=== PATIENT | male | born 1935 | race Caucasian/White ===

== ENCOUNTER 2017-07-22 09:41 | Day surgery (SDC) | payer MEDICARE, OTHER ==
--- NOTE | 2017-07-16 20:49 | CR ---
DATE OF CONSULTATION: 07/16/2017 REFERRING PHYSICIAN: DR. Duggan. PROPOSED PROCEDURE: Cataract extractions. Dear Dr. Duggan. Thank you for asking me to see Mr. William Dupree in consultation prior to the left eye cataract extraction 07/22/2017, at [facility] ([facility]) Mr. Dupree is, as you know, a 81-year-old gentleman with past medical history of dementia, hyperlipidemia, who reports that he has been in his usual state of good health. accompanies him with history taking. His memory is poor. He no longer does activities he enjoys such as stained glass, playing musical instruments, taking photos. He now enjoys sitting in his armchair watching TV most of the time. The patient does not disagree with this. The patient does walk in the mall with his . He denies any chest pain, palpitations, syncope or pre-syncope. He goes up and down stairs and has very little arthritic symptoms. Patient has history of seasonal allergies. They have been controlled without monophasic therapy. The patient notes multiple lesions on his back which have been felt to be benign and not pursued. He denies any significant change. Patient has history of hyperlipidemia. He takes herbal regimens for this. The patient denies any significant vision decline. He has been told that he has bilateral cataracts. Review of systems otherwise negative. PAST MEDICAL HISTORY: 1. Dementia 2. Hyperlipidemia. 3. Colonic polyps. Last colonoscopy 08/31/2013. 4. Bilateral hernia repairs 5. Hydrocele 6. Varicocele. MEDICATIONS: Patient's medications are cholesterol reduction pill daily, Herbavision daily, Viactiv 500/40 daily, ginkgo biloba daily, B complex daily, supplement daily. ALLERGIES: The patient's drug allergies are to SULFA. SOCIAL HISTORY: The patient lives with his . Used to enjoy gardening, stained glass, instruments. He is a former smoker but only a half-a-pack for five years. He never used alcohol significantly. FAMILY HISTORY: Father of congestive heart failure (CHF). Mother of old age. PHYSICAL EXAMINATION He is a thin, older male. He is slow to respond to my questioning. Appears slightly stiff and uncomfortable but in no acute distress. His vital signs are weight 185, blood pressure 122/80 heart rate 64, oxygen saturation is 96%, and body mass index (BMI) is 24. HEENT exam: Head is normocephalic. Neck is supple. Pupils equal, reactive to light. Extraocular movements are intact. There is no cervical lymphadenopathy, no thyromegaly, no carotid bruits. RESPIRATORY: He has diffuse seborrheic keratosis on his back, but his lungs are clear to auscultation, resonant to percussion. CARDIOVASCULAR: Barely audible systolic murmur, but bradycardic and regular. ABDOMEN: Normoactive bowel sounds, soft, nontender. No hepatosplenomegaly. EXTREMITIES: No arthritic changes in his fingers. DERMATOLOGIC: As above, multiple seborrheic keratoses. NEUROLOGIC: He does not participate much in conversation. His answers most questions for him. LABORATORY DATA EKG 07/15/2017: Normal sinus rhythm rate of 64, axis of minus 22 degrees. First-degree AV block, normal QRS, QTC. Normal R-wave progression, nonspecific ST-T wave flattening, unchanged from previous EKG. Laboratories done 07/24/2016, showed a normal CBC, med profile, liver panel, TSH, B12, folic acid. IMPRESSION: Mr. William Dupree is a 81-year-old gentleman with cardiovascular risk factors positive only for age, who has no signs or symptoms concerning for cardiovascular ischemia and is felt to be at low risk for cardiovascular complications from the proposed surgical intervention which can be further minimized by the followin. Dementia. His has already put his gingko biloba on hold. He will not take any of his supplements on the morning of surgery. 2. Hyperlipidemia. He is successful with diet and exercise. He will hold the supplement on morning of surgery. 3. History of colonic polyps. He refuses for the eval treatment. 4. Allergic rhinitis clinically asymptomatic. Thank you very much for this consultation. Please call with questions or concerns.
[~2017-07-22] VITALS: Ht 185.4 cm; Wt 86.2 kg
[~2017-07-22 09:41] MED LIST: CHOLCAP PO; FISH120012 PO; GINK60CA3 PO; MIDAZOLAM INJ 2 MG/2 ML VIAL (J2250) As Ordered ONE; OFLOXACIN 0.3 % (OCUFLOX) OPTH SOL 5ML OS ONE; PHENYLEPHRINE 2.5% OPHTH SOL 2ML OS ONE; PROPARACAINE 0.5% OPHTH SOL 15ML OS ONE; TROPICAMIDE 1% OPHTH SOLN 2ML OS ONE; [UNRECOGNIZED DRUG - OTHER] PO; [UNRECOGNIZED DRUG - OTHER] PO; fentaNYL 100 MCG/2 ML INJECTION (J3010) As Ordered ONE
[2017-07-22] MEDS ORDERED: LR 1,000 ML IV SCH ×2 (10:00→12:00)
[2017-07-22] MEDS ORDERED: ACETYLCHOLINE OPHTH SOLN 1% 2ML (MIOCHOL-E) As Ordered ONE (11:10)
[2017-07-22] MEDS ORDERED: POVIDONE-IODINE 5% OPHTH PREP SOL 30ML As Ordered ONE (11:10)
[2017-07-22] MEDS ORDERED: BALANCED SALT IRRIGATION SOLUTION 500ML BAG (FOR OR EYE MACHINE) As Ordered ONE (11:10)
[2017-07-22] MEDS ORDERED: CEFUROXIME 1MG/0.1ML INTRACAMERAL INJ As Ordered ONE (11:11)
[2017-07-22] MEDS ORDERED: LIDOCAINE 0.75%/EPINEPHRINE 0.025% IN BSS 1ML SYR INTRACAMERAL (OR ONLY) As Ordered ONE (11:11)
[2017-07-22] MEDS ORDERED: DUOVISC (0.50ML VISCOAT/0.55ML PROVISC) OPHTH KIT As Ordered ONE (11:11)
[2017-07-22] MEDS ORDERED: TETRACAINE 0.5% OPHTH SOLN 4ML As Ordered ONE (11:13)
[2017-07-22 12:00] VITALS: BP 114/69
[2017-07-22] MEDS ORDERED: ACETAMINOPHEN TAB 650MG DOSE (2X325MG) PO PRN (12:00)
--- NOTE | 2017-07-23 15:08 | RO ---
DATE OF PROCEDURE: 07/22/2017 PREOPERATIVE DIAGNOSIS: Visually significant nuclear sclerotic cataract left eye. POSTOPERATIVE DIAGNOSIS: Visually significant nuclear sclerotic cataract left eye. PROCEDURE: Cataract extraction with use of phacoemulsification and placement of intraocular lens, AU00T0, 20.0 diopter, left eye. SURGEON: Zane Duggan DO AIRPORT OPERATIONS DUTY MANAGER: ANESTHESIA: Local with monitored anesthesia care (MAC). COMPLICATIONS: None. POSTOPERATIVE CONDITION: Stable. INDICATION FOR SURGERY: Blurred vision left eye affecting patient's activities of daily living. DESCRIPTION OF PROCEDURE: The patient was seen in the preoperative area and properly identified. The correct operative eye was identified and marked. Attention was turned to that eye. The patient received topical antibiotics in the preoperative area. The patient then received topical dilating drops consisting of tropicamide and phenylephrine. The patient was then transferred to the operating room. The correct side was re-identified. The patient received topical anesthetics and antibiotics on the surface of the eye. The eye was prepped and draped in a sterile fashion. The upper and lower eyelids were isolated with Tegaderm tape, and the lids were held open with an adjustable speculum. Using a sideport blade, a paracentesis incision was made. Intraocular preservative-free lidocaine was then injected into the anterior chamber. Viscoelastic was then injected into the anterior chamber through the paracentesis. Using a 2.4 mm sharp-tipped keratome, the anterior chamber was entered via a temporal clear corneal incision. A continuous curvilinear capsulorrhexis was created with the aid of a 26-gauge cystotome and Utrata forceps. Hydrodissection was performed with balanced salt solution (BSS) on a blunt cannula until the nucleus was freely mobile. The crystalline lens was phacoemulsified and aspirated. Additional cohesive viscoelastic was placed into the capsular bag to deepen it. An AU00T0, 20.0 diopters lens was placed into the capsular bag and confirmed by visualizing the continuous curvilinear capsulorrhexis. Additional irrigation and aspiration was used to remove cortical material and remaining viscoelastic. The clear corneal incision was hydrated with BSS on a blunt cannula. The lens was well positioned. The incisions were then tested for leaks and found to be negative. The eye was then palpated for appropriate pressure and adjusted accordingly with BSS. The eyelid speculum was carefully removed. A shield was placed. The patient tolerated the procedure well and was discharged to the recovery unit in a stable condition. MARCIA
== END 2017-07-22 12:14 | disposition home or self-care (01) ==
LOC: M SDC 09:41
PROVIDERS: ATTEND Ophthalmology
DX: H25.12 Age-related nuclear cataract, left eye (principal); E78.5 Hyperlipidemia, unspecified; Z88.2 Allergy status to sulfonamides; Z79.899 Other long term (current) drug therapy
CPT/HCPCS: 66984; J2250; J3010; V2632

== ENCOUNTER 2017-08-05 14:09 | Day surgery (SDC) | payer MEDICARE, OTHER ==
[~2017-08-05] VITALS: Ht 185.4 cm; Wt 84.8 kg
[~2017-08-05 14:09] MED LIST changes: +LR 500 ML IV ONE; -MIDAZOLAM INJ 2 MG/2 ML VIAL (J2250) As Ordered ONE; +OFLOXACIN 0.3 % (OCUFLOX) OPTH SOL 5ML OD ONE; -OFLOXACIN 0.3 % (OCUFLOX) OPTH SOL 5ML OS ONE; +PHENYLEPHRINE 2.5% OPHTH SOL 2ML OD ONE; -PHENYLEPHRINE 2.5% OPHTH SOL 2ML OS ONE; +PROPARACAINE 0.5% OPHTH SOL 15ML OD ONE; -PROPARACAINE 0.5% OPHTH SOL 15ML OS ONE; +TROPICAMIDE 1% OPHTH SOLN 2ML OD ONE; -TROPICAMIDE 1% OPHTH SOLN 2ML OS ONE; -fentaNYL 100 MCG/2 ML INJECTION (J3010) As Ordered ONE
[2017-08-05] MEDS ORDERED: POVIDONE-IODINE 5% OPHTH PREP SOL 30ML As Ordered ONE ×2 (15:41→15:54)
[2017-08-05] MEDS ORDERED: LIDOCAINE 0.75%/EPINEPHRINE 0.025% IN BSS 1ML SYR INTRACAMERAL (OR ONLY) As Ordered ONE ×2 (15:42→15:55)
[2017-08-05] MEDS ORDERED: ACETYLCHOLINE OPHTH SOLN 1% 2ML (MIOCHOL-E) As Ordered ONE (15:42)
[2017-08-05] MEDS ORDERED: BALANCED SALT IRRIGATION SOLUTION 500ML BAG (FOR OR EYE MACHINE) As Ordered ONE (15:42)
[2017-08-05] MEDS ORDERED: DUOVISC (0.50ML VISCOAT/0.55ML PROVISC) OPHTH KIT As Ordered ONE ×2 (15:42→15:55)
[2017-08-05] MEDS ORDERED: CEFUROXIME 1MG/0.1ML INTRACAMERAL INJ As Ordered ONE ×2 (15:42→15:55)
[2017-08-05] MEDS ORDERED: MIDAZOLAM INJ 2 MG/2 ML VIAL (J2250) As Ordered ONE (15:44)
[2017-08-05] MEDS ORDERED: fentaNYL 100 MCG/2 ML INJECTION (J3010) As Ordered ONE (16:08)
[2017-08-05 17:05] VITALS: BP 120/65
--- NOTE | 2017-08-12 08:05 | RO ---
DATE OF PROCEDURE: 08/05/2017 PREOPERATIVE DIAGNOSIS: Visually significant nuclear sclerotic cataract right eye. POSTOPERATIVE DIAGNOSIS: Visually significant nuclear sclerotic cataract right eye. PROCEDURE: Cataract extraction with use of phacoemulsification and placement of intraocular lens, AU00T0, 20.0, right eye. SURGEON: Zane Duggan DO BOARDMARKER: ANESTHESIA: Local with monitored anesthesia care (MAC). COMPLICATIONS: None. POSTOPERATIVE CONDITION: Stable. INDICATION FOR SURGERY: Blurred vision right eye affecting patient's activities of daily living. DESCRIPTION OF PROCEDURE: The patient was seen in the preoperative area and properly identified. The correct operative eye was identified and marked. Attention was turned to that eye. The patient received topical antibiotics in the preoperative area. The patient then received topical dilating drops consisting of tropicamide and phenylephrine. The patient was then transferred to the operating room. The correct side was re-identified. The patient received topical anesthetics and antibiotics on the surface of the eye. The eye was prepped and draped in a sterile fashion. The upper and lower eyelids were isolated with Tegaderm tape, and the lids were held open with an adjustable speculum. Using a sideport blade, a paracentesis incision was made. Intraocular preservative-free lidocaine was then injected into the anterior chamber. Viscoelastic was then injected into the anterior chamber through the paracentesis. Using a 2.4 mm sharp-tipped keratome, the anterior chamber was entered via a temporal clear corneal incision. A continuous curvilinear capsulorrhexis was created with the aid of a 26-gauge cystotome and Utrata forceps. Hydrodissection was performed with balanced salt solution (BSS) on a blunt cannula until the nucleus was freely mobile. The crystalline lens was phacoemulsified and aspirated. Additional cohesive viscoelastic was placed into the capsular bag to deepen it. A AU00T0, 20.0 D lens was placed into the capsular bag and confirmed by visualizing the continuous curvilinear capsulorrhexis. Additional irrigation and aspiration was used to remove cortical material and remaining viscoelastic. The clear corneal incision was hydrated with BSS on a blunt cannula. The lens was well positioned. The incisions were then tested for leaks and found to be negative. The eye was then palpated for appropriate pressure and adjusted accordingly with BSS. The eyelid speculum was carefully removed. A shield was placed. The patient tolerated the procedure well and was discharged to the recovery unit in a stable condition. MARCIA
--- NOTE | 2017-08-12 16:04 | RO ---
DATE OF PROCEDURE: 08/05/2017 PREOPERATIVE DIAGNOSIS: Visually significant nuclear sclerotic cataract right eye. POSTOPERATIVE DIAGNOSIS: Visually significant nuclear sclerotic cataract right eye. PROCEDURE: Cataract extraction with use of phacoemulsification and placement of intraocular lens AU00T0, 20.0, right eye. SURGEON: Zane Duggan DO CONFERENCE TRANSLATOR: ANESTHESIA: Local with monitored anesthesia care (MAC). COMPLICATIONS: None. POSTOPERATIVE CONDITION: Stable. INDICATION FOR SURGERY: Blurred vision right eye affecting patient's activities of daily living. DESCRIPTION OF PROCEDURE: The patient was seen in the preoperative area and properly identified. The correct operative eye was identified and marked. Attention was turned to that eye. The patient received topical antibiotics in the preoperative area. The patient then received topical dilating drops consisting of tropicamide and phenylephrine. The patient was then transferred to the operating room. The correct side was re-identified. The patient received topical anesthetics and antibiotics on the surface of the eye. The eye was prepped and draped in a sterile fashion. The upper and lower eyelids were isolated with Tegaderm tape, and the lids were held open with an adjustable speculum. Using a sideport blade, a paracentesis incision was made. Intraocular preservative-free lidocaine was then injected into the anterior chamber. Viscoelastic was then injected into the anterior chamber through the paracentesis. Using a 2.4 mm sharp-tipped keratome, the anterior chamber was entered via a temporal clear corneal incision. A continuous curvilinear capsulorrhexis was created with the aid of a 26-gauge cystotome and Utrata forceps. Hydrodissection was performed with balanced salt solution (BSS) on a blunt cannula until the nucleus was freely mobile. The crystalline lens was phacoemulsified and aspirated. Additional cohesive viscoelastic was placed into the capsular bag to deepen it. An AU00T0, 20.0 lens was placed into the capsular bag and confirmed by visualizing the continuous curvilinear capsulorrhexis. Additional irrigation and aspiration was used to remove cortical material and remaining viscoelastic. The clear corneal incision was hydrated with BSS on a blunt cannula. The lens was well positioned. The incisions were then tested for leaks and found to be negative. The eye was then palpated for appropriate pressure and adjusted accordingly with BSS. The eyelid speculum was carefully removed. TobraDex ointment was placed in the eye. An eye patch and shield were then secured over the eye. The patient tolerated the procedure well and was discharged to the recovery unit in a stable condition. MARCIA
== END 2017-08-05 17:14 | disposition home or self-care (01) ==
LOC: M SDC 14:09
PROVIDERS: ATTEND Ophthalmology
DX: H25.11 Age-related nuclear cataract, right eye (principal); E78.5 Hyperlipidemia, unspecified; R41.3 Other amnesia; Z88.2 Allergy status to sulfonamides
CPT/HCPCS: 66984; J2250; J3010; V2632

== ENCOUNTER 2018-08-10 11:22 | Emergency (ER) | payer MEDICARE, OTHER | END 2018-08-10 12:48 | disposition home or self-care (01) | LOC: M ED 11:22 | DX: S70.02XA Contusion of left hip, initial encounter (principal); W01.0XXA Fall on same level from slipping, tripping and stumbling without subsequent striking against object, initial encounter; Y92.009 Unspecified place in unspecified non-institutional (private) residence as the place of occurrence of the external cause; F03.90 Unspecified dementia, unspecified severity, without behavioral disturbance, psychotic disturbance, mood disturbance, and anxiety; Z88.2 Allergy status to sulfonamides | CPT/HCPCS: 73502 ==

== ENCOUNTER 2018-08-15 05:42 | Inpatient (IN) | payer MEDICARE, OTHER ==
[2018-08-15 07:15] LABS: BASO # 0.1 10^3/uL (0.0-0.2); BASO % 0.3 % (0.0-1.0); EOS # 0.1 10^3/uL (0.0-0.50); EOS % 0.6 % (0.0-3.0); HEMATOCRIT 45.6 % (42.0-52.0); HEMOGLOBIN 15.7 g/dl (13.5-17.5); IMMATURE GRANULOCYTE % 0.5 % (0-3.0); LYMPH # 2.2 10^3/uL (1.5-4.5); LYMPH % 13.5 % (24.0-44.0); MEAN CORPUSCULAR HEMOGLOBIN 31.8 pg (27.0-33.0); MEAN CORPUSCULAR HGB CONC 34.4 g/dl (32.0-36.5); MEAN CORPUSCULAR VOLUME 92.3 fl (80.0-96.0); MONO # 1.4 10^3/uL (0.0-0.8); MONO % 8.3 % (0.0-5.0); NEUTROPHILS # 12.4 10^3/uL (1.8-7.7); NEUTROPHILS % 76.8 % (36.0-66.0); PLATELET COUNT, AUTOMATED 233 10^3/uL (150-450); RED BLOOD COUNT 4.94 10^6/uL (4.30-6.10); RED CELL DISTRIBUTION WIDTH 12.1 % (11.5-14.5); WHITE BLOOD COUNT 16.2 10^3/uL (4.0-10.0)
[2018-08-15] MEDS: NS 1,000 ML IV ×3 (07:28→13:37)
[2018-08-15 07:40] LABS: ALBUMIN 3.7 GM/DL (3.2-5.2); ALBUMIN/GLOBULIN RATIO 1.06 (1.00-1.93); ALKALINE PHOSPHATASE 83 U/L (45-117); ALT/SGPT 23 U/L (12-78); ANION GAP 6 MEQ/L (8-16); AST/SGOT 29 U/L (7-37); BILIRUBIN,DIRECT 0.3 MG/DL (0.0-0.2); BILIRUBIN,TOTAL 1.6 MG/DL (0.2-1.0); BLOOD UREA NITROGEN 25 MG/DL (7-18); CALCIUM LEVEL 8.9 MG/DL (8.8-10.2); CARBON DIOXIDE LEVEL 27 MEQ/L (21-32); CHLORIDE LEVEL 106 MEQ/L (98-107); CREATININE FOR GFR 1.24 MG/DL (0.70-1.30); FREE THYROXINE INDEX 3.9 % (1.4-3.8); GLOMERULAR FILTRATION RATE 59.7 (>35); GLUCOSE, FASTING 104 MG/DL (70-100); POTASSIUM SERUM 4.3 MEQ/L (3.5-5.1); SODIUM LEVEL 139 MEQ/L (136-145); T UPTAKE 36 % (33-40); THYROXINE (T4) 10.8 UG/DL (4.5-12.0); TOTAL PROTEIN 7.2 GM/DL (6.4-8.2)
[2018-08-15 08:43] LABS: KETONE, URINE AUTO RFX NEGATIVE (NEGATIVE); LEUKOCYTE ESTERASE UR AUTO RFX NEGATIVE (NEGATIVE); MUCUS, URINE RFX SMALL (NEGATIVE); NITRITE, URINE AUTO RFX NEGATIVE (NEGATIVE); RBC, URINE AUTO RFX 30 /HPF (0-3); SPECIFIC GRAVITY UR AUTO RFX 1.027 (1.002-1.035); SQUAM EPITHELIAL CELL UR AURFX 0 /HPF (0-6); WBC, URINE AUTO RFX 0 /HPF (0-3)
[2018-08-15] MEDS: ENOXAPARIN 40 MG/0.4 ML SYRINGE (J1650) SC (09:00)
[2018-08-15] MEDS: CIPROFLOXACIN 500 MG TAB PO (09:25)
[2018-08-15] MEDS: metroNIDAZOLE (FLAGYL) 500 MG TAB PO (09:25)
[2018-08-15] MEDS: FLEET ENEMA PR (09:29)
[2018-08-15] MEDS ORDERED: ISOVUE-370 76% 100ML VIAL (Q9967) As Ordered (13:11)
[2018-08-15] MEDS ORDERED: LORazepam 2 MG/ML VIAL (J2060) As Ordered (15:22)
[2018-08-15] MEDS: LORazepam 2 MG/ML VIAL (J2060) IV (15:25)
[2018-08-16 06:36] LABS: HEMATOCRIT 41.8 % (42.0-52.0); HEMOGLOBIN 14.5 g/dl (13.5-17.5); MEAN CORPUSCULAR HEMOGLOBIN 32.3 pg (27.0-33.0); MEAN CORPUSCULAR HGB CONC 34.7 g/dl (32.0-36.5); MEAN CORPUSCULAR VOLUME 93.1 fl (80.0-96.0); PLATELET COUNT, AUTOMATED 201 10^3/uL (150-450); RED BLOOD COUNT 4.49 10^6/uL (4.30-6.10); WHITE BLOOD COUNT 17.5 10^3/uL (4.0-10.0)
[2018-08-16 06:50] LABS: ANION GAP 5 MEQ/L (8-16); BLOOD UREA NITROGEN 15 MG/DL (7-18); CALCIUM LEVEL 8.2 MG/DL (8.8-10.2); CARBON DIOXIDE LEVEL 27 MEQ/L (21-32); CHLORIDE LEVEL 106 MEQ/L (98-107); CREATININE FOR GFR 0.86 MG/DL (0.70-1.30); GLOMERULAR FILTRATION RATE > 60.0 (>35); GLUCOSE, FASTING 102 MG/DL (70-100); POTASSIUM SERUM 4.1 MEQ/L (3.5-5.1); SODIUM LEVEL 138 MEQ/L (136-145)
[2018-08-16] MEDS: SENOKOT S TAB PO ×2 (09:00→20:40)
[2018-08-16] MEDS: TAMSULOSIN 0.4 MG CAP PO (20:40)
[2018-08-16] MEDS: FINASTERIDE 5 MG TAB PO (20:40)
[2018-08-17 06:36] LABS: HEMATOCRIT 40.4 % (42.0-52.0); HEMOGLOBIN 14.1 g/dl (13.5-17.5); MEAN CORPUSCULAR HEMOGLOBIN 32.5 pg (27.0-33.0); MEAN CORPUSCULAR HGB CONC 34.9 g/dl (32.0-36.5); MEAN CORPUSCULAR VOLUME 93.1 fl (80.0-96.0); PLATELET COUNT, AUTOMATED 190 10^3/uL (150-450); RED BLOOD COUNT 4.34 10^6/uL (4.30-6.10); RED CELL DISTRIBUTION WIDTH 11.9 % (11.5-14.5); WHITE BLOOD COUNT 12.2 10^3/uL (4.0-10.0)
[2018-08-17 06:55] LABS: ANION GAP 5 MEQ/L (8-16); BLOOD UREA NITROGEN 14 MG/DL (7-18); CALCIUM LEVEL 8.7 MG/DL (8.8-10.2); CARBON DIOXIDE LEVEL 30 MEQ/L (21-32); CHLORIDE LEVEL 106 MEQ/L (98-107); CREATININE FOR GFR 0.89 MG/DL (0.70-1.30); GLOMERULAR FILTRATION RATE > 60.0 (>35); GLUCOSE, FASTING 93 MG/DL (70-100); MAGNESIUM LEVEL 2.3 MG/DL (1.8-2.4); POTASSIUM SERUM 3.9 MEQ/L (3.5-5.1); SODIUM LEVEL 141 MEQ/L (136-145)
[2018-08-17] MEDS: SENOKOT S TAB PO ×2 (09:40→20:35)
[2018-08-17] MEDS: FINASTERIDE 5 MG TAB PO (20:35)
[2018-08-17] MEDS: TAMSULOSIN 0.4 MG CAP PO (20:35)
[2018-08-18 06:31] LABS: HEMATOCRIT 38.3 % (42.0-52.0); HEMOGLOBIN 13.7 g/dl (13.5-17.5); MEAN CORPUSCULAR HEMOGLOBIN 32.2 pg (27.0-33.0); MEAN CORPUSCULAR HGB CONC 35.8 g/dl (32.0-36.5); MEAN CORPUSCULAR VOLUME 89.9 fl (80.0-96.0); PLATELET COUNT, AUTOMATED 216 10^3/uL (150-450); RED BLOOD COUNT 4.26 10^6/uL (4.30-6.10); RED CELL DISTRIBUTION WIDTH 11.9 % (11.5-14.5)
[2018-08-18 06:52] LABS: ANION GAP 6 MEQ/L (8-16); BLOOD UREA NITROGEN 12 MG/DL (7-18); CALCIUM LEVEL 8.8 MG/DL (8.8-10.2); CARBON DIOXIDE LEVEL 28 MEQ/L (21-32); CHLORIDE LEVEL 105 MEQ/L (98-107); CREATININE FOR GFR 0.99 MG/DL (0.70-1.30); GLOMERULAR FILTRATION RATE > 60.0 (>35); GLUCOSE, FASTING 100 MG/DL (70-100); MAGNESIUM LEVEL 2.2 MG/DL (1.8-2.4); SODIUM LEVEL 139 MEQ/L (136-145)
[2018-08-18] MEDS: SENOKOT S TAB PO ×2 (09:39→20:49)
[2018-08-18] MEDS: TAMSULOSIN 0.4 MG CAP PO (20:49)
[2018-08-18] MEDS: FINASTERIDE 5 MG TAB PO (20:49)
[2018-08-19 06:30] LABS: HEMATOCRIT 39.6 % (42.0-52.0); HEMOGLOBIN 13.9 g/dl (13.5-17.5); MEAN CORPUSCULAR HEMOGLOBIN 31.7 pg (27.0-33.0); MEAN CORPUSCULAR HGB CONC 35.1 g/dl (32.0-36.5); MEAN CORPUSCULAR VOLUME 90.4 fl (80.0-96.0); PLATELET COUNT, AUTOMATED 246 10^3/uL (150-450); RED BLOOD COUNT 4.38 10^6/uL (4.30-6.10); RED CELL DISTRIBUTION WIDTH 11.9 % (11.5-14.5); WHITE BLOOD COUNT 9.9 10^3/uL (4.0-10.0)
[2018-08-19 06:45] LABS: ANION GAP 4 MEQ/L (8-16); BLOOD UREA NITROGEN 9 MG/DL (7-18); CALCIUM LEVEL 8.8 MG/DL (8.8-10.2); CARBON DIOXIDE LEVEL 30 MEQ/L (21-32); CHLORIDE LEVEL 105 MEQ/L (98-107); CREATININE FOR GFR 1.02 MG/DL (0.70-1.30); GLOMERULAR FILTRATION RATE > 60.0 (>35); GLUCOSE, FASTING 99 MG/DL (70-100); MAGNESIUM LEVEL 2.2 MG/DL (1.8-2.4); POTASSIUM SERUM 4.1 MEQ/L (3.5-5.1); SODIUM LEVEL 139 MEQ/L (136-145)
[2018-08-19] MEDS: SENOKOT S TAB PO ×2 (12:34→20:08)
[2018-08-19] MEDS: FINASTERIDE 5 MG TAB PO (20:08)
[2018-08-19] MEDS: TAMSULOSIN 0.4 MG CAP PO (20:08)
[2018-08-20 06:20] LABS: HEMATOCRIT 40.2 % (42.0-52.0); HEMOGLOBIN 14.1 g/dl (13.5-17.5); MEAN CORPUSCULAR HEMOGLOBIN 31.8 pg (27.0-33.0); MEAN CORPUSCULAR HGB CONC 35.1 g/dl (32.0-36.5); MEAN CORPUSCULAR VOLUME 90.5 fl (80.0-96.0); PLATELET COUNT, AUTOMATED 253 10^3/uL (150-450); RED BLOOD COUNT 4.44 10^6/uL (4.30-6.10); RED CELL DISTRIBUTION WIDTH 11.9 % (11.5-14.5); WHITE BLOOD COUNT 9.8 10^3/uL (4.0-10.0)
[2018-08-20 06:40] LABS: ANION GAP 5 MEQ/L (8-16); BLOOD UREA NITROGEN 9 MG/DL (7-18); CALCIUM LEVEL 8.8 MG/DL (8.8-10.2); CARBON DIOXIDE LEVEL 29 MEQ/L (21-32); CHLORIDE LEVEL 105 MEQ/L (98-107); CREATININE FOR GFR 1.02 MG/DL (0.70-1.30); GLOMERULAR FILTRATION RATE > 60.0 (>35); GLUCOSE, FASTING 91 MG/DL (70-100); MAGNESIUM LEVEL 2.1 MG/DL (1.8-2.4); POTASSIUM SERUM 4.2 MEQ/L (3.5-5.1); SODIUM LEVEL 139 MEQ/L (136-145)
[2018-08-20] MEDS: SENOKOT S TAB PO ×2 (09:43→20:08)
[2018-08-20] MEDS: FINASTERIDE 5 MG TAB PO (20:08)
[2018-08-20] MEDS: TAMSULOSIN 0.4 MG CAP PO (20:08)
[2018-08-21 06:20] LABS: HEMATOCRIT 40.4 % (42.0-52.0); HEMOGLOBIN 14.4 g/dl (13.5-17.5); MEAN CORPUSCULAR HEMOGLOBIN 32.1 pg (27.0-33.0); MEAN CORPUSCULAR HGB CONC 35.6 g/dl (32.0-36.5); MEAN CORPUSCULAR VOLUME 90.2 fl (80.0-96.0); PLATELET COUNT, AUTOMATED 274 10^3/uL (150-450); RED BLOOD COUNT 4.48 10^6/uL (4.30-6.10); RED CELL DISTRIBUTION WIDTH 11.9 % (11.5-14.5)
[2018-08-21 06:44] LABS: ANION GAP 7 MEQ/L (8-16); BLOOD UREA NITROGEN 11 MG/DL (7-18); CALCIUM LEVEL 8.5 MG/DL (8.8-10.2); CARBON DIOXIDE LEVEL 27 MEQ/L (21-32); CHLORIDE LEVEL 105 MEQ/L (98-107); CREATININE FOR GFR 0.99 MG/DL (0.70-1.30); GLOMERULAR FILTRATION RATE > 60.0 (>35); GLUCOSE, FASTING 88 MG/DL (70-100); MAGNESIUM LEVEL 2.1 MG/DL (1.8-2.4); SODIUM LEVEL 139 MEQ/L (136-145)
[2018-08-21] MEDS: SENOKOT S TAB PO ×2 (09:19→20:34)
[2018-08-21] MEDS: FINASTERIDE 5 MG TAB PO (20:34)
[2018-08-21] MEDS: TAMSULOSIN 0.4 MG CAP PO (20:35)
[2018-08-22 06:47] LABS: HEMATOCRIT 43.1 % (42.0-52.0); HEMOGLOBIN 15.1 g/dl (13.5-17.5); MEAN CORPUSCULAR HEMOGLOBIN 32.3 pg (27.0-33.0); MEAN CORPUSCULAR VOLUME 92.1 fl (80.0-96.0); PLATELET COUNT, AUTOMATED 274 10^3/uL (150-450); RED BLOOD COUNT 4.68 10^6/uL (4.30-6.10); RED CELL DISTRIBUTION WIDTH 12.1 % (11.5-14.5); WHITE BLOOD COUNT 10.6 10^3/uL (4.0-10.0)
[2018-08-22 07:12] LABS: ANION GAP 6 MEQ/L (8-16); BLOOD UREA NITROGEN 11 MG/DL (7-18); CALCIUM LEVEL 8.9 MG/DL (8.8-10.2); CARBON DIOXIDE LEVEL 28 MEQ/L (21-32); CHLORIDE LEVEL 105 MEQ/L (98-107); CREATININE FOR GFR 1.05 MG/DL (0.70-1.30); GLOMERULAR FILTRATION RATE > 60.0 (>35); GLUCOSE, FASTING 91 MG/DL (70-100); MAGNESIUM LEVEL 2.2 MG/DL (1.8-2.4); POTASSIUM SERUM 4.5 MEQ/L (3.5-5.1); SODIUM LEVEL 139 MEQ/L (136-145)
[2018-08-22] MEDS: SENOKOT S TAB PO (09:04)
== END 2018-08-22 11:44 | disposition home health service (06) | DRG 948 ==
LOC: M ED 05:42 → M ED INP 13:37 → M MSPAV 16:20
DX: R53.81 Other malaise (principal); I10 Essential (primary) hypertension; K59.00 Constipation, unspecified; R33.9 Retention of urine, unspecified; E78.5 Hyperlipidemia, unspecified; F03.90 Unspecified dementia, unspecified severity, without behavioral disturbance, psychotic disturbance, mood disturbance, and anxiety; Z88.2 Allergy status to sulfonamides; Z79.899 Other long term (current) drug therapy

== ENCOUNTER → 2018-09-27 | Outpatient (REF) | payer MEDICARE, OTHER ==
[~2018-09-27] MED LIST changes: +ALFU10TA2 PO; +B COTAB3 PO; +CIPR250T3 PO; +FINA5TAB2 PO; +FLOM0.4C39 PO; -LR 500 ML IV ONE; +LUTEIN PO; +METR-201 PO; -OFLOXACIN 0.3 % (OCUFLOX) OPTH SOL 5ML OD ONE; +PEPT262S PO; -PHENYLEPHRINE 2.5% OPHTH SOL 2ML OD ONE; -PROPARACAINE 0.5% OPHTH SOL 15ML OD ONE; +SENN1TAB2 PO; +STOO100C PO; -TROPICAMIDE 1% OPHTH SOLN 2ML OD ONE; +TUMS500C PO; +TUMS750C5 PO; +[UNRECOGNIZED DRUG - OTHER] PO
== END ==
LOC: M SMT 13:07
PROVIDERS: ATTEND Nurse Practitioner Family
DX: R97.20 Elevated prostate specific antigen [PSA] (principal); Z79.899 Other long term (current) drug therapy
CPT/HCPCS: 51798; 87086; G0463

== ENCOUNTER 2019-04-14 11:50 | Emergency (ER) | payer MEDICARE, OTHER ==
[~2019-04-14 11:50] MED LIST changes: -ALFU10TA2 PO; +ALFU10TA3 PO; -METR-201 PO; +METR-265 PO; +MM S100C PO; +SENN-53 PO; -SENN1TAB2 PO; -STOO100C PO
--- NOTE | 2019-04-14 13:05 | REP ---
Clinical: Trauma. Technique: Frontal view of pelvis with neutral and frog lateral views of the left hip. Findings: Moderate arthritic degenerative changes through the pelvis and bilateral hips noted. No acute fracture or dislocation identified. Impression: Moderate arthritic degenerative changes. No acute fracture dislocation. Electronically Signed by Santos Mathis MD 04/14/2019 12:57 P
--- NOTE | 2019-04-14 13:32 | REP ---
Clinical: Trauma. Technique: Axial noncontrast images of the hip with coronal and sagittal re-formations. Findings: Moderate generalized osteoarthritic degenerative changes are appreciated. No acute fracture or dislocation. No effusion. Surrounding musculoskeletal structures are intact. Impression: Moderate arthritic changes. No acute fracture or dislocation. Electronically Signed by Santos Mathis MD 04/14/2019 01:23 P
[2019-04-14] MEDS ORDERED: ROLLMIS8 XX (13:38)
[2019-04-14 14:07] VITALS: BP 132/60
== END 2019-04-14 14:09 | disposition home or self-care (01) ==
LOC: M ED 11:50
DX: S70.02XA Contusion of left hip, initial encounter (principal); W19.XXXA Unspecified fall, initial encounter; Y92.098 Other place in other non-institutional residence as the place of occurrence of the external cause; M16.12 Unilateral primary osteoarthritis, left hip; I10 Essential (primary) hypertension; F03.90 Unspecified dementia, unspecified severity, without behavioral disturbance, psychotic disturbance, mood disturbance, and anxiety; E78.9 Disorder of lipoprotein metabolism, unspecified; Z88.2 Allergy status to sulfonamides; Z79.899 Other long term (current) drug therapy

== ENCOUNTER 2019-10-01 14:52 | Inpatient (IN) | payer MEDICARE, OTHER ==
[~2019-10-01] VITALS: Ht 182.9 cm; Wt 87.7 kg
[~2019-10-01 14:52] MED LIST changes: +ROLLMIS8 XX
[2019-10-01] MEDS ORDERED: MORPHINE 4 MG/ML 1ML VIAL/SYRINGE (J2270) IV ONE (15:15)
[2019-10-01 15:44] LABS: BASO % 0.3 % (0.0-1.0); EOS # 0.1 10^3/uL (0.0-0.5); EOS % 1.2 % (0.0-3.0); HEMATOCRIT 46.1 % (42.0-52.0); LYMPH # 3.1 10^3/uL (1.5-5.0); LYMPH % 25.8 % (24.0-44.0); MEAN CORPUSCULAR HEMOGLOBIN 32.1 pg (27.0-33.0); MEAN CORPUSCULAR HGB CONC 34.7 g/dl (32.0-36.5); MEAN CORPUSCULAR VOLUME 92.4 fl (80.0-96.0); MONO % 7.9 % (0.0-5.0); NEUTROPHILS # 7.8 10^3/uL (1.5-8.5); NEUTROPHILS % 64.5 % (36.0-66.0); PLATELET COUNT, AUTOMATED 210 10^3/uL (150-450); RED BLOOD COUNT 4.99 10^6/uL (4.30-6.10); WHITE BLOOD COUNT 12.1 10^3/uL (4.0-10.0)
[2019-10-01 16:05] LABS: BLOOD UREA NITROGEN 18 MG/DL (7-18); CALCIUM LEVEL 9.1 MG/DL (8.8-10.2); CARBON DIOXIDE LEVEL 27 MEQ/L (21-32); CHLORIDE LEVEL 108 MEQ/L (98-107); CREATININE FOR GFR 1.12 MG/DL (0.70-1.30); GLOMERULAR FILTRATION RATE > 60.0 (>35); GLUCOSE, FASTING 112 MG/DL (70-100); POTASSIUM SERUM 4.2 MEQ/L (3.5-5.1); SODIUM LEVEL 142 MEQ/L (136-145)
[2019-10-01] MEDS ORDERED: MULTCAP PO (16:50)
[2019-10-01] MEDS ORDERED: SENN-52 PO (16:50)
[2019-10-01] MEDS ORDERED: [UNRECOGNIZED DRUG - OTHER] PO (16:55)
[2019-10-01] MEDS ORDERED: SENOKOT S TAB PO PRN (17:00)
[2019-10-01] MEDS ORDERED: CALCIUM CARBONATE 500 MG CHEW U/D PO PRN (17:00)
[2019-10-01] MEDS ORDERED: MORPHINE 4 MG/ML 1ML VIAL/SYRINGE (J2270) IV PRN (17:00)
--- NOTE | 2019-10-01 17:29 | HPEPDOC ---
General Date of Admission Oct 01, 2019 at 16:55 Date of Service: Oct 01, 2019 Chief Complaint The patient is a 83-year-old male Who presented to the emergency room with left hip pain History of Present Illness Patient is an 83-year-old male with a PMHx of advanced dementia, and BPH who presented to the emergency room after he had fallen while loading groceries in his car. Patient was loading groceries in the trunk of his SUV at present, the trunk close button. Unfortunately, patient was struck by the closing trunk on his left shoulder and he subsequently fell on his left hip. Patient appears to be a poor historian, however, his is present at the bedside to provide additional details. Patient denies any head trauma or loss of consciousness. Patient immediately reported left hip pain and EMS was called and patient transported to the hospital. Currently patient denies any left hip pain after he has received morphine. . However, upon arrival, he did report pain of 8-10/10, constant aching. Patient denies any headache, nausea, vomiting, chest pain, shortness of breath, palpitations, abdominal pain, constipation, diarrhea, or urinary discomfort. Patient did not report any fevers or chills over the last few of days. Patient does not have a history of heart attacks or strokes. Patient reports that he generally ambulates. . He noted that prior to this. He is able to go up 2 flights of stairs but is limited because of leg weakness. Patient reports that his appetite is fairly normal and has not reported any significant change in his weight. Home Medications Scheduled Multivitamin (Multivitamins) 1 Each Capsule, 1 CAP PO DAILY, (Reported) [Lutein-Bliberry] 6MG-20MG CAP, 1 CAP PO DAILY, (Reported) NOON Scheduled PRN Calcium Carbonate (Tums) 500 Mg Chw, 500 MG PO for HEARTBURN/INDIGESTION, (Reported) Sennosides/Docusate Sodium (Senna Plus Tablet) 1 Each Tablet, 1 TAB PO BID PRN for CONSTIPATION, (Reported) Allergies Coded Allergies: Sulfa (Sulfonamide Antibiotics) (Verified Allergy, Mild, 04/14/19) Past Medical History Medical History Advanced dementia BPH Surgical History Abdominal hernia repair greater than 10 years ago Family History - Mother reported to have of old age at 94 - Father without any reported medical problems Social History - Denies the use of illicit drugs; patient quit smoking and drinking in his 20s - Denies recent travel or sick contacts - Lives with at [place] - 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; 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 Review of Systems Other systems 10 point review of systems complete, all negative otherwise stated in HPI Vital Signs - Vitals: BP 158/86, HR 93, RR 20, Sat 97%RA, Temp 98.3F - General: Lying in bed, No acute distress, Speaking in full sentences, Awake / Alert - HEENT: NC, AT, PERRLA, EOMI - CVS: RRR, +S1S2 - Lungs: Fair air entry bilaterally, No appreciable wheezing / rales / rhonchi - Abdomen: Soft, Non-distended, Non-tender - Extremities: No lower extremity edema, No calf tenderness, decreased ROM of left hip - Neuro: No focal motor or sensory deficit - Skin: No visible rashes Laboratory Data Labs 24H Laboratory Tests 2 10/01/19 15:14: Immature Granulocyte % (Auto) 0.3, Neutrophils (%) (Auto) 64.5, Lymphocytes (%) (Auto) 25.8, Monocytes (%) (Auto) 7.9H, Eosinophils (%) (Auto) 1.2, Basophils (%) (Auto) 0.3, Neutrophils # (Auto) 7.8, Lymphocytes # (Auto) 3.1, Monocytes # (Auto) 1.0H, Eosinophils # (Auto) 0.1, Basophils # (Auto) 0.0, Nucleated Red Bl ood Cells % (auto) 0.0, Anion Gap 7L, Glomerular Filtration Rate > 60.0, Calcium Level 9.1 CBC/BMP Laboratory Tests 10/01/19 15:14 Plan / VTE VTE Prophylaxis Ordered?: Yes Plan Plan Left hip pain - likely 2/2 - Patient had reported a mechanical fall while loading groceries earlier today - Had reported significant left hip pain - Physical with decreased range of motion secondary to pain. Left hip - XR hip/pelvis: L hip fracture - Additional imaging has been ordered by orthopedic surgery - Patient has been scheduled for OR tomorrow with Dr. Blue; will be on consultation - Will continue with pain control with morphine - Will keep nothing by mouth post-midnight and start IV fluids at that point - Patient is medically optimized for a minimally invasive surgery Leukocytosis - likely 2/2 reactive etiology - Review of systems does not indicate any signs of infection - Patient is afebrile and hemodynamically stable - Will hold off on antibiotics at this point Advanced dementia - Patient is taken care of by his BPH - Patient takes [id number] medications DVT prophylaxis - Will start TEDs/OLGA Kearney MD Oct 01, 2019 17:29
[2019-10-01 18:00] VITALS: BP 153/88
[2019-10-01 20:28] VITALS: BP 146/86
[2019-10-02] VITALS (8 sets, daily range): BP systolic 123–160; BP diastolic 74–91
[2019-10-02] MEDS: D5W/0.45% SODIUM CHLORIDE 1,000 ML IV SCH ×3 (00:33→23:49)
[2019-10-02] MEDS ORDERED: ceFAZolin SOD 2 GM in IV 1 EA IV SCH (06:15)
[2019-10-02 06:16] LABS: BASO % 0.2 % (0.0-1.0); EOS % 0.1 % (0.0-3.0); HEMATOCRIT 43.1 % (42.0-52.0); HEMOGLOBIN 14.8 g/dl (13.5-17.5); LYMPH # 2.4 10^3/uL (1.5-5.0); LYMPH % 13.5 % (24.0-44.0); MEAN CORPUSCULAR HEMOGLOBIN 32.3 pg (27.0-33.0); MEAN CORPUSCULAR HGB CONC 34.3 g/dl (32.0-36.5); MEAN CORPUSCULAR VOLUME 94.1 fl (80.0-96.0); MONO # 1.7 10^3/uL (0.0-0.8); MONO % 9.5 % (0.0-5.0); NEUTROPHILS # 13.3 10^3/uL (1.5-8.5); NEUTROPHILS % 76.2 % (36.0-66.0); PLATELET COUNT, AUTOMATED 179 10^3/uL (150-450); RED BLOOD COUNT 4.58 10^6/uL (4.30-6.10); WHITE BLOOD COUNT 17.4 10^3/uL (4.0-10.0)
[2019-10-02 06:49] LABS: BLOOD UREA NITROGEN 17 MG/DL (7-18); CALCIUM LEVEL 8.9 MG/DL (8.8-10.2); CARBON DIOXIDE LEVEL 26 MEQ/L (21-32); CHLORIDE LEVEL 105 MEQ/L (98-107); CREATININE FOR GFR 1.03 MG/DL (0.70-1.30); GLOMERULAR FILTRATION RATE > 60.0 (>35); GLUCOSE, FASTING 132 MG/DL (70-100); MAGNESIUM LEVEL 1.9 MG/DL (1.8-2.4); POTASSIUM SERUM 3.9 MEQ/L (3.5-5.1); SODIUM LEVEL 140 MEQ/L (136-145)
--- NOTE | 2019-10-02 07:55 | REP ---
Clinical: Trauma. Technique: AP and cross-table lateral views of the mid to distal femur. Findings: Visualized portions of the femur are intact without acute fracture or dislocation. Impression: No fracture identified to the visualized femur. Electronically Signed by Santos Mathis MD 10/02/2019 07:48 A
--- NOTE | 2019-10-02 08:06 | REP ---
Clinical: Femur fracture. Technique: AP and lateral views of the left knee. Findings: Generalized age-related changes are appreciated. No acute fracture or dislocation identified. Impression: No obvious acute knee fracture. Electronically Signed by Santos Mathis MD 10/02/2019 07:57 A
--- NOTE | 2019-10-02 08:31 | REP ---
REASON: Trauma. COMPARISON: 04/14/2019. Since the prior exam a comminuted proximal femoral fracture has developed. There is no hip joint dislocation or subluxation. The AP pelvis component of the exam shows no additional fractures of changes from the prior exam. IMPRESSION:Left hip fracture. Electronically Signed by Martinez Weaver DO 10/06/2019 04:30 P
--- NOTE | 2019-10-02 08:42 | REP ---
REASON: Trauma. The technique utilized in obtaining the radiograph has magnified the cardiac silhouette and accentuated the interstitial markings. FINDINGS: The superior mediastinal structures are midline. The cardiac silhouette is unremarkable in size, shape, and position. The diaphragmatic surfaces of the lungs are regular, and the costophrenic angles are clear. The pulmonary quarles are clear. The imaged osseous structures are intact. IMPRESSION: There is no acute cardiopulmonary disease. Electronically Signed by Martinez Weaver DO 10/06/2019 04:31 P
[2019-10-02] MEDS: MULTIVITAMINS/MINERALS THERAP 1 TAB PO SCH (09:00)
--- NOTE | 2019-10-02 09:00 | IPNPDOC ---
Text Note Date of Service The patient was seen on 10/02/19. NOTE Subjective: Patient is an 83-year-old male with a PMHx of advanced dementia, and BPH who presented to the emergency room after he had fallen while loading groceries in his car. Patient was loading groceries in the trunk of his SUV at present, the trunk close button. Unfortunately, patient was struck by the closing trunk on his left shoulder and he subsequently fell on his left hip. Patient appears to be a poor historian, however, his is present at the bedside to provide additional details. Patient denies any head trauma or loss of consciousness. Patient was admitted to hospitalist service for left hip fracture. Orthopedic surgery was called on consultation. Patient was seen and examined at the bedside. Patient reports that he has had an uneventful evening. Reports that his hip pain is under control. Denies nausea, vomiting, chest pain, shortness of breath, palpitations. I have advised the patient that he will be going to the operating room today for correction of his left hip. He responded that he is happy to hear that he's going to the OR [facility]'s artery scheduled for an appendectomy; which apparently is not the case. Objective: Vitals (See below) General: Lying in bed, no acute distress, comfortable, Awake / Alert HEENT: NC, AT CVS: RRR, +S1S2 Lungs: Fair air entry b/l, -w/r/r Abdomen: Soft, ND, NT Extremities: - Edema, - Calf tenderness Assessment and plan: Left hip pain - likely 2/2 mechanical fall - Patient had reported a mechanical fall while loading groceries earlier today and had severe left sided hip pain - This morning. Patient's hip pain is under control - Physical with decreased range of motion secondary to pain of the left hip - XR hip/pelvis: L comminuted proximal femoral fracture - Additional imaging has been ordered by orthopedic surgery - Patient has been scheduled for OR tomorrow with Dr. Blue; will be on consultation - Will continue with pain control with morphine - Will keep nothing by mouth post-midnight and start IV fluids at that point - Patient is medically optimized for a minimally invasive surgery Leukocytosis - likely 2/2 reactive etiology - Review of systems does not indicate any signs of infection - Patient is afebrile and hemodynamically stable - Will continue to hold off on antibiotics at this point Advanced dementia - Patient is taken care of by his BPH - Patient takes [id number]-[id number] medications DVT prophylaxis - c/w TEDs/Sequentials; anticoagulation post-op at the discretion of orthopedic surgery VS,Liangbone, I+O VS, Fishbone, I+O Laboratory Tests 10/01/19 15:14 10/02/19 05:57 Vital Signs Date Time Temp Pulse Resp B/P (MAP) Pulse Ox O2 Delivery O2 Flow Rate FiO2 10/02/19 06:27 97.7 105 18 142/91 (108) 95 Room Air I&O- Last 24 Hours up to 6 AM 10/02/19 06:00 Intake Total 270 ml Output Total 0 ml Balance 270 ml OLGA PULLIAM MD Oct 02, 2019 09:00
[2019-10-02] MEDS ORDERED: ONDANSETRON 4MG/2ML VIAL (J2405) As Ordered ONE (09:50)
[2019-10-02] MEDS ORDERED: LIDOCAINE 2% INJ 100 MG/5 ML SDV (FOR ANES.) As Ordered ONE (09:50)
[2019-10-02] MEDS ORDERED: PROPOFOL 200 MG/20 ML VIAL As Ordered ONE (09:50)
[2019-10-02] MEDS ORDERED: MIDAZOLAM INJ 2 MG/2 ML VIAL (J2250) As Ordered ONE (09:51)
[2019-10-02] MEDS ORDERED: fentaNYL 100 MCG/2 ML INJECTION (J3010) As Ordered ONE ×2 (09:51→13:32)
--- NOTE | 2019-10-02 11:12 | CR ---
DATE OF CONSULTATION: 10/01/2019 CHIEF COMPLAINT: Left foot pain. The patient presents today with a history of dementia and benign prostatic hypertrophy (BPH), who presents to the emergency room after having a fall while loading groceries in his car. He complains of 10/10 sharp pains in the left foot that is made worse with any sort of movement or weightbearing. It is improved with rest, immobilization, and pain medications. . Denies any numbness, tingling, fevers, chills, nausea, or vomiting. HOME MEDICATIONS: - just a multivitamin ALLERGIES: Are to [employer] DRUGS mild. PAST MEDICAL HISTORY: Of dementia, BPH. PAST SURGICAL HISTORY: Of abdominal repair. SOCIAL HISTORY: Denies any illicit drug use and quit smoking and drinking in his 20s. 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 Complete ten-system review is conducted. Pertinent positives and negatives in history of present illness (HPI). All other systems negative. PHYSICAL EXAMINATION: The patient is awake, alert, and oriented. Well dressed, appropriate affect. Breathing unlabored on room air. Normocephalic, atraumatic. Bilateral upper extremities: No tenderness to palpation. Full active range of motion of the shoulders, wrists, and elbows without any pain . Skin intact. Radial pulse 2+, regular rate. Sensation intact to light touch, superficial sensory branches of the radial nerve, median nerve, and ulnar nerve. Positive anterior interosseous nerve (AIN), posterior interosseous nerve (PIN), and ulnar motor nerve functions. Right lower extremity: No tenderness to palpation. Negative logroll. Positive extensor hallucis longus (EHL), flexor hallucis longus (FHL), tibialis, and gastroc motor function. Skin is intact. Posterior tibial pulses 2+, regular rate. Sensation intact to light touch, superficial, peroneal, deep peroneal, sural, saphenous, and fibular distributions. Left lower extremity: Positive logroll. No tenderness to palpation outside the groin and hip area. Positive EHL, FHL, tibialis, and gastroc motor function. Skin is intact. Posterior tibial pulses 2+, regular rate. Sensation intact to light touch, superficial, peroneal, deep peroneal, sural, saphenous, and fibular distributions. IMAGING: Reviewed. Left hip, femur, and knee reviewed demonstrating left reverse obliquity intertrochanteric hip fracture. DIAGNOSIS: Left reverse obliquity intertrochanteric hip fracture. I discussed with the patient that this is an unstable hip fracture. In order to improve his mobilization, we will need to do a left hip femur rodding. The patient expressed understanding and agreed with this plan. Consent was obtained. Will also obtain consent from the this afternoon in preoperative. In the meantime, the patient will be nothing by mouth, bedrest, and work on pain control. We appreciate medical admission and clearance. He will get 2 grams Ancef antibiotics preoperative.
[2019-10-02] MEDS ORDERED: ROCURONIUM BROMIDE 50 MG/5 ML VIAL As Ordered ONE (12:45)
[2019-10-02] MEDS ORDERED: ceFAZolin 2 GM/D5W 50 ML IV BAG (J0690 PER 500MG) As Ordered ONE (12:46)
[2019-10-02] MEDS ORDERED: dexameTHASONE 4 MG/ML 1ML VIAL (J1100) As Ordered ONE (13:07)
[2019-10-02] MEDS ORDERED: ACETAMINOPHEN 1000MG 100ML IV BTL (OFIRMEV) (J0131 PER 10MG) As Ordered ONE (13:09)
[2019-10-02] MEDS ORDERED: SUGAMMADEX SODIUM 500 MG/5 ML VIAL (BRIDION) As Ordered ONE (13:12)
[2019-10-02] MEDS ORDERED: PHENYLephrine HCL 500 MCG/5 ML (100MCG/ML) SYRINGE (J2370) As Ordered ONE (13:16)
[2019-10-02] MEDS ORDERED: ePHEDrine SULFATE 25 MG/5 ML(5MG/ML) SYRINGE As Ordered ONE (13:16)
--- NOTE | 2019-10-02 14:20 | REP ---
Clinical: Left hip fixation. Technique: Intraoperative fluoroscopic imaging. Findings: The she is status post intraoperative open reduction and fixation for up proximal left femur fracture. Satisfactory orthopedic hardware placement and alignment. Total fluoroscopic time 2 minutes 57 seconds. Impression: Status post satisfactory open reduction and fixation. Electronically Signed by Santos Mathis MD 10/02/2019 02:11 P
[2019-10-02] MEDS ORDERED: fentaNYL 100 MCG/2 ML INJECTION (J3010) IV PRN (14:30)
[2019-10-02] MEDS ORDERED: oxyCODONE 5MG TAB PO PRN (14:30)
[2019-10-02] MEDS ORDERED: LR 1,000 ML IV SCH (14:30)
[2019-10-02] MEDS ORDERED: ONDANSETRON 4MG/2ML VIAL (J2405) IV PRN (14:30)
--- NOTE | 2019-10-02 14:36 | RO ---
DATE OF PROCEDURE: 10/01/2019 PREPROCEDURE DIAGNOSIS: Left reverse obliquity intertrochanteric femur fracture. POSTPROCEDURE DIAGNOSIS: Left reverse obliquity intertrochanteric femur fracture. PROCEDURE: Left femur intramedullary rodding. SURGEON: Gómez Blue MD CRM SPECIALIST: None. ANESTHESIA: General. BLOOD LOSS: 150 mL. COMPLICATIONS: None. INDICATIONS: This is an 83-year-old male who suffers from dementia but is a community ambulator. He fell in his garage last night and suffered a left reverse obliquity intertrochanteric fracture. We discussed that in order to increase his mobilization and pain control, operative intervention, as otherwise he would be bed rest with significant pain with rolling and usage of the bathroom. The patient and expressed understanding and agree with this plan. We discussed the risks, benefits, including, but not limited to, infection, damage to surrounding structures, incomplete relief, and they wished to proceed. Preoperative antibiotics was 2 grams of Ancef. DESCRIPTION OF PROCEDURE: The patient was brought operating room and laid in the supine position and underwent general anesthesia, at which point the patient was transferred to the fracture table. Once the patient was secured on the fracture table, a time out was done confirming patient, site and side of surgery. We applied longitudinal traction, along with abduction to reduce the fracture. At this point, we were able to reduce the fracture in the lateral plane; however, in coronal the greater trochanter fracture was still in abduction, but improved with lateral pressure. Therefore, we prepped and draped the leg in the usual fashion. We then had a time out confirming site, side and surgery. Once all in agreement, I made a stab incision over the greater trochanter fragment. We used a ballpoint spike to reduce the fragment. We were happy with this. We then made a longitudinal incision proximal to the greater trochanter. Used the drill tipped guidewire to establish our starting point, confirmed in AP and lateral. We then used the entry reamer and sequentially reamed up to 12.5, measured a nail for 440 mm, at which point we inserted the nail and removed the guidewire, confirming fracture reduction throughout. We then removed the ball spike and inserted the PFN lag screw guide. We used the compression function to compress the fracture fragment of the greater trochanter to acceptable alignment, confirmed in AP and lateral. We then used a threaded guidewire to establish our Helical blade pass. We measured it to be 100 and inserted the helical blade. We locked it in place and we were quite happy with reduction at this time. We then removed traction as we had over distracted the fracture when this improved our alignment. We then used perfect [place] technique to lock the nail into static positioning in the [place] hole, along with the proximal static hole. We confirmed this in AP and lateral, along with hip fracture reduction and fixation. Once we were happy with this, we irrigated the wounds thoroughly, closed with 2-0 Vicryl and kirit, gauze and Tegaderm for dressing. The patient was awakened and taken to the postanesthesia care unit (PACU) in stable condition. POSTOPERATIVE PLAN: We will skip antibiotic prophylaxis. Weight bearing as tolerated and work on pain control. He will be out of bed with physical therapy (PT).
[2019-10-02] MEDS: ceFAZolin SOD 1 GM in D5W MINI-BAG PLUS 50 ML IV SCH (20:31)
[2019-10-02] MEDS: ACETAMINOPHEN TAB 650MG DOSE (2X325MG) PO PRN (23:42)
[2019-10-03] VITALS (8 sets, daily range): BP systolic 109–127; BP diastolic 58–76
[2019-10-03] MEDS: ceFAZolin SOD 1 GM in D5W MINI-BAG PLUS 50 ML IV SCH ×2 (05:42→12:52)
[2019-10-03] MEDS: ACETAMINOPHEN TAB 650MG DOSE (2X325MG) PO PRN (05:43)
[2019-10-03 07:01] LABS: BASO % 0.1 % (0.0-1.0); HEMATOCRIT 33.7 % (42.0-52.0); LYMPH # 2.1 10^3/uL (1.5-5.0); LYMPH % 10.4 % (24.0-44.0); MEAN CORPUSCULAR HEMOGLOBIN 32.4 pg (27.0-33.0); MEAN CORPUSCULAR HGB CONC 34.7 g/dl (32.0-36.5); MEAN CORPUSCULAR VOLUME 93.4 fl (80.0-96.0); MONO # 1.8 10^3/uL (0.0-0.8); MONO % 9.1 % (0.0-5.0); NEUTROPHILS # 16.2 10^3/uL (1.5-8.5); NEUTROPHILS % 79.8 % (36.0-66.0); PLATELET COUNT, AUTOMATED 163 10^3/uL (150-450); RED BLOOD COUNT 3.61 10^6/uL (4.30-6.10); WHITE BLOOD COUNT 20.3 10^3/uL (4.0-10.0)
[2019-10-03 07:13] LABS: BLOOD UREA NITROGEN 14 MG/DL (7-18); CALCIUM LEVEL 8.3 MG/DL (8.8-10.2); CARBON DIOXIDE LEVEL 28 MEQ/L (21-32); CHLORIDE LEVEL 107 MEQ/L (98-107); CREATININE FOR GFR 1.07 MG/DL (0.70-1.30); GLOMERULAR FILTRATION RATE > 60.0 (>35); GLUCOSE, FASTING 120 MG/DL (70-100); MAGNESIUM LEVEL 1.8 MG/DL (1.8-2.4); POTASSIUM SERUM 4.4 MEQ/L (3.5-5.1); SODIUM LEVEL 139 MEQ/L (136-145)
[2019-10-03 07:18] LABS: HEMOGLOBIN 11.7 g/dl (13.5-17.5)
[2019-10-03] MEDS: METOPROLOL TART 25 MG TABLET PO SCH ×3 (07:55→17:17)
[2019-10-03] MEDS: MULTIVITAMINS/MINERALS THERAP 1 TAB PO SCH (07:55)
--- NOTE | 2019-10-03 08:05 | ECGEPIP ---
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
--- NOTE | 2019-10-03 08:11 | REP ---
Clinical: Leukocytosis . Comparison: 10/01/2019 . Findings: The mediastinum and cardiac silhouette are stable and within normal limits for portable technique. The lung quarles are clear without acute consolidation, effusion, or pneumothorax. Very subtle linear fibroatelectatic changes in the left base are nonspecific. Skeletal structures are intact. Impression: No focal consolidation. Questionable linear plate-like atelectasis at the left base. Electronically Signed by Santos Mathis MD 10/03/2019 08:03 A
--- NOTE | 2019-10-03 08:24 | ECGEPIP ---
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
[2019-10-03] MEDS ORDERED: NS 1,000 ML IV SCH (09:00)
[2019-10-03] MEDS: MIRALAX *UNIT DOSE* 17GM PACKET PO SCH (09:40)
[2019-10-03] MEDS: PERCOCET 5MG/325MG TAB PO PRN ×3 (09:40→18:52)
--- NOTE | 2019-10-03 09:44 | IPN ---
DATE: 10/03/2019 CHIEF COMPLAINT: Postoperative day 1 left intertrochanteric hip fracture open reduction internal fixation. HISTORY OF PRESENT ILLNESS: This 83-year-old man underwent open reduction internal fixation of left hip fracture yesterday by Dr. Blue. He is doing well. He has baseline confusion. No concerns or complaints from him or the nursing staff, other than him wanting to get up to use the washroom. PHYSICAL EXAMINATION: Well-appearing 83-year-old man. He is alert to person, but not to place, however is alert relatively to time. He thinks that it is 2020. Vital signs are stable on room air. No chest pain, shortness of breath. Dressings were dry. Thigh compartment soft. He is able to wiggle his toes, dorsiflex, plantar flex feet on both sides. Normal sensation and good pedal pulses. Feet are warm and well-perfused. Laboratory examination reveals hemoglobin 11.7 down from 14.8. ASSESSMENT/PLAN This 83-year-old man is status post hip fracture, IM nailing. We will mobilize him, weightbearing as tolerated. Rivaroxaban 10 mg p.o. once daily for VTE prophylaxis. Discharge planning in conjunction with Florence olvera nurse practitioner.
--- NOTE | 2019-10-03 12:59 | IPNPDOC ---
Text Note Date of Service The patient was seen on 10/03/19. NOTE Subjective: Patient is an 83-year-old male with a PMHx of advanced dementia, and BPH who presented to the emergency room after he had fallen while loading groceries in his car. Patient was loading groceries in the trunk of his SUV at present, the trunk close button. Unfortunately, patient was struck by the closing trunk on his left shoulder and he subsequently fell on his left hip. Patient appears to be a poor historian, however, his is present at the bedside to provide additional details. Patient denies any head trauma or loss of consciousness. Patient was admitted to hospitalist service for left hip fracture. Orthopedic surgery was called on consultation. Patient was seen and examined at the bedside. Overnight, patient had periods of heart rate 160, but resorted back to normal rates of 80-90. EKG was acquired, however, did not catch periods when he was excessively tachycardic. Patient denied any chest pain, shortness of breath or palpitations and was sitting up comfortably in his bed. . He denies nausea, vomiting, abdominal pain, constipation or diarrhea. Patient has been eating his breakfast. Objective: Vitals (See below) General: Lying in bed, no acute distress, comfortable, Awake / Alert HEENT: NC, AT CVS: +S1S2, Appeared to be IrIr Lungs: Fair air entry b/l, no appreciable wheezing, rhonchi or rales Abdomen: Soft, nondistended, without tenderness Extremities: No evidence of lower extremity edema, - Calf tenderness Assessment and plan: Tachycardia - suspected to be 2/2 atrial fibrillation - Patient had episodes of heart rate reaching 160 and returning back to 80-90s in the early mornings of 10/03/19 - EKG was acquired. However, patient's heart rate had normalized at that time and revealed a normal sinus rhythm - Patient be transferred to progressive care unit for telemetry monitoring - Will check ECHO, Troponins, Lactic acid, CXR, UA, Blood cultures - Will start Metoprolol for rate control - c/w Anticoagulation with Xarelto Left hip pain - likely 2/2 mechanical fall - s/p Left femur intramedullary rodding on 10/02/19 (POD#1) - Patient had reported a mechanical fall while loading groceries on 10/01 and had severe left sided hip pain - Currently patient denies any pain - XR hip/pelvis: L comminuted proximal femoral fracture - Pain control, anticoagulation and physical therapy at the direction of orthopedic team - Dr. Blue, orthopedic surgery on consultation Leukocytosis - likely 2/2 reactive etiology - Review of systems does not indicate any signs of infection - Patient is afebrile and hemodynamically stable - UA without any signs of infection - CXR 10/03: No focal consolidation. Questionable linear plate-like atelectasis at the left base. - Will continue to hold off on antibiotics at this point Advanced dementia - Patient is taken care of by his BPH - Patient takes bzwu-kty-mhodrpg medications DVT prophylaxis - c/w TEDs/Sequentials; anticoagulation post-op at the discretion of orthopedic surgery Disposition: - Will ensure HR remains well controlled - c/w Telemetry monitoring VS,Fishbone, I+O VS, Fishbone, I+O Laboratory Tests 10/03/19 06:22 Vital Signs Date Time Temp Pulse Resp B/P (MAP) Pulse Ox O2 Delivery O2 Flow Rate FiO2 10/03/19 12:00 98.3 76 20 114/61 (78) 95 Room Air 10/02/19 14:10 8 I&O- Last 24 Hours up to 6 AM 10/03/19 06:00 Intake Total 1840 ml Output Total 600 ml Balance 1240 ml OLGA PULLIAM MD Oct 03, 2019 12:59
[2019-10-03 14:01] LABS: CK-MB VALUE MASS 5.2 NG/ML (<3.6); CPK CREATINE PHOSPHOKINASE 570 U/L (39-308); MB/CK RELATIVE INDEX 0.91 (< OR =4); TROPONIN I < 0.02 NG/ML (< 0.10)
[2019-10-03] MEDS: RIVAROXABAN 10 MG TAB (XARELTO) PO SCH (17:29)
[2019-10-03 19:58] LABS: CK-MB VALUE MASS 4.7 NG/ML (<3.6); CPK CREATINE PHOSPHOKINASE 542 U/L (39-308); MB/CK RELATIVE INDEX 0.87 (< OR =4); TROPONIN I < 0.02 NG/ML (< 0.10)
[2019-10-04] MEDS: METOPROLOL TART 25 MG TABLET PO SCH ×2 (00:06→06:00)
[2019-10-04 04:00] VITALS: BP 110/56
[2019-10-04 05:50] LABS: BASO % 0.3 % (0.0-1.0); EOS # 0.2 10^3/uL (0.0-0.5); EOS % 1.2 % (0.0-3.0); HEMATOCRIT 31.4 % (42.0-52.0); HEMOGLOBIN 10.6 g/dl (13.5-17.5); LYMPH # 2.8 10^3/uL (1.5-5.0); LYMPH % 17.5 % (24.0-44.0); MEAN CORPUSCULAR HEMOGLOBIN 32.3 pg (27.0-33.0); MEAN CORPUSCULAR HGB CONC 33.8 g/dl (32.0-36.5); MEAN CORPUSCULAR VOLUME 95.7 fl (80.0-96.0); MONO # 1.9 10^3/uL (0.0-0.8); MONO % 12.1 % (0.0-5.0); NEUTROPHILS # 10.9 10^3/uL (1.5-8.5); NEUTROPHILS % 68.5 % (36.0-66.0); PLATELET COUNT, AUTOMATED 157 10^3/uL (150-450); RED BLOOD COUNT 3.28 10^6/uL (4.30-6.10); WHITE BLOOD COUNT 15.9 10^3/uL (4.0-10.0)
[2019-10-04 06:12] LABS: BLOOD UREA NITROGEN 16 MG/DL (7-18); CALCIUM LEVEL 8.2 MG/DL (8.8-10.2); CARBON DIOXIDE LEVEL 27 MEQ/L (21-32); CHLORIDE LEVEL 107 MEQ/L (98-107); CREATININE FOR GFR 1.01 MG/DL (0.70-1.30); GLOMERULAR FILTRATION RATE > 60.0 (>35); GLUCOSE, FASTING 86 MG/DL (70-100); MAGNESIUM LEVEL 1.8 MG/DL (1.8-2.4); POTASSIUM SERUM 4.4 MEQ/L (3.5-5.1); SODIUM LEVEL 139 MEQ/L (136-145)
[2019-10-04 07:20] VITALS: BP 131/62
[2019-10-04] MEDS: PERCOCET 5MG/325MG TAB PO PRN ×2 (08:08→17:12)
--- NOTE | 2019-10-04 09:01 | IPNPDOC ---
Text Note Date of Service The patient was seen on 10/04/19. NOTE Subjective: Patient is an 83-year-old male with a PMHx of advanced dementia, and BPH who presented to the emergency room after he had fallen while loading groceries in his car. Patient was loading groceries in the trunk of his SUV at present, the trunk close button. Unfortunately, patient was struck by the closing trunk on his left shoulder and he subsequently fell on his left hip. Patient appears to be a poor historian, however, his is present at the bedside to provide additional details. Patient denies any head trauma or loss of consciousness. Patient was admitted to hospitalist service for left hip fracture. Orthopedic surgery was called on consultation. Patient was seen and examined at the bedside. Currently, patient reports that he does not express any chest pain, shortness of breath or palpitations. Overnight telemetry monitoring has not revealed any episodes of tachycardia. He denies nausea, vomiting, abdominal pain, constipation. Patient will be taken off bedrest today and will be working with physical therapy. Objective: Vitals (See below) General: Lying in bed, no acute distress, comfortable, Awake / Alert HEENT: NC, AT CVS: +S1S2 Lungs: Air entry is fair bilaterally without evidence of rhonchi, rales or wheezing Abdomen: Soft, no distention / no tenderness Extremities: LE are free of any edema, - Calf tenderness Assessment and plan: Tachycardia - etiology undetermined - Patient had episodes of heart rate reaching 160 and returning back to 80-90s in the early mornings of 10/03/19 - EKG was acquired. However, patient's heart rate had normalized at that time and revealed a normal sinus rhythm - Patient be transferred to progressive care unit for telemetry monitoring - Thyroid function pending - Troponins x 2 negative - Lactic acid - normalized, UA without any evidence of infection, Blood cultures 10/03: Negative at 24 hours - CXR 10/03: No focal consolidation. Questionable linear plate-like atelectasis at the left base. - ECHO complete; report pending - Will start Metoprolol succinate; Will DC Metoprolol for rate control - c/w Anticoagulation with Xarelto Left hip pain - likely 2/2 mechanical fall - s/p Left femur intramedullary rodding on 10/02/19 (POD#1) - Patient had reported a mechanical fall while loading groceries on 10/01 and had severe left sided hip pain - Currently patient denies any pain - XR hip/pelvis: L comminuted proximal femoral fracture - Pain control, anticoagulation and physical therapy at the direction of orthopedic team - Dr. Blue, orthopedic surgery on consultation - Will start physical therapy again today; will take off bed rest Leukocytosis - likely 2/2 reactive etiology - Review of systems does not indicate any signs of infection - Patient is afebrile and hemodynamically stable - Has been improving - UA without any signs of infection - CXR 10/03: No focal consolidation. Questionable linear plate-like atelectasis at the left base. - Will continue to hold off on antibiotics at this point Advanced dementia - Patient is taken care of by his BPH - Patient takes sftj-wbp-tqzajcv medications DVT prophylaxis - Anticoagulation at the discretion of orthopedic surgery Disposition: - Will DC telemetry monitoring - Will restart PT VS,Fishbone, I+O VS, Fishbone, I+O Laboratory Tests 10/04/19 05:03 Vital Signs Date Time Temp Pulse Resp B/P (MAP) Pulse Ox O2 Delivery O2 Flow Rate FiO2 10/04/19 08:08 99.2 73 18 131/62 93 Room Air 8.0 I&O- Last 24 Hours up to 6 AM 10/04/19 05:59 Intake Total 1620 ml Output Total 350 ml Balance 1270 ml OLGA PULLIAM MD Oct 04, 2019 09:01
[2019-10-04] MEDS: MIRALAX *UNIT DOSE* 17GM PACKET PO SCH (09:24)
[2019-10-04] MEDS: MULTIVITAMINS/MINERALS THERAP 1 TAB PO SCH (09:24)
[2019-10-04] MEDS: METOPROLOL SUCC *XL* 25MG TAB (TopROL *XL*) PO SCH ×2 (09:24→21:00)
--- NOTE | 2019-10-04 09:47 | ECHO ---
DATE OF PROCEDURE:10/03/2019 REFERRING PHYSICIAN: Huseyin Aden MD INDICATION: Abnormal ECG. HEIGHT: 182 cm WEIGHT: 87 kg DIMENSIONS: IVS: 1.0 LV: 3.9 LVPW: 1.2 LA: 2.4 Aorta: 3.3 Mitral E wave velocity: 56, A-wave: 64 E prime septal: 7.5 E prime lateral: 10.9 FINDINGS The study is of fair technical quality with difficult visualization. The patient is in sinus rhythm. Left ventricle is normal size and grossly has normal systolic function. Unfortunately based on limited nature of images I cannot rule out subtle wall motion abnormalities. Right ventricle appears grossly normal based on limited views. Left atrium is normal size. Right atrium is probably normal size as well. Aortic valve appears normal for patient's age. There are adequate separation of three aortic cusps. Mitral valve also appears normal. Tricuspid and pulmonic valve also appear without significant abnormalities. No pericardial effusion is noted. Inferior vena cava was not seen. Aortic root is normal. Aortic arch was not well seen. Doppler interrogation reveals no aortic stenosis and trace insufficiency. There is competent mitral valve and maey-pi-lndzheqh tricuspid insufficiency. Calculated pulmonary artery pressure is in 30s assuming normal CVP. Pulmonic valve is functionally competent. Mitral inflow pattern and tissue Doppler imaging of mitral annulus reveal grade 1 diastolic dysfunction. CONCLUSIONS 1. Study is of fair technical quality. 2. Normal left ventricle (LV) size with preserved LV systolic function and grade 1 diastolic dysfunction. 3. No significant aortic, mitral and pulmonic valvular disease. 4. Kaif-sz-iiaqygbf tricuspid insufficiency. 5. Unable to estimate central venous pressure but probably mild pulmonary hypertension. COMMENT Subacute bacterial endocarditis (SBE) prophylaxis is not recommended.
--- NOTE | 2019-10-04 11:21 | ECGEPIP ---
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
[2019-10-04 12:49] LABS: FREE T4 1.17 NG/DL (0.76-1.46)
[2019-10-04 14:00] VITALS: BP 108/66
[2019-10-04] MEDS: RIVAROXABAN 10 MG TAB (XARELTO) PO SCH (17:11)
[2019-10-04 21:08] VITALS: BP 107/54
[2019-10-05 05:15] LABS: BASO % 0.3 % (0.0-1.0); EOS # 0.4 10^3/uL (0.0-0.5); EOS % 2.8 % (0.0-3.0); HEMATOCRIT 31.1 % (42.0-52.0); HEMOGLOBIN 10.8 g/dl (13.5-17.5); LYMPH % 20.2 % (24.0-44.0); MEAN CORPUSCULAR HEMOGLOBIN 32.4 pg (27.0-33.0); MEAN CORPUSCULAR HGB CONC 34.7 g/dl (32.0-36.5); MEAN CORPUSCULAR VOLUME 93.4 fl (80.0-96.0); MONO # 1.5 10^3/uL (0.0-0.8); MONO % 10.4 % (0.0-5.0); NEUTROPHILS # 9.6 10^3/uL (1.5-8.5); NEUTROPHILS % 65.8 % (36.0-66.0); PLATELET COUNT, AUTOMATED 177 10^3/uL (150-450); RED BLOOD COUNT 3.33 10^6/uL (4.30-6.10); WHITE BLOOD COUNT 14.6 10^3/uL (4.0-10.0)
[2019-10-05 05:34] LABS: BLOOD UREA NITROGEN 19 MG/DL (7-18); CALCIUM LEVEL 8.1 MG/DL (8.8-10.2); CARBON DIOXIDE LEVEL 29 MEQ/L (21-32); CHLORIDE LEVEL 105 MEQ/L (98-107); CREATININE FOR GFR 1.01 MG/DL (0.70-1.30); GLOMERULAR FILTRATION RATE > 60.0 (>35); GLUCOSE, FASTING 90 MG/DL (70-100); POTASSIUM SERUM 4.1 MEQ/L (3.5-5.1); SODIUM LEVEL 138 MEQ/L (136-145)
[2019-10-05 05:37] VITALS: BP 133/77
[2019-10-05] MEDS: MIRALAX *UNIT DOSE* 17GM PACKET PO SCH (08:33)
[2019-10-05] MEDS: MULTIVITAMINS/MINERALS THERAP 1 TAB PO SCH (08:33)
[2019-10-05] MEDS: PERCOCET 5MG/325MG TAB PO PRN (08:33)
[2019-10-05 08:34] VITALS: BP 133/77
[2019-10-05] MEDS: METOPROLOL SUCC *XL* 25MG TAB (TopROL *XL*) PO SCH (08:34)
--- NOTE | 2019-10-05 10:15 | DS.PDOC ---
Discharge Summary General Date of Admission Oct 01, 2019 at 16:55 Date of Discharge 10/05/2019 Discharge Summary PROCEDURES PERFORMED DURING STAY: Left femur intramedullary rodding on 10/02/19 ADMITTING DIAGNOSES / DISCHARGE DIAGNOSES: s/p Tachycardia - etiology undetermined Left hip pain - 2/2 Left reverse obliquity intertrochanteric femur fracture - likely 2/2 mechanical fall - s/p Left femur intramedullary rodding on 10/02/19 Leukocytosis - likely 2/2 reactive etiology Advanced dementia BPH DVT prophylaxis COMPLICATIONS/CHIEF COMPLAINT: Left hip pain HISTORY OF PRESENT ILLNESS: Patient is an 83-year-old male with a PMHx of advanced dementia, and BPH who presented to the emergency room after he had fallen while loading groceries in his car. Patient was loading groceries in the trunk of his SUV at present, the trunk close button. Unfortunately, patient was struck by the clos ing trunk on his left shoulder and he subsequently fell on his left hip. Patient appears to be a poor historian, however, his is present at the bedside to provide additional details. Patient denies any head trauma or loss of consciousness. Patient was admitted to hospitalist service for left hip fracture. Orthopedic surgery was called on consultation. HOSPITAL COURSE: s/p Tachycardia - etiology undetermined - Patient had episodes of heart rate reaching 160 and returning back to 80-90s in the early mornings of 10/03/19 - EKG was acquired; however patient's heart rate had normalized at that time and revealed a normal sinus rhythm - TSH / Free T4 noted - Troponins x 2 negative - Lactic acid - normalized, UA without any evidence of infection, Blood cultures 10/03: Negative at 24 hours - CXR 10/03: No focal consolidation. Questionable linear plate-like atelectasis at the left base. - ECHO 10/04: Normal LVF / EF, G1DD, Mitral / pulmonic valvular disease, mild- moderate tricuspid insufficiency - c/w Metoprolol succinate; s/p Metoprolol tartrate - May require outpatient cardiology follow up if symptoms persist Left hip pain - 2/2 Left reverse obliquity intertrochanteric femur fracture - likely 2/2 mechanical fall - s/p Left femur intramedullary rodding on 10/02/19 - Patient had reported a mechanical fall while loading groceries on 10/01 and had severe left sided hip pain - Currently patient denies any pain - XR hip/pelvis: L comminuted proximal femoral fracture - Pain control, anticoagulation and physical therapy at the direction of orthopedic team - Dr. Blue, orthopedic surgery on consultation - c/w physical therapy - will be transitioned to ARU for continue PT / OT Leukocytosis - likely 2/2 reactive etiology - Review of systems does not indicate any signs of infection - Patient is afebrile and hemodynamically stable - Continues to improve - UA without any signs of infection - CXR 10/03: No focal consolidation. Questionable linear plate-like atelectasis at the left base. - No antibiotics indicated at this point Advanced dementia - Patient is taken care of by his BPH - Patient takes [id number] medications DVT prophylaxis - Anticoagulation at the discretion of orthopedic surgery DISCHARGE MEDICATIONS: Please see below. ALLERGIES: Please see below. PHYSICAL EXAMINATION ON DISCHARGE: Vitals (See below) General: Lying in bed, no acute distress, comfortable, Awake / Alert HEENT: NC, AT CVS: +S1S2 Lungs: Fair b/l, without rhonchi / rales / wheezing Abdomen: Soft, abdomen is without distention / tenderness Extremities: No edema at LE, - Calf tenderness LABORATORY DATA: Please see below. ACTIVITY: [As tolerated]. DISCHARGE PLAN: Follow up with Wilver Herman and Orthopedic surgery upon discharge from ARU Follow up with Dr. Sanders upon transfer to ARU Remain compliant with treatment plan and medications Return to the ER if you experience any problems DISPOSITION: ARU DISCHARGE CONDITION: [Stable]. TIME SPENT ON DISCHARGE: 35 minutes Vital Signs/I&Os Vital Signs Date Time Temp Pulse Resp B/P (MAP) Pulse Ox O2 Delivery O2 Flow Rate FiO2 10/05/19 09:03 18 Room Air 10/05/19 08:34 84 133/77 10/05/19 05:37 97.8 96 10/04/19 08:38 8.0 I&O- Last 24 Hours up to 6 AM 10/05/19 06:00 Intake Total 820 ml Output Total 0 ml Balance 820 ml Laboratory Data Labs 24H Laboratory Tests 2 10/05/19 04:41: Immature Granulocyte % (Auto) 0.5, Neutrophils (%) (Auto) 65.8, Lymphocytes (%) (Auto) 20.2L, Monocytes (%) (Auto) 10.4H, Eosinophils (%) (Auto) 2.8, Basophils (%) (Auto) 0.3, Neutrophils # (Auto) 9.6H, Lymphocytes # (Auto) 3.0, Monocytes # (Auto) 1.5H, Eosinophils # (Auto) 0.4, Basophils # (Auto) 0.0, Nucleated Red Blood Cells % (auto) 0.0, Anion Gap 4L, Glomerular Filtration Rate > 60.0, Calcium Level 8.1L, Magnesium Level 2.0 CBC/BMP Laboratory Tests 10/05/19 04:41 Microbiology Microbiology 10/03/19 Blood Culture - Preliminary, Resulted No Growth after 48 hours. All Specime... 10/03/19 Blood Culture - Preliminary, Resulted No Growth after 48 hours. All Specime... Discharge Medications Scheduled Multivitamin (Multivitamins) 1 Each Capsule, 1 CAP PO DAILY, (Reported) [Lutein-Bliberry] 6MG-20MG CAP, 1 CAP PO DAILY, (Reported) NOON Scheduled PRN Calcium Carbonate (Tums) 500 Mg Chw, 500 MG PO for HEARTBURN/INDIGESTION, (Reported) Sennosides/Docusate Sodium (Senna Plus Tablet) 1 Each Tablet, 1 TAB PO BID PRN for CONSTIPATION, (Reported) Allergies Coded Allergies: Sulfa (Sulfonamide Antibiotics) (Verified Allergy, Mild, 04/14/19) OLGA PULLIAM MD Oct 05, 2019 10:15
[2019-10-05 14:11] VITALS: BP 117/55
[2019-10-05] MEDS ORDERED: XARE10TA PO (15:15)
[2019-10-05] MEDS ORDERED: PERCOCET PO (15:15)
[2019-10-05] MEDS ORDERED: PEG1POW PO (15:15)
[2019-10-05] MEDS ORDERED: METO1TAB32 PO (15:15)
[2019-10-06 11:31] LABS: TOTAL T3 105.3 NG/DL (60.0-181.0)
--- NOTE | 2019-10-06 11:43 | CR.PDOC ---
General Date of Consultation: Oct 06, 2019 Referring Provider: RADHA RAY MD Consultation REASON FOR CONSULTATION/CHIEF COMPLAINT: Medical management. HISTORY OF PRESENT ILLNESS: This is a 83 years old white male with past medical history of advanced dementia, BPH, he presented to ED with a fall and sustaining left hip fracture. He had a surgery done with the left femur intramedullary rodding on 10/02/2019 by orthopedic surgery. Patient was treated as an inpatient and once stabilized, he was sent to acute rehabilitation unit for physical therapy. Patient offers no complaints of chest pain, shortness of breath, nausea, vomiting, abdominal pain, diarrhea, etc.. ALLERGIES: Please see below. HOME MEDICATIONS: Please see below. PAST MEDICAL HISTORY: Past medical history of dementia and BPH PAST SURGICAL HISTORY: Abdominal hernia repair and a left hip intramedullary manas placement FAMILY HISTORY: No family history is available SOCIAL HISTORY: Patient quit smoking and drinking in his 20s, lives with his in the area. 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 Denies illicit drug use REVIEW OF SYSTEMS: CONSTITUTIONAL: No fever, lack chills. HEENT: No INR ear pain. CARDIOVASCULAR: Palpitation or chest pain. RESPIRATORY: , No shortness of breath. GENITOURINARY: no dysuria, frequency. MUSCULOSKELETAL: Mild pain at the left hip. GASTROINTESTINAL: , Nausea, vomiting, diarrhea. SKIN: No rash. NEUROLOGICAL: No motor or focal deficits. PSYCHIATRIC: No anxiety or depression. ENDOCRINE: None. HEMATOLOGIC/LYMPHATIC: None. ALLERGIC/IMMUNOLOGIC: None. PHYSICAL EXAMINATION: VITAL SIGNS: Please see below. GENERAL APPEARANCE: Within normal limits. HEENT: PERRLA. Extraocular muscles intact. RESPIRATORY: Clear to A&P. CARDIOVASCULAR: [S1, S2 and S2, regular Gastrointestina: Benign EXTREMITIES: No clubbing, cyanosis, edema. NEUROLOGICAL: . No focal motor sensory deficit. PSYCHIATRIC: Normal. LABORATORY DATA: Please see below. ASSESSMENT/PLAN: Patient is an 83-year-old male with a PMHx of advanced dementia, and BPH who presented to the emergency room after he had fallen while loading groceries in his car. Patient was loading groceries in the trunk of his SUV at present, the trunk close button. Pt, sustained left hip fracture which was fixed by orthopedic by placing left femur intramedullary manas on 10/02/2019. Patient has been sent to acute rehabilitation unit for physical therapy before discharge home Continue current pain management Physical therapy as per Dr. Sanders Patient was also found to be tachycardic while in the hospital for which the extensive workup was done but etiology still unknown EKG showed normal sinus rhythm. No EKG is daily to T changes, normal thyroid functions, normal troponins, normal chest x-ray ECHO 10/04: Normal LVF / EF, G1DD, Mitral / pulmonic valvular disease, mild- moderate tricuspid insufficiency Continue Metoprolol succinate; s/p Metoprolol tartrate May require outpatient cardiology follow up if symptoms persist Closely monitor patient's heart rate while he is in ARU Patient was also found to have reactive leukocytosis without any signs of infection Patient is afebrile and hemodynamically stable he continues to improve UA without any signs of infection CXR 10/03: No focal consolidation. Questionable linear plate-like atelectasis at the left base. No antibiotics indicated at this point Advanced dementia Patient is taken care of by his BPH Patient takes [id number] medications Thank you for calling this consult, Dr. Sanders and will gladly follow patient along with you while he is in acute rehabilitation unit Vital Signs/I&O Vital Signs Date Time Temp Pulse Resp B/P (MAP) Pulse Ox O2 Delivery O2 Flow Rate FiO2 10/05/19 14:11 99.4 85 18 117/55 (75) 95 Room Air 10/04/19 08:38 8.0 I&O- Last 24 Hours up to 6 AM 10/06/19 06:00 Intake Total 720 ml Output Total 100 ml Balance 620 ml Laboratory Data Microbiology Microbiology 10/03/19 Blood Culture - Preliminary, Resulted No Growth after 72 hours. All specime... 10/03/19 Blood Culture - Preliminary, Resulted No Growth after 72 hours. All specime... Allergies Coded Allergies: Sulfa (Sulfonamide Antibiotics) (Verified Allergy, Mild, 04/14/19) Home Medications Scheduled Metoprolol Succinate (Metoprolol Succinate) 25 Mg Tab.er.24h, 25 MG PO BID for 30 Days, #60 Multivitamin (Multivitamins) 1 Each Capsule, 1 CAP PO DAILY, (Reported) Polyethylene Glycol 3350 (Polyethylene Glycol 3350) 17 Gm Powd.pack, 1 PKT PO DAILY for 10 Days, #10 Rivaroxaban (Xarelto) 10 Mg Tablet, 10 MG PO DAILY@18 for 10 Days, #10 [Lutein-Bliberry] 6MG-20MG CAP, 1 CAP PO DAILY, (Reported) NOON Scheduled PRN Calcium Carbonate (Tums) 500 Mg Chw, 500 MG PO for HEARTBURN/INDIGESTION, (Reported) Oxycodone/Acetaminophen (Oxycodone-Acetaminophen 5-325) 1 Each Tablet, 1 TAB PO Q4HP PRN for MILD/MODERATE PAIN (PS 1-7) for 10 Days, #20 Oxycodone/Acetaminophen (Oxycodone-Acetaminophen 5-325) 1 Each Tablet, 2 TAB PO Q4HP PRN for SEVERE PAIN (PS 8-10) for 10 Days, #20 Sennosides/Docusate Sodium (Senna Plus Tablet) 1 Each Tablet, 1 TAB PO BID PRN for CONSTIPATION, (Reported) ELISSA PHILLIPS MD Oct 06, 2019 11:43
== END 2019-10-05 15:45 | DRG 482 ==
LOC: EDBD 14:52 → M ED 14:52 → M ED INP 16:55 → M MS5PR 17:35 → M PCU 10-03 08:24 → M MS5PR 10-04 10:53
PROVIDERS: ADMIT Internal Medicine; ATTEND Internal Medicine
PROC: 0QS904Z Reposition Left Femoral Shaft with Internal Fixation Device, Open Approach (ICD-10-PCS; principal; 2019-10-01)
DX: S72.142A Displaced intertrochanteric fracture of left femur, initial encounter for closed fracture (principal); F03.90 Unspecified dementia, unspecified severity, without behavioral disturbance, psychotic disturbance, mood disturbance, and anxiety; N40.0 Benign prostatic hyperplasia without lower urinary tract symptoms; W18.30XA Fall on same level, unspecified, initial encounter; Y92.009 Unspecified place in unspecified non-institutional (private) residence as the place of occurrence of the external cause; Z88.2 Allergy status to sulfonamides; D72.829 Elevated white blood cell count, unspecified; Z79.899 Other long term (current) drug therapy

== ENCOUNTER 2019-10-05 11:51 | Inpatient (IN) | payer MEDICARE, OTHER ==
[~2019-10-05] VITALS: Ht 185.4 cm; Wt 79.5 kg
[~2019-10-05 11:51] MED LIST changes: +MULTCAP PO; +SENN-52 PO; +[UNRECOGNIZED DRUG - OTHER] PO
[2019-10-05] MEDS ORDERED: oxyCODONE 5MG TAB PO PRN (15:00)
[2019-10-05] MEDS ORDERED: CALCIUM CARBONATE 500 MG CHEW U/D PO PRN (15:00)
[2019-10-05] MEDS ORDERED: METO1TAB32 PO (15:15)
[2019-10-05] MEDS ORDERED: XARE10TA PO (15:15)
[2019-10-05] MEDS ORDERED: PERCOCET PO (15:15)
[2019-10-05] MEDS ORDERED: PEG1POW PO (15:15)
--- NOTE | 2019-10-05 15:31 | HPEPDOC ---
Biochemistry Teacher Note DATE OF ADMISSION: 10-05-19 DATE OF SERVICE: 10-05-19 TIME OF ADMISSION: Please refer to physician's admission order. SOURCE OF ADMISSION INFORMATION: [facility] records and patient's CHIEF COMPLAINT: hip fracture HISTORY OF PRESENT ILLNESS: 83M pmh dementia, BPH who fell while loading groceries and was brought to [facility] with difficulty walking along with his who helped detail the story. Hip Xray revealed a left sided comminuted femoral fracture. He was evaluated by orthopedics who performed a left intramedullary rodding on 10-01-19 after which he was made WBAT and started on DVT prophylaxis. He was placed on telemetry for questionable atrial fibrillation, he was started on metoprolol for rate control and ECHO was performed showing grade 1 diastolic dysfunction. He was not noted to have Afib on telemetry and was recommended to have outpatient cardiology follow-up. He also had leukocytosis with CXR showing atelectasis, but no consolidation, UA was negative, and blood cultures were negative as well. He was evaluated by therapy, found to be well below his prior level of function in mobility and ADLs and deemed medically appropriate for discharge to ARU on 10-05-19. REVIEW OF SYSTEMS: The following is a completed review of systems and has been reviewed. Review of systems otherwise unremarkable. PAIN: Patient self reports left hip pain EYES: No recent vision changes EARS, NOSE, & THROAT: No throat pain, or dysphagia, or rhinorrhea CARDIOVASCULAR: Denies chest pain or palpitations PULMONARY: Denies shortness of breath GASTROINTESTINAL: Denies constipation/diarrhea GENITOURINARY: denies dysuria MUSCULOSKELETAL: left hip fracture NEUROLOGICAL:+dementia, +RUE tremor HEMATOLOGICAL:denies easy bruising SKIN: left hip incision PSYCHIATRIC: Unremarkable All other review of systems found to be negative. PAST MEDICAL HISTORY: as per HPI PAST SURGICAL HISTORY: Abdominal hernia repair ALLERGIES: Please see below. MEDICATIONS: Please see below. 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 GENERAL: Pleasant and cooperative. No acute distress. HEENT: PERRL. Extraocular movements intact. Clear conjunctiva, +masked faces CARDIOVASCULAR: Regular rate and rhythm. No murmurs, rubs, or gallops LUNGS: Clear to auscultation bilaterally. No wheezes. No rhonchi ABDOMEN: Soft, nontender, nondistended. Positive bowel sounds. Normal active bowel sounds NEUROLOGICAL: Alert and oriented times 2. Cranial nerves II through XII grossly intact. Sensation grossly intact in all 4 extremities +RUE tremor EXTREMITIES: 5\5 strength bilateral upper extremities. 5\5 strength right lower extremity. 5/5 strength in left ankle DF/EHL/PF (limited due to surgery) SKIN: left hip incision LABORATORY DATA: Please see below. IMAGING: Imaging documentation personally reviewed by record FUNCTIONAL STATUS: Premorbid: Supervision for some activities of daily life, independent with mobility with cane/RW On Admission: Mod-Assist assistance for bathing, upper body dressing, bed chair and wheelchair transfers, toilet transfers, ambulation. GOALS: Mod-I for ambulation household distances, functional transfers, toileting, stairs, and dressing, supervision for bathing, caregiver training, assess for DMEs, medical optimization ASSESSMENT:83-year-old M with past medical history of dementia and BPH who presents status post fall with left femur fracture PLAN: 1. Rehab- advance gait, fall recovery, optimize ADLs - strengthen/stretch/maintain ROM all 4 extremities -will consider SPLITTER HEAD for over-teaching in setting of dementia 2. Neuro: dementia- patient currently not on cholinergic, will discuss with and check TFTs and B12 for more up-to-date levels -monitor for delirium -monitor for parkinson gait features, patient with masked faces and RUE tremor, per he micheal over when he walks and has a shuffled gait 3. Ortho: s/p left hip IM-nailing in setting of femur fracture, WBAT, ortho consulted 4. cardiac: recent ECHO grade 1 diastolic CHF, will fluid restrict and weight daily -recent episodes of tachycardia started on metoprolol, will need outpatient cardiac work-up -medicine consulted to assist in management 5. GI ppx: protonix 6. DVT ppx: Xarelto 10mg and TEDs 7. Pain: Tylenol 1g TID and oxycodone prn 8. : hx BPH monitor PVRs 9. Leukocytosis: work-up negative on inpatient unit, likely still due to post-op inflammation 10. Dispo: TBD POST ADMISSION PHYSICIAN EVALUATION: Medical and functional status: Description of medical status, medical assessment: As above. Rehabilitation diagnosis and current and prior cold morbid medical conditions as above. Risk of complications and plans to mitigate them as above. Description of functional status current status is as above. Prior status as above. Status compared to preadmission: There are no clinically significant differences between the patient's current status and the information described on the preadmission screening document. Treatment plan anticipated: Treatment plan is as described above. Required disciplines including physical therapy, occupational therapy, others as noted above. Intensity of services: 3 hours a day, 6 days a week. Special considerations: There are no specific special or safety considerations that would likely preclude immediate implementation of an intensive rehabilitation program or subsequently influence the plan of care. ATTESTATION: Considering all the information above, it is my best judgment that this patient requires intensive rehabilitation therapy as described above and an inpatient hospital environment due to the complexity of nursing, medical, and rehabilitation needs required by the patient. Furthermore, this patient can reasonably be expected to participate in an benefit from an inpatient rehabilitation stay with an interdisciplinary team approach to the delivery of rehabilitation care under the direction and supervision of rehabilitation physician. PROGNOSIS: Excellent. ESTIMATED LENGTH OF STAY:21-24 days. PROJECTED DISCHARGE DESTINATION: Home with family support and any durable medical equipment required to increase functional safety and mobility. TIME SPENT COUNSELING AND COORDINATING INITIAL CARE: Greater than 70 minutes. Vital Signs Vital Signs Date Time Temp Pulse Resp B/P (MAP) Pulse Ox O2 Delivery O2 Flow Rate FiO2 10/05/19 16:00 99.5 87 18 135/63 (87) 100 Room Air Home Medications Scheduled Metoprolol Succinate (Metoprolol Succinate) 25 Mg Tab.er.24h, 25 MG PO BID Multivitamin (Multivitamins) 1 Each Capsule, 1 CAP PO DAILY, (Reported) Polyethylene Glycol 3350 (Polyethylene Glycol 3350) 17 Gm Powd.pack, 1 PKT PO DAILY Rivaroxaban (Xarelto) 10 Mg Tablet, 10 MG PO DAILY@18 [Lutein-Bliberry] 6MG-20MG CAP, 1 CAP PO DAILY, (Reported) NOON Scheduled PRN Calcium Carbonate (Tums) 500 Mg Chw, 500 MG PO for HEARTBURN/INDIGESTION, (Reported) Oxycodone/Acetaminophen (Oxycodone-Acetaminophen 5-325) 1 Each Tablet, 1 TAB PO Q4HP PRN for MILD/MODERATE PAIN (PS 1-7) Oxycodone/Acetaminophen (Oxycodone-Acetaminophen 5-325) 1 Each Tablet, 2 TAB PO Q4HP PRN for SEVERE PAIN (PS 8-10) Sennosides/Docusate Sodium (Senna Plus Tablet) 1 Each Tablet, 1 TAB PO BID PRN for CONSTIPATION, (Reported) Allergies Coded Allergies: Sulfa (Sulfonamide Antibiotics) (Verified Allergy, Mild, 04/14/19) A-FIB/CHADSVASC A-FIB History Current/History of A-Fib/PAF?: No RADHA RAY MD Oct 05, 2019 15:31
[2019-10-05 16:00] VITALS: BP 135/63
[2019-10-05] MEDS: ACETAMINOPHEN 500 MG TAB PO SCH ×2 (17:28→20:18)
[2019-10-05] MEDS: RIVAROXABAN 10 MG TAB (XARELTO) PO SCH (17:28)
[2019-10-05 20:00] VITALS: BP 143/69
[2019-10-05] MEDS: SENOKOT S TAB PO SCH (20:18)
[2019-10-05] MEDS: METOPROLOL SUCC *XL* 25MG TAB (TopROL *XL*) PO SCH (20:19)
[2019-10-06 06:00] VITALS: BP 154/81
[2019-10-06 07:30] LABS: BASO % 0.2 % (0.0-1.0); EOS # 0.2 10^3/uL (0.0-0.5); EOS % 1.3 % (0.0-3.0); HEMATOCRIT 34.3 % (42.0-52.0); LYMPH # 1.6 10^3/uL (1.5-5.0); LYMPH % 9.6 % (24.0-44.0); MEAN CORPUSCULAR HEMOGLOBIN 32.5 pg (27.0-33.0); MONO # 1.2 10^3/uL (0.0-0.8); MONO % 7.1 % (0.0-5.0); NEUTROPHILS # 13.9 10^3/uL (1.5-8.5); NEUTROPHILS % 81.2 % (36.0-66.0); PLATELET COUNT, AUTOMATED 249 10^3/uL (150-450); RED BLOOD COUNT 3.69 10^6/uL (4.30-6.10); WHITE BLOOD COUNT 17.1 10^3/uL (4.0-10.0)
[2019-10-06 08:04] LABS: ALBUMIN 2.8 GM/DL (3.2-5.2); ALT/SGPT 26 U/L (12-78); BILIRUBIN,TOTAL 1.2 MG/DL (0.2-1.0); BLOOD UREA NITROGEN 21 MG/DL (7-18); CALCIUM LEVEL 8.4 MG/DL (8.8-10.2); CARBON DIOXIDE LEVEL 26 MEQ/L (21-32); CHLORIDE LEVEL 105 MEQ/L (98-107); CREATININE FOR GFR 0.92 MG/DL (0.70-1.30); FREE T4 1.04 NG/DL (0.76-1.46); GLOMERULAR FILTRATION RATE > 60.0 (>35); GLUCOSE, FASTING 114 MG/DL (70-100); POTASSIUM SERUM 4.2 MEQ/L (3.5-5.1); SODIUM LEVEL 139 MEQ/L (136-145); TOTAL PROTEIN 6.1 GM/DL (6.4-8.2)
[2019-10-06] MEDS: PANTOPRAZOLE 40MG TAB (PROTONIX) PO SCH (08:11)
[2019-10-06] MEDS: SENOKOT S TAB PO SCH ×2 (08:11→20:54)
[2019-10-06] MEDS: ACETAMINOPHEN 500 MG TAB PO SCH ×3 (08:13→20:55)
[2019-10-06] MEDS: METOPROLOL SUCC *XL* 25MG TAB (TopROL *XL*) PO SCH ×2 (08:13→20:55)
[2019-10-06] MEDS: MULTIVITAMINS/MINERALS THERAP 1 TAB PO SCH (08:13)
[2019-10-06 09:24] LABS: C REACTIVE PROTEIN QUANTITATIV 7.24 MG/DL (0.00-0.30)
[2019-10-06 09:51] LABS: VITAMIN B12 LEVEL 307 PG/ML (247-911)
--- NOTE | 2019-10-06 11:11 | IPNPDOC ---
PM&R Progress Note DATE OF SERVICE: Oct 06, 2019 [employer] Progress Note Subjective: Patient reporting he has no pain this morning and has been able to walk. REVIEW OF SYSTEMS: The following is a completed review of systems and has been reviewed. Review of systems otherwise unremarkable. PAIN: Patient self reports left hip pain EYES: No recent vision changes EARS, NOSE, & THROAT: No throat pain, or dysphagia, or rhinorrhea CARDIOVASCULAR: Denies chest pain or palpitations PULMONARY: Denies shortness of breath GASTROINTESTINAL: Denies constipation/diarrhea GENITOURINARY: denies dysuria MUSCULOSKELETAL: left hip fracture NEUROLOGICAL:+dementia, +RUE tremor HEMATOLOGICAL:denies easy bruising SKIN: left hip incision PSYCHIATRIC: Unremarkable All other review of systems found to be negative. PHYSICAL EXAMINATION: VITAL SIGNS: Please see below. GENERAL: Pleasant and cooperative. No acute distress. HEENT: PERRL. Extraocular movements intact. Clear conjunctiva, +masked faces CARDIOVASCULAR: Regular rate and rhythm. No murmurs, rubs, or gallops LUNGS: Clear to auscultation bilaterally. No wheezes. No rhonchi ABDOMEN: Soft, nontender, nondistended. Positive bowel sounds. Normal active bowel sounds NEUROLOGICAL: Alert and oriented times 2. Cranial nerves II through XII grossly intact. Sensation grossly intact in all 4 extremities +RUE tremor> LUE EXTREMITIES: 5\5 strength bilateral upper extremities. 5\5 strength right lower extremity. 5/5 strength in left ankle DF/EHL/PF (limited due to surgery) SKIN: left hip incision ASSESSMENT:83-year-old M with past medical history of dementia and BPH who presents status post fall with left femur fracture PLAN: 1. Rehab- advance gait, fall recovery, optimize ADLs - strengthen/stretch/maintain ROM all 4 extremities -will consider WHITE LEAD GRINDER for over-teaching in setting of dementia 2. Neuro: dementia- patient currently not on cholinergic, discussed with and states he tried some medications in the past that did not work -TFTs wnl -B12 pending -monitor for delirium -monitor for parkinson gait features, patient with masked faces and RUE tremor, per he micheal over when he walks and has a shuffled gait 3. Ortho: s/p left hip IM-nailing in setting of femur fracture, WBAT, ortho consulted 4. cardiac: recent ECHO grade 1 diastolic CHF, will fluid restrict and weight daily -recent episodes of tachycardia started on metoprolol, will need outpatient cardiac work-up -medicine consulted to assist in management 5. GI ppx: protonix 6. DVT ppx: Xarelto 10mg and TEDs 7. Pain: Tylenol 1g TID and oxycodone prn 8. : hx BPH monitor PVRs 9. Leukocytosis: work-up negative on inpatient unit, likely still due to post-op inflammation- afebrile, will monitor 10. Dispo: TBD Allergies Coded Allergies: Sulfa (Sulfonamide Antibiotics) (Verified Allergy, Mild, 04/14/19) Vital Signs Vital Signs Date Time Temp Pulse Resp B/P (MAP) Pulse Ox O2 Delivery O2 Flow Rate FiO2 10/06/19 08:13 80 154/81 10/06/19 06:00 98.5 18 96 Room Air Laboratory Data CBC/BMP Laboratory Tests 10/06/19 07:07 Labs 24H Laboratory Tests 2 10/06/19 07:07: Immature Granulocyte % (Auto) 0.6, Neutrophils (%) (Auto) 81.2H, Lymphocytes (%) (Auto) 9.6L, Monocytes (%) (Auto) 7.1H, Eosinophils (%) (Auto) 1.3, Basophils (%) (Auto) 0.2, Neutrophils # (Auto) 13.9H, Lymphocytes # (Auto) 1.6, Monocytes # (Auto) 1.2H, Eosinophils # (Auto) 0.2, Basophils # (Auto) 0.0, Nucleated Red Blood Cells % (auto) 0.0, Anion Gap 8, Glomerular Filtration Rate > 60.0, Calcium Level 8.4L, Total Bilirubin 1.2H, Aspartate Amino Transf (AST/SGOT) 37, Alanine Aminotransferase (ALT/SGPT) 26, Alkaline Phosphatase 65, C-Reactive Protein, Quantitative 7.24H, Total Protein 6.1L, Albumin 2.8L, Albumin/Globulin Ratio 0.85L, Vitamin B12 Level 307, Thyroid Stimulating Hormone (TSH) 2.140, Free Thyroxine 1.04 Current Medications Current Medications Current Medications Medications (Trade) Dose Ordered Sig/Giovanna Route PRN Reason Start Time Stop Time Status Last Admin Dose Admin Acetaminophen (Tylenol Tab) 1,000 mg TID PO 10/05/19 16:00 10/06/19 08:13 Calcium Carbonate (Tums) 1,000 mg Q4HP PRN PO HEARTBURN 10/05/19 15:00 Magnesium Hydroxide (Milk Of Magnesia) 30 ml DAILYPRN PRN PO CONSTIPATION 10/05/19 15:00 Metoprolol Succinate (TopROL XL) 25 mg BID PO 10/05/19 21:00 10/06/19 08:13 Multivitamins (Theragram-M) 1 tab DAILY PO 10/06/19 09:00 10/06/19 08:13 Oxycodone HCl (Roxicodone, Oxyir) 5 mg Q4HP PRN PO PAIN 10/05/19 15:00 10/06/19 01:35 Pantoprazole Sodium (Protonix) 40 mg DAILY PO 10/06/19 09:00 10/06/19 08:11 Rivaroxaban (Xarelto) 10 mg DAILY@18 PO 10/05/19 18:00 11/09/19 23:55 10/05/19 17:28 Senna/Docusate Sodium (Senokot S) 1 tab BID PO 10/05/19 21:00 10/06/19 08:11 RADHA RAY MD Oct 06, 2019 11:11
[2019-10-06 14:00] VITALS: BP 166/89
[2019-10-06] MEDS: CYANOCOBALAMIN 500 MCG TAB PO SCH (17:56)
[2019-10-06] MEDS: RIVAROXABAN 10 MG TAB (XARELTO) PO SCH (17:56)
--- NOTE | 2019-10-06 18:11 | IPNPDOC ---
Date Seen The patient was seen on 10/06/19. Progress Note Called by nursing staff for acute rash developed in the past hour. Patient is evaluated shortly after, noticed diffuse rash in throughout back with several erythematous patches over left lower back. No elevation or pruritis, no discharge, no vesicles. Appear to be atopic dermatitis. Suspect may be due to allergy to wipes/detergent that is used while in hospital. Will give a small dose of benadryl and re- evaluate. Administer larger doses or repeated doses in conjunction with steroids if needed. VS, I&O, 24H, Fishbone Vital Signs/I&O Vital Signs Date Time Temp Pulse Resp B/P (MAP) Pulse Ox O2 Delivery O2 Flow Rate FiO2 10/06/19 14:00 98.3 87 18 166/89 (114) 94 Room Air I&O- Last 24 Hours up to 6 AM 10/06/19 06:00 Intake Total 300 ml Balance 300 ml Laboratory Data 24H LABS Laboratory Tests 2 10/06/19 07:07: Immature Granulocyte % (Auto) 0.6, Neutrophils (%) (Auto) 81.2H, Lymphocytes (%) (Auto) 9.6L, Monocytes (%) (Auto) 7.1H, Eosinophils (%) (Auto) 1.3, Basophils (%) (Auto) 0.2, Neutrophils # (Auto) 13.9H, Lymphocytes # (Auto) 1.6, Monocytes # (Auto) 1.2H, Eosinophils # (Auto) 0.2, Basophils # (Auto) 0.0, Nucleated Red Blood Cells % (auto) 0.0, Anion Gap 8, Glomerular Filtration Rate > 60.0, Calcium Level 8.4L, Total Bilirubin 1.2H, Aspartate Amino Transf (AST/SGOT) 37, Alanine Aminotransferase (ALT/SGPT) 26, Alkaline Phosphatase 65, C-Reactive Protein, Quantitative 7.24H, Total Protein 6.1L, Albumin 2.8L, Albumin/Globulin Ratio 0.85L, Vitamin B12 Level 307, Thyroid Stimulating Hormone (TSH) 2.140, Free Thyroxine 1.04 CBC/BMP Laboratory Tests 10/06/19 07:07 LEATHA ISABEL MD Oct 06, 2019 18:11
[2019-10-06] MEDS ORDERED: diphenhydrAMINE 25 MG CAP PO ONE ×2 (18:15→21:00)
[2019-10-06 20:00] VITALS: BP 118/67
[2019-10-07 06:00] VITALS: BP 132/65
--- NOTE | 2019-10-07 07:09 | CR.PDOC ---
General Date of Consultation: Oct 06, 2019 Referring Provider: RADHA RAY MD Consultation REASON FOR CONSULTATION/CHIEF COMPLAINT: Medical management. HISTORY OF PRESENT ILLNESS: This is a 83 years old white male with past medical history of advanced dementia, BPH, he presented to ED with a fall and sustaining left hip fracture. He had a surgery done with the left femur intramedullary rodding on 10/02/2019 by orthopedic surgery. Patient was treated as an inpatient and once stabilized, he was sent to acute rehabilitation unit for physical thera py. Patient offers no complaints of chest pain, shortness of breath, nausea, vomiting, abdominal pain, diarrhea. Note: Patient has advanced dementia, unable to obtained good medical history history was obtained from patient's old medical records and recent inpatient medical admission ALLERGIES: Please see below. HOME MEDICATIONS: Please see below. PAST MEDICAL HISTORY: Past medical history of dementia and BPH PAST SURGICAL HISTORY: Abdominal hernia repair and a left hip intramedullary manas placement FAMILY HISTORY: No family history is available SOCIAL HISTORY: Patient quit smoking and drinking in his 20s, lives with his in the area. 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 Denies illicit drug use REVIEW OF SYSTEMS: CONSTITUTIONAL: No fever, lack chills. HEENT: No INR ear pain. CARDIOVASCULAR: Palpitation or chest pain. RESPIRATORY: , No shortness of breath. GENITOURINARY: no dysuria, frequency. MUSCULOSKELETAL: Mild pain at the left hip. GASTROINTESTINAL: , Nausea, vomiting, diarrhea. SKIN: No rash. NEUROLOGICAL: No motor or focal deficits. PSYCHIATRIC: No anxiety or depression. ENDOCRINE: None. HEMATOLOGIC/LYMPHATIC: None. ALLERGIC/IMMUNOLOGIC: None. PHYSICAL EXAMINATION: VITAL SIGNS: Please see below. GENERAL APPEARANCE: Within normal limits. HEENT: PERRLA. Extraocular muscles intact. RESPIRATORY: Clear to A&P. CARDIOVASCULAR: [S1, S2 and S2, regular Gastrointestina: Benign EXTREMITIES: No clubbing, cyanosis, edema. NEUROLOGICAL: . No focal motor sensory deficit. PSYCHIATRIC: Normal. LABORATORY DATA: Please see below. ASSESSMENT/PLAN: Patient is an 83-year-old male with a PMHx of advanced dementia, and BPH who presented to the emergency room after he had fallen while loading groceries in his car. Patient was loading groceries in the trunk of his SUV at present, the trunk close button. Pt, sustained left hip fracture which was fixed by orthopedic by placing left fe mur intramedullary manas on 10/02/2019. Patient has been sent to acute rehabilitation unit for physical therapy before discharge home Continue current pain management Physical therapy as per Dr. Sanders Patient was also found to be tachycardic while in the hospital for which the extensive workup was done but etiology still unknown EKG showed normal sinus rhythm. No EKG is daily to T changes, normal thyroid functions, normal troponins, normal chest x-ray ECHO 10/04: Normal LVF / EF, G1DD, Mitral / pulmonic valvular disease, mild- moderate tricuspid insufficiency Continue Metoprolol succinate; s/p Metoprolol tartrate May require outpatient cardiology follow up if symptoms persist Closely monitor patient's heart rate while he is in ARU Patient was also found to have reactive leukocytosis without any signs of infection Patient is afebrile and hemodynamically stable UA without any signs of infection CXR 10/03: No focal consolidation. Questionable linear plate-like atelectasis at the left base. No antibiotics indicated at this point Will repeat CBC, CMP, UA and chest x-ray again to make sure that there is no evidence of any infection Advanced dementia Patient is taken care of by his BPH Patient takes [id number] medications Thank you for calling this consult, Dr. Sanders and will gladly follow patient along with you while he is in acute rehabilitation unit Vital Signs/I&O Vital Signs Date Time Temp Pulse Resp B/P (MAP) Pulse Ox O2 Delivery O2 Flow Rate FiO2 10/06/19 20:55 60 139/70 10/06/19 20:00 99.3 18 96 Room Air I&O- Last 24 Hours up to 6 AM 10/07/19 06:00 Intake Total 180 ml Output Total 0 ml Balance 180 ml Allergies Coded Allergies: Sulfa (Sulfonamide Antibiotics) (Verified Allergy, Mild, 04/14/19) Home Medications Scheduled Metoprolol Succinate (Metoprolol Succinate) 25 Mg Tab.er.24h, 25 MG PO BID for 30 Days, #60 Multivitamin (Multivitamins) 1 Each Capsule, 1 CAP PO DAILY, (Reported) Polyethylene Glycol 3350 (Polyethylene Glycol 3350) 17 Gm Powd.pack, 1 PKT PO DAILY for 10 Days, #10 Rivaroxaban (Xarelto) 10 Mg Tablet, 10 MG PO DAILY@18 for 10 Days, #10 [Lutein-Bliberry] 6MG-20MG CAP, 1 CAP PO DAILY, (Reported) NOON Scheduled PRN Calcium Carbonate (Tums) 500 Mg Chw, 500 MG PO for HEARTBURN/INDIGESTION, (Reported) Oxycodone/Acetaminophen (Oxycodone-Acetaminophen 5-325) 1 Each Tablet, 1 TAB PO Q4HP PRN for MILD/MODERATE PAIN (PS 1-7) for 10 Days, #20 Oxycodone/Acetaminophen (Oxycodone-Acetaminophen 5-325) 1 Each Tablet, 2 TAB PO Q4HP PRN for SEVERE PAIN (PS 8-10) for 10 Days, #20 Sennosides/Docusate Sodium (Senna Plus Tablet) 1 Each Tablet, 1 TAB PO BID PRN for CONSTIPATION, (Reported) ELISSA PHILLIPS MD Oct 07, 2019 07:09
[2019-10-07 07:35] LABS: BASO % 0.1 % (0.0-1.0); EOS # 0.4 10^3/uL (0.0-0.5); EOS % 2.4 % (0.0-3.0); HEMATOCRIT 33.2 % (42.0-52.0); HEMOGLOBIN 11.5 g/dl (13.5-17.5); LYMPH # 1.9 10^3/uL (1.5-5.0); LYMPH % 10.6 % (24.0-44.0); MEAN CORPUSCULAR HEMOGLOBIN 32.2 pg (27.0-33.0); MEAN CORPUSCULAR HGB CONC 34.6 g/dl (32.0-36.5); MONO # 1.4 10^3/uL (0.0-0.8); MONO % 7.9 % (0.0-5.0); NEUTROPHILS # 13.9 10^3/uL (1.5-8.5); NEUTROPHILS % 78.5 % (36.0-66.0); PLATELET COUNT, AUTOMATED 257 10^3/uL (150-450); RED BLOOD COUNT 3.57 10^6/uL (4.30-6.10); WHITE BLOOD COUNT 17.7 10^3/uL (4.0-10.0)
[2019-10-07 07:55] LABS: BLOOD UREA NITROGEN 24 MG/DL (7-18); C REACTIVE PROTEIN QUANTITATIV 7.28 MG/DL (0.00-0.30); CALCIUM LEVEL 8.8 MG/DL (8.8-10.2); CARBON DIOXIDE LEVEL 26 MEQ/L (21-32); CHLORIDE LEVEL 107 MEQ/L (98-107); CREATININE FOR GFR 0.88 MG/DL (0.70-1.30); GLOMERULAR FILTRATION RATE > 60.0 (>35); GLUCOSE, FASTING 98 MG/DL (70-100); SODIUM LEVEL 139 MEQ/L (136-145)
--- NOTE | 2019-10-07 08:01 | REP ---
Clinical: Leukocytosis . Comparison: 10/03/2019 . Findings: The mediastinum and cardiac silhouette are stable and within normal limits for portable technique. The lung quarles are clear without acute consolidation, effusion, or pneumothorax. Skeletal structures are intact. Impression: No focal consolidation. Electronically Signed by Santos Mathis MD 10/07/2019 07:52 A
[2019-10-07] MEDS: ACETAMINOPHEN 500 MG TAB PO SCH ×3 (09:00→20:14)
--- NOTE | 2019-10-07 09:21 | IPNPDOC ---
Subjective Date Seen The patient was seen on 10/07/19. Subjective Chief Complaint/HPI Patient seen and examined this morning. Offers no new complaints. Patient has advanced dementia, unable to obtained any detailed review of system General: Denies: ROS Unobtainable, Chills, Night Sweats, Fatigue, Malaise, N ormal Appetite, Other Symptoms Constitutional: Denies: Chills, Fever, Malaise, Night Sweats, Weakness, Fatigue, Weight Loss, Lethargy, Other Skin: Reports: Other Pulmonary: Denies: Dyspnea, Cough, Pleuritic Chest Pain, Other Symptoms Cardiovascular: Denies: Chest Pain, Palpitations, Orthopnea, Paroxysmal Noc. D yspnea, Edema, Lt Headedness, Other Symptoms Gastrointestinal: Denies: Nausea, Vomiting, Abdominal Pain, Diarrhea, Constipation, Melena, Hematochezia, Other Symptoms Musculoskeletal: Denies: Neck Pain, Back Pain, Shoulder Pain, Arm Pain, Hand Pain, Leg Pain, Foot Pain, Joint Pain, Muscle Pain, Spasms, Other Symptoms Neurological: Denies: Weakness, Numbness, Incoordination, Change in speech, Confusion, Seizures, Other Symptoms Objective Physical Examination General Exam: Positive: Alert, Cooperative Eye Exam: Positive: PERRLA, Conjunctiva & lids normal Chest Exam: Positive: Clear to auscultation, Normal air movement Heart Exam: Positive: Rate Normal, Normal S1, Normal S2 Abdomen Exam: Positive: Normal bowel sounds, Soft, Tenderness Extremity Exam: Positive: Normal pulses Skin Exam: Positive: Other skin issue (. Patient examined with RN [facility] the [facility]. No evidence of rash on the back , front. And all Extremities) Neuro Exam: Positive: Strength at 5/5 X4 ext, Cranial Nerves 3-12 NL Assessment /Plan Problems (1) Rash Status: Resolved Problem Text: Patient was examined last night by Dr. Salmeron was found to have possibly atopic dermatitis Patient received Benadryl with complete resolution of rash Clinical exam is essentially within normal limits. We'll continue monitoring the pt clinically and prescribe Benadryl when necessary (2) Fracture of left hip Status: Acute Problem Text: Physical therapy in progress Further intervention as per Dr. Sanders (3) JOSE RAUL (acute kidney injury) Status: Resolved Problem Text: Patient's BUN is 24, creatinine 0.88 Acute kidney injury has resolved Continue present meds (4) Dementia Status: Chronic Problem Text: Supportive care Continue present meds (5) Leukocytosis Status: Acute Problem Text: Patient was also found to have reactive leukocytosis without any signs of infection, most likely reactive in nature Patient is afebrile and hemodynamically stable Repeat WBC count is 17.7, Repeat UA is pending and repeat chest x-ray also has been ordered to rule out infectious cause for leukocytosis Repeat labs in a.m. Plan/VTE VTE Prophylaxis Ordered?: Yes VS, I&O, 24H, Fishbone Vital Signs/I&O Vital Signs Date Time Temp Pulse Resp B/P (MAP) Pulse Ox O2 Delivery O2 Flow Rate FiO2 10/07/19 06:00 98.7 74 18 132/65 (87) 96 Room Air I&O- Last 24 Hours up to 6 AM 10/07/19 05:59 Intake Total 240 ml Output Total 0 ml Balance 240 ml Laboratory Data 24H LABS Laboratory Tests 2 10/07/19 06:54: Immature Granulocyte % (Auto) 0.5, Neutrophils (%) (Auto) 78.5H, Lymphocytes (%) (Auto) 10.6L, Monocytes (%) (Auto) 7.9H, Eosinophils (%) (Auto) 2.4, Basophils (%) (Auto) 0.1, Neutrophils # (Auto) 13.9H, Lymphocytes # (Auto) 1.9, Monocytes # (Auto) 1.4H, Eosinophils # (Auto) 0.4, Basophils # (Auto) 0.0, Nucleated Red Blood Cells % (auto) 0.0, Anion Gap 6L, Glomerular Filtration Rate > 60.0, Calcium Level 8.8, C-Reactive Protein, Quantitative 7.28H CBC/BMP Laboratory Tests 10/07/19 06:54 ELISSA PHILLIPS MD Oct 07, 2019 09:21
[2019-10-07 14:00] VITALS: BP 143/77
[2019-10-07] MEDS: PANTOPRAZOLE 40MG TAB (PROTONIX) PO SCH (14:42)
[2019-10-07] MEDS: MULTIVITAMINS/MINERALS THERAP 1 TAB PO SCH (14:42)
[2019-10-07] MEDS: SENOKOT S TAB PO SCH ×2 (14:43→20:13)
[2019-10-07] MEDS: METOPROLOL SUCC *XL* 25MG TAB (TopROL *XL*) PO SCH ×2 (14:43→20:13)
[2019-10-07] MEDS: CYANOCOBALAMIN 500 MCG TAB PO SCH (14:43)
[2019-10-07] MEDS: RIVAROXABAN 10 MG TAB (XARELTO) PO SCH (18:12)
[2019-10-07 21:00] VITALS: BP 147/57
[2019-10-08 06:00] VITALS: BP 140/84
[2019-10-08 07:00] LABS: BASO % 0.2 % (0.0-1.0); EOS # 0.2 10^3/uL (0.0-0.5); EOS % 0.9 % (0.0-3.0); HEMATOCRIT 35.3 % (42.0-52.0); LYMPH # 1.6 10^3/uL (1.5-5.0); LYMPH % 8.4 % (24.0-44.0); MEAN CORPUSCULAR HEMOGLOBIN 32.5 pg (27.0-33.0); MEAN CORPUSCULAR VOLUME 95.7 fl (80.0-96.0); MONO # 1.6 10^3/uL (0.0-0.8); MONO % 8.2 % (0.0-5.0); NEUTROPHILS # 15.9 10^3/uL (1.5-8.5); NEUTROPHILS % 81.6 % (36.0-66.0); PLATELET COUNT, AUTOMATED 301 10^3/uL (150-450); RED BLOOD COUNT 3.69 10^6/uL (4.30-6.10); WHITE BLOOD COUNT 19.4 10^3/uL (4.0-10.0)
[2019-10-08] MEDS: SENOKOT S TAB PO SCH ×2 (09:10→21:21)
[2019-10-08] MEDS: MULTIVITAMINS/MINERALS THERAP 1 TAB PO SCH (09:11)
[2019-10-08] MEDS: PANTOPRAZOLE 40MG TAB (PROTONIX) PO SCH (09:11)
[2019-10-08] MEDS: ACETAMINOPHEN 500 MG TAB PO SCH ×3 (09:11→21:21)
[2019-10-08] MEDS: CYANOCOBALAMIN 500 MCG TAB PO SCH (09:11)
[2019-10-08] MEDS: METOPROLOL SUCC *XL* 25MG TAB (TopROL *XL*) PO SCH ×2 (09:11→21:22)
[2019-10-08 14:00] VITALS: BP 154/71
[2019-10-08] MEDS: RIVAROXABAN 10 MG TAB (XARELTO) PO SCH (17:26)
[2019-10-08 20:00] VITALS: BP 118/63
[2019-10-09] MEDS ORDERED: LIDOCAINE 2% JELLY 30 ML TOP ONE (02:15)
[2019-10-09] MEDS ORDERED: LIDOCAINE 2% 5ML JELLY UROJET XX ONE (02:30)
[2019-10-09 06:00] VITALS: BP 115/55
[2019-10-09] MEDS: MULTIVITAMINS/MINERALS THERAP 1 TAB PO SCH (10:04)
[2019-10-09] MEDS: CYANOCOBALAMIN 500 MCG TAB PO SCH (10:04)
[2019-10-09] MEDS: ACETAMINOPHEN 500 MG TAB PO SCH ×3 (10:04→20:42)
[2019-10-09] MEDS: PANTOPRAZOLE 40MG TAB (PROTONIX) PO SCH (10:05)
[2019-10-09] MEDS: SENOKOT S TAB PO SCH ×2 (10:05→20:41)
[2019-10-09] MEDS: METOPROLOL SUCC *XL* 25MG TAB (TopROL *XL*) PO SCH ×2 (10:05→20:42)
[2019-10-09 14:00] VITALS: BP 111/60
[2019-10-09] MEDS: RIVAROXABAN 10 MG TAB (XARELTO) PO SCH (16:58)
[2019-10-09 20:00] VITALS: BP 109/57
[2019-10-10] MEDS: LIDOCAINE 2% JELLY 6 ML SYRINGE TOP PRN (04:18)
[2019-10-10 05:39] VITALS: BP 122/61
[2019-10-10] MEDS: SENOKOT S TAB PO SCH ×2 (08:42→20:50)
[2019-10-10] MEDS: MULTIVITAMINS/MINERALS THERAP 1 TAB PO SCH (08:42)
[2019-10-10] MEDS: PANTOPRAZOLE 40MG TAB (PROTONIX) PO SCH (08:42)
[2019-10-10] MEDS: CYANOCOBALAMIN 500 MCG TAB PO SCH (08:43)
[2019-10-10] MEDS: ACETAMINOPHEN 500 MG TAB PO SCH ×3 (08:43→20:49)
[2019-10-10] MEDS: METOPROLOL SUCC *XL* 25MG TAB (TopROL *XL*) PO SCH ×2 (08:43→20:50)
[2019-10-10 14:00] VITALS: BP 109/53
[2019-10-10] MEDS: RIVAROXABAN 10 MG TAB (XARELTO) PO SCH (16:59)
[2019-10-10 20:00] VITALS: BP 114/69
[2019-10-11] MEDS: LIDOCAINE 2% JELLY 6 ML SYRINGE TOP PRN (05:36)
[2019-10-11 06:00] VITALS: BP 110/55
[2019-10-11] MEDS: MULTIVITAMINS/MINERALS THERAP 1 TAB PO SCH (08:32)
[2019-10-11] MEDS: PANTOPRAZOLE 40MG TAB (PROTONIX) PO SCH (08:32)
[2019-10-11] MEDS: SENOKOT S TAB PO SCH ×2 (08:32→20:26)
[2019-10-11] MEDS: CYANOCOBALAMIN 500 MCG TAB PO SCH (08:32)
[2019-10-11] MEDS: ACETAMINOPHEN 500 MG TAB PO SCH ×3 (08:33→20:26)
[2019-10-11] MEDS: METOPROLOL SUCC *XL* 25MG TAB (TopROL *XL*) PO SCH ×2 (08:33→20:23)
[2019-10-11 14:00] VITALS: BP 126/61
[2019-10-11] MEDS: RIVAROXABAN 10 MG TAB (XARELTO) PO SCH (17:29)
[2019-10-11] MEDS: LIDOCAINE 2% 5ML JELLY UROJET TOP PRN (18:24)
[2019-10-11 20:00] VITALS: BP 108/60
[2019-10-12] MEDS: LIDOCAINE 2% 5ML JELLY UROJET TOP PRN (03:58)
[2019-10-12 06:00] VITALS: BP 128/58
[2019-10-12] MEDS: ACETAMINOPHEN 500 MG TAB PO SCH ×3 (08:19→21:38)
[2019-10-12] MEDS: METOPROLOL SUCC *XL* 25MG TAB (TopROL *XL*) PO SCH ×2 (08:19→21:39)
[2019-10-12] MEDS: SENOKOT S TAB PO SCH ×2 (08:19→21:38)
[2019-10-12] MEDS: CYANOCOBALAMIN 500 MCG TAB PO SCH (08:19)
[2019-10-12] MEDS: PANTOPRAZOLE 40MG TAB (PROTONIX) PO SCH (08:19)
[2019-10-12] MEDS: MULTIVITAMINS/MINERALS THERAP 1 TAB PO SCH (08:20)
[2019-10-12] MEDS: LevoFLOXacin 750 MG TABLET PO SCH (09:12)
--- NOTE | 2019-10-12 11:29 | IPNPDOC ---
PM&R Progress Note DATE OF SERVICE: Oct 07, 2019 Producer Assistant Progress Note Subjective: Patient reporting he feels well today and is enjoying therapy. REVIEW OF SYSTEMS: The following is a completed review of systems and has been reviewed. Review of systems otherwise unremarkable. PAIN: Patient self reports left hip pain EYES: No recent vision changes EARS, NOSE, & THROAT: No throat pain, or dysphagia, or rhinorrhea CARDIOVASCULAR: Denies chest pain or palpitations PULMONARY: Denies shortness of breath GASTROINTESTINAL: Denies constipation/diarrhea GENITOURINARY: denies dysuria MUSCULOSKELETAL: left hip fracture NEUROLOGICAL:+dementia, +RUE tremor HEMATOLOGICAL:denies easy bruising SKIN: left hip incision PSYCHIATRIC: Unremarkable All other review of systems found to be negative. PHYSICAL EXAMINATION: VITAL SIGNS: Please see below. GENERAL: Pleasant and cooperative. No acute distress. HEENT: PERRL. Extraocular movements intact. Clear conjunctiva, +masked faces CARDIOVASCULAR: Regular rate and rhythm. No murmurs, rubs, or gallops LUNGS: Clear to auscultation bilaterally. No wheezes. No rhonchi ABDOMEN: Soft, nontender, nondistended. Positive bowel sounds. Normal active bowel sounds NEUROLOGICAL: Alert and oriented times 2. Cranial nerves II through XII grossly intact. Sensation grossly intact in all 4 extremities +RUE tremor> LUE EXTREMITIES: 5\5 strength bilateral upper extremities. 5\5 strength right lower extremity. 5/5 strength in left ankle DF/EHL/PF (limited due to surgery) SKIN: left hip incision ASSESSMENT:83-year-old M with past medical history of dementia and BPH who presents status post fall with left femur fracture PLAN: 1. Rehab- advance gait, fall recovery, optimize ADLs - strengthen/stretch/maintain ROM all 4 extremities -will consider BUSINESS DEVELOPMENT PROFESSIONAL for over-teaching in setting of dementia 2. Neuro: dementia- patient currently not on cholinergic, discussed with and states he tried some medications in the past that did not work -TFTs wnl -B12 WNL. however on lower end, will start supplement -monitor for delirium -monitor for parkinson gait features, patient with masked faces and RUE tremor, per he micheal over when he walks and has a shuffled gait 3. Ortho: s/p left hip IM-nailing in setting of femur fracture, WBAT, ortho consulted 4. cardiac: recent ECHO grade 1 diastolic CHF, will fluid restrict and weight da ron -recent episodes of tachycardia started on metoprolol, will need outpatient cardiac work-up -medicine consulted to assist in management 5. GI ppx: protonix 6. DVT ppx: Xarelto 10mg and TEDs 7. Pain: Tylenol 1g TID and oxycodone prn 8. : hx BPH monitor PVRs 9. Leukocytosis: work-up negative on inpatient unit, likely still due to post-op inflammation- afebrile, will monitor -patient denying dysuria 10. Dispo: TBD Allergies Coded Allergies: Sulfa (Sulfonamide Antibiotics) (Verified Allergy, Mild, 04/14/19) Vital Signs Vital Signs Date Time Temp Pulse Resp B/P (MAP) Pulse Ox O2 Delivery O2 Flow Rate FiO2 10/12/19 08:19 66 128/58 10/12/19 06:00 98.7 18 98 Room Air Microbiology Microbiology 10/10/19 Urine Culture - Final, Complete Klebsiella Pneumoniae Current Medications Current Medications Current Medications Medications (Trade) Dose Ordered Sig/Giovanna Route PRN Reason Start Time Stop Time Status Last Admin Dose Admin Acetaminophen (Tylenol Tab) 1,000 mg TID PO 10/05/19 16:00 10/12/19 08:19 Calcium Carbonate (Tums) 1,000 mg Q4HP PRN PO HEARTBURN 10/05/19 15:00 Cyanocobalamin (Vitamin B12) 1,000 mcg DAILY PO 10/06/19 09:00 10/12/19 08:19 Levofloxacin (Levaquin) 750 mg DAILY PO 10/12/19 09:00 10/18/19 09:01 10/12/19 09:12 Lidocaine HCl (Glydo 2% JELLY) 1 dose Q6H PRN TOP FOR EACH CATHETERIZATION 10/10/19 04:00 10/11/19 17:59 DC 10/11/19 05:36 Lidocaine HCl (Lidocaine 2% Urojet) FOR EACH CATHETERIZATION Q6H PRN TOP FOR EACH CATHETERIZATION 10/11/19 18:00 10/12/19 03:58 Magnesium Hydroxide (Milk Of Magnesia) 30 ml DAILYPRN PRN PO CONSTIPATION 10/05/19 15:00 Metoprolol Succinate (TopROL XL) 25 mg BID PO 10/05/19 21:00 1/2/20 08:19 Multivitamins (Theragram-M) 1 tab DAILY PO 10/06/19 09:00 10/12/19 08:20 Oxycodone HCl (Roxicodone, Oxyir) 5 mg Q4HP PRN PO PAIN 10/05/19 15:00 10/06/19 01:35 Pantoprazole Sodium (Protonix) 40 mg DAILY PO 10/06/19 09:00 10/12/19 08:19 Rivaroxaban (Xarelto) 10 mg DAILY@18 PO 10/05/19 18:00 11/09/19 23:55 10/11/19 17:29 Senna/Docusate Sodium (Senokot S) 1 tab BID PO 10/05/19 21:00 10/12/19 08:19 RADHA RAY MD Oct 12, 2019 11:29
--- NOTE | 2019-10-12 11:31 | IPNPDOC ---
PM&R Progress Note DATE OF SERVICE: Oct 12, 2019 Cinder Pit Crane Operator Progress Note Subjective: Patient seen in therapy working on transfers, still denies dysuria, but understands he has been started on antibiotics. REVIEW OF SYSTEMS: The following is a completed review of systems and has been reviewed. Review of systems otherwise unremarkable. PAIN: Patient self reports left hip pain EYES: No recent vision changes EARS, NOSE, & THROAT: No throat pain, or dysphagia, or rhinorrhea CARDIOVASCULAR: Denies chest pain or palpitations PULMONARY: Denies shortness of breath GASTROINTESTINAL: Denies constipation/diarrhea GENITOURINARY: denies dysuria MUSCULOSKELETAL: left hip fracture NEUROLOGICAL:+dementia, +RUE tremor HEMATOLOGICAL:denies easy bruising SKIN: left hip incision PSYCHIATRIC: Unremarkable All other review of systems found to be negative. PHYSICAL EXAMINATION: VITAL SIGNS: Please see below. GENERAL: Pleasant and cooperative. No acute distress. HEENT: PERRL. Extraocular movements intact. Clear conjunctiva, +masked faces CARDIOVASCULAR: Regular rate and rhythm. No murmurs, rubs, or gallops LUNGS: Clear to auscultation bilaterally. No wheezes. No rhonchi ABDOMEN: Soft, nontender, nondistended. Positive bowel sounds. Normal active bowel sounds NEUROLOGICAL: Alert and oriented times 2. Cranial nerves II through XII grossly intact. Sensation grossly intact in all 4 extremities +RUE tremor> LUE EXTREMITIES: 5\5 strength bilateral upper extremities. 5\5 strength right lower extremity. 5/5 strength in left ankle DF/EHL/PF (limited due to surgery) SKIN: left hip incision ASSESSMENT:83-year-old M with past medical history of dementia and BPH who presents status post fall with left femur fracture PLAN: 1. Rehab- advance gait, fall recovery, optimize ADLs- ambulating with RW - strengthen/stretch/maintain ROM all 4 extremities -will consider MONEY LAUNDERING INVESTIGATOR for over-teaching in setting of dementia 2. Neuro: dementia- patient currently not on cholinergic, discussed with and states he tried some medications in the past that did not work -TFTs wnl -B12 WNL however on lower end, will start supplement -monitor for delirium -monitor for parkinson gait features, patient with masked faces and RUE tremor, per he micheal over when he walks and has a shuffled gait 3. Ortho: s/p left hip IM-nailing in setting of femur fracture, WBAT, ortho consulted 4. cardiac: recent ECHO grade 1 diastolic CHF, will fluid restrict and weight daily -recent episodes of tachycardia started on metoprolol, will need outpatient cardiac work-up -medicine consulted to assist in management 5. GI ppx: protonix 6. DVT ppx: Xarelto 10mg and TEDs 7. Pain: Tylenol 1g TID and oxycodone prn 8. : hx BPH monitor PVRs 9. Leukocytosis: work-up negative on inpatient unit, likely still due to post-op inflammation- afebrile, will monitor -patient denying dysuria, however started on Levaquin for +Klebsiella Ucx 10. Dispo: 10-24-18 to home, progressing towards goals Allergies Coded Allergies: Sulfa (Sulfonamide Antibiotics) (Verified Allergy, Mild, 04/14/19) Vital Signs Vital Signs Date Time Temp Pulse Resp B/P (MAP) Pulse Ox O2 Delivery O2 Flow Rate FiO2 10/12/19 08:19 66 128/58 10/12/19 06:00 98.7 18 98 Room Air Microbiology Microbiology 10/10/19 Urine Culture - Final, Complete Klebsiella Pneumoniae Current Medications Current Medications Current Medications Medications (Trade) Dose Ordered Sig/Giovanna Route PRN Reason Start Time Stop Time Status Last Admin Dose Admin Acetaminophen (Tylenol Tab) 1,000 mg TID PO 10/05/19 16:00 10/12/19 08:19 Calcium Carbonate (Tums) 1,000 mg Q4HP PRN PO HEARTBURN 10/05/19 15:00 Cyanocobalamin (Vitamin B12) 1,000 mcg DAILY PO 10/06/19 09:00 10/12/19 08:19 Levofloxacin (Levaquin) 750 mg DAILY PO 10/12/19 09:00 10/18/19 09:01 10/12/19 09:12 Lidocaine HCl (Glydo 2% JELLY) 1 dose Q6H PRN TOP FOR EACH CATHETERIZATION 10/10/19 04:00 10/11/19 17:59 DC 10/11/19 05:36 Lidocaine HCl (Lidocaine 2% Urojet) FOR EACH CATHETERIZATION Q6H PRN TOP FOR EACH CATHETERIZATION 10/11/19 18:00 10/12/19 03:58 Magnesium Hydroxide (Milk Of Magnesia) 30 ml DAILYPRN PRN PO CONSTIPATION 10/05/19 15:00 Metoprolol Succinate (TopROL XL) 25 mg BID PO 10/05/19 21:00 10/12/19 08:19 Multivitamins (Theragram-M) 1 tab DAILY PO 10/06/19 09:00 10/12/19 08:20 Oxycodone HCl (Roxicodone, Oxyir) 5 mg Q4HP PRN PO PAIN 10/05/19 15:00 10/06/19 01:35 Pantoprazole Sodium (Protonix) 40 mg DAILY PO 10/06/19 09:00 10/12/19 08:19 Rivaroxaban (Xarelto) 10 mg DAILY@18 PO 10/05/19 18:00 11/09/19 23:55 10/11/19 17:29 Senna/Docusate Sodium (Senokot S) 1 tab BID PO 10/05/19 21:00 10/12/19 08:19 RADHA RAY MD Oct 12, 2019 11:30
[2019-10-12] MEDS: LACTOBACILLUS ACIDOPHILUS CAP (BACID) PO SCH ×3 (12:16→21:38)
[2019-10-12 14:00] VITALS: BP 120/62
[2019-10-12] MEDS: RIVAROXABAN 10 MG TAB (XARELTO) PO SCH (16:55)
--- NOTE | 2019-10-12 19:12 | IPNPDOC ---
Date Seen The patient was seen on 10/12/19. Progress Note SUBJECTIVE: 83 y.o male w/ PMH of Dementia & BPH is admitted to ARU after sustaining a hip fracture s/p surgery. He has been doing well with rehab, trevore romuloly resting comfortable in chair, without any complaints. Patient has had progressively rising WBC, UA with significant Pyuria and urine cultures grew >100,000 CFU of Klebsiella. Patient denies any urinary symptoms but reliability is questionable given dementia. He denies any SOB, CP, N/V/D or abdominal pain at this time. 10 point review of system is negative except for above. OBJECTIVE PHYSICAL EXAMINATION: VITAL SIGNS: Please see below. GENERAL: No distress HEENT: Moist mucous membranes CARDIOVASCULAR: S1, S2 RESPIRATORY: clear to auscultation ABDOMINAL: soft, non-tender, non-distended EXTREMITIES: ROM intact NEUROLOGICAL: No focal deficits PSYCHOLOGICAL: calm & cooperative LABORATORY DATA, IMAGING STUDIES, MICROBIOLOGY: Please see below. ASSESSMENT AND PLAN: 83 y.o male w/ PMH of Dementia & BPH admitted to ARU s/p surgical repair of recent hip fracture. PROBLEMS: 1. Possible UTI - Rising WBC count, UA w/ significant pyuria & urine cultures growing >100,000 CFU of Klebsiella, patient asymptomatic though reliability is an issue. Will treat as UTI w/ Levaquin 750 mg x7 days. 2. Physical deconditioning - 2/2 L hip fracture & surgical repair, PT as per primary team DVT Prophylaxis: Xarelto GI Prophylaxis: PPI VS, I&O, 24H, Fishbone Vital Signs/I&O Vital Signs Date Time Temp Pulse Resp B/P (MAP) Pulse Ox O2 Delivery O2 Flow Rate FiO2 10/12/19 14:00 97.4 59 17 120/62 (81) 91 Room Air I&O- Last 24 Hours up to 6 AM 10/12/19 06:00 Intake Total 420 ml Output Total 1400 ml Balance -980 ml Laboratory Data Microbiology Microbiology 10/10/19 Urine Culture - Final, Complete Klebsiella Pneumoniae TAVIA GURROLA MD Oct 12, 2019 19:12
[2019-10-12 20:00] VITALS: BP 134/76
[2019-10-13] MEDS: LIDOCAINE 2% 5ML JELLY UROJET TOP PRN ×2 (01:34→15:17)
[2019-10-13 06:00] VITALS: BP 138/68
[2019-10-13] MEDS: ACETAMINOPHEN 500 MG TAB PO SCH ×3 (10:39→20:40)
[2019-10-13] MEDS: CYANOCOBALAMIN 500 MCG TAB PO SCH (10:40)
[2019-10-13] MEDS: LevoFLOXacin 750 MG TABLET PO SCH (10:40)
[2019-10-13] MEDS: PANTOPRAZOLE 40MG TAB (PROTONIX) PO SCH (10:40)
[2019-10-13] MEDS: LACTOBACILLUS ACIDOPHILUS CAP (BACID) PO SCH ×3 (10:40→20:40)
[2019-10-13] MEDS: MULTIVITAMINS/MINERALS THERAP 1 TAB PO SCH (10:40)
[2019-10-13] MEDS: SENOKOT S TAB PO SCH ×2 (10:40→20:40)
[2019-10-13] MEDS: METOPROLOL SUCC *XL* 25MG TAB (TopROL *XL*) PO SCH ×2 (10:40→20:41)
[2019-10-13 14:00] VITALS: BP 110/53
--- NOTE | 2019-10-13 15:25 | IPNPDOC ---
PM&R Progress Note DATE OF SERVICE: Oct 13, 2019 Senior Qa Automation Engineer Progress Note Subjective: Patient seen in his room with his wondering if he can be started on a prostate medication as he ahs been having trouble voiding since his admission. REVIEW OF SYSTEMS: The following is a completed review of systems and has been reviewed. Review of systems otherwise unremarkable. PAIN: Patient self reports left hip pain EYES: No recent vision changes EARS, NOSE, & THROAT: No throat pain, or dysphagia, or rhinorrhea CARDIOVASCULAR: Denies chest pain or palpitations PULMONARY: Denies shortness of breath GASTROINTESTINAL: Denies constipation/diarrhea GENITOURINARY: denies dysuria MUSCULOSKELETAL: left hip fracture NEUROLOGICAL:+dementia, +RUE tremor HEMATOLOGICAL:denies easy bruising SKIN: left hip incision PSYCHIATRIC: Unremarkable All other review of systems found to be negative. PHYSICAL EXAMINATION: VITAL SIGNS: Please see below. GENERAL: Pleasant and cooperative. No acute distress. HEENT: PERRL. Extraocular movements intact. Clear conjunctiva, +masked faces CARDIOVASCULAR: Regular rate and rhythm. No murmurs, rubs, or gallops LUNGS: Clear to auscultation bilaterally. No wheezes. No rhonchi ABDOMEN: Soft, nontender, nondistended. Positive bowel sounds. Normal active bowel sounds NEUROLOGICAL: Alert and oriented times 2. Cranial nerves II through XII grossly intact. Sensation grossly intact in all 4 extremities +RUE tremor> LUE EXTREMITIES: 5\5 strength bilateral upper extremities. 5\5 strength right lower extremity. 5/5 strength in left ankle DF/EHL/PF (limited due to surgery) SKIN: left hip incision ASSESSMENT:83-year-old M with past medical history of dementia and BPH who presents status post fall with left femur fracture PLAN: 1. 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 Neuro: dementia- patient currently not on cholinergic, discussed with and states he tried some medications in the past that did not work -TFTs wnl -B12 WNL however on lower end, will start supplement -monitor for delirium -monitor for parkinson gait features, patient with masked faces and RUE tremor, per he micheal over when he walks and has a shuffled gait, will wait to consider dopaminergic once UTI treatment has been completed 3. Ortho: s/p left hip IM-nailing in setting of femur fracture, WBAT, ortho consulted 4. cardiac: recent ECHO grade 1 diastolic CHF, c/u fluid restrict and weight daily -recent episodes of tachycardia started on metoprolol, will need outpatient cardiac work-up -medicine consulted to assist in management 5. GI ppx: protonix 6. DVT ppx: Xarelto 10mg and TEDs 7. Pain: Tylenol 1g TID and oxycodone prn 8. : hx BPH with retention, c/u Levaquin for +Klebsiella Ucx, will start Flomax and insert Mccullough today, will resume TOV next week -will need urology f/u 10. Dispo: 10-24-18 to home, progressing slowly towards goals Allergies Coded Allergies: Sulfa (Sulfonamide Antibiotics) (Verified Allergy, Mild, 04/14/19) Vital Signs Vital Signs Date Time Temp Pulse Resp B/P (MAP) Pulse Ox O2 Delivery O2 Flow Rate FiO2 10/13/19 10:40 68 138/68 10/13/19 06:00 98.0 18 93 Room Air Microbiology Microbiology 10/10/19 Urine Culture - Final, Complete Klebsiella Pneumoniae Current Medications Current Medications Current Medications Medications (Trade) Dose Ordered Sig/Giovanna Route PRN Reason Start Time Stop Time Status Last Admin Dose Admin Acetaminophen (Tylenol Tab) 1,000 mg TID PO 10/05/19 16:00 10/13/19 10:39 Calcium Carbonate (Tums) 1,000 mg Q4HP PRN PO HEARTBURN 10/05/19 15:00 Cyanocobalamin (Vitamin B12) 1,000 mcg DAILY PO 10/06/19 09:00 10/13/19 10:40 Lactobacillus Acidophilus (Bacid) 1 ea TID PO 10/12/19 09:00 10/13/19 10:40 Levofloxacin (Levaquin) 750 mg DAILY PO 10/12/19 09:00 10/18/19 09:01 10/13/19 10:40 Lidocaine HCl (Glydo 2% JELLY) 1 dose Q6H PRN TOP FOR EACH CATHETERIZATION 10/10/19 04:00 10/11/19 17:59 DC 10/11/19 05:36 Lidocaine HCl (Lidocaine 2% Urojet) FOR EACH CATHETERIZATION Q6H PRN TOP FOR EACH CATHETERIZATION 10/11/19 18:00 10/13/19 15:17 Magnesium Hydroxide (Milk Of Magnesia) 30 ml DAILYPRN PRN PO CONSTIPATION 10/05/19 15:00 Metoprolol Succinate (TopROL XL) 25 mg BID PO 10/05/19 21:00 10/13/19 10:40 Multivitamins (Theragram-M) 1 tab DAILY PO 10/06/19 09:00 10/13/19 10:40 Oxycodone HCl (Roxicodone, Oxyir) 5 mg Q4HP PRN PO PAIN 10/05/19 15:00 10/06/19 01:35 Pantoprazole Sodium (Protonix) 40 mg DAILY PO 10/06/19 09:00 10/13/19 10:40 Rivaroxaban (Xarelto) 10 mg DAILY@18 PO 10/05/19 18:00 11/09/19 23:55 10/12/19 16:55 Senna/Docusate Sodium (Senokot S) 1 tab BID PO 10/05/19 21:00 10/13/19 10:40 Tamsulosin HCl (Flomax) 0.4 mg QHS PO 10/13/19 21:00 RADHA RAY MD Oct 13, 2019 15:25
[2019-10-13] MEDS: RIVAROXABAN 10 MG TAB (XARELTO) PO SCH (16:32)
[2019-10-13 20:00] VITALS: BP 110/58
[2019-10-13] MEDS: TAMSULOSIN 0.4 MG CAP PO SCH (20:40)
[2019-10-14 06:00] VITALS: BP 123/66
[2019-10-14 06:41] LABS: HEMOGLOBIN 10.9 g/dl (13.5-17.5); MEAN CORPUSCULAR HEMOGLOBIN 32.5 pg (27.0-33.0); MEAN CORPUSCULAR HGB CONC 34.1 g/dl (32.0-36.5); MEAN CORPUSCULAR VOLUME 95.5 fl (80.0-96.0); PLATELET COUNT, AUTOMATED 324 10^3/uL (150-450); RED BLOOD COUNT 3.35 10^6/uL (4.30-6.10); WHITE BLOOD COUNT 10.8 10^3/uL (4.0-10.0)
[2019-10-14 07:06] LABS: BLOOD UREA NITROGEN 18 MG/DL (7-18); CALCIUM LEVEL 8.6 MG/DL (8.8-10.2); CARBON DIOXIDE LEVEL 25 MEQ/L (21-32); CHLORIDE LEVEL 111 MEQ/L (98-107); GLOMERULAR FILTRATION RATE > 60.0 (>35); GLUCOSE, FASTING 94 MG/DL (70-100); MAGNESIUM LEVEL 1.8 MG/DL (1.8-2.4); PHOSPHORUS LEVEL 2.6 MG/DL (2.5-4.9); POTASSIUM SERUM 3.6 MEQ/L (3.5-5.1); SODIUM LEVEL 143 MEQ/L (136-145)
[2019-10-14] MEDS: PANTOPRAZOLE 40MG TAB (PROTONIX) PO SCH (09:11)
[2019-10-14] MEDS: LevoFLOXacin 750 MG TABLET PO SCH (09:11)
[2019-10-14] MEDS: CYANOCOBALAMIN 500 MCG TAB PO SCH (09:11)
[2019-10-14] MEDS: MULTIVITAMINS/MINERALS THERAP 1 TAB PO SCH (09:11)
[2019-10-14] MEDS: ACETAMINOPHEN 500 MG TAB PO SCH ×3 (09:11→20:31)
[2019-10-14] MEDS: LACTOBACILLUS ACIDOPHILUS CAP (BACID) PO SCH ×3 (09:11→20:31)
[2019-10-14] MEDS: SENOKOT S TAB PO SCH ×2 (09:12→20:32)
[2019-10-14] MEDS: METOPROLOL SUCC *XL* 25MG TAB (TopROL *XL*) PO SCH ×2 (09:12→20:32)
[2019-10-14 14:00] VITALS: BP 92/52
[2019-10-14] MEDS: RIVAROXABAN 10 MG TAB (XARELTO) PO SCH (17:33)
[2019-10-14 20:15] VITALS: BP 122/74
[2019-10-14] MEDS: TAMSULOSIN 0.4 MG CAP PO SCH (20:31)
[2019-10-15 06:22] VITALS: BP 107/57
[2019-10-15] MEDS ORDERED: POTASSIUM CHLORIDE 10 MEQ SR TABLET PO ONE (07:00)
[2019-10-15] MEDS: SENOKOT S TAB PO SCH ×2 (08:40→20:58)
[2019-10-15] MEDS: LACTOBACILLUS ACIDOPHILUS CAP (BACID) PO SCH ×3 (08:40→20:58)
[2019-10-15] MEDS: PANTOPRAZOLE 40MG TAB (PROTONIX) PO SCH (08:40)
[2019-10-15] MEDS: ACETAMINOPHEN 500 MG TAB PO SCH ×3 (08:41→20:58)
[2019-10-15] MEDS: CYANOCOBALAMIN 500 MCG TAB PO SCH (08:41)
[2019-10-15] MEDS: LevoFLOXacin 750 MG TABLET PO SCH (08:41)
[2019-10-15] MEDS: MULTIVITAMINS/MINERALS THERAP 1 TAB PO SCH (08:41)
[2019-10-15] MEDS: METOPROLOL SUCC *XL* 25MG TAB (TopROL *XL*) PO SCH ×2 (08:42→20:57)
[2019-10-15 14:00] VITALS: BP 110/62
[2019-10-15] MEDS: RIVAROXABAN 10 MG TAB (XARELTO) PO SCH (17:37)
[2019-10-15 20:00] VITALS: BP 111/58
[2019-10-15] MEDS: TAMSULOSIN 0.4 MG CAP PO SCH (20:57)
[2019-10-16 06:00] VITALS: BP 124/59
[2019-10-16] MEDS: PANTOPRAZOLE 40MG TAB (PROTONIX) PO SCH (08:41)
[2019-10-16] MEDS: SENOKOT S TAB PO SCH ×2 (08:41→22:20)
[2019-10-16] MEDS: CYANOCOBALAMIN 500 MCG TAB PO SCH (08:41)
[2019-10-16] MEDS: LevoFLOXacin 750 MG TABLET PO SCH (08:41)
[2019-10-16] MEDS: MULTIVITAMINS/MINERALS THERAP 1 TAB PO SCH (08:41)
[2019-10-16] MEDS: LACTOBACILLUS ACIDOPHILUS CAP (BACID) PO SCH ×3 (08:42→22:19)
[2019-10-16] MEDS: METOPROLOL SUCC *XL* 25MG TAB (TopROL *XL*) PO SCH ×2 (08:42→22:22)
[2019-10-16] MEDS: ACETAMINOPHEN 500 MG TAB PO SCH ×3 (08:42→22:20)
[2019-10-16 14:00] VITALS: BP 101/55
--- NOTE | 2019-10-16 15:57 | IPNPDOC ---
PM&R Progress Note DATE OF SERVICE: Oct 16, 2019 Feeder Catcher Tobacco Progress Note Subjective: Patient seen in his room with his who had many questions about setting a ramp set up and what renovations to make in the bathroom. He reports he feels well. REVIEW OF SYSTEMS: The following is a completed review of systems and has been reviewed. Review of systems otherwise unremarkable. PAIN: Patient self reports left hip pain EYES: No recent vision changes EARS, NOSE, & THROAT: No throat pain, or dysphagia, or rhinorrhea CARDIOVASCULAR: Denies chest pain or palpitations PULMONARY: Denies shortness of breath GASTROINTESTINAL: Denies constipation/diarrhea GENITOURINARY: denies dysuria MUSCULOSKELETAL: left hip fracture NEUROLOGICAL:+dementia, +RUE tremor HEMATOLOGICAL:denies easy bruising SKIN: left hip incision PSYCHIATRIC: Unremarkable All other review of systems found to be negative. PHYSICAL EXAMINATION: VITAL SIGNS: Please see below. GENERAL: Pleasant and cooperative. No acute distress. HEENT: PERRL. Extraocular movements intact. Clear conjunctiva, +masked faces CARDIOVASCULAR: Regular rate and rhythm. No murmurs, rubs, or gallops LUNGS: Clear to auscultation bilaterally. No wheezes. No rhonchi ABDOMEN: Soft, nontender, nondistended. Positive bowel sounds. Normal active bowel sounds NEUROLOGICAL: Alert and oriented times 2. Cranial nerves II through XII grossly intact. Sensation grossly intact in all 4 extremities +RUE tremor> LUE EXTREMITIES: 5\5 strength bilateral upper extremities. 5\5 strength right lower extremity. 5/5 strength in left ankle DF/EHL/PF (limited due to surgery) SKIN: left hip incision ASSESSMENT:83-year-old M with past medical history of dementia and BPH who presents status post fall with left femur fracture PLAN: 1. Rehab- advance gait, fall recovery, optimize ADLs- ambulating with RW - strengthen/stretch/maintain ROM all 4 extremities 2. Neuro: dementia- patient currently not on cholinergic, discussed with and states he tried some medications in the past that did not work -TFTs wnl -B12 WNL however on lower end, c/u supplement -monitor for delirium -monitor for parkinson gait features, patient with masked faces and RUE tremor, per he micheal over when he walks and has a shuffled gait, gait overall improving in therapy, however having difficulty with transfers 3. Ortho: s/p left hip IM-nailing in setting of femur fracture, WBAT, ortho consulted 4. cardiac: recent ECHO grade 1 diastolic CHF, c/u fluid restrict and weight mayur ly -recent episodes of tachycardia started on metoprolol, will need outpatient cardiac [id number] -medicine consulted to assist in management 5. GI ppx: protonix 6. DVT ppx: Xarelto 10mg and TEDs 7. Pain: Tylenol 1g TID and oxycodone prn 8. : hx BPH with retention, s/p Levaquin for +Klebsiella Ucx, c/u Flomax and, +edwards will TOWednesday -will need urology f/u 10. Dispo: 10-24-18 to home, progressing slowly towards goals Allergies Coded Allergies: Sulfa (Sulfonamide Antibiotics) (Verified Allergy, Mild, 04/14/19) Vital Signs Vital Signs Date Time Temp Pulse Resp B/P (MAP) Pulse Ox O2 Delivery O2 Flow Rate FiO2 10/16/19 14:00 97.2 74 18 101/55 (70) 97 Room Air Microbiology Microbiology 10/10/19 Urine Culture - Final, Complete Klebsiella Pneumoniae Current Medications Current Medications Current Medications Medications (Trade) Dose Ordered Sig/Giovanna Route PRN Reason Start Time Stop Time Status Last Admin Dose Admin Acetaminophen (Tylenol Tab) 1,000 mg TID PO 10/05/19 16:00 10/16/19 08:42 Calcium Carbonate (Tums) 1,000 mg Q4HP PRN PO HEARTBURN 10/05/19 15:00 Cyanocobalamin (Vitamin B12) 1,000 mcg DAILY PO 10/06/19 09:00 10/16/19 08:41 Lactobacillus Acidophilus (Bacid) 1 ea TID PO 10/12/19 09:00 10/16/19 08:42 Levofloxacin (Levaquin) 750 mg DAILY PO 10/12/19 09:00 10/18/19 09:01 10/16/19 08:41 Lidocaine HCl (Glydo 2% JELLY) 1 dose Q6H PRN TOP FOR EACH CATHETERIZATION 10/10/19 04:00 10/11/19 17:59 DC 10/11/19 05:36 Lidocaine HCl (Lidocaine 2% Urojet) FOR EACH CATHETERIZATION Q6H PRN TOP FOR EACH CATHETERIZATION 10/11/19 18:00 10/13/19 15:17 Magnesium Hydroxide (Milk Of Magnesia) 30 ml DAILYPRN PRN PO CONSTIPATION 10/05/19 15:00 Metoprolol Succinate (TopROL XL) 25 mg BID PO 10/05/19 21:00 10/16/19 08:42 Multivitamins (Theragram-M) 1 tab DAILY PO 10/06/19 09:00 10/16/19 08:41 Oxycodone HCl (Roxicodone, Oxyir) 5 mg Q4HP PRN PO PAIN 10/05/19 15:00 10/06/19 01:35 Pantoprazole Sodium (Protonix) 40 mg DAILY PO 10/06/19 09:00 10/16/19 08:41 Rivaroxaban (Xarelto) 10 mg DAILY@18 PO 10/05/19 18:00 11/09/19 23:55 10/15/19 17:37 Senna/Docusate Sodium (Senokot S) 1 tab BID PO 10/05/19 21:00 10/16/19 08:41 Tamsulosin HCl (Flomax) 0.4 mg QHS PO 10/13/19 21:00 10/15/19 20:57 RADHA RAY MD Oct 16, 2019 15:57
[2019-10-16] MEDS: RIVAROXABAN 10 MG TAB (XARELTO) PO SCH (17:19)
[2019-10-16 20:00] VITALS: BP 117/59
[2019-10-16] MEDS: TAMSULOSIN 0.4 MG CAP PO SCH (22:20)
[2019-10-17 06:43] LABS: BASO % 0.2 % (0.0-1.0); EOS # 0.2 10^3/uL (0.0-0.5); EOS % 2.2 % (0.0-3.0); HEMATOCRIT 33.4 % (42.0-52.0); HEMOGLOBIN 11.4 g/dl (13.5-17.5); LYMPH # 2.1 10^3/uL (1.5-5.0); LYMPH % 21.2 % (24.0-44.0); MEAN CORPUSCULAR HEMOGLOBIN 32.8 pg (27.0-33.0); MEAN CORPUSCULAR HGB CONC 34.1 g/dl (32.0-36.5); MONO # 0.8 10^3/uL (0.0-0.8); MONO % 7.6 % (0.0-5.0); NEUTROPHILS # 6.7 10^3/uL (1.5-8.5); PLATELET COUNT, AUTOMATED 345 10^3/uL (150-450); RED BLOOD COUNT 3.48 10^6/uL (4.30-6.10); WHITE BLOOD COUNT 9.9 10^3/uL (4.0-10.0)
[2019-10-17 07:12] LABS: BLOOD UREA NITROGEN 14 MG/DL (7-18); CALCIUM LEVEL 9.1 MG/DL (8.8-10.2); CARBON DIOXIDE LEVEL 26 MEQ/L (21-32); CHLORIDE LEVEL 107 MEQ/L (98-107); CREATININE FOR GFR 1.02 MG/DL (0.70-1.30); GLOMERULAR FILTRATION RATE > 60.0 (>35); GLUCOSE, FASTING 96 MG/DL (70-100); SODIUM LEVEL 141 MEQ/L (136-145)
[2019-10-17] MEDS: METOPROLOL SUCC *XL* 25MG TAB (TopROL *XL*) PO SCH ×2 (09:00→21:22)
[2019-10-17] MEDS: LACTOBACILLUS ACIDOPHILUS CAP (BACID) PO SCH ×3 (09:02→21:22)
[2019-10-17] MEDS: LevoFLOXacin 750 MG TABLET PO SCH (09:02)
[2019-10-17] MEDS: PANTOPRAZOLE 40MG TAB (PROTONIX) PO SCH (09:02)
[2019-10-17] MEDS: CYANOCOBALAMIN 500 MCG TAB PO SCH (09:02)
[2019-10-17] MEDS: SENOKOT S TAB PO SCH ×2 (09:02→21:22)
[2019-10-17] MEDS: MULTIVITAMINS/MINERALS THERAP 1 TAB PO SCH (09:02)
--- NOTE | 2019-10-17 09:13 | IPNPDOC ---
PM&R Progress Note DATE OF SERVICE: Oct 17, 2019 Stem Roller Progress Note Subjective: Patient appears well without complaints of pain. bedside agrees to trial of Sinemet stating he has been shuffling for years and has had a right arm tremor as well for years. REVIEW OF SYSTEMS: The following is a completed review of systems and has been reviewed. Review of systems otherwise unremarkable. PAIN: Patient self reports left hip pain EYES: No recent vision changes EARS, NOSE, & THROAT: No throat pain, or dysphagia, or rhinorrhea CARDIOVASCULAR: Denies chest pain or palpitations PULMONARY: Denies shortness of breath GASTROINTESTINAL: Denies constipation/diarrhea GENITOURINARY: denies dysuria MUSCULOSKELETAL: left hip fracture NEUROLOGICAL:+dementia, +RUE tremor HEMATOLOGICAL:denies easy bruising SKIN: left hip incision PSYCHIATRIC: Unremarkable All other review of systems found to be negative. PHYSICAL EXAMINATION: VITAL SIGNS: Please see below. GENERAL: Pleasant and cooperative. No acute distress. HEENT: PERRL. Extraocular movements intact. Clear conjunctiva, +masked faces CARDIOVASCULAR: Regular rate and rhythm. No murmurs, rubs, or gallops LUNGS: Clear to auscultation bilaterally. No wheezes. No rhonchi ABDOMEN: Soft, nontender, nondistended. Positive bowel sounds. Normal active bowel sounds NEUROLOGICAL: Alert and oriented times 2. Cranial nerves II through XII grossly intact. Sensation grossly intact in all 4 extremities +RUE tremor> LUE EXTREMITIES: 5\5 strength bilateral upper extremities. 5\5 strength right lower extremity. 5/5 strength in left ankle DF/EHL/PF (limited due to surgery) SKIN: left hip incision ASSESSMENT:83-year-old M with past medical history of dementia and BPH who presents status post fall with left femur fracture PLAN: 1. Rehab- advance gait, fall recovery, optimize ADLs- ambulating with RW - strengthen/stretch/maintain ROM all 4 extremities 2. Neuro: dementia- patient currently not on cholinergic, discussed with and states he tried some medications in the past that did not work -TFTs wnl -B12 WNL however on lower end, c/u supplement -monitor for delirium -patient with clinical suspicion for parkinsons-masked faces and RUE tremor, shuffling gait- patient's agreeable to trial of Sinemet 3. Ortho: s/p left hip IM-nailing in setting of femur fracture, WBAT, ortho consulted 4. cardiac: recent ECHO grade 1 diastolic CHF, c/u fluid restrict and weight daily -recent episodes of tachycardia started on metoprolol, will need outpatient cardiac [id number] -medicine consulted to assist in management 5. GI ppx: protonix 6. DVT ppx: Xarelto 10mg and TEDs 7. Pain: Tylenol 1g TID and oxycodone prn 8. : hx BPH with retention, s/p Levaquin for +Klebsiella Ucx, c/u Flomax and, +edwards will TOWednesday -will need urology f/u 10. Dispo: 10-24-18 to home, progressing slowly towards goals Allergies Coded Allergies: Sulfa (Sulfonamide Antibiotics) (Verified Allergy, Mild, 04/14/19) Vital Signs Vital Signs Date Time Temp Pulse Resp B/P (MAP) Pulse Ox O2 Delivery O2 Flow Rate FiO2 10/17/19 09:00 71 108/60 10/16/19 20:00 98.2 18 100 Room Air Laboratory Data CBC/BMP Laboratory Tests 10/17/19 06:26 Labs 24H Laboratory Tests 2 10/17/19 06:26: Immature Granulocyte % (Auto) 0.8, Neutrophils (%) (Auto) 68.0H, Lymphocytes (%) (Auto) 21.2L, Monocytes (%) (Auto) 7.6H, Eosinophils (%) (Auto) 2.2, Basophils (%) (Auto) 0.2, Neutrophils # (Auto) 6.7, Lymphocytes # (Auto) 2.1, Monocytes # (Auto) 0.8, Eosinophils # (Auto) 0.2, Basophils # (Auto) 0.0, Nucleated Red Blood Cells % (auto) 0.0, Anion Gap 8, Glomerular Filtration Rate > 60.0, Calcium Level 9.1 Microbiology Microbiology 10/10/19 Urine Culture - Final, Complete Klebsiella Pneumoniae Current Medications Current Medications Current Medications Medications (Trade) Dose Ordered Sig/Giovanna Route PRN Reason Start Time Stop Time Status Last Admin Dose Admin Acetaminophen (Tylenol Tab) 1,000 mg TID PO 10/05/19 16:00 10/16/19 22:20 Calcium Carbonate (Tums) 1,000 mg Q4HP PRN PO HEARTBURN 10/05/19 15:00 Cyanocobalamin (Vitamin B12) 1,000 mcg DAILY PO 10/06/19 09:00 10/17/19 09:02 Lactobacillus Acidophilus (Bacid) 1 ea TID PO 10/12/19 09:00 10/17/19 09:02 Levofloxacin (Levaquin) 750 mg DAILY PO 10/12/19 09:00 10/18/19 09:01 10/17/19 09:02 Lidocaine HCl (Glydo 2% JELLY) 1 dose Q6H PRN TOP FOR EACH CATHETERIZATION 10/10/19 04:00 10/11/19 17:59 DC 10/11/19 05:36 Lidocaine HCl (Lidocaine 2% Urojet) FOR EACH CATHETERIZATION Q6H PRN TOP FOR EACH CATHETERIZATION 10/11/19 18:00 10/13/19 15:17 Magnesium Hydroxide (Milk Of Magnesia) 30 ml DAILYPRN PRN PO CONSTIPATION 10/05/19 15:00 Metoprolol Succinate (TopROL XL) 25 mg BID PO 10/05/19 21:00 10/16/19 08:42 Multivitamins (Theragram-M) 1 tab DAILY PO 10/06/19 09:00 10/17/19 09:02 Oxycodone HCl (Roxicodone, Oxyir) 5 mg Q4HP PRN PO PAIN 10/05/19 15:00 10/17/19 08:10 DC 10/06/19 01:35 Pantoprazole Sodium (Protonix) 40 mg DAILY PO 10/06/19 09:00 10/17/19 09:02 Rivaroxaban (Xarelto) 10 mg DAILY@18 PO 10/05/19 18:00 11/09/19 23:55 10/16/19 17:19 Senna/Docusate Sodium (Senokot S) 1 tab BID PO 10/05/19 21:00 10/17/19 09:02 Tamsulosin HCl (Flomax) 0.4 mg QHS PO 10/13/19 21:00 10/16/19 22:20 RADHA RAY MD Oct 17, 2019 09:13
[2019-10-17] MEDS ORDERED: PILL CUTTER 1 EACH XX PRN (10:15)
[2019-10-17] MEDS: ACETAMINOPHEN 500 MG TAB PO SCH ×3 (10:55→21:22)
[2019-10-17] MEDS ORDERED: SINEMET 25-100 MG TAB PO SCH (12:00)
[2019-10-17] MEDS: SINEMET 25-100 MG TAB PO SCH ×2 (12:00→16:22)
[2019-10-17 14:00] VITALS: BP 106/53
[2019-10-17] MEDS: RIVAROXABAN 10 MG TAB (XARELTO) PO SCH (16:22)
[2019-10-17 20:00] VITALS: BP 108/56
[2019-10-17] MEDS: TAMSULOSIN 0.4 MG CAP PO SCH (21:23)
[2019-10-18 06:00] VITALS: BP 111/65
[2019-10-18] MEDS: PANTOPRAZOLE 40MG TAB (PROTONIX) PO SCH (08:25)
[2019-10-18] MEDS: MOM 30ML SUSPENSION UDC PO PRN (08:25)
[2019-10-18] MEDS: SINEMET 25-100 MG TAB PO SCH ×3 (08:25→17:33)
[2019-10-18] MEDS: SENOKOT S TAB PO SCH ×2 (08:25→20:44)
[2019-10-18] MEDS: LACTOBACILLUS ACIDOPHILUS CAP (BACID) PO SCH ×3 (08:25→20:44)
[2019-10-18] MEDS: LevoFLOXacin 750 MG TABLET PO SCH (08:25)
[2019-10-18] MEDS: MULTIVITAMINS/MINERALS THERAP 1 TAB PO SCH (08:25)
[2019-10-18] MEDS: ACETAMINOPHEN 500 MG TAB PO SCH ×3 (08:26→20:44)
[2019-10-18] MEDS: CYANOCOBALAMIN 500 MCG TAB PO SCH (08:26)
[2019-10-18] MEDS: METOPROLOL SUCC *XL* 25MG TAB (TopROL *XL*) PO SCH ×2 (08:28→20:44)
--- NOTE | 2019-10-18 12:20 | IPNPDOC ---
PM&R Progress Note DATE OF SERVICE: Oct 18, 2019 Button Grader Progress Note Subjective: Patient seen in therapy working on stairs, he has no complaints today. REVIEW OF SYSTEMS: The following is a completed review of systems and has been reviewed. Review of systems otherwise unremarkable. PAIN: Patient self reports left hip pain EYES: No recent vision changes EARS, NOSE, & THROAT: No throat pain, or dysphagia, or rhinorrhea CARDIOVASCULAR: Denies chest pain or palpitations PULMONARY: Denies shortness of breath GASTROINTESTINAL: Denies constipation/diarrhea GENITOURINARY: denies dysuria MUSCULOSKELETAL: left hip fracture NEUROLOGICAL:+dementia, +RUE tremor HEMATOLOGICAL:denies easy bruising SKIN: left hip incision PSYCHIATRIC: Unremarkable All other review of systems found to be negative. PHYSICAL EXAMINATION: VITAL SIGNS: Please see below. GENERAL: Pleasant and cooperative. No acute distress. HEENT: PERRL. Extraocular movements intact. Clear conjunctiva, +masked faces CARDIOVASCULAR: Regular rate and rhythm. No murmurs, rubs, or gallops LUNGS: Clear to auscultation bilaterally. No wheezes. No rhonchi ABDOMEN: Soft, nontender, nondistended. Positive bowel sounds. Normal active bowel sounds NEUROLOGICAL: Alert and oriented times 2. Cranial nerves II through XII grossly intact. Sensation grossly intact in all 4 extremities +RUE tremor> LUE EXTREMITIES: 5\5 strength bilateral upper extremities. 5\5 strength right lower extremity. 5/5 strength in left ankle DF/EHL/PF (limited due to surgery) SKIN: left hip incision ASSESSMENT:83-year-old M with past medical history of dementia and BPH who presents status post fall with left femur fracture PLAN: 1. Rehab- advance gait, fall recovery, optimize ADLs- ambulating with RW - strengthen/stretch/maintain ROM all 4 extremities 2. Neuro: dementia- patient currently not on cholinergic, discussed with and states he tried some medications in the past that did not work -TFTs wnl -B12 WNL however on lower end, c/u supplement -monitor for delirium -patient with clinical suspicion for parkinsons-masked faces and RUE tremor, shuffling gait- patient's agreeable to trial of Sinemet 3. Ortho: s/p left hip IM-nailing in setting of femur fracture, WBAT, ortho consulted 4. cardiac: recent ECHO grade 1 diastolic CHF, c/u fluid restrict and weight daily -recent episodes of tachycardia started on metoprolol, will need outpatient cardiac [id number] -medicine consulted to assist in management 5. GI ppx: protonix 6. DVT ppx: Xarelto 10mg and TEDs 7. Pain: Tylenol 1g TID and oxycodone prn 8. : hx BPH with retention, s/p Levaquin for +Klebsiella Ucx, c/u Flomax and, d/c edwards today and bladder scan -will need urology f/u 10. Dispo: 10-24-18 to home, progressing slowly towards goals Allergies Coded Allergies: Sulfa (Sulfonamide Antibiotics) (Verified Allergy, Mild, 04/14/19) Vital Signs Vital Signs Date Time Temp Pulse Resp B/P (MAP) Pulse Ox O2 Delivery O2 Flow Rate FiO2 10/18/19 08:28 67 97/53 10/18/19 06:00 97.6 18 95 Room Air Microbiology Microbiology 10/10/19 Urine Culture - Final, Complete Klebsiella Pneumoniae Current Medications Current Medications Current Medications Medications (Trade) Dose Ordered Sig/Giovanna Route PRN Reason Start Time Stop Time Status Last Admin Dose Admin Acetaminophen (Tylenol Tab) 1,000 mg TID PO 10/05/19 16:00 10/18/19 08:26 Calcium Carbonate (Tums) 1,000 mg Q4HP PRN PO HEARTBURN 10/05/19 15:00 Carbidopa/Levodopa (Sinemet 25/100) 0.5 tab TID@0800,1200,1400 PO 10/17/19 12:00 10/17/19 10:03 DC Carbidopa/Levodopa (Sinemet 25/100) 0.5 tab TID@0800,1200,1600 PO 10/17/19 12:00 10/18/19 08:25 Cyanocobalamin (Vitamin B12) 1,000 mcg DAILY PO 10/06/19 09:00 10/18/19 08:26 Lactobacillus Acidophilus (Bacid) 1 ea TID PO 10/12/19 09:00 10/18/19 08:25 Levofloxacin (Levaquin) 750 mg DAILY PO 10/12/19 09:00 10/18/19 10:32 DC 10/18/19 08:25 Lidocaine HCl (Glydo 2% JELLY) 1 dose Q6H PRN TOP FOR EACH CATHETERIZATION 10/10/19 04:00 10/11/19 17:59 DC 10/11/19 05:36 Lidocaine HCl (Lidocaine 2% Urojet) FOR EACH CATHETERIZATION Q6H PRN TOP FOR EACH CATHETERIZATION 10/11/19 18:00 10/13/19 15:17 Magnesium Hydroxide (Milk Of Magnesia) 30 ml DAILYPRN PRN PO CONSTIPATION 10/05/19 15:00 10/18/19 08:25 Metoprolol Succinate (TopROL XL) 25 mg BID PO 10/05/19 21:00 10/17/19 21:22 Miscellaneous (Unresolved Clarification Entry) SEE LABEL COMMENTS DAILY XX 10/18/19 09:00 10/18/19 11:06 DC Multivitamins (Theragram-M) 1 tab DAILY PO 10/06/19 09:00 10/18/19 08:25 Oxycodone HCl (Roxicodone, Oxyir) 5 mg Q4HP PRN PO PAIN 10/05/19 15:00 10/17/19 08:10 DC 10/06/19 01:35 Pantoprazole Sodium (Protonix) 40 mg DAILY PO 10/06/19 09:00 10/18/19 08:25 Rivaroxaban (Xarelto) 10 mg DAILY@18 PO 10/05/19 18:00 11/09/19 23:55 10/17/19 16:22 Senna/Docusate Sodium (Senokot S) 1 tab BID PO 10/05/19 21:00 10/18/19 08:25 Tamsulosin HCl (Flomax) 0.4 mg QHS PO 10/13/19 21:00 10/17/19 21:23 RADHA RAY MD Oct 18, 2019 12:20
[2019-10-18 14:00] VITALS: BP 104/56
[2019-10-18] MEDS: RIVAROXABAN 10 MG TAB (XARELTO) PO SCH (17:33)
[2019-10-18 19:49] VITALS: BP 102/58
[2019-10-18] MEDS: TAMSULOSIN 0.4 MG CAP PO SCH (20:43)
[2019-10-18] MEDS: LIDOCAINE 2% 5ML JELLY UROJET TOP PRN (22:18)
[2019-10-19] MEDS ORDERED: XARE10TA PO (06:21)
[2019-10-19 06:48] VITALS: BP 115/60
[2019-10-19 07:07] LABS: BASO % 0.4 % (0.0-1.0); EOS # 0.2 10^3/uL (0.0-0.5); EOS % 1.7 % (0.0-3.0); HEMATOCRIT 34.2 % (42.0-52.0); HEMOGLOBIN 11.5 g/dl (13.5-17.5); LYMPH # 2.3 10^3/uL (1.5-5.0); LYMPH % 20.7 % (24.0-44.0); MEAN CORPUSCULAR HEMOGLOBIN 32.7 pg (27.0-33.0); MEAN CORPUSCULAR HGB CONC 33.6 g/dl (32.0-36.5); MEAN CORPUSCULAR VOLUME 97.2 fl (80.0-96.0); MONO # 0.8 10^3/uL (0.0-0.8); MONO % 7.6 % (0.0-5.0); NEUTROPHILS # 7.6 10^3/uL (1.5-8.5); NEUTROPHILS % 69.1 % (36.0-66.0); PLATELET COUNT, AUTOMATED 315 10^3/uL (150-450); RED BLOOD COUNT 3.52 10^6/uL (4.30-6.10)
[2019-10-19 07:23] LABS: BLOOD UREA NITROGEN 15 MG/DL (7-18); CARBON DIOXIDE LEVEL 27 MEQ/L (21-32); CHLORIDE LEVEL 108 MEQ/L (98-107); CREATININE FOR GFR 1.08 MG/DL (0.70-1.30); GLOMERULAR FILTRATION RATE > 60.0 (>35); GLUCOSE, FASTING 89 MG/DL (70-100); POTASSIUM SERUM 4.2 MEQ/L (3.5-5.1); SODIUM LEVEL 141 MEQ/L (136-145)
[2019-10-19] MEDS: MULTIVITAMINS/MINERALS THERAP 1 TAB PO SCH (08:18)
[2019-10-19] MEDS: PANTOPRAZOLE 40MG TAB (PROTONIX) PO SCH (08:18)
[2019-10-19] MEDS: ACETAMINOPHEN 500 MG TAB PO SCH ×3 (08:18→20:06)
[2019-10-19] MEDS: SINEMET 25-100 MG TAB PO SCH ×3 (08:19→17:43)
[2019-10-19] MEDS: LACTOBACILLUS ACIDOPHILUS CAP (BACID) PO SCH ×3 (08:19→20:05)
[2019-10-19] MEDS: METOPROLOL SUCC *XL* 25MG TAB (TopROL *XL*) PO SCH ×2 (08:19→20:06)
[2019-10-19] MEDS: SENOKOT S TAB PO SCH ×2 (08:19→20:07)
[2019-10-19] MEDS: CYANOCOBALAMIN 500 MCG TAB PO SCH (08:19)
--- NOTE | 2019-10-19 10:41 | IPNPDOC ---
PM&R Progress Note DATE OF SERVICE: Oct 19, 2019 Reconciliation Clerk Progress Note Subjective: Patient seen in therapy stating he is feeling well. He is noted to have improvements in his mobility. REVIEW OF SYSTEMS: The following is a completed review of systems and has been reviewed. Review of systems otherwise unremarkable. PAIN: Patient self reports left hip pain EYES: No recent vision changes EARS, NOSE, & THROAT: No throat pain, or dysphagia, or rhinorrhea CARDIOVASCULAR: Denies chest pain or palpitations PULMONARY: Denies shortness of breath GASTROINTESTINAL: Denies constipation/diarrhea GENITOURINARY: denies dysuria MUSCULOSKELETAL: left hip fracture NEUROLOGICAL:+dementia, +RUE tremor HEMATOLOGICAL:denies easy bruising SKIN: left hip incision PSYCHIATRIC: Unremarkable All other review of systems found to be negative. PHYSICAL EXAMINATION: VITAL SIGNS: Please see below. GENERAL: Pleasant and cooperative. No acute distress. HEENT: PERRL. Extraocular movements intact. Clear conjunctiva, +masked faces CARDIOVASCULAR: Regular rate and rhythm. No murmurs, rubs, or gallops LUNGS: Clear to auscultation bilaterally. No wheezes. No rhonchi ABDOMEN: Soft, nontender, nondistended. Positive bowel sounds. Normal active bowel sounds NEUROLOGICAL: Alert and oriented times 2. Cranial nerves II through XII grossly intact. Sensation grossly intact in all 4 extremities +RUE tremor> LUE EXTREMITIES: 5\5 strength bilateral upper extremities. 5\5 strength right lower extremity. 5/5 strength in left ankle DF/EHL/PF (limited due to surgery) SKIN: left hip incision ASSESSMENT:83-year-old M with past medical history of dementia and BPH who presents status post fall with left femur fracture PLAN: 1. Rehab- advance gait, fall recovery, optimize ADLs- ambulating with RW - strengthen/stretch/maintain ROM all 4 extremities 2. Neuro: dementia- patient currently not on cholinergic, discussed with and states he tried some medications in the past that did not work -TFTs wnl -B12 WNL however on lower end, c/u supplement -monitor for delirium -patient with clinical suspicion for parkinsons-masked faces and RUE tremor, shuffling gait- trial of Sinemet translating into improved transfers and gait pattern, will increase to 1 tab 25-100 TID and refer to neurology as outpatient 3. Ortho: s/p left hip IM-nailing in setting of femur fracture, WBAT, ortho consulted 4. cardiac: recent ECHO grade 1 diastolic CHF, c/u fluid restrict and weight daily -recent episodes of tachycardia started on metoprolol, will need outpatient cardiac [id number] -medicine consulted to assist in management 5. GI ppx: protonix 6. DVT ppx: Xarelto 10mg and TEDs 7. Pain: Tylenol 1g TID and oxycodone prn 8. : hx BPH with retention, s/p Levaquin for +Klebsiella Ucx, c/u Flomax and, s/p edwards removed 10-18-19, monitor PVRs -will need urology f/u 10. Dispo: 10-24-18 to home, progressing slowly towards goals, will likely need another week of rehab Allergies Coded Allergies: Sulfa (Sulfonamide Antibiotics) (Verified Allergy, Mild, 04/14/19) Vital Signs Vital Signs Date Time Temp Pulse Resp B/P (MAP) Pulse Ox O2 Delivery O2 Flow Rate FiO2 10/19/19 08:19 80 123/76 10/19/19 06:48 98.1 16 96 Room Air Laboratory Data CBC/BMP Laboratory Tests 10/19/19 06:40 Labs 24H Laboratory Tests 2 10/19/19 06:40: Immature Granulocyte % (Auto) 0.5, Neutrophils (%) (Auto) 69.1H, Lymphocytes (%) (Auto) 20.7L, Monocytes (%) (Auto) 7.6H, Eosinophils (%) (Auto) 1.7, Basophils (%) (Auto) 0.4, Neutrophils # (Auto) 7.6, Lymphocytes # (Auto) 2.3, Monocytes # (Auto) 0.8, Eosinophils # (Auto) 0.2, Basophils # (Auto) 0.0, Nucleated Red Blood Cells % (auto) 0.0, Anion Gap 6L, Glomerular Filtration Rate > 60.0, C alcium Level 9.0 Microbiology Microbiology 10/10/19 Urine Culture - Final, Complete Klebsiella Pneumoniae Current Medications Current Medications Current Medications Medications (Trade) Dose Ordered Sig/Giovanna Route PRN Reason Start Time Stop Time Status Last Admin Dose Admin Acetaminophen (Tylenol Tab) 1,000 mg TID PO 10/05/19 16:00 10/19/19 08:18 Calcium Carbonate (Tums) 1,000 mg Q4HP PRN PO HEARTBURN 12/26/19 15:00 Carbidopa/Levodopa (Sinemet 25/100) 0.5 tab BID@1200,1600 PO 10/18/19 12:00 10/19/19 10:28 DC 10/18/19 17:33 Carbidopa/Levodopa (Sinemet 25/100) 0.5 tab TID@0800,1200,1400 PO 10/17/19 12:00 10/17/19 10:03 DC Carbidopa/Levodopa (Sinemet 25/100) 0.5 tab TID@0800,1200,1600 PO 10/17/19 12:00 10/18/19 12:17 DC 10/18/19 08:25 Carbidopa/Levodopa (Sinemet 25/100) 1 tab BID@1200,1600 PO 10/19/19 12:00 Carbidopa/Levodopa (Sinemet 25/100) 1 tab DAILY@0800 PO 10/19/19 08:00 10/19/19 08:19 Cyanocobalamin (Vitamin B12) 1,000 mcg DAILY PO 10/06/19 09:00 10/19/19 08:19 Lactobacillus Acidophilus (Bacid) 1 ea TID PO 10/12/19 09:00 10/19/19 08:19 Levofloxacin (Levaquin) 750 mg DAILY PO 10/12/19 09:00 10/18/19 10:32 DC 10/18/19 08:25 Lidocaine HCl (Glydo 2% JELLY) 1 dose Q6H PRN TOP FOR EACH CATHETERIZATION 10/10/19 04:00 10/11/19 17:59 DC 10/11/19 05:36 Lidocaine HCl (Lidocaine 2% Urojet) FOR EACH CATHETERIZATION Q6H PRN TOP FOR EACH CATHETERIZATION 10/11/19 18:00 10/18/19 22:18 Magnesium Hydroxide (Milk Of Magnesia) 30 ml DAILYPRN PRN PO CONSTIPATION 10/05/19 15:00 10/18/19 08:25 Metoprolol Succinate (TopROL XL) 25 mg BID PO 10/05/19 21:00 10/19/19 08:19 Miscellaneous (Unresolved Clarification Entry) SEE LABEL COMMENTS DAILY XX 10/18/19 09:00 10/18/19 11:06 DC Multivitamins (Theragram-M) 1 tab DAILY PO 10/06/19 09:00 10/19/19 08:18 Oxycodone HCl (Roxicodone, Oxyir) 5 mg Q4HP PRN PO PAIN 10/05/19 15:00 10/17/19 08:10 DC 10/06/19 01:35 Pantoprazole Sodium (Protonix) 40 mg DAILY PO 10/06/19 09:00 10/19/19 08:18 Rivaroxaban (Xarelto) 10 mg DAILY@18 PO 10/05/19 18:00 11/09/19 23:55 10/18/19 17:33 Senna/Docusate Sodium (Senokot S) 1 tab BID PO 10/05/19 21:00 10/18/19 20:44 Tamsulosin HCl (Flomax) 0.4 mg QHS PO 10/13/19 21:00 10/18/19 20:43 RADHA RAY MD Oct 19, 2019 10:41
[2019-10-19 14:00] VITALS: BP 107/52
[2019-10-19] MEDS: LIDOCAINE 2% 5ML JELLY UROJET TOP PRN (14:15)
[2019-10-19 16:50] LABS: C REACTIVE PROTEIN QUANTITATIV 0.71 MG/DL (0.00-0.30)
[2019-10-19] MEDS: RIVAROXABAN 10 MG TAB (XARELTO) PO SCH (17:43)
[2019-10-19 20:00] VITALS: BP 118/63
[2019-10-19] MEDS: TAMSULOSIN 0.4 MG CAP PO SCH (20:06)
[2019-10-20 06:00] VITALS: BP 116/56
[2019-10-20 06:46] LABS: BASO % 0.3 % (0.0-1.0); EOS # 0.2 10^3/uL (0.0-0.5); EOS % 1.5 % (0.0-3.0); HEMATOCRIT 34.2 % (42.0-52.0); HEMOGLOBIN 11.2 g/dl (13.5-17.5); LYMPH # 2.2 10^3/uL (1.5-5.0); LYMPH % 19.8 % (24.0-44.0); MEAN CORPUSCULAR HEMOGLOBIN 32.3 pg (27.0-33.0); MEAN CORPUSCULAR HGB CONC 32.7 g/dl (32.0-36.5); MEAN CORPUSCULAR VOLUME 98.6 fl (80.0-96.0); MONO # 0.8 10^3/uL (0.0-0.8); MONO % 7.5 % (0.0-5.0); NEUTROPHILS # 7.6 10^3/uL (1.5-8.5); NEUTROPHILS % 70.2 % (36.0-66.0); PLATELET COUNT, AUTOMATED 286 10^3/uL (150-450); RED BLOOD COUNT 3.47 10^6/uL (4.30-6.10); WHITE BLOOD COUNT 10.9 10^3/uL (4.0-10.0)
[2019-10-20 07:16] LABS: BLOOD UREA NITROGEN 16 MG/DL (7-18); CALCIUM LEVEL 8.8 MG/DL (8.8-10.2); CARBON DIOXIDE LEVEL 28 MEQ/L (21-32); CHLORIDE LEVEL 109 MEQ/L (98-107); CREATININE FOR GFR 1.05 MG/DL (0.70-1.30); GLOMERULAR FILTRATION RATE > 60.0 (>35); GLUCOSE, FASTING 92 MG/DL (70-100); POTASSIUM SERUM 4.2 MEQ/L (3.5-5.1); SODIUM LEVEL 142 MEQ/L (136-145)
[2019-10-20] MEDS: METOPROLOL SUCC *XL* 25MG TAB (TopROL *XL*) PO SCH ×2 (08:08→21:00)
[2019-10-20] MEDS: ACETAMINOPHEN 500 MG TAB PO SCH ×3 (08:09→21:48)
[2019-10-20] MEDS: SENOKOT S TAB PO SCH ×2 (08:09→21:47)
[2019-10-20] MEDS: PANTOPRAZOLE 40MG TAB (PROTONIX) PO SCH (08:09)
[2019-10-20] MEDS: SINEMET 25-100 MG TAB PO SCH ×3 (08:09→16:12)
[2019-10-20] MEDS: CYANOCOBALAMIN 500 MCG TAB PO SCH (08:09)
[2019-10-20] MEDS: LACTOBACILLUS ACIDOPHILUS CAP (BACID) PO SCH ×3 (08:09→21:48)
[2019-10-20] MEDS: MULTIVITAMINS/MINERALS THERAP 1 TAB PO SCH (08:10)
[2019-10-20] MEDS ORDERED: FINASTERIDE 5 MG TAB PO SCH (09:00)
--- NOTE | 2019-10-20 10:22 | IPNPDOC ---
Subjective Date Seen The patient was seen on 10/20/19. Subjective Chief Complaint/HPI Patient is comfortable in no distress. Offers no new complaints General: Denies: ROS Unobtainable, Chills, Night Sweats, Fatigue, Malaise, Normal Appetite, Other Symptoms Constitutional: Denies: Chills, Fever, Malaise, Night Sweats, Weakness, Fatigue, Weight Loss, Lethargy, Other Pulmonary: Denies: Dyspnea, Cough, Pleuritic Chest Pain, Other Symptoms Cardiovascular: Denies: Chest Pain, Palpitations, Orthopnea, Paroxysmal Noc. Dyspnea, Edema, Lt Headedness, Other Symptoms Gastrointestinal: Denies: Nausea, Vomiting, Abdominal Pain, Diarrhea, Constipation, Melena, Hematochezia, Other Symptoms Musculoskeletal: Denies: Neck Pain, Back Pain, Shoulder Pain, Arm Pain, Hand Pain, Leg Pain, Foot Pain, Joint Pain, Muscle Pain, Spasms, Other Symptoms Neurological: Denies: Weakness, Numbness, Incoordination, Change in speech, Confusion, Seizures, Other Symptoms Objective Physical Examination Eye Exam: Positive: PERRLA, Conjunctiva & lids normal Chest Exam: Positive: Clear to auscultation, Normal air movement Heart Exam: Positive: Rate Normal, Normal S1, Normal S2 Abdomen Exam: Positive: Normal bowel sounds, Soft, Tenderness Extremity Exam: Positive: Normal pulses Skin Exam: Positive: Other skin issue (. Patient examined with RN at the bedside. No evidence of rash on the back , front. And all Extremities) Neuro Exam: Positive: Strength at 5/5 X4 ext, Cranial Nerves 3-12 NL Assessment /Plan Problems (1) Fracture of left hip Status: Acute Problem Text: Physical therapy in progress Further intervention as per Dr. Sanders Patient stable. Offers no complaints at the present time (2) JOSE RAUL (acute kidney injury) Status: Resolved Problem Text: Patient's BUN is 24, creatinine 0.88 Acute kidney injury has resolved Continue present meds (3) Dementia Status: Chronic Problem Text: Supportive care Continue present meds (4) Leukocytosis Status: Resolved Problem Text: Most likely secondary to UTI which was treated with 7 days of antibiotics. Urine culture that showed positive Klebsiella Patient. WBC count is 10.9 and lites are within normal range Plan/VTE VTE Prophylaxis Ordered?: Yes VS, I&O, 24H, Fishbone Vital Signs/I&O Vital Signs Date Time Temp Pulse Resp B/P (MAP) Pulse Ox O2 Delivery O2 Flow Rate FiO2 10/20/19 08:08 72 95/65 10/20/19 06:00 97.8 18 94 Room Air I&O- Last 24 Hours up to 6 AM 10/20/19 06:00 Intake Total 580 ml Output Total 1400 ml Balance -820 ml Laboratory Data 24H LABS Laboratory Tests 2 10/20/19 06:24: Immature Granulocyte % (Auto) 0.7, Neutrophils (%) (Auto) 70.2H, Lymphocytes (%) (Auto) 19.8L, Monocytes (%) (Auto) 7.5H, Eosinophils (%) (Auto) 1.5, Basophils (%) (Auto) 0.3, Neutrophils # (Auto) 7.6, Lymphocytes # (Auto) 2.2, Monocytes # (Auto) 0.8, Eosinophils # (Auto) 0.2, Basophils # (Auto) 0.0, Nucleated Red Blood Cells % (auto) 0.0, Anion Gap 5L, Glomerular Filtration Rate > 60.0, Calcium Level 8.8 CBC/BMP Laboratory Tests 10/20/19 06:24 Microbiology Microbiology 10/10/19 Urine Culture - Final, Complete Klebsiella Pneumoniae ELISSA PHILLIPS MD Oct 20, 2019 10:22
[2019-10-20 14:00] VITALS: BP 98/54
--- NOTE | 2019-10-20 16:08 | IPNPDOC ---
PM&R Progress Note DATE OF SERVICE: Oct 20, 2019 Field Tax Auditor Progress Note Subjective: Patient still with urinary retention, reporting he cannot go at all. REVIEW OF SYSTEMS: The following is a completed review of systems and has been reviewed. Review of systems otherwise unremarkable. PAIN: Patient self reports left hip pain EYES: No recent vision changes EARS, NOSE, & THROAT: No throat pain, or dysphagia, or rhinorrhea CARDIOVASCULAR: Denies chest pain or palpitations PULMONARY: Denies shortness of breath GASTROINTESTINAL: Denies constipation/diarrhea GENITOURINARY: denies dysuria, +retention MUSCULOSKELETAL: left hip fracture NEUROLOGICAL:+dementia, +RUE tremor HEMATOLOGICAL:denies easy bruising SKIN: left hip incision PSYCHIATRIC: Unremarkable All other review of systems found to be negative. PHYSICAL EXAMINATION: VITAL SIGNS: Please see below. GENERAL: Pleasant and cooperative. No acute distress. HEENT: PERRL. Extraocular movements intact. Clear conjunctiva, +masked faces CARDIOVASCULAR: Regular rate and rhythm. No murmurs, rubs, or gallops LUNGS: Clear to auscultation bilaterally. No wheezes. No rhonchi ABDOMEN: Soft, nontender, nondistended. Positive bowel sounds. Normal active bowel sounds NEUROLOGICAL: Alert and oriented times 2. Cranial nerves II through XII grossly intact. Sensation grossly intact in all 4 extremities +RUE tremor> LUE EXTREMITIES: 5\5 strength bilateral upper extremities. 5\5 strength right lower extremity. 5/5 strength in left ankle DF/EHL/PF (limited due to surgery) SKIN: left hip incision ASSESSMENT:83-year-old M with past medical history of dementia and BPH who presents status post fall with left femur fracture PLAN: 1. Rehab- advance gait, fall recovery, optimize ADLs- ambulating better with RW - strengthen/stretch/maintain ROM all 4 extremities 2. Neuro: dementia- patient currently not on cholinergic, discussed with and states he tried some medications in the past that did not work -TFTs wnl -B12 WNL however on lower end, c/u supplement -monitor for delirium -patient with clinical suspicion for parkinsons-masked faces and RUE tremor, shuffling gait- trial of Sinemet translating into improved transfers and gait pattern, c/u 1tab 25-100 TID and refer to neurology as outpatient 3. Ortho: s/p left hip IM-nailing in setting of femur fracture, WBAT, ortho c onsulted 4. cardiac: recent ECHO grade 1 diastolic CHF, c/u fluid restrict and weight daily -recent episodes of tachycardia started on metoprolol, will need outpatient cardiac [id number] -medicine consulted to assist in management 5. GI ppx: protonix 6. DVT ppx: Xarelto 10mg and TEDs 7. Pain: Tylenol 1g TID and oxycodone prn 8. : hx BPH with retention, s/p Levaquin for +Klebsiella Ucx, c/u Flomax increased to 0.8mg qHS, s/p edwards removed 10-18-19, patient still not voiding -repeat UA looks WNL -will need urology f/u 10. Dispo: TBD Allergies Coded Allergies: Sulfa (Sulfonamide Antibiotics) (Verified Allergy, Mild, 04/14/19) Vital Signs Vital Signs Date Time Temp Pulse Resp B/P (MAP) Pulse Ox O2 Delivery O2 Flow Rate FiO2 10/20/19 14:00 97.6 66 20 98/54 (69) 96 Room Air Laboratory Data CBC/BMP Laboratory Tests 10/20/19 06:24 Labs 24H Laboratory Tests 2 10/20/19 06:24: Immature Granulocyte % (Auto) 0.7, Neutrophils (%) (Auto) 70.2H, Lymphocytes (%) (Auto) 19.8L, Monocytes (%) (Auto) 7.5H, Eosinophils (%) (Auto) 1.5, Basophils (%) (Auto) 0.3, Neutrophils # (Auto) 7.6, Lymphocytes # (Auto) 2.2, Monocytes # (Auto) 0.8, Eosinophils # (Auto) 0.2, Basophils # (Auto) 0.0, Nucleated Red Blood Cells % (auto) 0.0, Anion Gap 5L, Glomerular Filtration Rate > 60.0, Calcium Level 8.8 10/20/19 14:55: Urine Color YELLOW, Urine Appearance HAZY, Urine pH 6.0, Urine Specific [place] 1.020, Urine Protein NEGATIVE, Urine Glucose (UA) NEGATIVE, Urine Ketones NEGATIVE, Urine Blood 2+H, Urine Nitrite NEGATIVE, Urine Bilirubin NEGATIVE, Urine Urobilinogen 0.2, Urine Leukocyte Esterase NEGATIVE, Urine WBC (Auto) 2, Urine RBC (Auto) 4H, Urine Hyaline Casts (Auto) 1, Urine Bacteria (Auto) NEGATIVE, Urine Squamous Epithelial Cells 0, Urine Amorphous Sediment SMALLH, Urine Mucus (Auto) SMALL, Urine Sperm (Auto) Microbiology Microbiology 10/10/19 Urine Culture - Final, Complete Klebsiella Pneumoniae Current Medications Current Medications Current Medications Medications (Trade) Dose Ordered Sig/Giovanna Route PRN Reason Start Time Stop Time Status Last Admin Dose Admin Acetaminophen (Tylenol Tab) 1,000 mg TID PO 10/05/19 16:00 10/20/19 08:09 Calcium Carbonate (Tums) 1,000 mg Q4HP PRN PO HEARTBURN 10/05/19 15:00 Carbidopa/Levodopa (Sinemet 25/100) 0.5 tab BID@1200,1600 PO 10/18/19 12:00 10/19/19 10:28 DC 10/18/19 17:33 Carbidopa/Levodopa (Sinemet 25/100) 0.5 tab TID@0800,1200,1400 PO 10/17/19 12:00 10/17/19 10:03 DC Carbidopa/Levodopa (Sinemet 25/100) 0.5 tab TID@0800,1200,1600 PO 10/17/19 12:00 10/18/19 12:17 DC 10/18/19 08:25 Carbidopa/Levodopa (Sinemet 25/100) 1 tab BID@1200,1600 PO 10/19/19 12:00 10/20/19 12:29 Carbidopa/Levodopa (Sinemet 25/100) 1 tab DAILY@0800 PO 10/19/19 08:00 10/20/19 08:09 Cyanocobalamin (Vitamin B12) 1,000 mcg DAILY PO 10/06/19 09:00 10/20/19 08:09 Finasteride (Proscar) 5 mg DAILY PO 10/20/19 09:00 10/19/19 16:26 DC Lactobacillus Acidophilus (Bacid) 1 ea TID PO 10/12/19 09:00 10/20/19 08:09 Levofloxacin (Levaquin) 750 mg DAILY PO 10/12/19 09:00 10/18/19 10:32 DC 10/18/19 08:25 Lidocaine HCl (Glydo 2% JELLY) 1 dose Q6H PRN TOP FOR EACH CATHETERIZATION 10/10/19 04:00 10/11/19 17:59 DC 10/11/19 05:36 Lidocaine HCl (Lidocaine 2% Urojet) FOR EACH CATHETERIZATION Q6H PRN TOP FOR EACH CATHETERIZATION 10/11/19 18:00 10/19/19 14:15 Magnesium Hydroxide (Milk Of Magnesia) 30 ml DAILYPRN PRN PO CONSTIPATION 10/05/19 15:00 10/18/19 08:25 Metoprolol Succinate (TopROL XL) 25 mg BID PO 10/05/19 21:00 10/19/19 20:06 Miscellaneous (Unresolved Clarification Entry) SEE LABEL COMMENTS DAILY XX 10/18/19 09:00 10/18/19 11:06 DC Multivitamins (Theragram-M) 1 tab DAILY PO 10/06/19 09:00 10/20/19 08:10 Oxycodone HCl (Roxicodone, Oxyir) 5 mg Q4HP PRN PO PAIN 10/05/19 15:00 10/17/19 08:10 DC 10/06/19 01:35 Pantoprazole Sodium (Protonix) 40 mg DAILY PO 10/06/19 09:00 10/20/19 08:09 Rivaroxaban (Xarelto) 10 mg DAILY@18 PO 10/05/19 18:00 11/09/19 23:55 10/19/19 17:43 Senna/Docusate Sodium (Senokot S) 1 tab BID PO 10/05/19 21:00 10/20/19 08:09 Tamsulosin HCl (Flomax) 0.4 mg QHS PO 10/13/19 21:00 10/19/19 16:24 DC 10/18/19 20:43 Tamsulosin HCl (Flomax) 0.8 mg QHS PO 10/19/19 21:00 10/19/19 20:06 RADHA RAY MD Oct 20, 2019 16:08
[2019-10-20] MEDS: RIVAROXABAN 10 MG TAB (XARELTO) PO SCH (17:26)
[2019-10-20 20:00] VITALS: BP 105/58
[2019-10-20] MEDS: TAMSULOSIN 0.4 MG CAP PO SCH (21:48)
[2019-10-21] MEDS: LIDOCAINE 2% 5ML JELLY UROJET TOP PRN (05:33)
[2019-10-21 06:00] VITALS: BP 96/50
[2019-10-21 06:42] LABS: BASO % 0.4 % (0.0-1.0); EOS # 0.2 10^3/uL (0.0-0.5); EOS % 1.9 % (0.0-3.0); HEMATOCRIT 34.1 % (42.0-52.0); LYMPH # 1.9 10^3/uL (1.5-5.0); LYMPH % 19.7 % (24.0-44.0); MEAN CORPUSCULAR HEMOGLOBIN 31.9 pg (27.0-33.0); MEAN CORPUSCULAR HGB CONC 32.3 g/dl (32.0-36.5); MEAN CORPUSCULAR VOLUME 98.8 fl (80.0-96.0); MONO # 0.8 10^3/uL (0.0-0.8); MONO % 8.1 % (0.0-5.0); NEUTROPHILS # 6.6 10^3/uL (1.5-8.5); NEUTROPHILS % 69.4 % (36.0-66.0); PLATELET COUNT, AUTOMATED 270 10^3/uL (150-450); RED BLOOD COUNT 3.45 10^6/uL (4.30-6.10); WHITE BLOOD COUNT 9.5 10^3/uL (4.0-10.0)
[2019-10-21 07:09] LABS: BLOOD UREA NITROGEN 14 MG/DL (7-18); CALCIUM LEVEL 8.7 MG/DL (8.8-10.2); CARBON DIOXIDE LEVEL 26 MEQ/L (21-32); CHLORIDE LEVEL 107 MEQ/L (98-107); CREATININE FOR GFR 1.05 MG/DL (0.70-1.30); GLOMERULAR FILTRATION RATE > 60.0 (>35); GLUCOSE, FASTING 91 MG/DL (70-100); POTASSIUM SERUM 3.8 MEQ/L (3.5-5.1); SODIUM LEVEL 139 MEQ/L (136-145)
[2019-10-21] MEDS: SENOKOT S TAB PO SCH ×2 (09:03→20:32)
[2019-10-21] MEDS: MULTIVITAMINS/MINERALS THERAP 1 TAB PO SCH (09:03)
[2019-10-21] MEDS: ACETAMINOPHEN 500 MG TAB PO SCH ×3 (09:03→20:33)
[2019-10-21] MEDS: LACTOBACILLUS ACIDOPHILUS CAP (BACID) PO SCH ×3 (09:03→20:32)
[2019-10-21] MEDS: PANTOPRAZOLE 40MG TAB (PROTONIX) PO SCH (09:04)
[2019-10-21] MEDS: CYANOCOBALAMIN 500 MCG TAB PO SCH (09:04)
[2019-10-21] MEDS: METOPROLOL SUCC *XL* 25MG TAB (TopROL *XL*) PO SCH ×2 (09:04→20:32)
[2019-10-21] MEDS: SINEMET 25-100 MG TAB PO SCH ×3 (09:04→16:54)
[2019-10-21 14:00] VITALS: BP 114/59
[2019-10-21] MEDS: RIVAROXABAN 10 MG TAB (XARELTO) PO SCH (16:54)
[2019-10-21 20:00] VITALS: BP 113/63
[2019-10-21] MEDS: TAMSULOSIN 0.4 MG CAP PO SCH (20:31)
[2019-10-22 05:50] VITALS: BP 139/69
[2019-10-22] MEDS: MOM 30ML SUSPENSION UDC PO PRN (08:15)
[2019-10-22] MEDS: SENOKOT S TAB PO SCH ×2 (08:16→20:51)
[2019-10-22] MEDS: METOPROLOL SUCC *XL* 25MG TAB (TopROL *XL*) PO SCH ×2 (08:16→20:41)
[2019-10-22] MEDS: LACTOBACILLUS ACIDOPHILUS CAP (BACID) PO SCH ×3 (08:16→20:51)
[2019-10-22] MEDS: PANTOPRAZOLE 40MG TAB (PROTONIX) PO SCH (08:16)
[2019-10-22] MEDS: CYANOCOBALAMIN 500 MCG TAB PO SCH (08:16)
[2019-10-22] MEDS: SINEMET 25-100 MG TAB PO SCH ×3 (08:16→16:51)
[2019-10-22] MEDS: MULTIVITAMINS/MINERALS THERAP 1 TAB PO SCH (08:16)
[2019-10-22] MEDS: ACETAMINOPHEN 500 MG TAB PO SCH ×4 (08:16→20:51)
[2019-10-22 14:00] VITALS: BP 114/59
[2019-10-22] MEDS: RIVAROXABAN 10 MG TAB (XARELTO) PO SCH (16:51)
[2019-10-22 20:00] VITALS: BP 105/59
[2019-10-22] MEDS: TAMSULOSIN 0.4 MG CAP PO SCH (20:51)
[2019-10-23 05:20] VITALS: BP 111/58
[2019-10-23] MEDS: PANTOPRAZOLE 40MG TAB (PROTONIX) PO SCH (08:26)
[2019-10-23] MEDS: ACETAMINOPHEN 500 MG TAB PO SCH ×3 (08:26→21:34)
[2019-10-23] MEDS: MULTIVITAMINS/MINERALS THERAP 1 TAB PO SCH (08:26)
[2019-10-23] MEDS: SENOKOT S TAB PO SCH ×2 (08:26→21:34)
[2019-10-23] MEDS: CYANOCOBALAMIN 500 MCG TAB PO SCH (08:26)
[2019-10-23] MEDS: LACTOBACILLUS ACIDOPHILUS CAP (BACID) PO SCH ×3 (08:26→21:34)
[2019-10-23] MEDS: SINEMET 25-100 MG TAB PO SCH ×3 (08:27→16:29)
[2019-10-23] MEDS: METOPROLOL SUCC *XL* 25MG TAB (TopROL *XL*) PO SCH ×2 (08:28→21:34)
--- NOTE | 2019-10-23 11:18 | IPNPDOC ---
PM&R Progress Note DATE OF SERVICE: Oct 23, 2019 Thermite Welder Progress Note Subjective: Patient's today states he had been on Flomax in the past which caused urinary retention and that saw palmhannaho in the past worked well. REVIEW OF SYSTEMS: The following is a completed review of systems and has been reviewed. Review of systems otherwise unremarkable. PAIN: Patient self reports left hip pain EYES: No recent vision changes EARS, NOSE, & THROAT: No throat pain, or dysphagia, or rhinorrhea CARDIOVASCULAR: Denies chest pain or palpitations PULMONARY: Denies shortness of breath GASTROINTESTINAL: Denies constipation/diarrhea GENITOURINARY: denies dysuria, +retention MUSCULOSKELETAL: left hip fracture NEUROLOGICAL:+dementia, +RUE tremor HEMATOLOGICAL:denies easy bruising SKIN: left hip incision PSYCHIATRIC: Unremarkable All other review of systems found to be negative. PHYSICAL EXAMINATION: VITAL SIGNS: Please see below. GENERAL: Pleasant and cooperative. No acute distress. HEENT: PERRL. Extraocular movements intact. Clear conjunctiva, +masked faces CARDIOVASCULAR: Regular rate and rhythm. No murmurs, rubs, or gallops LUNGS: Clear to auscultation bilaterally. No wheezes. No rhonchi ABDOMEN: Soft, nontender, nondistended. Positive bowel sounds. Normal active bowel sounds NEUROLOGICAL: Alert and oriented times 2. Cranial nerves II through XII grossly intact. Sensation grossly intact in all 4 extremities +RUE tremor> LUE EXTREMITIES: 5\5 strength bilateral upper extremities. 5\5 strength right lower extremity. 5/5 strength in left ankle DF/EHL/PF (limited due to surgery) SKIN: left hip incision ASSESSMENT:83-year-old M with past medical history of dementia and BPH who presents status post fall with left femur fracture PLAN: 1. Rehab- advance gait, fall recovery, optimize ADLs- ambulating better with RW - strengthen/stretch/maintain ROM all 4 extremities 2. Neuro: dementia- patient currently not on cholinergic, discussed with and states he tried some medications in the past that did not work -TFTs wnl -B12 WNL however on lower end, c/u supplement -monitor for delirium -patient with clinical suspicion for parkinsons-masked faces and RUE tremor, shuffling gait- trial of Sinemet translating into improved transfers and gait pattern, c/u 1 tab 25-100 TID and refer to neurology as outpatient 3. Ortho: s/p left hip IM-nailing in setting of femur fracture, WBAT, ortho consulted 4. cardiac: recent ECHO grade 1 diastolic CHF, c/u fluid restrict and weight daily -recent episodes of tachycardia started on metoprolol, will need outpatient cardiac [id number] -medicine consulted to assist in management 5. GI ppx: protonix 6. DVT ppx: Xarelto 10mg and TEDs 7. Pain: Tylenol 1g TID and oxycodone prn 8. : hx BPH with retention, s/p Levaquin for +Klebsiella Ucx, c/u Flomax increased to 0.8mg qHS, s/p edwards removed 10-18-19 and replaced 10-21-19 after no voiding, repeat UA WNL -discussed case with Dr. An today who recommends outpatient follow-up and that the source of retention may be due to anesthesia and overfilling of the bladder during hip surgery in the setting of some degree of outlet obstruction- he plans to do cystoscopy outpatient -per 's request will start saw palmetto and hold FLomax given her reported hx of retention in the past while on it 10. Dispo: TBD Allergies Coded Allergies: Sulfa (Sulfonamide Antibiotics) (Verified Allergy, Mild, 04/14/19) Vital Signs Vital Signs Date Time Temp Pulse Resp B/P (MAP) Pulse Ox O2 Delivery O2 Flow Rate FiO2 10/23/19 08:28 75 100/52 10/23/19 05:20 98.7 18 93 Room Air Current Medications Current Medications Current Medications Medications (Trade) Dose Ordered Sig/Giovanna Route PRN Reason Start Time Stop Time Status Last Admin Dose Admin Acetaminophen (Tylenol Tab) 1,000 mg TID PO 10/05/19 16:00 10/23/19 08:26 Calcium Carbonate (Tums) 1,000 mg Q4HP PRN PO HEARTBURN 10/05/19 15:00 Carbidopa/Levodopa (Sinemet 25/100) 0.5 tab BID@1200,1600 PO 10/18/19 12:00 10/19/19 10:28 DC 10/18/19 17:33 Carbidopa/Levodopa (Sinemet 25/100) 0.5 tab TID@0800,1200,1400 PO 10/17/19 12:00 10/17/19 10:03 DC Carbidopa/Levodopa (Sinemet 25/100) 0.5 tab TID@0800,1200,1600 PO 10/17/19 12:00 10/18/19 12:17 DC 10/18/19 08:25 Carbidopa/Levodopa (Sinemet 25/100) 1 tab BID@1200,1600 PO 10/19/19 12:00 10/22/19 16:51 Carbidopa/Levodopa (Sinemet 25/100) 1 tab DAILY@0800 PO 10/19/19 08:00 10/23/19 08:27 Cyanocobalamin (Vitamin B12) 1,000 mcg DAILY PO 10/06/19 09:00 10/23/19 08:26 Finasteride (Proscar) 5 mg DAILY PO 10/20/19 09:00 10/19/19 16:26 DC Lactobacillus Acidophilus (Bacid) 1 ea TID PO 10/12/19 09:00 10/23/19 08:26 Levofloxacin (Levaquin) 750 mg DAILY PO 10/12/19 09:00 10/18/19 10:32 DC 10/18/19 08:25 Lidocaine HCl (Glydo 2% JELLY) 1 dose Q6H PRN TOP FOR EACH CATHETERIZATION 10/10/19 04:00 10/11/19 17:59 DC 10/11/19 05:36 Lidocaine HCl (Lidocaine 2% Urojet) FOR EACH CATHETERIZATION Q6H PRN TOP FOR EACH CATHETERIZATION 10/11/19 18:00 10/21/19 05:33 Magnesium Hydroxide (Milk Of Magnesia) 30 ml DAILYPRN PRN PO CONSTIPATION 10/05/19 15:00 10/22/19 08:15 Metoprolol Succinate (TopROL XL) 25 mg BID PO 10/05/19 21:00 10/21/19 20:32 Miscellaneous (Unresolved Clarification Entry) SEE LABEL COMMENTS DAILY XX 10/23/19 09:00 Miscellaneous (Unresolved Clarification Entry) SEE LABEL COMMENTS DAILY XX 10/18/19 09:00 10/18/19 11:06 DC Multivitamins (Theragram-M) 1 tab DAILY PO 10/06/19 09:00 10/23/19 08:26 Oxycodone HCl (Roxicodone, Oxyir) 5 mg Q4HP PRN PO PAIN 10/05/19 15:00 1/7/20 08:10 DC 10/06/19 01:35 Pantoprazole Sodium (Protonix) 40 mg DAILY PO 10/06/19 09:00 10/23/19 08:26 Rivaroxaban (Xarelto) 10 mg DAILY@18 PO 10/05/19 18:00 11/09/19 23:55 10/22/19 16:51 Senna/Docusate Sodium (Senokot S) 1 tab BID PO 10/05/19 21:00 10/23/19 08:26 Tamsulosin HCl (Flomax) 0.4 mg QHS PO 10/13/19 21:00 10/19/19 16:24 DC 10/18/19 20:43 Tamsulosin HCl (Flomax) 0.8 mg QHS PO 10/19/19 21:00 10/22/19 20:51 RADHA RAY MD Oct 23, 2019 11:18
[2019-10-23] MEDS: SAW PALMETTO 160 MG PO SCH (16:29)
[2019-10-23] MEDS: RIVAROXABAN 10 MG TAB (XARELTO) PO SCH (18:04)
[2019-10-23 20:00] VITALS: BP 129/66
[2019-10-24 06:00] VITALS: BP 118/59
[2019-10-24] MEDS: CYANOCOBALAMIN 500 MCG TAB PO SCH (08:10)
[2019-10-24] MEDS: LACTOBACILLUS ACIDOPHILUS CAP (BACID) PO SCH ×3 (08:10→20:54)
[2019-10-24] MEDS: PANTOPRAZOLE 40MG TAB (PROTONIX) PO SCH (08:10)
[2019-10-24] MEDS: SAW PALMETTO 160 MG PO SCH (08:10)
[2019-10-24] MEDS: ACETAMINOPHEN 500 MG TAB PO SCH ×3 (08:10→20:54)
[2019-10-24] MEDS: SINEMET 25-100 MG TAB PO SCH ×3 (08:10→17:28)
[2019-10-24] MEDS: SENOKOT S TAB PO SCH ×2 (08:10→20:54)
[2019-10-24] MEDS: MULTIVITAMINS/MINERALS THERAP 1 TAB PO SCH (08:10)
[2019-10-24] MEDS: METOPROLOL SUCC *XL* 25MG TAB (TopROL *XL*) PO SCH ×2 (08:11→20:56)
[2019-10-24 14:00] VITALS: BP 98/54
--- NOTE | 2019-10-24 14:47 | IPNPDOC ---
PM&R Progress Note DATE OF SERVICE: Oct 24, 2019 Tele[employer] Analyst Progress Note Subjective: Patient reports he feels ok and that the home eval went pretty well. REVIEW OF SYSTEMS: The following is a completed review of systems and has been reviewed. Review of systems otherwise unremarkable. PAIN: Patient self reports left hip pain EYES: No recent vision changes EARS, NOSE, & THROAT: No throat pain, or dysphagia, or rhinorrhea CARDIOVASCULAR: Denies chest pain or palpitations PULMONARY: Denies shortness of breath GASTROINTESTINAL: Denies constipation/diarrhea GENITOURINARY: denies dysuria, +retention MUSCULOSKELETAL: left hip fracture NEUROLOGICAL:+dementia, +RUE tremor HEMATOLOGICAL:denies easy bruising SKIN: left hip incision PSYCHIATRIC: Unremarkable All other review of systems found to be negative. PHYSICAL EXAMINATION: VITAL SIGNS: Please see below. GENERAL: Pleasant and cooperative. No acute distress. HEENT: PERRL. Extraocular movements intact. Clear conjunctiva, +masked faces CARDIOVASCULAR: Regular rate and rhythm. No murmurs, rubs, or gallops LUNGS: Clear to auscultation bilaterally. No wheezes. No rhonchi ABDOMEN: Soft, nontender, nondistended. Positive bowel sounds. Normal active bowel sounds NEUROLOGICAL: Alert and oriented times 2. Cranial nerves II through XII grossly intact. Sensation grossly intact in all 4 extremities +RUE tremor> LUE EXTREMITIES: 5\5 strength bilateral upper extremities. 5\5 strength right lower extremity. 5/5 strength in left ankle DF/EHL/PF (limited due to surgery) SKIN: left hip incision ASSESSMENT:83-year-old M with past medical history of dementia and BPH who presents status post fall with left femur fracture PLAN: 1. Rehab- advance gait, fall recovery, optimize ADLs- ambulating better with RW - strengthen/stretch/maintain ROM all 4 extremities 2. Neuro: dementia- patient currently not on cholinergic, discussed with and states he tried some medications in the past that did not work -TFTs wnl -B12 WNL however on lower end, c/u supplement -monitor for delirium -patient with clinical suspicion for parkinsons-masked faces and RUE tremor, shuffling gait- trial of Sinemet translating into improved transfers and gait pattern, c/u 1 tab 25-100 TID and refer to neurology as outpatient 3. Ortho: s/p left hip IM-nailing in setting of femur fracture, WBAT, ortho consulted 4. cardiac: recent ECHO grade 1 diastolic CHF, c/u fluid restrict and weight daily -recent episodes of tachycardia started on metoprolol, will need outpatient cardiac [id number] -medicine consulted to assist in management 5. GI ppx: protonix 6. DVT ppx: Xarelto 10mg and TEDs 7. Pain: Tylenol 1g TID and oxycodone prn 8. : hx BPH with retention, s/p Levaquin for +Klebsiella Ucx, s/p edwards removed 10-18-19 and replaced 10-21-19 after no voiding, repeat UA WNL -discussed case with Dr. An today who recommends outpatient follow-up and that the source of retention may be due to anesthesia and overfilling of the bladder during hip surgery in the setting of some degree of outlet obstruction- he plans to do cystoscopy outpatient -per 's request started saw palmetto and holding FLomax given her reported hx of retention in the past while on it 10. Dispo: TBD Allergies Coded Allergies: Sulfa (Sulfonamide Antibiotics) (Verified Allergy, Mild, 04/14/19) Vital Signs Vital Signs Date Time Temp Pulse Resp B/P (MAP) Pulse Ox O2 Delivery O2 Flow Rate FiO2 10/24/19 08:11 62 118/59 10/24/19 06:00 97.3 19 98 Room Air Current Medications Current Medications Current Medications Medications (Trade) Dose Ordered Sig/Giovanna Route PRN Reason Start Time Stop Time Status Last Admin Dose Admin Acetaminophen (Tylenol Tab) 1,000 mg TID PO 10/05/19 16:00 10/24/19 08:10 Calcium Carbonate (Tums) 1,000 mg Q4HP PRN PO HEARTBURN 10/05/19 15:00 Carbidopa/Levodopa (Sinemet 25/100) 0.5 tab BID@1200,1600 PO 10/18/19 12:00 10/19/19 10:28 DC 10/18/19 17:33 Carbidopa/Levodopa (Sinemet 25/100) 0.5 tab TID@0800,1200,1400 PO 10/17/19 12:00 10/17/19 10:03 DC Carbidopa/Levodopa (Sinemet 25/100) 0.5 tab TID@0800,1200,1600 PO 10/17/19 12:00 10/18/19 12:17 DC 10/18/19 08:25 Carbidopa/Levodopa (Sinemet 25/100) 1 tab BID@1200,1600 PO 10/19/19 12:00 10/24/19 12:11 Carbidopa/Levodopa (Sinemet 25/100) 1 tab DAILY@0800 PO 10/19/19 08:00 10/24/19 08:10 Cyanocobalamin (Vitamin B12) 1,000 mcg DAILY PO 10/06/19 09:00 10/24/19 08:10 Finasteride (Proscar) 5 mg DAILY PO 10/20/19 09:00 10/19/19 16:26 DC Lactobacillus Acidophilus (Bacid) 1 ea TID PO 10/12/19 09:00 10/24/19 08:10 Levofloxacin (Levaquin) 750 mg DAILY PO 10/12/19 09:00 10/18/19 10:32 DC 10/18/19 08:25 Lidocaine HCl (Glydo 2% JELLY) 1 dose Q6H PRN TOP FOR EACH CATHETERIZATION 10/10/19 04:00 10/11/19 17:59 DC 10/11/19 05:36 Lidocaine HCl (Lidocaine 2% Urojet) FOR EACH CATHETERIZATION Q6H PRN TOP FOR EACH CATHETERIZATION 10/11/19 18:00 10/21/19 05:33 Magnesium Hydroxide (Milk Of Magnesia) 30 ml DAILYPRN PRN PO CONSTIPATION 10/05/19 15:00 10/22/19 08:15 Metoprolol Succinate (TopROL XL) 25 mg BID PO 10/05/19 21:00 10/24/19 08:11 Miscellaneous (Unresolved Clarification Entry) SEE LABEL COMMENTS DAILY XX 10/23/19 09:00 10/23/19 11:32 DC Miscellaneous (Unresolved Clarification Entry) SEE LABEL COMMENTS DAILY XX 10/18/19 09:00 10/18/19 11:06 DC Miscellaneous (Unresolved Patient Own Med Order) SEE LABEL COMMENTS DAILY XX 10/23/19 09:00 10/23/19 12:52 DC Multivitamins (Theragram-M) 1 tab DAILY PO 10/06/19 09:00 10/24/19 08:10 Oxycodone HCl (Roxicodone, Oxyir) 5 mg Q4HP PRN PO PAIN 10/05/19 15:00 10/17/19 08:10 DC 10/06/19 01:35 Pantoprazole Sodium (Protonix) 40 mg DAILY PO 10/06/19 09:00 10/24/19 08:10 Patient Own Medication (Patient'S Own Med) 2 CAPS = 320MG DAILY PO 10/23/19 09:00 10/24/19 08:10 Rivaroxaban (Xarelto) 10 mg DAILY@18 PO 10/05/19 18:00 11/09/19 23:55 10/23/19 18:04 Senna/Docusate Sodium (Senokot S) 1 tab BID PO 10/05/19 21:00 10/24/19 08:10 Tamsulosin HCl (Flomax) 0.4 mg QHS PO 10/13/19 21:00 10/19/19 16:24 DC 10/18/19 20:43 Tamsulosin HCl (Flomax) 0.8 mg QHS PO 10/19/19 21:00 10/23/19 11:06 DC 10/22/19 20:51 RADHA RAY MD Oct 24, 2019 14:47
[2019-10-24] MEDS: RIVAROXABAN 10 MG TAB (XARELTO) PO SCH (17:28)
[2019-10-24 20:00] VITALS: BP 108/63
[2019-10-25 06:00] VITALS: BP 110/64
[2019-10-25 07:30] LABS: BASO % 0.2 % (0.0-1.0); EOS # 0.3 10^3/uL (0.0-0.5); EOS % 3.5 % (0.0-3.0); HEMATOCRIT 35.5 % (42.0-52.0); HEMOGLOBIN 11.4 g/dl (13.5-17.5); LYMPH # 1.8 10^3/uL (1.5-5.0); LYMPH % 21.8 % (24.0-44.0); MEAN CORPUSCULAR HEMOGLOBIN 31.6 pg (27.0-33.0); MEAN CORPUSCULAR HGB CONC 32.1 g/dl (32.0-36.5); MEAN CORPUSCULAR VOLUME 98.3 fl (80.0-96.0); MONO # 0.7 10^3/uL (0.0-0.8); MONO % 8.9 % (0.0-5.0); NEUTROPHILS # 5.5 10^3/uL (1.5-8.5); NEUTROPHILS % 65.4 % (36.0-66.0); PLATELET COUNT, AUTOMATED 222 10^3/uL (150-450); RED BLOOD COUNT 3.61 10^6/uL (4.30-6.10); WHITE BLOOD COUNT 8.4 10^3/uL (4.0-10.0)
[2019-10-25 07:50] LABS: BLOOD UREA NITROGEN 14 MG/DL (7-18); CALCIUM LEVEL 8.8 MG/DL (8.8-10.2); CARBON DIOXIDE LEVEL 26 MEQ/L (21-32); CHLORIDE LEVEL 107 MEQ/L (98-107); GLOMERULAR FILTRATION RATE > 60.0 (>35); GLUCOSE, FASTING 86 MG/DL (70-100); SODIUM LEVEL 139 MEQ/L (136-145)
[2019-10-25] MEDS: PANTOPRAZOLE 40MG TAB (PROTONIX) PO SCH (09:51)
[2019-10-25] MEDS: LACTOBACILLUS ACIDOPHILUS CAP (BACID) PO SCH (09:51)
[2019-10-25] MEDS: SENOKOT S TAB PO SCH (09:51)
[2019-10-25] MEDS: SINEMET 25-100 MG TAB PO SCH ×2 (09:51→12:00)
[2019-10-25] MEDS: ACETAMINOPHEN 500 MG TAB PO SCH (09:52)
[2019-10-25] MEDS: CYANOCOBALAMIN 500 MCG TAB PO SCH (09:52)
[2019-10-25 09:57] VITALS: BP 100/62
[2019-10-25] MEDS: MULTIVITAMINS/MINERALS THERAP 1 TAB PO SCH (09:57)
[2019-10-25] MEDS: METOPROLOL SUCC *XL* 25MG TAB (TopROL *XL*) PO SCH (09:57)
[2019-10-25] MEDS: SAW PALMETTO 160 MG PO SCH (09:58)
[2019-10-25] MEDS ORDERED: ACET-683 PO (11:27)
[2019-10-25] MEDS ORDERED: CALC200T15 PO (11:27)
[2019-10-25] MEDS ORDERED: VITMTA PO (11:27)
[2019-10-25] MEDS ORDERED: RISATAB3 PO (11:27)
[2019-10-25] MEDS ORDERED: PANT40TA3 PO (11:27)
[2019-10-25] MEDS ORDERED: Patient Own Medication PO (11:27)
[2019-10-25] MEDS ORDERED: METO1TAB32 PO (11:27)
[2019-10-25] MEDS ORDERED: SENN-52 PO (11:27)
[2019-10-25] MEDS ORDERED: CARB25TA9 PO ×2 (11:27)
--- NOTE | 2019-10-25 18:24 | PMRDS ---
DATE OF ADMISSION: 10/05/2019 DATE OF DISCHARGE: 10/25/2019 CHIEF COMPLAINT/DISCHARGE DIAGNOSIS: Hip fracture with newly diagnosed Parkinson's. HISTORY OF PRESENT ILLNESS: This is an 83-year male with a past medical history of dementia, benign prostatic hypertrophy (BPH) who fell while loading groceries and was brought to [facility] ([facility]) with difficulty walking along with his who helped detail the story. Hip x-ray revealed a left-sided comminuted femoral fracture. He has evaluated by orthopedics who performed a left intramedullary rodding on 10/01/2019. After which, he was made weightbearing as tolerated and started on deep vein thrombosis (DVT) prophylaxis. He was placed on telemetry for questionable atrial fibrillation and was started on metoprolol for rate control. An echocardiogram was performed showing grade 1 diastolic dysfunction. He was not noted to have atrial fibrillation on telemetry and was recommended to have outpatient cardiology followup. He also leukocytosis with chest x-ray showing atelectasis but no consolidation. Urinalysis (UA) was negative and blood cultures were negative as well. He was evaluated by therapy, found to be well below his prior level of function, mobility and activities of daily living (ADLs), and deemed medically appropriate for discharge to acute rehabilitation unit (ARU) on 10/05/2019. PAST MEDICAL HISTORY: As per history of present illness (HPI). HOSPITAL COURSE: The patient was admitted and enrolled in a comprehensive physical therapy (PT), occupational therapy (OT), speech and language pathology program. He received 24-hour nursing supervision and weekly team meetings were held to discuss his progress. The patient presented with urinary retention and was treated with Levaquin for a positive Klebsiella urine culture, failed two trial of voids, and despite starting Flomax and eventually Mccullough was replaced on 10/21/2019. Discussed the case with urology who recommended continue Mccullough and followup outpatient. Per 's request, the patient was started on saw palmetto and Flomax discontinued, as she reported in the past he had urinary retention with Flomax. The patient's pain was well-controlled. The patient presented with parkinsonian features, masked facies, right upper extremity tremor, shuffled gait. Per , he had had these symptoms for many many years. He was started on a low-dose of Sinemet with marked improvement in the fluidity of his movement. The patient and were instructed to followup with neurology for further management. The patient was deemed medically and functionally stable to be transferred to subacute rehabilitation for further therapy. DISCHARGE MEDICATIONS: As per instructions. FUNCTIONAL HISTORY: Upon discharge, the patient was standby assist for functional transfers and contact guard for ambulation, able to ambulate 25 feet and negotiate 24 stairs at a minimum assist/moderate assist level times two. Thank you for this referral.
== END 2019-10-25 12:00 | DRG 560 ==
LOC: M PM&R 15:57
PROVIDERS: ADMIT Physical Medicine & Rehabilitation; ATTEND Physical Medicine & Rehabilitation
DX: S72.142D Displaced intertrochanteric fracture of left femur, subsequent encounter for closed fracture with routine healing (principal); I50.32 Chronic diastolic (congestive) heart failure; N39.0 Urinary tract infection, site not specified; F03.90 Unspecified dementia, unspecified severity, without behavioral disturbance, psychotic disturbance, mood disturbance, and anxiety; N40.1 Benign prostatic hyperplasia with lower urinary tract symptoms; R00.0 Tachycardia, unspecified; R26.89 Other abnormalities of gait and mobility; Z88.2 Allergy status to sulfonamides; Z79.01 Long term (current) use of anticoagulants; Z79.899 Other long term (current) drug therapy; W19.XXXD Unspecified fall, subsequent encounter; Y92.009 Unspecified place in unspecified non-institutional (private) residence as the place of occurrence of the external cause; R25.1 Tremor, unspecified; L23.89 Allergic contact dermatitis due to other agents; I36.1 Nonrheumatic tricuspid (valve) insufficiency; B96.1 Klebsiella pneumoniae [K. pneumoniae] as the cause of diseases classified elsewhere; R33.9 Retention of urine, unspecified

== ENCOUNTER → 2019-10-31 | Outpatient (REF) ==
[~2019-10-31] MED LIST changes: +ACET-683 PO; +CALC200T15 PO; +CARB25TA9 PO; +METO1TAB32 PO; +PANT40TA3 PO; +PEG1POW PO; +PERCOCET PO; +Patient Own Medication PO; +RISATAB3 PO; +VITMTA PO; +XARE10TA PO
--- NOTE | 2019-10-31 14:21 | REP ---
Left rib series: Six views including PA chest. History: Left-sided rib pain lower ribs. History of a fall. Comparison chest x-ray is from 10/07/2019. Findings: PA chest radiograph shows no evidence of pneumothorax or hydrothorax. Mediastinum is not widened. The aorta is somewhat tortuous as before. Multiple views of the left rib cage show a nondisplaced fracture of the left anterior 6th rib visible on only one view. This should be correlated with the area of patient's pain and tenderness. It may be old. No other evidence of rib fracture or bony destructive lesion is seen. Impression: Subtle cortical irregularity of the anterior 6th rib on the left. Possible nondisplaced fracture. Otherwise negative left rib radiographs. Electronically Signed by Roger Garces MD 10/31/2019 02:40 P
== END ==
PROVIDERS: ATTEND Internal Medicine
DX: R07.81 Pleurodynia (principal)

== ENCOUNTER 2019-11-11 11:58 | Inpatient (IN) | payer MEDICARE, OTHER ==
[~2019-11-11] VITALS: Ht 193 cm; Wt 86.7 kg
[2019-11-11 12:29] LABS: BASO % 0.1 % (0.0-1.0); HEMATOCRIT 43.9 % (42.0-52.0); HEMOGLOBIN 14.3 g/dl (13.5-17.5); LYMPH # 0.9 10^3/uL (1.5-5.0); LYMPH % 4.2 % (24.0-44.0); MEAN CORPUSCULAR HEMOGLOBIN 31.8 pg (27.0-33.0); MEAN CORPUSCULAR HGB CONC 32.6 g/dl (32.0-36.5); MEAN CORPUSCULAR VOLUME 97.6 fl (80.0-96.0); MONO # 0.9 10^3/uL (0.0-0.8); MONO % 4.4 % (0.0-5.0); NEUTROPHILS # 19.2 10^3/uL (1.5-8.5); NEUTROPHILS % 90.6 % (36.0-66.0); PLATELET COUNT, AUTOMATED 215 10^3/uL (150-450); WHITE BLOOD COUNT 21.2 10^3/uL (4.0-10.0)
[2019-11-11] MEDS ORDERED: ACETAMINOPHEN 500 MG TAB PO ONE (12:30)
[2019-11-11] MEDS ORDERED: cefTRIAXone SOD 2 GM in D5W MINI-BAG PLUS 50 ML IV ONE (12:45)
[2019-11-11 13:02] LABS: ALBUMIN 3.5 GM/DL (3.2-5.2); ALT/SGPT 15 U/L (12-78); BILIRUBIN,TOTAL 0.9 MG/DL (0.2-1.0); BLOOD UREA NITROGEN 14 MG/DL (7-18); CALCIUM LEVEL 8.9 MG/DL (8.8-10.2); CARBON DIOXIDE LEVEL 27 MEQ/L (21-32); CHLORIDE LEVEL 106 MEQ/L (98-107); CREATININE FOR GFR 1.03 MG/DL (0.70-1.30); GLOMERULAR FILTRATION RATE > 60.0 (>35); GLUCOSE, FASTING 131 MG/DL (70-100); POTASSIUM SERUM 4.3 MEQ/L (3.5-5.1); SODIUM LEVEL 140 MEQ/L (136-145); TOTAL PROTEIN 6.9 GM/DL (6.4-8.2)
[2019-11-11] MEDS ORDERED: CEFD300CAP PO (14:02)
[2019-11-11] MEDS ORDERED: NS 500 ML IV ONE (15:30)
[2019-11-11] MEDS ORDERED: NS 2,430 ML in IV 1 EA IV ONE (16:15)
[2019-11-11] MEDS ORDERED: CARB25TA9 PO (17:06)
[2019-11-11] MEDS ORDERED: FINA5TAB2 PO (17:06)
[2019-11-11] MEDS ORDERED: MULTCAP PO (17:06)
[2019-11-11] MEDS ORDERED: ASPE4PAD TOP (17:06)
[2019-11-11] MEDS ORDERED: RISATAB3 PO (17:06)
[2019-11-11] MEDS ORDERED: TUMS500C PO (17:06)
[2019-11-11] MEDS ORDERED: DULC10SU2 PR (17:06)
[2019-11-11] MEDS ORDERED: ENSU1LIQ36 PO (17:06)
[2019-11-11] MEDS ORDERED: PANT40TA3 PO (17:06)
[2019-11-11] MEDS ORDERED: ACET-683 PO (17:06)
[2019-11-11] MEDS ORDERED: MOM30SS2 PO (17:06)
[2019-11-11] MEDS ORDERED: METO1TAB32 PO (17:06)
--- NOTE | 2019-11-11 17:23 | HPEPDOC ---
General Date of Admission 11/11/2019 Date of Service: Nov 11, 2019 Chief Complaint The patient is a 83-year-old male admitted with a reason for visit of temp. Source: Patient, Family Exam Limitations: No limitations Timing/Duration: Day(s), Week(s) Severity: Moderate Associated Symptoms: Hypotension History of Present Illness Patient is 83 years old male with past medical history of advanced dementia, BPH, diastolic CHF presented to hospital with urinary obstruction. His stated that patient developed urinary difficulties for past few days. Also he had a fever and chills. In emergency room patient was found to have urinary obstruction secondary to BPH, Mccullough catheter was placed. Also patient was found to have leukocytosis of 21, lactic acidosis of 2.4, urinalysis shows pyuria. Patient developed hypotension with systolic blood pressure of 90. Home Medications Scheduled Carbidopa/Levodopa (Carbidopa-Levodopa 25-100 Tab) 1 Each Tablet, 1 TAB PO TID, (Reported) 0800, 1200, 1600 Finasteride (Finasteride) 5 Mg Tablet, 5 MG PO QPM, (Reported) 1900 L.acidoph/L.bulg/B.bif/S.therm (Aggie-Bid Caplet) 1 Each Tablet, 1 TAB PO TID, (Reported) 0800, 1300, 1900 Lactose-Reduced Food (Ensure Enlive) 237 Ml Liquid, 237 ML PO TID, (Reported) 0930, 1330, 1730 Lidocaine (Aspercreme) 4% Adh..patch, 1 PATCH TOP DAILY, (Reported) APPLY TO LEFT SIDE RIBS Metoprolol Succinate (Metoprolol Succinate) 25 Mg Tab.er.24h, 25 MG PO DAILY, (Reported) Multivitamin (Multivitamins) 1 Each Capsule, 1 CAP PO DAILY, (Reported) Multivitamin (Multivitamins) 1 Each Capsule, 1 CAP PO DAILY, (Reported) Pantoprazole Sodium (Pantoprazole Sodium) 40 Mg Tablet.dr, 40 MG PO DAILY, (Reported) Scheduled PRN Acetaminophen (Acetaminophen) 500 Mg Tablet, 1,000 MG PO TID PRN for PAIN, (Reported) Bisacodyl (Dulcolax) 10 Mg Supp.rect, 10 MG TN DAILY PRN for CONSTIPATION, (Reported) Calcium Carbonate (Tums) 200 Mg Tab.chew, 1,000 MG PO Q4H PRN for HEARTBURN, (Reported) Magnesium Hydroxide (Milk of Magnesia) 400 Mg/5 Ml Oral.susp, 30 ML PO DAILY PRN for CONSTIPATION, (Reported) Sennosides/Docusate Sodium (Senna Plus Tablet) 1 Each Tablet, 1 TAB PO BID PRN for CONSTIPATION, (Reported) Allergies Coded Allergies: Sulfa (Sulfonamide Antibiotics) (Verified Allergy, Mild, 04/14/19) Past Medical History Medical History BPH, and hence dementia, diastolic CHF Surgical History Left hip surgery Family History I personally reviewed family history and found not pertinent Social History * Smoker: Denies Alcohol: Denies Drugs: denies A-FIB/CHADSVASC A-FIB History Current/History of A-Fib/PAF?: No Current PO Anticoag Therapy: No Review of Systems Constitutional: Reports: Chills, Fever Eyes: Denies: Pain, Vision change ENT: Denies: Head Aches Skin: Denies: Rash, Lesions Pulmonary: Denies: Dyspnea, Cough Cardiovascular: Denies: Chest Pain Gastrointestinal: Denies: Nausea, Vomiting Genitourinary: Reports: Dysuria, Frequency, Retention Hematologic: Denies: Bruising, Bleeding Excessively Endocrine: Denies: Polydipsia, Polyphagia Musculoskeletal: Denies: Neck Pain, Back Pain Neurological: Denies: Weakness Psych: Reports: Mood Normal, Memory Issues Physical Examination General Exam: Positive: Alert, Cooperative Eye Exam: Positive: PERRLA, Conjunctiva & lids normal ENT Exam: Positive: Atraumatic Neck Exam: Positive: Supple; Negative: JVD Chest Exam: Positive: Clear to auscultation Heart Exam: Positive: Rate Normal, Normal S1, Normal S2 Telemetry: Positive: No significant arrhythmia Abdomen Exam: Positive: Normal bowel sounds Extremity Exam: Negative: Clubbing, Cyanosis Skin Exam: Positive: Nl turgor and temperature Neuro Exam: Positive: Strength at 5/5 X4 ext, Cranial Nerves 3-12 NL Psych Exam: Positive: Mental status NL Vital Signs Vital Signs Date Time Temp Pulse Resp B/P (MAP) Pulse Ox O2 Delivery O2 Flow Rate FiO2 11/11/19 16:00 72 91/53 (66) 93 11/11/19 15:33 98.4 11/11/19 15:30 20 Room Air Laboratory Data Labs 24H Laboratory Tests 2 11/11/19 12:17: Immature Granulocyte % (Auto) 0.7, Neutrophils (%) (Auto) 90.6H, Lymphocytes (%) (Auto) 4.2L, Monocytes (%) (Auto) 4.4, Eosinophils (%) (Auto) 0.0, Basophils (%) (Auto) 0.1, Neutrophils # (Auto) 19.2H, Lymphocytes # (Auto) 0.9L, Monocytes # (Auto) 0.9H, Eosinophils # (Auto) 0.0, Basophils # (Auto) 0.0, Nucleated Red Blood Cells % (auto) 0.0, Urine Color YELLOW, Urine Appearance TURBIDH, Urine pH 8.0, Urine Specific [place] 1.015, Urine Protein 3+H, Urine Glucose (UA) NEG ATIVE, Urine Ketones NEGATIVE, Urine Blood 2+H, Urine Nitrite NEGATIVE, Urine Bilirubin NEGATIVE, Urine Urobilinogen 0.2, Urine Leukocyte Esterase 2+H, Urine WBC (Auto) TNTCH, Urine RBC (Auto) 20H, Urine Hyaline Casts (Auto) 0, Urine Bacteria (Auto) 3+H, Urine Squamous Epithelial Cells 0, Urine Mucus (Auto) LARGE, Urine Sperm (Auto) , Anion Gap 7L, Glomerular Filtration Rate > 60.0, Lactic Acid Level 2.4*H, Calcium Level 8.9, Total Bilirubin 0.9, Aspartate Amino Transf (AST/SGOT) 14, Alanine Aminotransferase (ALT/SGPT) 15, Alkaline Phosphatase 134H, Total Protein 6.9, Albumin 3.5, Albumin/Globulin Ratio 1.03 11/11/19 16:39: CBC/BMP Laboratory Tests 11/11/19 12:17 Microbiology Microbiology 11/11/19 Blood Culture, Received Pending 11/11/19 Urine Culture, Received Pending 11/11/19 Blood Culture, Received Pending Assessment/Plan Patient is 83 years old male with past medical history of advanced dementia, BPH, diastolic CHF presented to hospital with urinary obstruction. His stated that patient developed urinary difficulties for past few days. Also he had a fever and chills. In emergency room patient was found to have urinary obstruction secondary to BPH, Mccullough catheter was placed. Patient was diagnosed with sepsis secondary to urinary tract infection Problems (1) Sepsis Status: Acute Problem Text: Secondary to UTI Patient has leukocytosis, lactic acidosis, hypotension Patient developed urinary retention, Mccullough catheter was placed Ceftriaxone IV IV fluid, gentle patient has a history of diastolic CHF UA positive for pyuria Blood culture (2) UTI (urinary tract infection) Status: Chronic Problem Text: See above Plan / VTE VTE Prophylaxis Ordered?: Yes VASYL BARNEY DO Nov 11, 2019 17:23
[2019-11-11] MEDS ORDERED: CALCIUM CARBONATE 500 MG CHEW U/D PO PRN (17:45)
[2019-11-11] MEDS ORDERED: BISACODYL 10 MG SUPP PR PRN (17:45)
[2019-11-11] MEDS ORDERED: ACETAMINOPHEN 500 MG TAB PO PRN (17:45)
[2019-11-11] MEDS ORDERED: MOM 30ML SUSPENSION UDC PO PRN (17:45)
[2019-11-11] MEDS ORDERED: SENOKOT S TAB PO PRN (17:45)
[2019-11-11 18:00] VITALS: BP 99/58
[2019-11-11 18:40] VITALS: BP 96/53
[2019-11-11] MEDS: NS 1,000 ML IV SCH (19:23)
[2019-11-11] MEDS: FINASTERIDE 5 MG TAB PO SCH (19:25)
[2019-11-11] MEDS: LACTOBACILLUS ACIDOPHILUS CAP (BACID) PO SCH (19:25)
[2019-11-11] MEDS: SINEMET 25-100 MG TAB PO SCH (19:26)
[2019-11-11 20:00] VITALS: BP 99/58
[2019-11-11] MEDS: HEPARIN SOD (PORCINE) 5000 UNITS/ML VIAL (J1644 PER 1000UNITS) SC SCH (20:21)
[2019-11-12] VITALS: BP 114/51
[2019-11-12 04:00] VITALS: BP 118/58
[2019-11-12] MEDS: NS 1,000 ML IV SCH ×3 (04:28→19:45)
[2019-11-12 05:38] LABS: HEMATOCRIT 34.8 % (42.0-52.0); MEAN CORPUSCULAR HGB CONC 32.5 g/dl (32.0-36.5); MEAN CORPUSCULAR VOLUME 98.6 fl (80.0-96.0); PLATELET COUNT, AUTOMATED 154 10^3/uL (150-450); RED BLOOD COUNT 3.53 10^6/uL (4.30-6.10); WHITE BLOOD COUNT 17.2 10^3/uL (4.0-10.0)
[2019-11-12 05:39] LABS: HEMOGLOBIN 11.3 g/dl (13.5-17.5)
[2019-11-12 05:52] LABS: BLOOD UREA NITROGEN 11 MG/DL (7-18); CALCIUM LEVEL 7.9 MG/DL (8.8-10.2); CARBON DIOXIDE LEVEL 25 MEQ/L (21-32); CHLORIDE LEVEL 111 MEQ/L (98-107); CREATININE FOR GFR 0.78 MG/DL (0.70-1.30); GLOMERULAR FILTRATION RATE > 60.0 (>35); GLUCOSE, FASTING 94 MG/DL (70-100); MAGNESIUM LEVEL 1.8 MG/DL (1.8-2.4); SODIUM LEVEL 140 MEQ/L (136-145)
[2019-11-12 08:00] VITALS: BP 106/53
[2019-11-12] MEDS: LACTOBACILLUS ACIDOPHILUS CAP (BACID) PO SCH ×3 (08:24→19:45)
[2019-11-12] MEDS: TAMSULOSIN 0.4 MG CAP PO SCH (08:24)
[2019-11-12] MEDS: SINEMET 25-100 MG TAB PO SCH ×3 (08:24→16:44)
[2019-11-12] MEDS: PANTOPRAZOLE 40MG TAB (PROTONIX) PO SCH (08:24)
[2019-11-12] MEDS: HEPARIN SOD (PORCINE) 5000 UNITS/ML VIAL (J1644 PER 1000UNITS) SC SCH ×2 (08:25→19:58)
[2019-11-12 12:00] VITALS: BP 93/55
[2019-11-12] MEDS: cefTRIAXone SOD 2 GM in D5W MINI-BAG PLUS 50 ML IV SCH (12:37)
--- NOTE | 2019-11-12 13:11 | IPNPDOC ---
Text Note Date of Service The patient was seen on 11/12/19. NOTE Subjective: No any acute events overnight. His states that patient doing much better today. Patient denies any pain, fever, chills, chest pain, palpitations Objective: General: NAD HEENT: PERRLA, EOMI Lungs: CTA CV: S1-S2, RRR Abdomen: Nontender, nondistended Extremities: No clubbing, no cyanosis Neuro: Nonfocal Assessment/Plan Patient is 83 years old male with past medical history of advanced dementia, BPH, diastolic CHF presented to hospital with urinary obstruction. His stated that patient developed urinary difficulties for past few days. Also he had a fever and chills. In emergency room patient was found to have urinary obstruction secondary to BPH, Mccullough catheter was placed. Patient was diagnosed with sepsis secondary to urinary tract infection. Patient received treatment with ceftriaxone IV and fluid IV. DC on Wednesday Problems (1) Sepsis Resolved Secondary to UTI Patient had leukocytosis, lactic acidosis, hypotension on admission Patient developed urinary retention, Mccullough catheter was placed Continue with Ceftriaxone IV IV fluid, gentle, patient has a history of diastolic CHF UA positive for pyuria Blood culture negative Follow-up with urologist in the outpatient settings (2) UTI (urinary tract infection) See above VS,Fishbone, I+O VS, Fishbone, I+O Laboratory Tests 11/12/19 05:13 Vital Signs Date Time Temp Pulse Resp B/P (MAP) Pulse Ox O2 Delivery O2 Flow Rate FiO2 11/12/19 12:00 97.8 68 18 93/55 (68) 94 Room Air I&O- Last 24 Hours up to 6 AM 11/12/19 06:00 Intake Total 4590 ml Output Total 901 ml Balance 3689 ml VASYL BARNEY DO Nov 12, 2019 13:11
[2019-11-12 16:00] VITALS: BP 112/56
[2019-11-12] MEDS: MIDODRINE 2.5 MG TAB PO SCH (16:44)
[2019-11-12] MEDS: FINASTERIDE 5 MG TAB PO SCH (19:45)
[2019-11-12 20:00] VITALS: BP 122/57
[2019-11-13] VITALS: BP 118/59
[2019-11-13 04:00] VITALS: BP 113/69
[2019-11-13] MEDS: NS 1,000 ML IV SCH (04:17)
[2019-11-13 08:00] VITALS: BP 129/59
[2019-11-13] MEDS: TAMSULOSIN 0.4 MG CAP PO SCH (08:27)
[2019-11-13] MEDS: HEPARIN SOD (PORCINE) 5000 UNITS/ML VIAL (J1644 PER 1000UNITS) SC SCH ×2 (08:27→20:10)
[2019-11-13] MEDS: SINEMET 25-100 MG TAB PO SCH ×3 (08:27→15:35)
[2019-11-13] MEDS: MIDODRINE 2.5 MG TAB PO SCH ×2 (08:27→15:36)
[2019-11-13] MEDS: PANTOPRAZOLE 40MG TAB (PROTONIX) PO SCH (08:27)
[2019-11-13] MEDS: LACTOBACILLUS ACIDOPHILUS CAP (BACID) PO SCH ×3 (08:27→18:06)
[2019-11-13 09:18] LABS: BASO % 0.2 % (0.0-1.0); EOS # 0.1 10^3/uL (0.0-0.5); EOS % 0.6 % (0.0-3.0); HEMATOCRIT 38.5 % (42.0-52.0); HEMOGLOBIN 12.5 g/dl (13.5-17.5); LYMPH # 1.6 10^3/uL (1.5-5.0); LYMPH % 15.9 % (24.0-44.0); MEAN CORPUSCULAR HEMOGLOBIN 31.7 pg (27.0-33.0); MEAN CORPUSCULAR HGB CONC 32.5 g/dl (32.0-36.5); MEAN CORPUSCULAR VOLUME 97.7 fl (80.0-96.0); MONO # 0.7 10^3/uL (0.0-0.8); MONO % 6.9 % (0.0-5.0); NEUTROPHILS # 7.6 10^3/uL (1.5-8.5); NEUTROPHILS % 75.8 % (36.0-66.0); PLATELET COUNT, AUTOMATED 174 10^3/uL (150-450); RED BLOOD COUNT 3.94 10^6/uL (4.30-6.10)
[2019-11-13 09:50] LABS: BLOOD UREA NITROGEN 10 MG/DL (7-18); CALCIUM LEVEL 8.2 MG/DL (8.8-10.2); CARBON DIOXIDE LEVEL 23 MEQ/L (21-32); CHLORIDE LEVEL 110 MEQ/L (98-107); CREATININE FOR GFR 0.83 MG/DL (0.70-1.30); GLOMERULAR FILTRATION RATE > 60.0 (>35); GLUCOSE, FASTING 114 MG/DL (70-100); POTASSIUM SERUM 3.8 MEQ/L (3.5-5.1); SODIUM LEVEL 142 MEQ/L (136-145)
[2019-11-13 12:00] VITALS: BP 118/57
[2019-11-13] MEDS: cefTRIAXone SOD 2 GM in D5W MINI-BAG PLUS 50 ML IV SCH (12:00)
--- NOTE | 2019-11-13 12:13 | IPN ---
DATE: 11/13/2019 The patient is examined at bedside. He denies any fever, nausea, vomiting, abdominal pain. He has a Mccullough catheter in place due to urine retention. The patient has been eating and drinking well, status post 5 bags of normal saline. Denies any paroxysmal nocturnal dyspnea or orthopnea. Ambulating well. He says that he walks unassisted at home. No confusion. VITAL SIGNS: Temperature 98, pulse 78, respiratory rate 16, blood pressure 113/69, 97% on room air. GENERAL: Awake, alert and oriented times three. No jugular venous distention (JVD). No thyromegaly. Moist mucous membranes. LUNGS: Diminished, fine bibasilar crackles. HEART: S1, S2. Sinus rhythm. ABDOMEN: Soft, nontender, nondistended. GENITOURINARY: Mccullough catheter in place. EXTREMITIES: No cyanosis or clubbing. LABORATORY DATA: 11/13/2019 CBC and metabolic panel are still pending. Microbiology: Escherichia (E) coli sensitive to Levaquin, ceftriaxone. ASSESSMENT AND PLAN: This is an 83-year-old male with a history of dementia, benign prostatic hypertrophy (BPH), diastolic heart failure, who presented with hypotension and found to have urinary tract infection. The patient has leukocytosis, 21,000. IMPRESSION: 1. Sepsis secondary to urinary tract infection. The patient is currently on intravenous ceftriaxone. Urine culture grew out Escherichia (E) coli . Continue with intravenous ceftriaxone until the patient's white count is back to normal and then transition to Levaquin to complete a 7 day course. 2. Urine retention. The patient's creatinine is normal. The patient's Mccullough catheter can be discontinued and a trial of voiding. Currently on Flomax and finasteride. 3. Hypotension. IV fluids given. Currently on midodrine. 4. Dementia. On Sinemet. DISPOSITION: Await physical therapy (PT) clearance. Check acute rehabilitation unit screen. MTDD
[2019-11-13 16:00] VITALS: BP 119/59
[2019-11-13] MEDS ORDERED: SLF 3 ML SYR IV PRN (16:00)
[2019-11-13] MEDS: FINASTERIDE 5 MG TAB PO SCH (18:06)
[2019-11-13 20:00] VITALS: BP 134/84
[2019-11-13] MEDS: SLF 3 ML SYR IV SCH (20:11)
[2019-11-14 04:00] VITALS: BP 137/71
[2019-11-14] MEDS: SLF 3 ML SYR IV SCH (05:04)
[2019-11-14] MEDS ORDERED: LevoFLOXacin 250 MG TABLET PO SCH (06:00)
[2019-11-14 06:15] LABS: HEMATOCRIT 35.2 % (42.0-52.0); HEMOGLOBIN 11.8 g/dl (13.5-17.5); MEAN CORPUSCULAR HEMOGLOBIN 31.7 pg (27.0-33.0); MEAN CORPUSCULAR HGB CONC 33.5 g/dl (32.0-36.5); MEAN CORPUSCULAR VOLUME 94.6 fl (80.0-96.0); PLATELET COUNT, AUTOMATED 182 10^3/uL (150-450); RED BLOOD COUNT 3.72 10^6/uL (4.30-6.10); WHITE BLOOD COUNT 9.2 10^3/uL (4.0-10.0)
[2019-11-14 06:37] LABS: BLOOD UREA NITROGEN 7 MG/DL (7-18); CALCIUM LEVEL 8.2 MG/DL (8.8-10.2); CARBON DIOXIDE LEVEL 26 MEQ/L (21-32); CHLORIDE LEVEL 109 MEQ/L (98-107); CREATININE FOR GFR 0.75 MG/DL (0.70-1.30); GLOMERULAR FILTRATION RATE > 60.0 (>35); GLUCOSE, FASTING 93 MG/DL (70-100); POTASSIUM SERUM 3.8 MEQ/L (3.5-5.1); SODIUM LEVEL 142 MEQ/L (136-145)
[2019-11-14] MEDS ORDERED: LEVA1TAB2 PO (07:02)
[2019-11-14] MEDS: HEPARIN SOD (PORCINE) 5000 UNITS/ML VIAL (J1644 PER 1000UNITS) SC SCH (07:25)
[2019-11-14] MEDS: SINEMET 25-100 MG TAB PO SCH ×2 (07:25→11:19)
[2019-11-14] MEDS: PANTOPRAZOLE 40MG TAB (PROTONIX) PO SCH (07:25)
[2019-11-14] MEDS: MIDODRINE 2.5 MG TAB PO SCH (07:25)
[2019-11-14] MEDS: LACTOBACILLUS ACIDOPHILUS CAP (BACID) PO SCH (07:25)
[2019-11-14] MEDS: TAMSULOSIN 0.4 MG CAP PO SCH (07:25)
[2019-11-14] MEDS ORDERED: LACTOBACILLUS ACIDOPHILUS CAP (BACID) PO SCH (08:00)
--- NOTE | 2019-11-14 08:03 | IPN ---
DATE: 11/14/2019 Patient is sitting up 90 degrees eating his breakfast this morning. He says that he feels fine. He has chronic Mccullough catheter, which he arrived from home with. Per the patient's , patient has been having urine retention and required a Mccullough catheter at home. He as remained afebrile. White count is normal at 9.2. He has been on ceftriaxone fur urinary tract infection. Not safe to be discharged home yet. Acute rehabilitation unit screen is still pending. Vitals: Temperature 99, pulse 79, respiratory rate 18, blood pressure 137/71, 93% on room air. Generally, patient is awake, alert, oriented to himself only. Disoriented to place and date, answering questions appropriately, however, no use of respiratory muscles. He is able to complete sentences. No jugular venous distention (JVD). No cervical lymphadenopathy. No thyromegaly. Moist mucous membranes. Lungs: Air entry is equal bilaterally. Clear to auscultation. No wheezing rales or rhonchi. Heart: S1, S2, sinus rhythm. No murmurs, rubs or gallops. Abdomen: Soft and nontender. Nondistended. Positive Mccullough catheter noted with clear yellow urine. Extremities: No cyanosis or clubbing. No pitting edema. LABORATORY DATA: White count 9.3, hemoglobin 11.8, hematocrit 35, platelet 182. Sodium 142, potassium 3.8, chloride 109, bicarbonate 26, BUN 7, creatinine 0.75, glucose 93. Microbiology: E. coli urine culture, two sets of blood cultures negative after 48 hours. ASSESSMENT/PLAN: This is an 83-year-old male with history of chronic urinary retention, benign prostatic hypertrophy (BPH) with chronic indwelling Mccullough catheter from home, diastolic heart failure presented with hypotension, abnormal urinalysis. Was found to have a sepsis with leukocytosis 21,000. IMPRESSION: Sepsis secondary to urinary tract infection present on admission due to chronic indwelling Mccullough catheter which he had from home prior to admission to the hospital urine culture grew out E. Coli which was staphylococcus sensitive. IV ceftriaxone had been given from 11/11/2019 to 11/14/2019. Will transition to renally dosed Levaquin. urinary tract infection present on admission due to chronic indwelling Mccullough catheter which he had from home prior to admission to the hospital urine culture grew out E. Coli which was staphylococcus sensitive. IV ceftriaxone had been given from 11/11/2019 to 11/14/2019. Will transition to renally dosed Levaquin. Chronic urine retention with Mccullough catheter from home on Flomax and finasteride. Outpatient followup with his urologist 1 week after hospital discharge. Hypertension on midodrine status post IV fluids. Appears to be stable most likely secondary to sepsis. Dementia on Sinemet: DISPOSITION: Awaiting acute rehabilitation unit (ARU) to accept versus physical therapy (PT) recommendations for discharge home when strength is improved. MTDD
[2019-11-14 09:00] VITALS: BP 133/68
--- NOTE | 2019-11-14 16:39 | DSES ---
DATE OF ADMISSION: 11/11/2019 DATE OF DISCHARGE: 11/14/2019 PRIMARY DISCHARGE DIAGNOSES: 1. Urinary tract infection secondary to chronic indwelling Mccullough catheter. 2. Benign prostatic hypertrophy with chronic urine retention with a chronic indwelling catheter. 3. Sepsis secondary to urinary tract infection (UTI). 4. Hypertension, on chronic midodrine. 5. Chronic dementia. DISCHARGE MEDICATIONS: - Levaquin 250 mg daily - acetaminophen 1 gram three times a day as needed - Dulcolax 10 mg per rectum daily as needed - Tums 1 gram by mouth every 4 hours as needed - carbidopa-levadopa 25-100 one tablet by mouth three times a day - finasteride 5 mg every evening - Bacid one tablet three times a day - Ensure Enlive 237 mL by mouth three times a day - lidocaine patch topically daily - Milk of Magnesia 30 mL by mouth daily as needed - metoprolol 25 mg daily - multivitamin one capsule daily - Protonix 40 mg daily - Senokot one tablet by mouth twice a day as needed for constipation DISCHARGE INSTRUCTIONS: The patient is to followup with primary care physician within one week of the hospital discharge. If fever, recurrent symptoms occur, patient is to call his urologist and his primary care physician. HOSPITAL COURSE: 83-year-old male with a history of chronic indwelling catheter due to BPH and chronic urine retention, diastolic heart failure, presented with hypotension, was found to have a urinary tract infection and sepsis with white count of 21,000 and tachypneic with respiratory rate of 24, admitted for urinary tract infection secondary to chronic indwelling catheter. The patient was given intravenous ceftriaxone and continued on all his home medications with holding parameters for his metoprolol for systolic pressure less than 100. Patient improved over the next three days with white count improving to 9.2. He remained afebrile. The patient has a urine culture showing Escherichia (E) coli, which was pansensitive. The patient's chronic indwelling catheter was kept since this was placed by urology with outpatient followup with a urologist. PHYSICAL EXAM ON DISCHARGE: Temperature 98.8, pulse 80, respiratory rate 18, blood pressure 133/68, 94% on room air. Generally, patient is awake, alert, oriented to himself only. Patient is pleasant but demented and disoriented to time, place. He does answer questions appropriately, however. No jugular venous distention (JVD). No thyromegaly. Dry mucous membranes. Lungs are clear to auscultation. No wheezing or rales. Heart: S1, S2, sinus rhythm. No costovertebral angle tenderness. The patient does have a chronic indwelling Mccullough catheter with clear yellow urine. Extremities have no pitting edema. LABORATORY DATA: On discharge, white count 9.2, hemoglobin 11, hematocrit 35, platelet count 182. Sodium is 142, potassium 3.8, chloride 109, bicarbonate 26, BUN 7, creatinine 0.75, glucose of 93. Urine culture: Escherichia coli, which is pansensitive. Blood cultures negative. IMAGING STUDIES: None. TIME SPENT ON DISCHARGE: 30 minutes. [facility]
== END 2019-11-14 12:30 | DRG 698 ==
LOC: M ED 11:58 → EDSEX 11:58 → EDBD 11:58 → M ED INP 16:51 → ENRESERV 17:03 → M PCU 17:48
PROVIDERS: ADMIT Internal Medicine; ATTEND Internal Medicine
DX: T83.518A Infection and inflammatory reaction due to other urinary catheter, initial encounter (principal); A41.9 Sepsis, unspecified organism; N39.0 Urinary tract infection, site not specified; I50.32 Chronic diastolic (congestive) heart failure; E87.2 Acidosis; F03.90 Unspecified dementia, unspecified severity, without behavioral disturbance, psychotic disturbance, mood disturbance, and anxiety; N40.1 Benign prostatic hyperplasia with lower urinary tract symptoms; D72.829 Elevated white blood cell count, unspecified; I95.9 Hypotension, unspecified; Z79.899 Other long term (current) drug therapy; Z88.2 Allergy status to sulfonamides; R33.9 Retention of urine, unspecified; B96.20 Unspecified Escherichia coli [E. coli] as the cause of diseases classified elsewhere; Z96.0 Presence of urogenital implants

== ENCOUNTER → 2019-11-21 | Outpatient (REF) | payer MEDICARE, OTHER ==
[~2019-11-21] MED LIST changes: +ASPE4PAD TOP; +CEFD300CAP PO; +DULC10SU2 PR; +ENSU1LIQ36 PO; +LEVA1TAB2 PO; +MOM30SS2 PO
[2019-11-21 12:01] LABS: HEMATOCRIT 44.1 % (42.0-52.0); HEMOGLOBIN 14.6 g/dl (13.5-17.5); MEAN CORPUSCULAR HEMOGLOBIN 31.9 pg (27.0-33.0); MEAN CORPUSCULAR HGB CONC 33.1 g/dl (32.0-36.5); MEAN CORPUSCULAR VOLUME 96.5 fl (80.0-96.0); PLATELET COUNT, AUTOMATED 292 10^3/uL (150-450); RED BLOOD COUNT 4.57 10^6/uL (4.30-6.10); WHITE BLOOD COUNT 10.6 10^3/uL (4.0-10.0)
[2019-11-21 12:16] LABS: BLOOD UREA NITROGEN 13 MG/DL (7-18); CALCIUM LEVEL 9.7 MG/DL (8.8-10.2); CARBON DIOXIDE LEVEL 27 MEQ/L (21-32); CHLORIDE LEVEL 105 MEQ/L (98-107); CREATININE FOR GFR 0.82 MG/DL (0.70-1.30); GLOMERULAR FILTRATION RATE > 60.0 (>35); GLUCOSE, FASTING 108 MG/DL (70-100); POTASSIUM SERUM 4.5 MEQ/L (3.5-5.1); SODIUM LEVEL 139 MEQ/L (136-145)
== END ==
PROVIDERS: ATTEND Internal Medicine
DX: I10 Essential (primary) hypertension (principal)

== ENCOUNTER → 2019-11-28 | Outpatient (REF) ==
[2019-11-28 12:32] LABS: HEMATOCRIT 48.4 % (42.0-52.0); HEMOGLOBIN 15.8 g/dl (13.5-17.5); MEAN CORPUSCULAR HEMOGLOBIN 32.1 pg (27.0-33.0); MEAN CORPUSCULAR HGB CONC 32.6 g/dl (32.0-36.5); MEAN CORPUSCULAR VOLUME 98.4 fl (80.0-96.0); PLATELET COUNT, AUTOMATED 267 10^3/uL (150-450); RED BLOOD COUNT 4.92 10^6/uL (4.30-6.10); WHITE BLOOD COUNT 9.6 10^3/uL (4.0-10.0)
[2019-11-28 13:06] LABS: BLOOD UREA NITROGEN 18 MG/DL (7-18); CALCIUM LEVEL 9.6 MG/DL (8.8-10.2); CARBON DIOXIDE LEVEL 30 MEQ/L (21-32); CHLORIDE LEVEL 104 MEQ/L (98-107); CREATININE FOR GFR 0.93 MG/DL (0.70-1.30); GLOMERULAR FILTRATION RATE > 60.0 (>35); GLUCOSE, FASTING 97 MG/DL (70-100); POTASSIUM SERUM 4.5 MEQ/L (3.5-5.1); SODIUM LEVEL 140 MEQ/L (136-145)
== END ==
PROVIDERS: ATTEND Internal Medicine
DX: I10 Essential (primary) hypertension (principal)

== ENCOUNTER → 2019-12-01 | Outpatient (REF) ==
[~2019-12-01] MED LIST changes: +ANEC4CRE3 TOP; +ENEMENE22 PR
[2019-12-01 15:12] LABS: HEMATOCRIT 46.2 % (42.0-52.0); HEMOGLOBIN 15.4 g/dl (13.5-17.5); MEAN CORPUSCULAR HGB CONC 33.3 g/dl (32.0-36.5); MEAN CORPUSCULAR VOLUME 95.9 fl (80.0-96.0); PLATELET COUNT, AUTOMATED 249 10^3/uL (150-450); RED BLOOD COUNT 4.82 10^6/uL (4.30-6.10)
[2019-12-01 15:32] LABS: INFLUENZA A AMPLIFICATION NEGATIVE (NEGATIVE); INFLUENZA B AMPLIFICATION NEGATIVE (NEGATIVE)
[2019-12-01 15:37] LABS: BLOOD UREA NITROGEN 23 MG/DL (7-18); CALCIUM LEVEL 9.8 MG/DL (8.8-10.2); CARBON DIOXIDE LEVEL 28 MEQ/L (21-32); CHLORIDE LEVEL 105 MEQ/L (98-107); CREATININE FOR GFR 1.08 MG/DL (0.70-1.30); GLOMERULAR FILTRATION RATE > 60.0 (>35); GLUCOSE, FASTING 115 MG/DL (70-100); POTASSIUM SERUM 4.4 MEQ/L (3.5-5.1); SODIUM LEVEL 139 MEQ/L (136-145)
--- NOTE | 2019-12-01 15:37 | REPPI ---
Clinical: Fever . Comparison: 10/07/2019 Findings: The mediastinum and cardiac silhouette are stable and within normal limits for portable technique. The lung quarles are clear without acute consolidation, effusion, or pneumothorax. Skeletal structures are intact. Impression: No acute cardiopulmonary process appreciated. Electronically Signed by Santos Mathis MD 12/01/2019 03:27 P
[2019-12-01 17:04] LABS: AMORPHOUS SEDIMENT SMALL (NEGATIVE); APPEARANCE, URINE HAZY (CLEAR); BACTERIA, URINE AUTO NEGATIVE (NEGATIVE); BILIRUBIN, URINE AUTO NEGATIVE (NEGATIVE); BLOOD, URINE BLOOD 1+ (NEGATIVE); COLOR, URINE YELLOW (YELLOW); GLUCOSE, URINE (UA) AUTO NEGATIVE (NEGATIVE); KETONE, URINE AUTO TRACE mg/dL (NEGATIVE); LEUKOCYTE ESTERASE, URINE AUTO 2+ (NEGATIVE); MUCUS, URINE SMALL (NEGATIVE); NITRITE, URINE AUTO NEGATIVE (NEGATIVE); PROTEIN, URINE AUTO 1+ mg/dL (NEGATIVE); RBC, URINE AUTO 41 /HPF (0-3); SPECIFIC GRAVITY URINE AUTO 1.028 (1.002-1.035); SQUAMOUS EPITHELIAL CELL UR AU 0 /HPF (0-6); UROBILINOGEN, URINE AUTO 0.2 mg/dL (0.0-2.0); WBC, URINE AUTO 70 /HPF (0-3)
== END ==
PROVIDERS: ATTEND Internal Medicine
DX: R41.82 Altered mental status, unspecified (principal)

== ENCOUNTER → 2019-12-02 | Outpatient (REF) ==
[~2019-12-02] MED LIST changes: -ANEC4CRE3 TOP; -ENEMENE22 PR
[2019-12-02 13:04] LABS: BLOOD UREA NITROGEN 15 MG/DL (7-18); CALCIUM LEVEL 7.9 MG/DL (8.8-10.2); CARBON DIOXIDE LEVEL 28 MEQ/L (21-32); CHLORIDE LEVEL 111 MEQ/L (98-107); GLOMERULAR FILTRATION RATE > 60.0 (>35); GLUCOSE, FASTING 70 MG/DL (70-100); POTASSIUM SERUM 3.6 MEQ/L (3.5-5.1); SODIUM LEVEL 143 MEQ/L (136-145)
== END ==
PROVIDERS: ATTEND Internal Medicine
DX: E86.0 Dehydration (principal)

== ENCOUNTER 2019-12-06 17:53 | Inpatient (IN) | payer MEDICARE, OTHER ==
[~2019-12-06] VITALS: Ht 185.4 cm; Wt 80.5 kg
[~2019-12-06 17:53] MED LIST changes: -ANEC4CRE3 TOP; -ENEMENE22 PR
[2019-12-06] MEDS ORDERED: NS 1,000 ML IV SCH (18:15)
[2019-12-06] MEDS ORDERED: ENEMENE22 PR (18:16)
[2019-12-06] MEDS ORDERED: ANEC4CRE3 TOP (18:16)
[2019-12-06 18:46] LABS: BASO % 0.3 % (0.0-1.0); EOS # 0.1 10^3/uL (0.0-0.5); EOS % 0.7 % (0.0-3.0); HEMATOCRIT 43.7 % (42.0-52.0); HEMOGLOBIN 14.7 g/dl (13.5-17.5); LYMPH # 1.7 10^3/uL (1.5-5.0); LYMPH % 10.8 % (24.0-44.0); MEAN CORPUSCULAR HEMOGLOBIN 31.7 pg (27.0-33.0); MEAN CORPUSCULAR HGB CONC 33.6 g/dl (32.0-36.5); MEAN CORPUSCULAR VOLUME 94.2 fl (80.0-96.0); MONO # 1.4 10^3/uL (0.0-0.8); MONO % 9.3 % (0.0-5.0); NEUTROPHILS # 12.1 10^3/uL (1.5-8.5); NEUTROPHILS % 78.5 % (36.0-66.0); PLATELET COUNT, AUTOMATED 220 10^3/uL (150-450); RED BLOOD COUNT 4.64 10^6/uL (4.30-6.10); WHITE BLOOD COUNT 15.4 10^3/uL (4.0-10.0)
[2019-12-06 18:57] LABS: INR 1.06; PROTHROMBIN TIME 13.5 SECONDS (11.8-14.0)
[2019-12-06 19:11] LABS: BLOOD UREA NITROGEN 17 MG/DL (7-18); CALCIUM LEVEL 9.3 MG/DL (8.8-10.2); CARBON DIOXIDE LEVEL 29 MEQ/L (21-32); CHLORIDE LEVEL 103 MEQ/L (98-107); CK-MB VALUE MASS < 1.0 NG/ML (<3.6); CPK CREATINE PHOSPHOKINASE 64 U/L (39-308); CREATININE FOR GFR 0.88 MG/DL (0.70-1.30); GLOMERULAR FILTRATION RATE > 60.0 (>35); GLUCOSE, FASTING 113 MG/DL (70-100); MB/CK RELATIVE INDEX 1.56 (< OR =4); POTASSIUM SERUM 4.5 MEQ/L (3.5-5.1); SODIUM LEVEL 137 MEQ/L (136-145); TROPONIN I < 0.02 NG/ML (< 0.10)
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
[2019-12-06] MEDS ORDERED: MORPHINE 2 MG/ML 1ML VIAL (J2270) IV PRN (20:00)
[2019-12-06 22:05] LABS: NT-PRO BNP 284 PG/ML (<450)
[2019-12-06 23:12] VITALS: BP 145/85
[2019-12-06] MEDS: NS 1,000 ML IV SCH (23:18)
[2019-12-06] MEDS: SENOKOT S TAB PO SCH (23:45)
[2019-12-06] MEDS ORDERED: BISACODYL 10 MG SUPP PR PRN (23:45)
[2019-12-06] MEDS ORDERED: CALCIUM CARBONATE 500 MG CHEW U/D PO PRN (23:45)
[2019-12-06] MEDS ORDERED: FLEET ENEMA PR PRN (23:45)
[2019-12-06] MEDS ORDERED: MOM 30ML SUSPENSION UDC PO PRN (23:45)
[2019-12-07] MEDS: SINEMET 25-100 MG TAB PO SCH ×4 (00:38→20:24)
[2019-12-07] MEDS: FINASTERIDE 5 MG TAB PO SCH ×2 (00:39→17:30)
[2019-12-07] MEDS ORDERED: LIDOCAINE 2% 5ML JELLY UROJET TOP ONE (01:30)
[2019-12-07 06:00] VITALS: BP 133/81
[2019-12-07] MEDS ORDERED: ceFAZolin SOD 2 GM in IV 1 EA IV SCH (06:00)
[2019-12-07 06:09] LABS: HEMATOCRIT 42.2 % (42.0-52.0); MEAN CORPUSCULAR HEMOGLOBIN 31.4 pg (27.0-33.0); MEAN CORPUSCULAR HGB CONC 33.2 g/dl (32.0-36.5); MEAN CORPUSCULAR VOLUME 94.6 fl (80.0-96.0); PLATELET COUNT, AUTOMATED 214 10^3/uL (150-450); RED BLOOD COUNT 4.46 10^6/uL (4.30-6.10); WHITE BLOOD COUNT 12.2 10^3/uL (4.0-10.0)
[2019-12-07 06:25] LABS: BLOOD UREA NITROGEN 13 MG/DL (7-18); CALCIUM LEVEL 8.7 MG/DL (8.8-10.2); CARBON DIOXIDE LEVEL 29 MEQ/L (21-32); CHLORIDE LEVEL 106 MEQ/L (98-107); CREATININE FOR GFR 0.85 MG/DL (0.70-1.30); GLOMERULAR FILTRATION RATE > 60.0 (>35); GLUCOSE, FASTING 95 MG/DL (70-100); POTASSIUM SERUM 4.2 MEQ/L (3.5-5.1); SODIUM LEVEL 139 MEQ/L (136-145)
--- NOTE | 2019-12-07 07:44 | REP ---
Portable chest, 07:51 p.m., single AP view with the patient supine: Comparison is 12/01/2019. The lung quarles are clear. The cardiac size is normal. The tyrone, mediastinum, and skeletal structures are unremarkable. Impression: Negative portable chest. There is no interval change. Electronically Signed by Ajith Monroy MD 12/07/2019 07:35 A
--- NOTE | 2019-12-07 07:48 | REP ---
AP pelvis: There is gamma nail fixation of a left hip subtrochanteric fracture. There is a right femoral neck fracture. No other pelvic fractures are identified. There are abdominal wall mesh retainer [place] inferiorly in the pelvis. Only a stasis clips inferiorly in the pelvis. There is a focal nonspecific density in the pelvis on the right, possibly bowel artifact. Electronically Signed by Ajith Monroy MD 12/07/2019 07:40 A
--- NOTE | 2019-12-07 07:49 | REP ---
Right femur five views: There is an impacted right femoral neck fracture. There is no dislocation. No other right femur fracture is identified. There are no calcifications or foreign bodies. Joint spaces are unremarkable. Impression: Impacted right femoral neck fracture Electronically Signed by Ajith Monroy MD 12/07/2019 07:41 A
[2019-12-07] MEDS: PANTOPRAZOLE 40MG TAB (PROTONIX) PO SCH (08:34)
[2019-12-07] MEDS: SENOKOT S TAB PO SCH ×3 (08:35→20:24)
[2019-12-07] MEDS: METOPROLOL SUCC *XL* 25MG TAB (TopROL *XL*) PO SCH (08:36)
--- NOTE | 2019-12-07 10:04 | IPNPDOC ---
Text Note Date of Service The patient was seen on 12/07/19. NOTE Patient is medically optimized for the proposed procedure. VS,Liangbone, I+O VS, Liangbone, I+O Laboratory Tests 12/06/19 18:35 12/07/19 05:46 Vital Signs Date Time Temp Pulse Resp B/P (MAP) Pulse Ox O2 Delivery O2 Flow Rate FiO2 12/07/19 08:36 70 132/79 12/07/19 06:00 99.3 18 92 Room Air I&O- Last 24 Hours up to 6 AM 12/07/19 05:59 Intake Total 510 ml Output Total 900 ml Balance -390 ml REBECA RAE MD Dec 07, 2019 10:04
[2019-12-07] MEDS: NS 1,000 ML IV SCH (12:40)
[2019-12-07 14:30] VITALS: BP 128/75
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
[2019-12-07 20:28] VITALS: BP 114/77
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
[2019-12-08] MEDS: NS 1,000 ML IV SCH (00:29)
[2019-12-08 05:32] VITALS: BP 118/76
[2019-12-08] MEDS ORDERED: ceFAZolin SOD 2 GM in IV 1 EA IV ONE (06:00)
[2019-12-08] MEDS: SENOKOT S TAB PO SCH ×2 (09:00→20:56)
[2019-12-08] MEDS: METOPROLOL SUCC *XL* 25MG TAB (TopROL *XL*) PO SCH (09:00)
[2019-12-08] MEDS: SINEMET 25-100 MG TAB PO SCH ×3 (09:00→20:56)
[2019-12-08] MEDS: PANTOPRAZOLE 40MG TAB (PROTONIX) PO SCH (09:00)
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
[2019-12-08] MEDS ORDERED: BUPIVACAINE/EPIN 0.25% 30 ML VIAL As Ordered ONE (12:29)
[2019-12-08] MEDS ORDERED: ceFAZolin 1GM INJ (J0690 PER 500MG) As Ordered ONE (12:29)
[2019-12-08] MEDS ORDERED: LIDOCAINE 2% INJ 100 MG/5 ML SDV (FOR ANES.) As Ordered ONE (13:04)
[2019-12-08] MEDS ORDERED: fentaNYL 100 MCG/2 ML INJECTION (J3010) As Ordered ONE (13:05)
[2019-12-08] MEDS ORDERED: MIDAZOLAM INJ 2 MG/2 ML VIAL (J2250) As Ordered ONE (13:05)
[2019-12-08] MEDS ORDERED: propofoL 200 MG/20 ML VIAL As Ordered ONE ×2 (13:05→14:54)
[2019-12-08] MEDS ORDERED: KETAMINE HCL 200 MG/20 ML VIAL As Ordered ONE (14:01)
[2019-12-08] MEDS ORDERED: ceFAZolin 2 GM/D5W 50 ML IV BAG (J0690 PER 500MG) As Ordered ONE (14:18)
[2019-12-08] MEDS ORDERED: ePHEDrine SULFATE 25 MG/5 ML(5MG/ML) SYRINGE As Ordered ONE (15:10)
--- NOTE | 2019-12-08 15:56 | REP ---
C-ARM VIEWS RIGHT HIP: Three C-Arm views of the right hip are performed. There are three metallic screws in the proximal femur transfixing a right femoral neck fracture. Osseous structures are well aligned. 95 seconds fluoroscopy time utilized. Electronically Signed by Ajith Smith MD 12/08/2019 04:32 P
[2019-12-08] MEDS ORDERED: NALBUPHINE HCL 10 MG/ML AMP (J2300) IV PRN (16:00)
[2019-12-08] MEDS ORDERED: fentaNYL 100 MCG/2 ML INJECTION (J3010) IV PRN (16:00)
[2019-12-08] MEDS ORDERED: LR 1,000 ML IV SCH (16:00)
[2019-12-08] MEDS ORDERED: ONDANSETRON 4MG/2ML VIAL (J2405) IV PRN ×2 (16:00→17:15)
[2019-12-08] MEDS ORDERED: MORPHINE 2 MG/ML 1ML VIAL (J2270) IV PRN ×2 (16:00→17:15)
[2019-12-08 16:45] VITALS: BP 174/94
[2019-12-08 17:15] VITALS: BP 170/95
[2019-12-08] MEDS ORDERED: PERCOCET 5MG/325MG TAB PO PRN (17:15)
[2019-12-08] MEDS: D5W/LR 1,000 ML IV SCH (17:23)
[2019-12-08] MEDS: FINASTERIDE 5 MG TAB PO SCH (17:24)
[2019-12-08 18:15] VITALS: BP 165/90
[2019-12-08 19:02] VITALS: BP 135/80
[2019-12-08] MEDS ORDERED: ceFAZolin SOD 1 GM in D5W MINI-BAG PLUS 50 ML IV ONE (20:00)
[2019-12-08 21:27] VITALS: BP 130/81
[2019-12-09 01:20] VITALS: BP 128/72
[2019-12-09] MEDS: D5W/LR 1,000 ML IV SCH ×2 (03:15→13:15)
[2019-12-09 06:11] VITALS: BP 134/83
[2019-12-09 06:58] LABS: BASO % 0.2 % (0.0-1.0); EOS # 0.2 10^3/uL (0.0-0.5); EOS % 1.9 % (0.0-3.0); HEMOGLOBIN 14.5 g/dl (13.5-17.5); LYMPH % 18.2 % (24.0-44.0); MEAN CORPUSCULAR HEMOGLOBIN 31.3 pg (27.0-33.0); MEAN CORPUSCULAR HGB CONC 33.7 g/dl (32.0-36.5); MEAN CORPUSCULAR VOLUME 92.9 fl (80.0-96.0); MONO % 9.2 % (0.0-5.0); NEUTROPHILS # 7.8 10^3/uL (1.5-8.5); NEUTROPHILS % 70.1 % (36.0-66.0); PLATELET COUNT, AUTOMATED 229 10^3/uL (150-450); RED BLOOD COUNT 4.63 10^6/uL (4.30-6.10); WHITE BLOOD COUNT 11.1 10^3/uL (4.0-10.0)
[2019-12-09 07:13] LABS: BLOOD UREA NITROGEN 11 MG/DL (7-18); CALCIUM LEVEL 8.6 MG/DL (8.8-10.2); CARBON DIOXIDE LEVEL 30 MEQ/L (21-32); CHLORIDE LEVEL 106 MEQ/L (98-107); CREATININE FOR GFR 0.84 MG/DL (0.70-1.30); GLOMERULAR FILTRATION RATE > 60.0 (>35); GLUCOSE, FASTING 96 MG/DL (70-100); SODIUM LEVEL 139 MEQ/L (136-145)
[2019-12-09] MEDS: MOM 30ML SUSPENSION UDC PO SCH (08:44)
[2019-12-09] MEDS: METOPROLOL SUCC *XL* 25MG TAB (TopROL *XL*) PO SCH (08:45)
[2019-12-09] MEDS: PANTOPRAZOLE 40MG TAB (PROTONIX) PO SCH (08:45)
[2019-12-09] MEDS: SINEMET 25-100 MG TAB PO SCH ×3 (08:45→21:06)
[2019-12-09] MEDS: SENOKOT S TAB PO SCH ×2 (08:45→21:07)
--- NOTE | 2019-12-09 09:20 | IPNPDOC ---
Text Note Date of Service The patient was seen on 12/09/19. NOTE Subjective: Seen at bedside, laying comfortably denies any pain. Does not rem ember that he broke his hip and he had surgery yesterday. No fever or chills, No abdominal pain, no cough or chest pain. Physical Examination Vitals: As below. General Exam: Positive: Alert, No Acute Distress Eye Exam: Positive: Conjunctiva & lids normal; Negative: Sclera icteric ENT Exam: Positive: Atraumatic, Mucous membr. moist/pink, Pharynx Normal Neck Exam: Positive: Supple; Negative: thyromegaly Chest Exam: Positive: Clear to auscultation, Normal air movement Heart Exam: Positive: Rate Normal, Regular Rhythm, Normal S1, Normal S2, Murmurs (2/6 SM ); Negative: Gallops, Rubs Telemetry: Positive: No significant arrhythmia Abdomen Exam: Positive: Normal bowel sounds, Soft; Negative: Tenderness Extremity Exam: Positive: Normal pulses; Negative: Clubbing, Cyanosis, Edema Skin Exam: Positive: Nl turgor and temperature Neuro Exam: Positive: Normal Speech, Other (No TTP over the right hip ) Psych Exam: Positive: Mood NL; Negative: Oriented x 3 Labs and radiology; reviewed. Assessment /Plan: Mr. Dupree is an 84 year old male who was brought to the ED by his and son as he fell last and since then has refused to work with physical therapy. The pt continues to deny any pain or discomfort. Pt has a PMHx which includes: Dementia, possibly due to Parkinson's disease and Grade 1 Diastolic CHF. Femur RIGHT Impression: Impacted right femoral neck fracture Mechanical fall and Right femoral neck fracture on 12/07/19 s/p ORIF on 12/08/[address] Patel. The pt also fell and fractured his left hip in September; a strong case for advanced osteoporosis that should be worked up outpatient Following his procedure/recovery then he will need to be assessed for ARU. PT/OT Leukocytosis probably reactive UA - pending Mccullough has been changed Dementia, with Parkinson's Disease Continue with current medications Diastolic CHF Continue with current medications BPH finasteride DVT Prophylaxis in place. VS,Fishbone, I+O VS, Fishbone, I+O Laboratory Tests 12/09/19 06:37 Vital Signs Date Time Temp Pulse Resp B/P (MAP) Pulse Ox O2 Delivery O2 Flow Rate FiO2 12/09/19 08:45 72 136/78 12/09/19 06:11 97.2 20 95 Room Air 12/08/19 15:31 3 I&O- Last 24 Hours up to 6 AM 12/09/19 05:59 Intake Total 2340 ml Output Total 635 ml Balance 1705 ml REBECA RAE MD Dec 09, 2019 09:20
[2019-12-09 10:00] VITALS: BP 127/72
[2019-12-09 14:00] VITALS: BP 138/85
--- NOTE | 2019-12-09 14:35 | RO ---
DATE OF PROCEDURE: 12/06/2019 PREOPERATIVE DIAGNOSIS: Right hip valgus impacted femoral neck fracture. POSTOPERATIVE DIAGNOSIS: Right hip valgus impacted femoral neck fracture. PROCEDURE PERFORMED: Closed reduction, percutaneous pinning of right hip fracture. SURGEON: Terrence Patel MD RESEARCH ENVIRONMENTAL SCIENTIST: CELIA Everett ANESTHESIA: Spinal and local. ESTIMATED BLOOD LOSS: Less than 20 mL, replaced with crystalloid. COMPLICATIONS: No complications. INDICATIONS: The patient fell several days ago, suffered an impacted hip fracture and now presents for operative fixation. Consent was reviewed in detail with the patient's spouse as the patient suffers from presumably Parkinson's dementia. We discussed the procedure proposed, indications for procedure, alternatives like doing nothing and risks including, but not limited to, pain, failure, need to convert to a hemiarthroplasty or some other intervention, risk of infection or blood clots or other issues. The patient's agrees to proceed with the surgery for her spouse. Witnessed by nursing. COMPONENTS USED: Include 7.3 cannulated screws times three. OPERATIVE COURSE: Identified in the holding area, site and side verified, brought to the operating room. Once anesthesia was administered he was positioned on the Ronnie table in the leg scissor position. Once I and the open hearth stockyard supervisor were comfortable with the patient's positioning, preliminary alignment of the extremity was obtained. Fluoroscopy reflected the impacted fracture in unchanged position. Next, he was prepped and draped in the usual fashion. Next, fluoroscopy was utilized. Next, the incision was infiltrated with 0.25% Marcaine with epinephrine based on fluoroscopy. Incision was made with a 10 blade, developed down through skin and subcuticular tissues to the lateral fascia. The lateral fascia was divided. The vastus lateralis fascia was encountered and also divided. The lateral femur was identified. The wire guide was placed on the lateral femur. Fluoroscopy was utilized to target the wire. The wire was advanced across the fracture into the femoral head. Placement of the wire was verified in AP and lateral fluoroscopy. An additional two wires were placed, superior and posterior to that wire. Those were verified to be in appropriate location. The cannulated drill was then utilized to open the lateral femoral cortex over the wires. We had measured for a 100, 105 and 110 mm 7.3 screws. These screws were placed. The inferior most screw was slightly short and we exchanged for a 115 mm 7.3 cannulated screw and advanced that screw into the femoral head. Position of all three screws were verified in AP and lateral fluoroscopy and found be adequate. We utilized the 16 mm thread length. Next, once this was accomplished, the wound was irrigated. The fascial tissues were closed with interrupted stitch, deep dermis with interrupted stitch of #2-0 Vicryl. Prineo dressing was utilized on skin. Next, the patient was moved to the hospital bed and moved to the recovery room in good condition. For further details, please refer to medical record.
[2019-12-09] MEDS: FINASTERIDE 5 MG TAB PO SCH (17:41)
[2019-12-09 20:00] VITALS: BP 134/82
[2019-12-10 06:14] VITALS: BP 134/79
[2019-12-10] MEDS: MOM 30ML SUSPENSION UDC PO SCH (08:17)
[2019-12-10] MEDS: SENOKOT S TAB PO SCH ×2 (08:17→22:14)
[2019-12-10] MEDS: PANTOPRAZOLE 40MG TAB (PROTONIX) PO SCH (08:17)
[2019-12-10] MEDS: SINEMET 25-100 MG TAB PO SCH ×3 (08:17→22:14)
[2019-12-10] MEDS: METOPROLOL SUCC *XL* 25MG TAB (TopROL *XL*) PO SCH (08:18)
--- NOTE | 2019-12-10 11:03 | IPNPDOC ---
Text Note Date of Service The patient was seen on 12/10/19. NOTE Subjective: Seen at bedside, laying comfortably denies any pain. Does not remember that he broke his hip and he had surgery yesterday. No fever or chills, No abdominal pain, no cough or chest pain. Physical Examination Vitals: As below. General Exam: Positive: Alert, No Acute Distress Eye Exam: Positive: Conjunctiva & lids normal; Negative: Sclera icteric ENT Exam: Positive: Atraumatic, Mucous membr. moist/pink, Pharynx Normal Neck Exam: Positive: Supple; Negative: thyromegaly Chest Exam: Positive: Clear to auscultation, Normal air movement Heart Exam: Positive: Rate Normal, Regular Rhythm, Normal S1, Normal S2, Murmurs (2/6 SM ); Negative: Gallops, Rubs Telemetry: Positive: No significant arrhythmia Abdomen Exam: Positive: Normal bowel sounds, Soft; Negative: Tenderness Extremity Exam: Positive: Normal pulses; Negative: Clubbing, Cyanosis, Edema Skin Exam: Positive: Nl turgor and temperature Neuro Exam: Positive: Normal Speech, Other (No TTP over the right hip ) Psych Exam: Positive: Mood NL; Negative: Oriented x 3 Labs and radiology; reviewed. Assessment /Plan: Mr. Dupree is an 84 year old male who was brought to the ED by his and son as he fell last and since then has refused to work with physical therapy. The pt continues to deny any pain or discomfort. Pt has a PMHx which includes: Dementia, possibly due to Parkinson's disease and Grade 1 Diastolic CHF. Femur RIGHT Impression: Impacted right femoral neck fracture Mechanical fall and Right femoral neck fracture on 12/07/19 s/p ORIF on 12/08/[address] Patel. The pt also fell and fractured his left hip in September; a strong case for advanced osteoporosis that should be worked up outpatient Following his procedure/recovery then he will need to be assessed for ARU. PT/OT Leukocytosis probably reactive UA - pending Mccullough has been changed Dementia, with Parkinson's Disease Continue with current medications Diastolic CHF Continue with current medications BPH finasteride DVT Prophylaxis in place. VS,Fishbone, I+O VS, Fishbone, I+O Vital Signs Date Time Temp Pulse Resp B/P (MAP) Pulse Ox O2 Delivery O2 Flow Rate FiO2 3/1/20 08:18 80 130/76 12/10/19 06:14 97.6 18 97 Room Air 12/08/19 15:31 3 I&O- Last 24 Hours up to 6 AM 12/10/19 06:00 Intake Total 1810 ml Output Total 1150 ml Balance 660 ml REBECA RAE MD Dec 10, 2019 11:03
[2019-12-10 14:00] VITALS: BP 126/73
[2019-12-10] MEDS: FINASTERIDE 5 MG TAB PO SCH (17:12)
[2019-12-10 20:00] VITALS: BP 129/74
[2019-12-11 06:12] VITALS: BP 124/70
[2019-12-11] MEDS ORDERED: PERC5TAB12 PO (06:54)
[2019-12-11] MEDS ORDERED: XARE10TA PO (06:54)
[2019-12-11] MEDS ORDERED: MAGNESIUM CITRATE 300 ML BTL PO SCH (07:00)
[2019-12-11] MEDS: MOM 30ML SUSPENSION UDC PO SCH (09:13)
[2019-12-11] MEDS: SENOKOT S TAB PO SCH (09:14)
[2019-12-11] MEDS: PANTOPRAZOLE 40MG TAB (PROTONIX) PO SCH (09:14)
[2019-12-11] MEDS: SINEMET 25-100 MG TAB PO SCH (09:14)
[2019-12-11 09:15] VITALS: BP 124/70
[2019-12-11] MEDS: METOPROLOL SUCC *XL* 25MG TAB (TopROL *XL*) PO SCH (09:15)
[2019-12-11] MEDS ORDERED: RIVAROXABAN 10 MG TAB (XARELTO) PO SCH (18:00)
== END 2019-12-11 13:20 | DRG 481 ==
LOC: M ED 17:53 → EDBD 17:53 → M ED INP 19:54 → ENRESERV 22:08 → M MSPAV 23:13 → M MS5PR 12-07 16:50
PROVIDERS: ADMIT Internal Medicine; ATTEND Internal Medicine Nephrology
PROC: 0QS634Z Reposition Right Upper Femur with Internal Fixation Device, Percutaneous Approach (ICD-10-PCS; principal; 2019-12-06)
DX: S72.001A Fracture of unspecified part of neck of right femur, initial encounter for closed fracture (principal); I50.32 Chronic diastolic (congestive) heart failure; Z87.442 Personal history of urinary calculi; G31.83 Neurocognitive disorder with Lewy bodies; F02.80 Dementia in other diseases classified elsewhere, unspecified severity, without behavioral disturbance, psychotic disturbance, mood disturbance, and anxiety; M81.0 Age-related osteoporosis without current pathological fracture; D72.829 Elevated white blood cell count, unspecified; N40.0 Benign prostatic hyperplasia without lower urinary tract symptoms; Z79.899 Other long term (current) drug therapy; Z88.2 Allergy status to sulfonamides; W19.XXXA Unspecified fall, initial encounter; Y92.9 Unspecified place or not applicable

== ENCOUNTER → 2019-12-06 | Outpatient (REF) ==
[~2019-12-06] MED LIST changes: +ANEC4CRE3 TOP; +ENEMENE22 PR
--- NOTE | 2019-12-06 17:11 | REP ---
RIGHT HIP, TWO VIEWS: Two views of the right hip are performed. There is a fracture of the right femoral neck which is not significantly displaced. It appears somewhat impacted. There is no dislocation. There are mild degenerative changes at the hip joint itself. IMPRESSION: Nondisplaced right femoral neck fracture. Electronically Signed by Ajith Smith MD 12/07/2019 10:25 A
== END ==
LOC: M RAD 13:55
PROVIDERS: ATTEND Internal Medicine
DX: M25.551 Pain in right hip (principal)

== ENCOUNTER → 2019-12-18 | Outpatient (REF) ==
[~2019-12-18] MED LIST changes: +ANEC4CRE3 TOP; +ENEMENE22 PR; +PERC5TAB12 PO
[2019-12-18 08:04] LABS: HEMATOCRIT 42.2 % (42.0-52.0); HEMOGLOBIN 14.4 g/dl (13.5-17.5); MEAN CORPUSCULAR HEMOGLOBIN 31.1 pg (27.0-33.0); MEAN CORPUSCULAR HGB CONC 34.1 g/dl (32.0-36.5); MEAN CORPUSCULAR VOLUME 91.1 fl (80.0-96.0); PLATELET COUNT, AUTOMATED 303 10^3/uL (150-450); RED BLOOD COUNT 4.63 10^6/uL (4.30-6.10); WHITE BLOOD COUNT 10.3 10^3/uL (4.0-10.0)
[2019-12-18 08:22] LABS: ALBUMIN 3.4 GM/DL (3.2-5.2); ALT/SGPT 32 U/L (12-78); BILIRUBIN,TOTAL 0.6 MG/DL (0.2-1.0); BLOOD UREA NITROGEN 19 MG/DL (7-18); CALCIUM LEVEL 9.5 MG/DL (8.8-10.2); CARBON DIOXIDE LEVEL 26 MEQ/L (21-32); CHLORIDE LEVEL 105 MEQ/L (98-107); CREATININE FOR GFR 0.81 MG/DL (0.70-1.30); GLOMERULAR FILTRATION RATE > 60.0 (>35); GLUCOSE, FASTING 90 MG/DL (70-100); POTASSIUM SERUM 4.5 MEQ/L (3.5-5.1); SODIUM LEVEL 139 MEQ/L (136-145); TOTAL PROTEIN 7.1 GM/DL (6.4-8.2)
[2019-12-18 09:33] LABS: TOTAL 25(OH) VITAMIN D 24.4 NG/ML (30.0-100.0)
== END ==
LOC: SKLAB2 07:00
PROVIDERS: ATTEND Internal Medicine
DX: M81.0 Age-related osteoporosis without current pathological fracture (principal); I10 Essential (primary) hypertension; Z79.01 Long term (current) use of anticoagulants

== ENCOUNTER → 2019-12-25 | Outpatient (REF) ==
[2019-12-25 09:03] LABS: HEMATOCRIT 44.2 % (42.0-52.0); HEMOGLOBIN 14.4 g/dl (13.5-17.5); MEAN CORPUSCULAR HEMOGLOBIN 30.6 pg (27.0-33.0); MEAN CORPUSCULAR HGB CONC 32.6 g/dl (32.0-36.5); PLATELET COUNT, AUTOMATED 293 10^3/uL (150-450); WHITE BLOOD COUNT 9.9 10^3/uL (4.0-10.0)
== END ==
LOC: SKLAB2 07:30
PROVIDERS: ATTEND Internal Medicine
DX: Z79.01 Long term (current) use of anticoagulants (principal)

== ENCOUNTER → 2020-01-02 | Outpatient (REF) ==
[2020-01-02 07:10] LABS: HEMATOCRIT 46.8 % (42.0-52.0); HEMOGLOBIN 15.5 g/dl (13.5-17.5); MEAN CORPUSCULAR HEMOGLOBIN 31.4 pg (27.0-33.0); MEAN CORPUSCULAR HGB CONC 33.1 g/dl (32.0-36.5); MEAN CORPUSCULAR VOLUME 94.7 fl (80.0-96.0); PLATELET COUNT, AUTOMATED 237 10^3/uL (150-450); RED BLOOD COUNT 4.94 10^6/uL (4.30-6.10); WHITE BLOOD COUNT 10.7 10^3/uL (4.0-10.0)
== END ==
LOC: SKLAB2 07:00
PROVIDERS: ATTEND Internal Medicine
DX: D64.9 Anemia, unspecified (principal)

== ENCOUNTER → 2020-01-09 | Outpatient (REF) ==
[2020-01-09 07:51] LABS: HEMATOCRIT 44.8 % (42.0-52.0); HEMOGLOBIN 15.1 g/dl (13.5-17.5); MEAN CORPUSCULAR HEMOGLOBIN 30.9 pg (27.0-33.0); MEAN CORPUSCULAR HGB CONC 33.7 g/dl (32.0-36.5); MEAN CORPUSCULAR VOLUME 91.6 fl (80.0-96.0); PLATELET COUNT, AUTOMATED 217 10^3/uL (150-450); RED BLOOD COUNT 4.89 10^6/uL (4.30-6.10); WHITE BLOOD COUNT 9.8 10^3/uL (4.0-10.0)
== END ==
LOC: SKLAB2 07:00
PROVIDERS: ATTEND Internal Medicine
DX: D64.9 Anemia, unspecified (principal)

== ENCOUNTER → 2020-01-11 | Outpatient (REF) ==
--- NOTE | 2020-01-11 11:40 | REP ---
REASON FOR EXAM: Followup. The latest prior for comparison is right femur preoperative exam. Three lag screws are seen affixing the previously described femoral neck fracture. The alignment is near anatomical. The left hip has been compared to the previous AP pelvis of 12/06/2019 and the intramedullary labs are unchanged. The previously described healing proximal femoral fracture is unchanged. Once again, there is a vague radiodensity in the central and right hemipelvis, which is of uncertain etiology. This vague radiodensity measures approximately 5.7 x 1.1 cm. It was also seen on the prior exam. It was not present on an AP pelvis exam of 11/01/2018,a preoperative exam. IMPRESSION: 1. ORIF left side with right-sided lag screw placement as described above. 2. Vague radiodensity in the pelvis as described above. I urge clinical correlation. Electronically Signed by Martinez Weaver DO 01/11/2020 12:37 P
== END ==
LOC: SKLAB2 10:08
PROVIDERS: ATTEND Internal Medicine
DX: Z48.89 Encounter for other specified surgical aftercare (principal)

== ENCOUNTER 2020-02-19 09:58 | Emergency (ER) | payer MEDICARE, OTHER ==
[~2020-02-19] VITALS: Ht 185.4 cm; Wt 76.8 kg
[2020-02-19 10:47] LABS: BASO % 0.2 % (0.0-1.0); EOS # 0.1 10^3/uL (0.0-0.5); EOS % 0.3 % (0.0-3.0); HEMATOCRIT 40.8 % (42.0-52.0); HEMOGLOBIN 13.7 g/dl (13.5-17.5); LYMPH # 1.7 10^3/uL (1.5-5.0); LYMPH % 9.9 % (24.0-44.0); MEAN CORPUSCULAR HEMOGLOBIN 30.8 pg (27.0-33.0); MEAN CORPUSCULAR HGB CONC 33.6 g/dl (32.0-36.5); MEAN CORPUSCULAR VOLUME 91.7 fl (80.0-96.0); MONO # 1.1 10^3/uL (0.0-0.8); MONO % 6.4 % (0.0-5.0); NEUTROPHILS # 13.8 10^3/uL (1.5-8.5); NEUTROPHILS % 82.5 % (36.0-66.0); PLATELET COUNT, AUTOMATED 407 10^3/uL (150-450); RED BLOOD COUNT 4.45 10^6/uL (4.30-6.10); WHITE BLOOD COUNT 16.8 10^3/uL (4.0-10.0)
[2020-02-19 10:57] LABS: INR 1.02; PROTHROMBIN TIME 13.1 SECONDS (11.8-14.0)
[2020-02-19 10:58] LABS: PARTIAL THROMBOPLASTIN TIME 30.6 SECONDS (25.0-38.4)
[2020-02-19 11:18] LABS: BLOOD UREA NITROGEN 16 MG/DL (7-18); CALCIUM LEVEL 8.9 MG/DL (8.8-10.2); CARBON DIOXIDE LEVEL 27 MEQ/L (21-32); CHLORIDE LEVEL 106 MEQ/L (98-107); GLOMERULAR FILTRATION RATE > 60.0 (>35); GLUCOSE, FASTING 95 MG/DL (70-100); POTASSIUM SERUM 4.4 MEQ/L (3.5-5.1); SODIUM LEVEL 139 MEQ/L (136-145)
[2020-02-19] MEDS ORDERED: cefTRIAXone SOD 1 GM in D5W MINI-BAG PLUS 50 ML IV ONE (13:15)
[2020-02-19] MEDS ORDERED: LIDOCAINE 2% 5ML JELLY UROJET TOP ONE (13:15)
[2020-02-19] MEDS ORDERED: KEFL500C17 PO (13:49)
[2020-02-19 14:15] VITALS: BP 130/74
== END 2020-02-19 14:58 | disposition home or self-care (01) ==
LOC: M ED 09:58 → EDBD 09:58 → M ED 14:58
CPT/HCPCS: 36415; 51702; 80048; 81001; 85025; 85610; 85730; 87088; 87186; 96365; 96366; 99285; J0696

== ENCOUNTER 2020-03-05 12:17 | Emergency (ER) | payer MEDICARE, OTHER ==
[~2020-03-05 12:17] MED LIST changes: +KEFL500C17 PO
[2020-03-05 13:44] LABS: BASO % 0.1 % (0.0-1.0); EOS % 0.3 % (0.0-3.0); HEMATOCRIT 41.6 % (42.0-52.0); HEMOGLOBIN 13.4 g/dl (13.5-17.5); LYMPH # 1.9 10^3/uL (1.5-5.0); LYMPH % 13.8 % (24.0-44.0); MEAN CORPUSCULAR HEMOGLOBIN 29.1 pg (27.0-33.0); MEAN CORPUSCULAR HGB CONC 32.2 g/dl (32.0-36.5); MEAN CORPUSCULAR VOLUME 90.4 fl (80.0-96.0); MONO % 7.7 % (0.0-5.0); NEUTROPHILS # 10.5 10^3/uL (1.5-8.5); NEUTROPHILS % 77.7 % (36.0-66.0); PLATELET COUNT, AUTOMATED 237 10^3/uL (150-450); WHITE BLOOD COUNT 13.5 10^3/uL (4.0-10.0)
[2020-03-05 14:04] LABS: BLOOD UREA NITROGEN 17 MG/DL (7-18); CALCIUM LEVEL 9.1 MG/DL (8.8-10.2); CARBON DIOXIDE LEVEL 26 MEQ/L (21-32); CHLORIDE LEVEL 108 MEQ/L (98-107); CREATININE FOR GFR 0.89 MG/DL (0.70-1.30); GLOMERULAR FILTRATION RATE > 60.0 (>35); GLUCOSE, FASTING 103 MG/DL (70-100); POTASSIUM SERUM 4.2 MEQ/L (3.5-5.1); SODIUM LEVEL 141 MEQ/L (136-145)
[2020-03-05] MEDS ORDERED: MACR100C43 PO (15:51)
[2020-03-05 16:24] VITALS: BP 115/62
== END 2020-03-05 16:38 | disposition home or self-care (01) ==
LOC: M ED 12:17 → EDBD 12:17 → EEVIPCON 12:17 → M ED 16:38
DX: N39.0 Urinary tract infection, site not specified (principal); I10 Essential (primary) hypertension; F03.90 Unspecified dementia, unspecified severity, without behavioral disturbance, psychotic disturbance, mood disturbance, and anxiety; G20 Parkinson's disease; K21.9 Gastro-esophageal reflux disease without esophagitis; Z96.0 Presence of urogenital implants; Z88.2 Allergy status to sulfonamides; Z79.899 Other long term (current) drug therapy; Z79.2 Long term (current) use of antibiotics

== ENCOUNTER 2020-03-09 13:17 | Emergency (ER) | payer MEDICARE, OTHER ==
[~2020-03-09 13:17] MED LIST changes: +MACR100C43 PO; +PANT40TA29 PO; -PANT40TA3 PO
[2020-03-09 14:07] LABS: BASO % 0.2 % (0.0-1.0); EOS # 0.2 10^3/uL (0.0-0.5); EOS % 1.2 % (0.0-3.0); HEMATOCRIT 40.6 % (42.0-52.0); HEMOGLOBIN 13.5 g/dl (13.5-17.5); LYMPH # 2.2 10^3/uL (1.5-5.0); LYMPH % 17.5 % (24.0-44.0); MEAN CORPUSCULAR HGB CONC 33.3 g/dl (32.0-36.5); MEAN CORPUSCULAR VOLUME 90.2 fl (80.0-96.0); MONO # 0.9 10^3/uL (0.0-0.8); MONO % 7.2 % (0.0-5.0); NEUTROPHILS % 73.4 % (36.0-66.0); PLATELET COUNT, AUTOMATED 234 10^3/uL (150-450); WHITE BLOOD COUNT 12.3 10^3/uL (4.0-10.0)
[2020-03-09 14:21] LABS: INR 1.02; PROTHROMBIN TIME 13.1 SECONDS (11.8-14.0)
[2020-03-09 14:22] LABS: PARTIAL THROMBOPLASTIN TIME 28.6 SECONDS (25.0-38.4)
[2020-03-09 14:35] LABS: BLOOD UREA NITROGEN 14 MG/DL (7-18); CALCIUM LEVEL 8.7 MG/DL (8.8-10.2); CARBON DIOXIDE LEVEL 26 MEQ/L (21-32); CHLORIDE LEVEL 106 MEQ/L (98-107); CREATININE FOR GFR 0.77 MG/DL (0.70-1.30); GLOMERULAR FILTRATION RATE > 60.0 (>35); GLUCOSE, FASTING 120 MG/DL (70-100); POTASSIUM SERUM 3.9 MEQ/L (3.5-5.1); SODIUM LEVEL 138 MEQ/L (136-145)
[2020-03-09] MEDS ORDERED: LIDOCAINE 2% 5ML JELLY UROJET TOP ONE (14:45)
[2020-03-09 16:00] VITALS: BP 123/79
== END 2020-03-09 17:56 | disposition home or self-care (01) ==
LOC: EDBD 13:17 → M ED 13:17
DX: R31.9 Hematuria, unspecified (principal); T83.098A Other mechanical complication of other urinary catheter, initial encounter; X58.XXXA Exposure to other specified factors, initial encounter; Y92.89 Other specified places as the place of occurrence of the external cause; I10 Essential (primary) hypertension; G20 Parkinson's disease; N40.0 Benign prostatic hyperplasia without lower urinary tract symptoms; Z79.899 Other long term (current) drug therapy; Z79.01 Long term (current) use of anticoagulants; Z88.1 Allergy status to other antibiotic agents; Z88.2 Allergy status to sulfonamides

== ENCOUNTER 2020-03-17 16:38 | Inpatient (IN) | payer MEDICARE, OTHER ==
[~2020-03-17] VITALS: Ht 185.4 cm; Wt 71.2 kg
[~2020-03-17 16:38] MED LIST changes: -PANT40TA29 PO; +PANT40TA3 PO
[2020-03-17 17:12] LABS: BASO % 0.3 % (0.0-1.0); EOS # 0.2 10^3/uL (0.0-0.5); EOS % 1.5 % (0.0-3.0); LYMPH # 2.9 10^3/uL (1.5-5.0); MEAN CORPUSCULAR HEMOGLOBIN 29.5 pg (27.0-33.0); MEAN CORPUSCULAR HGB CONC 32.6 g/dl (32.0-36.5); MEAN CORPUSCULAR VOLUME 90.5 fl (80.0-96.0); MONO # 1.1 10^3/uL (0.0-0.8); MONO % 7.9 % (0.0-5.0); NEUTROPHILS # 9.4 10^3/uL (1.5-8.5); NEUTROPHILS % 68.9 % (36.0-66.0); PLATELET COUNT, AUTOMATED 271 10^3/uL (150-450); RED BLOOD COUNT 4.75 10^6/uL (4.30-6.10); WHITE BLOOD COUNT 13.6 10^3/uL (4.0-10.0)
[2020-03-17] MEDS ORDERED: LIDOCAINE 2% 5ML JELLY UROJET TOP ONE (17:15)
[2020-03-17 17:25] LABS: INR 1.09; PROTHROMBIN TIME 13.8 SECONDS (11.8-14.0)
[2020-03-17 17:26] LABS: PARTIAL THROMBOPLASTIN TIME 29.3 SECONDS (25.0-38.4)
[2020-03-17] MEDS ORDERED: DIGOXIN INJ 0.5 MG/2 ML AMP (J1160) IV STA (17:27)
[2020-03-17] MEDS ORDERED: METO1TAB32 PO (17:51)
[2020-03-17] MEDS ORDERED: FINA5TAB2 PO (17:51)
[2020-03-17 17:55] LABS: ALBUMIN 3.1 GM/DL (3.2-5.2); ALT/SGPT 8 U/L (12-78); BILIRUBIN,DIRECT 0.1 MG/DL (0.0-0.2); BILIRUBIN,TOTAL 0.4 MG/DL (0.2-1.0); CK-MB VALUE MASS < 1.0 NG/ML (<3.6); CPK CREATINE PHOSPHOKINASE 35 U/L (39-308); FREE T4 1.14 NG/DL (0.76-1.46); LIPASE 140 U/L (73-393); MB/CK RELATIVE INDEX 2.86 (< OR =4); TOTAL PROTEIN 7.3 GM/DL (6.4-8.2); TROPONIN I < 0.02 NG/ML (< 0.10)
--- NOTE | 2020-03-17 18:32 | HPEPDOC ---
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 Patient lives at home with his with several caretakers. This morning patient was found to have debris within the Edwards catheter bag and decreased urine output. She was subsequently taken to the emergency room for further evaluation where he had the Edwards catheter, subsequently removed and replaced by ER provider. Patient was then incidentally found to have a heart rate of 150 and was in atrial flutter. Patient does not have a prior history of abnormal heart rate. Currently, he denies any chest pain, shortness of breath, palpitations, nausea, vomiting, abdominal pain, constipation, diarrhea or recent fever/chills. Patient has reported that in the past he was on metoprolol succinate 12.5, however, was taken off this medication because of hypotension. Case was discussed with ER provider and on-call borough coordinator, Dr. Hope. Recommended starting digoxin. Home Medications Scheduled Carbidopa/Levodopa (Carbidopa-Levodopa 25-100 Tab) 1 Each Tablet, 1 TAB PO TID, (Reported) 0800, 1200, 1600 Finasteride (Finasteride) 5 Mg Tablet, 5 MG PO QHS, (Reported) Metoprolol Succinate (Metoprolol Succinate) 25 Mg Tab.er.24h, 12.5 MG PO DAILY, (Reported) Allergies Coded Allergies: Sulfa (Sulfonamide Antibiotics) (Verified Allergy, Mild, 04/14/19) Past Medical History Medical History BPH with Chronic edwards catheter, Dementia 2/2 Parkinsons, Chronic Diastolic CHF (Grade 1), Surgical History Left hip fracture Right hip fracture status post repair November 2019 Abdominal hernia repair Family History - Family history was reviewed and is currently not pertinent to this hospitalization Social History - Denies the use of illicit drugs; patient has a remote history of alcohol and smoking - Denies recent travel or sick contacts - Lives with and caretakers - 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; 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 Review of Systems Other systems 10 point review systems is negative otherwise stated in HPI Vital Signs - Vitals: BP 112/71, HR 155, RR 18, Sat 97%RA, Temp 96.6F - General: Lying in bed, No acute distress, Speaking in full sentences, Awake / Alert - HEENT: NC, AT, PERRLA, EOMI - CVS: Tachycardic, +S1S2 - Lungs: Fair air entry bilaterally, No appreciable wheezing / rales / rhonchi - Abdomen: Soft, Non-distended, Non-tender - Extremities: No lower extremity edema, No calf tenderness - Neuro: No focal motor or sensory deficit - Skin: No visible rashes Laboratory Data Labs 24H Laboratory Tests 2 03/17/20 16:47: Immature Granulocyte % (Auto) 0.4, Neutrophils (%) (Auto) 68.9H, Lymphocytes (%) (Auto) 21.0L, Monocytes (%) (Auto) 7.9H, Eosinophils (%) (Auto) 1.5, Basophils (%) (Auto) 0.3, Neutrophils # (Auto) 9.4H, Lymphocytes # (Auto) 2.9, Monocytes # (Auto) 1.1H, Eosinophils # (Auto) 0.2, Basophils # (Auto) 0.0, Nucleated Red Blood Cells % (auto) 0.0, Prothrombin Time 13.8, Prothromb Time International Ratio 1.09, Activated Partial Thromboplast Time 29.3, Total Bilirubin 0.4, Direct Bilirubin 0.1, Aspartate Amino Transf (AST/SGOT) 22, Alanine Aminotransferase (ALT/SGPT) 8L, Alkaline Phosphatase 116, Total Creatine Kinase 35L, Creatine Kinase MB < 1.0, Creatine Kinase MB Relative Index 2.86, Troponin I < 0.02, Total Protein 7.3, Albumin 3.1L, Albumin/Globulin Ratio 0.7, Lipase 140, Thyroid Stimulating Hormone (TSH) 1.580, Free Thyroxine 1.14 03/17/20 17:04: POC Glucose (Misc Panel) 104, POC Sodium (Misc Panel) 139, POC Potassium (Misc Panel) 4.1, POC Chloride (Misc Panel) 102, POC Total CO2 (Misc Panel) 24.0, POC Blood Urea Nitrogen (Misc Panel 14, POC Ionized Calcium (Misc Panel) 4.8, POC Creatinine (Misc Panel) 0.9, POC Hematocrit (Misc Panel) 42.0 03/17/20 17:06: POC Troponin I (Misc) 0.00 CBC/BMP Laboratory Tests 03/17/20 16:47 Plan / VTE VTE Prophylaxis Ordered?: Yes Plan Plan Atrial flutter - Patient presented to the emergency room after experiencing difficulty with his Edwards catheter while the home - Patient is currently asymptomatic and denies any short of breath, chest pain or palpitations - Patient is hemodynamically stable - Troponin 1 set is negative; will continue to trend - Thyroid function within normal limits - Infectious workup (See below) - EKG reveals atrial flutter - CXR 03/17: No acute disease - Case was discussed by ER provider and cardiology; recommendations for Digoxin, hypotension with metoprolol - Will check echocardiogram and continue with telemetry monitoring - Will c/w Digoxin loading; will check digoxin level in AM - Will start full anticoagulation with Eliquis Difficulty with Edwards catheter - Patients family had reported degree and occlusion of Edwards catheter, requiring placement - Edwards catheter was placed in the ER, 03/17 by ER provider - Patient is afebrile - There is mild leukocytosis at 13.6 with neutrophil predominance - Will send urine for analysis and urine culture - Will check blood cultures / Lactic acid - Will hold off on antibiotics at this time BPH with Chronic Edwards catheter - Replaced on 03/17/20 - Will have outpatient follow-up with urology Dementia 2/2 Parkinsons - Will continue with carbidopa levodopa Chronic Diastolic CHF (Grade 1) - No evidence of exacerbation - Patient does not take diuretics as an outpatient DVT prophylaxis - Will full anticoagulation with Eliquis Code status: - DNR / DNI OLGA PULLIAM MD Mar 17, 2020 18:31
[2020-03-17] MEDS ORDERED: SENN-80 PO (18:46)
[2020-03-17] MEDS ORDERED: VITATAB73 PO (18:46)
[2020-03-17] MEDS ORDERED: RA F PO (18:46)
[2020-03-17] MEDS: D5W/0.45% SODIUM CHLORIDE 1,000 ML IV SCH (18:47)
[2020-03-17] MEDS ORDERED: VANCOMYCIN HCL 750 MG, VIAL MATE ADAPTER 1 EACH in D5W 250 ML IV SCH (19:15)
--- NOTE | 2020-03-17 19:22 | ECGEPIP ---
[facility] - ED Test Date: 2020-03-17 Pat Name: LAURENCE KAPLAN Department: Room: - Gender: Male Test Manager: bobby : [id number] Requested By: Rita Morley Order Number: [id number] Reading MD: Rita Morley Measurements Intervals [place] Rate: 153 P: MO: 0 QRS: -33 QRSD: 82 T: -58 QT: 271 QTc: 433 Interpretive Statements ATRIAL FLUTTER/TACHYCARDIA WITH RAPID VENTRICULAR RESPONSE MARKED LEFT AXIS DEVIATION ST DEVIATION AND MODERATE T-WAVE ABNORMALITY, CONSIDER INFERIOR ISCHEMIA CW 12/06/19 RATE INCREASED RHYTHM CHANGE Electronically Signed on 03-17-2020 19:22:11 EDT by Rita Morley
--- NOTE | 2020-03-17 20:02 | PHACANCOPD ---
PHARMACY VANCOMYCIN DOSING Pt Demographics Demographics Patient Age:84 , Weight:73.400 , Gender: male Adjusted Body Weight Date: 03/17/20, Adjusted Body Weight: Kg Events Past 24 Hours Events Past 24 Hours: NO: Dialysis, Diuretic Therapy, Change in CrCl, Fever, Elevation in WBC, Pending Diagnostics, Pending Procedures, Other Vancomycin Vancomycin indication: MRSA UTI Vancomycin Target Ranges: 15-20 mcg/ml Vancomycin Load Y/N: Yes Load Dose Date Time Vancomycin Load Dose: 1.5G Date: 03/17/20 Time: 21:00 Vancomycin Dose Date: 03/17/20. Current Vancomycin Dose: [1G IV Q12H] Intermittent Dosing?: No Labs Labs Item Value Date Time White Blood Count 13.6 10^3/uL H 03/17/20 1647 POC Creatinine (Misc Panel) 0.9 MG/DL 03/17/20 1704 Micro Microbiology 03/17/20 Blood Culture, Received Pending 03/17/20 Urine Culture, Received Pending 03/17/20 Blood Culture, Received Pending Creatinine Clearance Date:03/17/20. Creatinine Clearance: [71.5 ML/MIN]. Assessment and Plan Maintaining Current Dose?: Yes Reason for dose change: No Dose Change Pharmacist Note Pharmacist Note Date: 03/17/20. Pharmacist note:PT is an 84 year old male being treated for MRSA UTI goal trough 15-20mcg/ml. The patient has not received Vancomycin here at [facility] in the past. To achieve goal a 1.5g IV vancomycin dose will start 03/17/20 @21:00. Maintenance therapy will consist of 1g vancomycin IV every 12 hours. We will continue to monitor and adjust the dose as needed. ANGELITA LUGO [facility]ARM[facility] Mar 17, 2020 20:02
[2020-03-17 20:30] VITALS: BP 125/70
[2020-03-17] MEDS: APIXABAN 5 MG TAB (ELIQUIS) PO SCH (21:11)
[2020-03-17] MEDS: cefTRIAXone SOD 2 GM in D5W MINI-BAG PLUS 50 ML IV SCH (21:12)
[2020-03-17] MEDS ORDERED: VANCOMYCIN HCL 500 MG in D5W MINI-BAG PLUS 100 ML IV ONE (22:00)
[2020-03-17] MEDS: VANCOMYCIN HCL 1,000 MG, VIAL MATE ADAPTER 1 EACH in D5W 250 ML IV SCH (22:20)
[2020-03-18] VITALS (10 sets, daily range): BP systolic 110–145; BP diastolic 58–84
[2020-03-18 00:04] LABS: CPK CREATINE PHOSPHOKINASE 33 U/L (39-308); MB/CK RELATIVE INDEX 3.03 (< OR =4); TROPONIN I < 0.02 NG/ML (< 0.10)
[2020-03-18] MEDS: DIGOXIN INJ 0.5 MG/2 ML AMP (J1160) IV SCH ×2 (00:48→06:43)
[2020-03-18 05:59] LABS: BASO % 0.3 % (0.0-1.0); EOS # 0.3 10^3/uL (0.0-0.5); EOS % 3.6 % (0.0-3.0); HEMATOCRIT 38.5 % (42.0-52.0); HEMOGLOBIN 12.8 g/dl (13.5-17.5); LYMPH % 31.8 % (24.0-44.0); MEAN CORPUSCULAR HEMOGLOBIN 30.2 pg (27.0-33.0); MEAN CORPUSCULAR HGB CONC 33.2 g/dl (32.0-36.5); MEAN CORPUSCULAR VOLUME 90.8 fl (80.0-96.0); MONO # 0.8 10^3/uL (0.0-0.8); MONO % 8.6 % (0.0-5.0); NEUTROPHILS # 5.1 10^3/uL (1.5-8.5); NEUTROPHILS % 55.4 % (36.0-66.0); PLATELET COUNT, AUTOMATED 232 10^3/uL (150-450); RED BLOOD COUNT 4.24 10^6/uL (4.30-6.10); WHITE BLOOD COUNT 9.3 10^3/uL (4.0-10.0)
[2020-03-18 06:24] LABS: BLOOD UREA NITROGEN 10 MG/DL (7-18); CALCIUM LEVEL 8.6 MG/DL (8.8-10.2); CARBON DIOXIDE LEVEL 30 MEQ/L (21-32); CHLORIDE LEVEL 106 MEQ/L (98-107); CK-MB VALUE MASS 1.3 NG/ML (<3.6); CPK CREATINE PHOSPHOKINASE 31 U/L (39-308); CREATININE FOR GFR 0.85 MG/DL (0.70-1.30); GLOMERULAR FILTRATION RATE > 60.0 (>35); GLUCOSE, FASTING 94 MG/DL (70-100); MB/CK RELATIVE INDEX 4.19 (< OR =4); POTASSIUM SERUM 3.8 MEQ/L (3.5-5.1); SODIUM LEVEL 140 MEQ/L (136-145); TROPONIN I < 0.02 NG/ML (< 0.10)
[2020-03-18] MEDS: SENNA 8.6 MG TAB (SENOKOT) PO SCH (08:14)
[2020-03-18] MEDS: VANCOMYCIN HCL 1,000 MG, VIAL MATE ADAPTER 1 EACH in D5W 250 ML IV SCH ×2 (08:15→20:31)
[2020-03-18] MEDS: APIXABAN 5 MG TAB (ELIQUIS) PO SCH ×2 (08:15→20:31)
[2020-03-18] MEDS: SINEMET 25-100 MG TAB PO SCH ×3 (08:15→15:19)
--- NOTE | 2020-03-18 13:09 | REP ---
CHEST: REASON FOR EXAM: Chest pain. Latest prior for comparison: 12/06/2019 The technique utilized in obtaining the radiograph has magnified the cardiac silhouette and accentuated the interstitial markings. Preliminary report given by Dr. Mathis. FINDINGS: The superior mediastinal structures are midline. The cardiac silhouette is unremarkable in size, shape, and position. The diaphragmatic surfaces of the lungs are regular, and the costophrenic angles are clear. The pulmonary quarles are clear. The imaged osseous structures are intact. IMPRESSION: There is no acute cardiopulmonary disease. No significant change. Electronically Signed by Martinez Weaver DO 03/18/2020 03:18 P
--- NOTE | 2020-03-18 13:59 | IPNPDOC ---
Date Seen The patient was seen on 03/18/20. Progress Note SUBJECTIVE: Currently NSR. Patient is a slightly confused, pleasant and cooperative. UCx pending. Digoxin level high, so stopped digoxin and will f/u repeat level in AM to see if we can continue. Denies chest pain, n/v/d, shortness of breath, palpitations. OBJECTIVE: VITAL SIGNS: Please see below PHYSICAL EXAMINATION: General: Lying in bed, No acute distress, Awake, alert but confused as to what day, time and why he is here. HEENT: NC/AT, PERRLA, EOMI CVS: rate and rhythm are regular, +S1S2, No M/R/G Lungs: Fair air entry bilaterally, No appreciable wheezing / rales / rhonchi Abdomen: Soft, Non-distended, Non-tender Extremities: No lower extremity edema, No calf tenderness Neuro: CN 2-12 intact, resting tremor in bilateral upper ext, No focal motor or sensory deficit Skin: No visible rashes, good skin turgor CURRENT MEDICATIONS: Please see below LABORATORY DATA: Please see below IMAGING: CXR: There is no acute cardiopulmonary disease. No significant change. ASSESSMENT: 84 y/o M admitted for management/treatment of new-onset atrial fibrillation with RVR, UTI. PLAN: 1. Atrial flutter with RVR- resolved. Could have been transient in setting of UTI ; however, date it started is unknown. Currently NSR with HR in 70's. S/p 0.25 mg IV x 2 of digoxin, digoxin level this AM high at 2.4. Stopping digoxin for now, if level within normal in AM, then can discuss if/when to restart. Telemetry. F/u echocardiogram. Started on eliquis. 2. UTI. Chronic indwelling catheter with hx of recurrent UTI (Klebsiella, MRSA and E. coli). Edwards changed 03/17/20. UA +, WBC wnl this AM. On vancomycin, ceftriaxone but can deescalate when UCx returns. BCx pending. 3. BPH with chronic indwelling edwards catheter. On no home medications. Patient to f/u with urology as o/p. 4. 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 Stable at believed to be at baseline. C/w carbidopa levodopa 5. Chronic Diastolic CHF (Grade 1). No evidence of exacerbation. Patient does not take diuretics as an outpatient. 6. DVT prophylaxis. Eliquis. DISPOSITION: Patient is currently inpatient status. Plan is discharge home when medically improved. Code status: - DNR / DNI VS, I&O, 24H, [facility] Vital Signs/I&O Vital Signs Date Time Temp Pulse Resp B/P (MAP) Pulse Ox O2 Delivery O2 Flow Rate FiO2 03/18/20 12:00 96.7 75 18 145/76 (99) 99 Room Air 03/18/20 08:00 2.0 I&O- Last 24 Hours up to 6 AM 03/18/20 05:59 Intake Total 1100 ml Output Total 725 ml Balance 375 ml Laboratory Data 24H LABS Laboratory Tests 2 03/17/20 16:47: Immature Granulocyte % (Auto) 0.4, Neutrophils (%) (Auto) 68.9H, Lymphocytes (%) (Auto) 21.0L, Monocytes (%) (Auto) 7.9H, Eosinophils (%) (Auto) 1.5, Basophils (%) (Auto) 0.3, Neutrophils # (Auto) 9.4H, Lymphocytes # (Auto) 2.9, Monocytes # (Auto) 1.1H, Eosinophils # (Auto) 0.2, Basophils # (Auto) 0.0, Nucleated Red Blood Cells % (auto) 0.0, Prothrombin Time 13.8, Prothromb Time International Ratio 1.09, Activated Partial Thromboplast Time 29.3, Total Bilirubin 0.4, Direct Bilirubin 0.1, Aspartate Amino Transf (AST/SGOT) 22, Alanine Am inotransferase (ALT/SGPT) 8L, Alkaline Phosphatase 116, Total Creatine Kinase 35L, Creatine Kinase MB < 1.0, Creatine Kinase MB Relative Index 2.86, Troponin I < 0.02, Total Protein 7.3, Albumin 3.1L, Albumin/Globulin Ratio 0.7, Lipase 140, Thyroid Stimulating Hormone (TSH) 1.580, Free Thyroxine 1.14 03/17/20 16:56: Urine Color YELLOW, Urine Appearance TURBIDH, Urine pH 5.0, Urine Specific [place] 1.026, Urine Protein 2+H, Urine Glucose (UA) NEGATIVE, Urine Ketones TRACEH, Urine Blood 3+H, Urine Nitrite NEGATIVE, Urine Bilirubin NEGATIVE, Urine Urobilinogen 0.2, Urine Leukocyte Esterase 3+H, Urine WBC (Auto) TNTCH, Urine RBC (Auto) TNTCH, Urine Hyaline Casts (Auto) 0, Urine Bacteria (Auto) 2+H, Urine Squamous Epithelial Cells 0, Urine Amorphous Sediment SMALLH, Urine Mucus (Auto) LARGE, Urine Sperm (Auto) 03/17/20 17:04: POC Glucose (Misc Panel) 104, POC Sodium (Misc Panel) 139, POC Potassium (Misc Panel) 4.1, POC Chloride (Misc Panel) 102, POC Total CO2 (Misc Panel) 24.0, POC Blood Urea Nitrogen (Misc Panel 14, POC Ionized Calcium (Misc Panel) 4.8, POC Creatinine (Misc Panel) 0.9, POC Hematocrit (Misc Panel) 42.0 03/17/20 17:06: POC Troponin I (Misc) 0.00 03/17/20 19:30: Lactic Acid Level 1.1 03/17/20 22:56: Total Creatine Kinase 33L, Creatine Kinase MB 1.0, Creatine Kinase MB Relative Index 3.03, Troponin I < 0.02 03/18/20 05:24: Total Creatine Kinase 31L, Creatine Kinase MB 1.3, Creatine Kinase MB Relative Index 4.19H, Troponin I < 0.02, Immature Granulocyte % (Auto) 0.3, Neutrophils (%) (Auto) 55.4, Lymphocytes (%) (Auto) 31.8, Monocytes (%) (Auto) 8.6H, Eosinophils (%) (Auto) 3.6H, Basophils (%) (Auto) 0.3, Neutrophils # (Auto) 5.1, Lymphocytes # (Auto) 3.0, Monocytes # (Auto) 0.8, Eosinophils # (Auto) 0.3, Basophils # (Auto) 0.0, Nucleated Red Blood Cells % (auto) 0.0, Anion Gap 4L, Glomerular Filtration Rate > 60.0, Calcium Level 8.6L, Magnesium Level 2.0 03/18/20 08:54: Digoxin Level 2.4H CBC/BMP Laboratory Tests 03/17/20 16:47 03/18/20 05:24 Microbiology Microbiology 03/17/20 Blood Culture, Received Pending 03/17/20 Urine Culture, Received Pending 03/17/20 Blood Culture, Received Pending Current Medications Current Medications Medications (Trade) Dose Ordered Sig/Giovanna Route PRN Reason Start Time Stop Time Status Last Admin Dose Admin Apixaban (Eliquis) 5 mg BID PO 03/17/20 21:00 03/18/20 08:15 Carbidopa/Levodopa (Sinemet 25/100) 1 tab TID@0800,1200,1600 PO 03/18/20 08:00 03/18/20 11:32 Ceftriaxone Sodium 2 gm/ Dextrose 50 ml @ 100 mls/hr Q24H IV 03/17/20 20:00 03/17/20 21:12 Dextrose/Sodium Chloride 1,000 ml @ 60 mls/hr [id number] IV 03/17/20 18:30 03/17/20 18:47 Digoxin (Lanoxin) 0.125 mg DAILY PO 03/19/20 09:00 03/18/20 11:32 DC Digoxin (Lanoxin) 0.25 mg Q6H IV 03/18/20 00:00 03/18/20 06:01 DC 03/18/20 06:43 Digoxin (Lanoxin) 0.5 mg STAT STAT IV 03/17/20 17:27 03/17/20 17:28 DC 03/17/20 17:37 Home Med (Med Rec Complete!) ASDIRECTED XX 03/17/20 19:00 03/17/20 18:53 DC Senna (Senokot) 1 tab DAILY PO 03/18/20 09:00 03/18/20 08:14 Vancomycin HCl 750 mg/IV Miscellaneous Supplies 1 each/ Dextrose 275 ml @ 275 mls/hr Q24H IV 03/17/20 19:15 03/17/20 19:55 DC Vancomycin HCl 1000 mg/IV Miscellaneous Supplies 1 each/ Dextrose 270 ml @ 270 mls/hr Q12H IV 03/17/20 21:00 03/18/20 08:15 Allergies Coded Allergies: Sulfa (Sulfonamide Antibiotics) (Verified Allergy, Mild, 04/14/19) Tiffany Delgado MD Mar 18, 2020 13:59
[2020-03-18] MEDS: D5W/0.45% SODIUM CHLORIDE 1,000 ML IV SCH (15:19)
[2020-03-18] MEDS: cefTRIAXone SOD 2 GM in D5W MINI-BAG PLUS 50 ML IV SCH (19:53)
--- NOTE | 2020-03-18 21:37 | ECHO ---
DATE OF PROCEDURE: 03/18/2020 REFERRING PHYSICIAN: Dr. Huseyin Aden INDICATION: Abnormal EKG. Height 185 cm, weight 73 kg. DIMENSIONS: IVS: 0.9 LV: 3.8 LVPW: 1.0 LA: 3.1 Aorta: 3.4 RV: 3.2 Mitral E wave velocity: 49 A wave: 73 E prime septal: 5.0 E prime lateral: 6.4 FINDINGS: The study is of rather limited technical quality. The patient is in sinus rhythm. Left ventricle is normal size and normal systolic function, I certainly cannot rule out subtle wall motion abnormalities based on very limited nature of the patient's images, but overall ejection fraction (EF) is probably preserved. Right ventricle was poorly seen. Atria appear grossly normal. Aortic valve is mildly sclerotic. I cannot comment much on its structure. Mitral and tricuspid valves appear normal. Pulmonic valve was not well seen. No pericardial effusion is noted. Inferior vena cava was not visualized. Aortic root and aortic arch were not well seen. Doppler interrogation reveals no aortic stenosis and trace aortic insufficiency. There is competent mitral valve. Trace tricuspid insufficiency seen. Calculated pulmonary artery pressure is probably in 30s assuming normal central venous pressure, which would correspond to borderline pulmonary hypertension. Mitral inflow pattern and tissue Doppler imaging of mitral annulus revealed grade 1 diastolic dysfunction. CONCLUSIONS: 1. Study is of markedly limited technical quality, the patient is in sinus rhythm. 2. Normal LV size with likely normal LV systolic function and grade 1 diastolic dysfunction. 3. Poorly visualized right ventricle. 4. Trace aortic insufficiency. 5. Competent mitral valve. 6. Trace tricuspid insufficiency. 7. Unable to estimate central venous pressure and at least borderline pulmonary hypertension. COMMENT: Subacute bacterial endocarditis (SBE) prophylaxis is not recommended.
[2020-03-19] VITALS: BP 133/81
[2020-03-19 04:00] VITALS: BP 132/70
[2020-03-19] MEDS: D5W/0.45% SODIUM CHLORIDE 1,000 ML IV SCH (05:24)
[2020-03-19 05:40] LABS: BASO % 0.4 % (0.0-1.0); EOS # 0.3 10^3/uL (0.0-0.5); EOS % 2.7 % (0.0-3.0); HEMATOCRIT 37.7 % (42.0-52.0); HEMOGLOBIN 12.5 g/dl (13.5-17.5); LYMPH # 2.5 10^3/uL (1.5-5.0); LYMPH % 23.2 % (24.0-44.0); MEAN CORPUSCULAR HEMOGLOBIN 29.6 pg (27.0-33.0); MEAN CORPUSCULAR HGB CONC 33.2 g/dl (32.0-36.5); MEAN CORPUSCULAR VOLUME 89.3 fl (80.0-96.0); MONO # 0.8 10^3/uL (0.0-0.8); MONO % 7.5 % (0.0-5.0); NEUTROPHILS # 7.1 10^3/uL (1.5-8.5); PLATELET COUNT, AUTOMATED 247 10^3/uL (150-450); RED BLOOD COUNT 4.22 10^6/uL (4.30-6.10); WHITE BLOOD COUNT 10.7 10^3/uL (4.0-10.0)
[2020-03-19 06:14] LABS: BLOOD UREA NITROGEN 9 MG/DL (7-18); CALCIUM LEVEL 8.4 MG/DL (8.8-10.2); CARBON DIOXIDE LEVEL 28 MEQ/L (21-32); CHLORIDE LEVEL 108 MEQ/L (98-107); CREATININE FOR GFR 0.78 MG/DL (0.70-1.30); DIGOXIN LEVEL 1.1 NG/ML (0.5-2.0); GLOMERULAR FILTRATION RATE > 60.0 (>35); GLUCOSE, FASTING 95 MG/DL (70-100); MAGNESIUM LEVEL 1.9 MG/DL (1.8-2.4); SODIUM LEVEL 142 MEQ/L (136-145)
[2020-03-19 08:00] VITALS: BP 140/78
[2020-03-19] MEDS: APIXABAN 5 MG TAB (ELIQUIS) PO SCH ×2 (08:05→20:24)
[2020-03-19] MEDS: SENNA 8.6 MG TAB (SENOKOT) PO SCH (08:05)
[2020-03-19] MEDS: DIGOXIN 0.125 MG TAB PO SCH (08:05)
[2020-03-19] MEDS: SINEMET 25-100 MG TAB PO SCH ×3 (08:05→15:37)
[2020-03-19] MEDS ORDERED: DIGOXIN 0.125 MG TAB PO SCH (09:00)
[2020-03-19] MEDS: VANCOMYCIN HCL 1,000 MG, VIAL MATE ADAPTER 1 EACH in D5W 250 ML IV SCH ×2 (09:08→20:25)
[2020-03-19] MEDS ORDERED: SLF 3 ML SYR IV PRN (11:15)
[2020-03-19 12:00] VITALS: BP 119/75
[2020-03-19] MEDS: SLF 3 ML SYR IV SCH ×2 (13:04→20:28)
[2020-03-19 16:00] VITALS: BP 145/79
--- NOTE | 2020-03-19 16:14 | IPNPDOC ---
Text Note Date of Service The patient was seen on 03/19/20. NOTE SUBJECTIVE: -No acute issues over the last 24h -No chest pain, n/v/d, shortness of breath or palpitations. -This afternoon having some runs of ectopy with SVTs OBJECTIVE: VITALS: HDS, afebrile General: No acute distress, confused AOx1 as previously noted, otherwise pleasant. HEENT: NCAT, PERRLA, EOMI, MMM CARDIAC: RRR, +S1S2, No M/R/G Lungs: CTAB, breathing comfortably on room air, no crackles, rhonchi or wheezing Abdomen: Normoactive bowel sounds, soft, NTND Extremities: No lower extremity edema, WWP Neuro: CN 2-12 intact, previously noted resting tremor in bilateral upper ext is present, with otherwise no noted focal deficits Skin: No visible rashes, good skin turgor CURRENT MEDICATIONS: Please see below LABORATORY DATA: Reviewed WBC 10.7 hgb 12.5 Platelets 247 na 142 K 4 Cr 0.78 Dig level 1.1 Micro: UCx grew MRSA and E.fecalis IMAGING: No new imaging. Reviewed prior. ASSESSMENT: 84 y/o M admitted for management of new-onset atrial fibrillation with RVR in the setting of a UTI, in the setting of a chronic indwelling edwards catheter. PLAN: 1. Atrial flutter with RVR: resolved. -Could have been transient in setting of UTI -Currently NSR but in and out of Afib and SVTs, asymptomatic -S/p 0.25 mg IV x 2 of digoxin and digoxin level was high, so it was held yesterday. Therapeutic this AM. Will restart 0.125 BID. However given significant ectopy with pAFib will give 0.25mg dig x 1 now. -Telemetry, NSR. -TTE this admission showed normal EF with grade 1 diastolic dysfunction -Continue eliquis that was started this admission 2. UTI in the setting of Chronic indwelling catheter with hx of recurrent UTIs (Klebsiella, MRSA and E. coli). -Edwards changed 03/17/20. -UA +, was initially placed on vancomycin, ceftriaxone but can deescalate now to just vanc since UCx grew MRSA and E.fecalis. Day #3 of vanc -BCx NGTD 3. BPH with chronic indwelling edwards catheter. -On no home medications. -Patient to f/u with urology as o/p. 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 Stable at believed to be at baseline. - C/w carbidopa levodopa 5. Chronic Diastolic CHF (Grade 1). No evidence of exacerbation. Patient does not take diuretics as an outpatient. 6. DVT prophylaxis. Eliquis. DISPOSITION: Patient is currently inpatient status. Plan is discharge home when medically improved. PT/OT VS,Fishbone, I+O VS, Fishbone, I+O Laboratory Tests 03/19/20 05:24 Vital Signs Date Time Temp Pulse Resp B/P (MAP) Pulse Ox O2 Delivery O2 Flow Rate FiO2 03/19/20 04:00 97.4 71 16 132/70 (90) 98 Room Air 03/18/20 08:00 2.0 I&O- Last 24 Hours up to 6 AM0 03/19/20 05:59 Intake Total 2450 ml Output Total 1675 ml Balance 775 ml RONAL GONZALEZ MD Mar 19, 2020 08:00
[2020-03-19] MEDS ORDERED: DIGOXIN INJ 0.5 MG/2 ML AMP (J1160) IV ONE (16:15)
[2020-03-19 22:00] VITALS: BP 144/74
[2020-03-20] VITALS: BP 155/80
[2020-03-20 04:00] VITALS: BP 133/76
[2020-03-20] MEDS: SLF 3 ML SYR IV SCH ×3 (06:01→20:33)
[2020-03-20 07:58] VITALS: BP 143/79
[2020-03-20] MEDS: SENNA 8.6 MG TAB (SENOKOT) PO SCH (08:14)
[2020-03-20] MEDS: APIXABAN 5 MG TAB (ELIQUIS) PO SCH ×2 (08:14→20:32)
[2020-03-20] MEDS: SINEMET 25-100 MG TAB PO SCH ×3 (08:17→16:13)
[2020-03-20] MEDS: VANCOMYCIN HCL 1,000 MG, VIAL MATE ADAPTER 1 EACH in D5W 250 ML IV SCH (08:17)
[2020-03-20] MEDS: DIGOXIN 0.125 MG TAB PO SCH (08:17)
[2020-03-20 08:21] LABS: BASO % 0.4 % (0.0-1.0); EOS # 0.1 10^3/uL (0.0-0.5); EOS % 1.4 % (0.0-3.0); HEMATOCRIT 41.6 % (42.0-52.0); HEMOGLOBIN 13.9 g/dl (13.5-17.5); LYMPH # 2.1 10^3/uL (1.5-5.0); LYMPH % 21.2 % (24.0-44.0); MEAN CORPUSCULAR HEMOGLOBIN 29.1 pg (27.0-33.0); MEAN CORPUSCULAR HGB CONC 33.4 g/dl (32.0-36.5); MEAN CORPUSCULAR VOLUME 87.2 fl (80.0-96.0); MONO # 0.7 10^3/uL (0.0-0.8); MONO % 6.6 % (0.0-5.0); NEUTROPHILS # 6.8 10^3/uL (1.5-8.5); NEUTROPHILS % 69.9 % (36.0-66.0); PLATELET COUNT, AUTOMATED 272 10^3/uL (150-450); RED BLOOD COUNT 4.77 10^6/uL (4.30-6.10); WHITE BLOOD COUNT 9.8 10^3/uL (4.0-10.0)
[2020-03-20 09:03] LABS: BLOOD UREA NITROGEN 7 MG/DL (7-18); CALCIUM LEVEL 9.1 MG/DL (8.8-10.2); CARBON DIOXIDE LEVEL 29 MEQ/L (21-32); CHLORIDE LEVEL 106 MEQ/L (98-107); CREATININE FOR GFR 0.78 MG/DL (0.70-1.30); DIGOXIN LEVEL 1.3 NG/ML (0.5-2.0); GLOMERULAR FILTRATION RATE > 60.0 (>35); GLUCOSE, FASTING 93 MG/DL (70-100); POTASSIUM SERUM 3.9 MEQ/L (3.5-5.1); SODIUM LEVEL 141 MEQ/L (136-145)
[2020-03-20] MEDS: LINEZOLID 600MG TABLET (ZYVOX) PO SCH ×2 (10:09→20:33)
[2020-03-20 11:54] VITALS: BP 115/77
--- NOTE | 2020-03-20 13:18 | IPNPDOC ---
Text Note Date of Service The patient was seen on 03/20/20. NOTE SUBJECTIVE: -No acute issues -No chest pain, n/v/d, shortness of breath or palpitations. -Stable tele overnight, sinus OBJECTIVE: VITALS: HDS, afebrile General: No acute distress, AOx1 as previously noted, otherwise pleasant. HEENT: NCAT, PERRLA, EOMI, MMM CARDIAC: RRR, +S1S2, No M/R/G Lungs: CTAB, breathing comfortably on room air, no crackles, rhonchi or wheezing Abdomen: Normoactive bowel sounds, soft, NTND Extremities: No lower extremity edema, WWP Neuro: CN 2-12 intact, previously noted resting tremor in bilateral upper ext is present, with otherwise no noted focal deficits Skin: No visible rashes, good skin turgor CURRENT MEDICATIONS: Please see below LABORATORY DATA: Reviewed. AM labs pending Micro: UCx grew MRSA and E.fecalis IMAGING: No new imaging. Reviewed prior. ASSESSMENT: 84 y/o M admitted for management of new-onset atrial fibrillation with RVR in the setting of a mixed MDR UTI (MRSA and E.fecalis) , in the setting of a chronic indwelling edwards catheter. PLAN: 1. Atrial flutter with RVR: resolved. -Currently NSR -continue 0.125 BID. -Telemetry, NSR. -TTE this admission showed normal EF with grade 1 diastolic dysfunction -Continue eliquis that was started this admission 2. UTI in the setting of Chronic indwelling catheter with hx of recurrent UTIs (Klebsiella, MRSA and E. coli). -Edwards changed 03/17/20. -UA +, was initially placed on vancomycin, ceftriaxone, then deescalated to just vanc since UCx grew MRSA and E.fecalis. Now switching to linezolid. Day #4 of antibiotic therapy -BCx NGTD 3. BPH with chronic indwelling edwards catheter. -On no home medications. -Patient to f/u with urology as o/p. 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 Stable at believed to be at baseline. - C/w carbidopa levodopa 5. Chronic Diastolic CHF (Grade 1). No evidence of exacerbation. Patient does not take diuretics as an outpatient. 6. DVT prophylaxis. Eliquis. 7. Physical Deconditioning 2/2 acute illness -Family would like have him go home and are against the idea of STR. Was agreeable to having him be screened for ARU. DISPOSITION: Patient is currently inpatient status. Ongoing PT/OT and pending ARU screening VS,Fishbone, I+O VS, Fishbone, I+O Vital Signs Date Time Temp Pulse Resp B/P (MAP) Pulse Ox O2 Delivery O2 Flow Rate FiO2 03/20/20 07:58 97.0 75 18 143/79 (100) 98 Room Air 03/18/20 08:00 2.0 I&O- Last 24 Hours up to 6 AM 03/20/20 06:00 Intake Total 1020 ml Output Total 1450 ml Balance -430 ml RONAL GONZALEZ MD Mar 20, 2020 08:22
[2020-03-20 15:51] VITALS: BP 159/97
[2020-03-20 20:00] VITALS: BP 138/73
[2020-03-21] VITALS: BP 143/81
[2020-03-21 04:00] VITALS: BP 113/69
[2020-03-21 05:14] LABS: BASO % 0.3 % (0.0-1.0); EOS # 0.2 10^3/uL (0.0-0.5); EOS % 2.2 % (0.0-3.0); HEMATOCRIT 41.3 % (42.0-52.0); LYMPH # 2.4 10^3/uL (1.5-5.0); LYMPH % 23.3 % (24.0-44.0); MEAN CORPUSCULAR HEMOGLOBIN 29.9 pg (27.0-33.0); MEAN CORPUSCULAR HGB CONC 33.9 g/dl (32.0-36.5); MEAN CORPUSCULAR VOLUME 88.1 fl (80.0-96.0); MONO # 0.7 10^3/uL (0.0-0.8); MONO % 7.2 % (0.0-5.0); NEUTROPHILS # 6.9 10^3/uL (1.5-8.5); NEUTROPHILS % 66.6 % (36.0-66.0); PLATELET COUNT, AUTOMATED 297 10^3/uL (150-450); RED BLOOD COUNT 4.69 10^6/uL (4.30-6.10); WHITE BLOOD COUNT 10.3 10^3/uL (4.0-10.0)
[2020-03-21] MEDS: SLF 3 ML SYR IV SCH ×3 (05:23→20:10)
[2020-03-21 05:34] LABS: BLOOD UREA NITROGEN 9 MG/DL (7-18); CARBON DIOXIDE LEVEL 28 MEQ/L (21-32); CHLORIDE LEVEL 104 MEQ/L (98-107); CREATININE FOR GFR 0.75 MG/DL (0.70-1.30); GLOMERULAR FILTRATION RATE > 60.0 (>35); GLUCOSE, FASTING 85 MG/DL (70-100); MAGNESIUM LEVEL 1.9 MG/DL (1.8-2.4); POTASSIUM SERUM 3.9 MEQ/L (3.5-5.1); SODIUM LEVEL 137 MEQ/L (136-145)
[2020-03-21 08:00] VITALS: BP 127/81
[2020-03-21] MEDS ORDERED: ELIQ5TAB PO (08:02)
[2020-03-21] MEDS ORDERED: DIGO0.123 PO (08:02)
[2020-03-21] MEDS ORDERED: LINE1TAB6 PO (08:02)
--- NOTE | 2020-03-21 08:15 | DS.PDOC ---
Discharge Summary General Date of Admission Mar 17, 2020 at 18:12 Date of Discharge 03/21/2020 Attending Physician: RONAL GONZALEZ MD Discharge Summary PROCEDURES PERFORMED DURING STAY: None ADMITTING DIAGNOSES: 1. Atrial fibrillation with RVR DISCHARGE DIAGNOSES: 1. New onset Atrial fibrillation with RVR 2. MRSA and E.fecalis UTI in the setting of a chronic edwards catheter 3. 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 Chronic Diastolic CHF (Grade 1) COMPLICATIONS/CHIEF COMPLAINT: Atrial Flutter With Rapid Ventricular Response. 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 He lives at home with his and has several caretakers. On the morning of presentation, the patient was found to have debris within the Edwards catheter bag and decreased urine output. He was subsequently taken to the emergency room for further evaluation where he had the Edwards catheter, subsequently removed and replaced by ER provider. HOSPITAL COURSE: In addition to edwards removal and exchange, while in the ED, he was incidentally found to have a heart rate of 150 and was in atrial flutter. Patient does not have a prior history of abnormal heart rate. he denied chest pain, shortness of breath, palpitations, nausea, vomiting, abdominal pain, constipation, diarrhea or recent fever/chills. His dysrhythmia was discussed with Dr. Hope while he was in the ED and he recommended treatment with digoxin and thought it likely 2/2 an ongoing UTI as his UA was frankly positive. He converted back to sinus and later noted to have paroxysms of atrial fibrillation and continued on digoxin. He was also started on eliquis given the persistent paroxysms. His urin e culture ultimately grew MRSA and E.fecalis and was transitioned to linezolid to complete a 10d course after having started on vanc/ceftriaxone and later just vancomycin. Mr. Dupree worked with PT/OT and was deemed appropriate for STR and later ARU after his family declined STR but due to no availability in the ARU until 6d later, they ultimately made the decision to take him home with sufficient home health help and home PT as well. DISCHARGE MEDICATIONS: Please see below. ALLERGIES: Please see below. PHYSICAL EXAMINATION ON DISCHARGE: VITAL SIGNS: Please see below. General: No acute distress, AOx1 as previously noted, otherwise pleasant. HEENT: NCAT, PERRLA, EOMI, MMM CARDIAC: RRR, +S1S2, No M/R/G Lungs: CTAB, breathing comfortably on room air, no crackles, rhonchi or wheezing Abdomen: Normoactive bowel sounds, soft, NTND Extremities: No lower extremity edema, WWP Neuro: CN 2-12 intact, previously noted resting tremor in bilateral upper ext is present, with otherwise no noted focal deficits Skin: No visible rashes, good skin turgor LABORATORY DATA: Please see below. IMAGING: CXR: There is no acute cardiopulmonary disease. No significant change. PROGNOSIS: Good ACTIVITY: As tolerated DIET: regular DISCHARGE PLAN: Home with 6d of linezolid DISPOSITION: home with home PT and services DISCHARGE INSTRUCTIONS: 1. Home with 6d of linezolid ITEMS TO FOLLOWUP ON ON OUTPATIENT: 1. UTI 2. Physical deconditioning 3. Cardiology referral to Dr. Hope DISCHARGE CONDITION: Stable TIME SPENT ON DISCHARGE: 43 minutes. Vital Signs/I&Os Vital Signs Date Time Temp Pulse Resp B/P (MAP) Pulse Ox O2 Delivery O2 Flow Rate FiO2 03/21/20 08:00 97.7 85 18 127/81 (96) 95 Room Air 03/18/20 08:00 2.0 I&O- Last 24 Hours up to 6 AM 03/21/20 06:00 Intake Total 120 ml Output Total 650 ml Balance -530 ml Laboratory Data Labs 24H Laboratory Tests 2 03/21/20 04:54: Immature Granulocyte % (Auto) 0.4, Neutrophils (%) (Auto) 66.6H, Lymphocytes (%) (Auto) 23.3L, Monocytes (%) (Auto) 7.2H, Eosinophils (%) (Auto) 2.2, Basophils (%) (Auto) 0.3, Neutrophils # (Auto) 6.9, Lymphocytes # (Auto) 2.4, Monocytes # (Auto) 0.7, Eosinophils # (Auto) 0.2, Basophils # (Auto) 0.0, Nucleated Red Blood Cells % (auto) 0.0, Anion Gap 5L, Glomerular Filtration Rate > 60.0, Calcium Level 9.0, Magnesium Level 1.9 CBC/BMP Laboratory Tests 03/21/20 04:54 Microbiology Microbiology 03/21/20 Respiratory Virus Panel (PCR) ([facility]IRA) - Final, Complete 03/17/20 Blood Culture - Preliminary, Resulted No Growth after 72 hours. All specime... 03/17/20 Urine Culture - Final, Complete Enterococcus Faecalis Staph.aureus Methicillin Resis 03/17/20 Blood Culture - Preliminary, Resulted No Growth after 72 hours. All specime... Discharge Medications Scheduled Apixaban (Eliquis) 5 Mg Tablet, 5 MG PO BID Carbidopa/Levodopa (Carbidopa-Levodopa 25-100 Tab) 1 Each Tablet, 1 TAB PO TID, (Reported) 0800, 1200, 1600 Digoxin (Digoxin) 125 Mcg Tablet, 0.125 MG PO DAILY Linezolid (Linezolid) 600 Mg Tablet, 600 MG PO BID Psyllium Husk (Fiber) 0.52 Gm Capsule, 0.52 GM PO DAILY, (Reported) Sennosides (Senna) 8.6 Mg Tablet, 8.6 MG PO DAILY, (Reported) Vitamin B Complex (Vitamin B Complex) 1 Each Tablet, 1 TAB PO DAILY, (Reported) Allergies Coded Allergies: Sulfa (Sulfonamide Antibiotics) (Verified Allergy, Mild, 04/14/19) RONAL GONZALEZ MD Mar 21, 2020 08:15
[2020-03-21] MEDS: SENNA 8.6 MG TAB (SENOKOT) PO SCH (09:04)
[2020-03-21] MEDS: APIXABAN 5 MG TAB (ELIQUIS) PO SCH ×2 (09:05→20:13)
[2020-03-21] MEDS: SINEMET 25-100 MG TAB PO SCH ×3 (09:05→16:49)
[2020-03-21] MEDS: DIGOXIN 0.125 MG TAB PO SCH (09:05)
[2020-03-21] MEDS: LINEZOLID 600MG TABLET (ZYVOX) PO SCH ×2 (09:05→20:14)
--- NOTE | 2020-03-21 15:30 | IPNPDOC ---
Text Note Date of Service The patient was seen on 03/21/20. NOTE SUBJECTIVE: -No acute issues -No chest pain, n/v/d, shortness of breath or palpitations. -Was going to be discharged home today but planning took a while and could not secure a ride late in the day OBJECTIVE: VITALS: HDS, afebrile General: No acute distress, AOx1 as previously noted, otherwise pleasant. HEENT: NCAT, PERRLA, EOMI, MMM CARDIAC: RRR, +S1S2, No M/R/G Lungs: CTAB, breathing comfortably on room air, no crackles, rhonchi or wheezing Abdomen: Normoactive bowel sounds, soft, NTND Extremities: No lower extremity edema, WWP Neuro: CN 2-12 intact, previously noted resting tremor in bilateral upper ext is present, with otherwise no noted focal deficits Skin: No visible rashes, good skin turgor LABORATORY DATA: Reviewed. Micro: UCx grew MRSA and E.fecalis IMAGING: No new imaging. Reviewed prior. ASSESSMENT: 84 y/o M admitted for management of new-onset atrial fibrillation with RVR in the setting of a mixed MDR UTI (MRSA and E.fecalis) , in the setting of a chronic indwelling edwards catheter. PLAN: 1. Atrial flutter with RVR: resolved. -Currently NSR -continue 0.125 BID. -Telemetry, NSR. -TTE this admission showed normal EF with grade 1 diastolic dysfunction -Continue eliquis that was started this admission 2. UTI in the setting of Chronic indwelling catheter with hx of recurrent UTIs (Klebsiella, MRSA and E. coli). -Edwards changed 03/17/20. -UA +, was initially placed on vancomycin, ceftriaxone, then deescalated to just vanc since UCx grew MRSA and E.fecalis. Now on PO linezolid. Day #5 of antibiotic therapy -BCx NGTD 3. BPH with chronic indwelling edwards catheter. -On no home medications. -Patient to f/u with urology as o/p. 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 Stable at believed to be at baseline. - C/w carbidopa levodopa 5. Chronic Diastolic CHF (Grade 1). No evidence of exacerbation. Patient does not take diuretics as an outpatient. 6. DVT prophylaxis. Eliquis. 7. Physical Deconditioning 2/2 acute illness -Family would like have him go home and are against the idea of STR. DISPOSITION: Was going to be discharged home today but planning took a while and could not secure a ride late in the day. Will be picked up tomorrow at 11AM. VS,Fishbone, I+O VS, Fishbone, I+O Laboratory Tests 03/21/20 04:54 Vital Signs Date Time Temp Pulse Resp B/P (MAP) Pulse Ox O2 Delivery O2 Flow Rate FiO2 03/21/20 09:05 82 03/21/20 08:00 97.7 18 127/81 (96) 95 Room Air 03/18/20 08:00 2.0 I&O- Last 24 Hours up to 6 AM 03/21/20 05:59 Intake Total 120 ml Output Total 800 ml Balance -680 ml RONAL GONZALEZ MD Mar 21, 2020 15:30
[2020-03-21 16:00] VITALS: BP 134/74
[2020-03-21 22:00] VITALS: BP 126/71
[2020-03-22 02:08] VITALS: BP 127/73
[2020-03-22 06:00] VITALS: BP 136/75
[2020-03-22 06:15] LABS: BASO % 0.3 % (0.0-1.0); EOS # 0.2 10^3/uL (0.0-0.5); EOS % 2.1 % (0.0-3.0); HEMATOCRIT 41.4 % (42.0-52.0); HEMOGLOBIN 14.3 g/dl (13.5-17.5); LYMPH # 2.4 10^3/uL (1.5-5.0); LYMPH % 22.2 % (24.0-44.0); MEAN CORPUSCULAR HEMOGLOBIN 30.2 pg (27.0-33.0); MEAN CORPUSCULAR HGB CONC 34.5 g/dl (32.0-36.5); MEAN CORPUSCULAR VOLUME 87.3 fl (80.0-96.0); MONO # 0.8 10^3/uL (0.0-0.8); MONO % 7.5 % (0.0-5.0); NEUTROPHILS # 7.2 10^3/uL (1.5-8.5); NEUTROPHILS % 67.5 % (36.0-66.0); PLATELET COUNT, AUTOMATED 309 10^3/uL (150-450); RED BLOOD COUNT 4.74 10^6/uL (4.30-6.10); WHITE BLOOD COUNT 10.7 10^3/uL (4.0-10.0)
[2020-03-22 06:30] LABS: BLOOD UREA NITROGEN 10 MG/DL (7-18); CALCIUM LEVEL 8.9 MG/DL (8.8-10.2); CARBON DIOXIDE LEVEL 28 MEQ/L (21-32); CHLORIDE LEVEL 105 MEQ/L (98-107); CREATININE FOR GFR 0.93 MG/DL (0.70-1.30); GLOMERULAR FILTRATION RATE > 60.0 (>35); GLUCOSE, FASTING 103 MG/DL (70-100); MAGNESIUM LEVEL 1.9 MG/DL (1.8-2.4); POTASSIUM SERUM 4.1 MEQ/L (3.5-5.1); SODIUM LEVEL 140 MEQ/L (136-145)
--- NOTE | 2020-03-22 07:51 | IPNPDOC ---
Text Note Date of Service The patient was seen on 03/22/20. NOTE SUBJECTIVE: -No acute issues -No chest pain, n/v/d, shortness of breath or palpitations. OBJECTIVE: VITALS: HDS, afebrile General: No acute distress, AOx1 as previously noted, otherwise pleasant. HEENT: NCAT, PERRLA, EOMI, MMM CARDIAC: RRR, +S1S2, No M/R/G Lungs: CTAB, breathing comfortably on room air, no crackles, rhonchi or wheezing Abdomen: Normoactive bowel sounds, soft, NTND Extremities: No lower extremity edema, WWP Neuro: CN 2-12 intact, previously noted resting tremor in bilateral upper ext is present and stable, with otherwise no noted focal deficits Skin: No visible rashes, good skin turgor LABORATORY DATA: Reviewed. stable Micro: UCx grew MRSA and E.fecalis IMAGING: No new imaging. Reviewed prior. ASSESSMENT: 84 y/o M admitted for management of new-onset atrial fibrillation with RVR in the setting of a mixed MDR UTI (MRSA and E.fecalis) , in the setting of a chronic indwelling edwards catheter. PLAN: 1. Atrial flutter with RVR: resolved. -Currently NSR -continue 0.125 BID. -Telemetry, NSR. -TTE this admission showed normal EF with grade 1 diastolic dysfunction -Continue eliquis that was started this admission 2. UTI in the setting of Chronic indwelling catheter with hx of recurrent UTIs (Klebsiella, MRSA and E. coli). -Edwards changed 03/17/20. -UA +, was initially placed on vancomycin, ceftriaxone, then deescalated to just vanc since UCx grew MRSA and E.fecalis. Now on PO linezolid. Day #6 of 7. -BCx NGTD 3. BPH with chronic indwelling edwards catheter. -On no home medications. -Patient to f/u with urology as o/p. 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 Stable at believed to be at baseline. - C/w carbidopa levodopa 5. Chronic Diastolic CHF (Grade 1). No evidence of exacerbation. Patient does not take diuretics as an outpatient. 6. DVT prophylaxis. Eliquis. 7. Physical Deconditioning 2/2 acute illness -Family would like have him go home and are against the idea of STR. DISPOSITION: Was going to be discharged home yesterday but delayed due to transportation issues, will be picked up at 11AM today. VS,Caesar, I+O VS, Caesar, I+O Laboratory Tests 03/22/20 05:56 Vital Signs Date Time Temp Pulse Resp B/P (MAP) Pulse Ox O2 Delivery O2 Flow Rate FiO2 03/22/20 06:00 98.0 85 18 136/75 (95) 96 Room Air 03/18/20 08:00 2.0 I&O- Last 24 Hours up to 6 AM 03/22/20 06:00 Intake Total 180 ml Output Total 630 ml Balance -450 ml RONAL GONZALEZ MD Mar 22, 2020 07:51
[2020-03-22] MEDS: APIXABAN 5 MG TAB (ELIQUIS) PO SCH (08:05)
[2020-03-22] MEDS: SENNA 8.6 MG TAB (SENOKOT) PO SCH (08:05)
[2020-03-22] MEDS: SINEMET 25-100 MG TAB PO SCH (08:06)
[2020-03-22] MEDS: LINEZOLID 600MG TABLET (ZYVOX) PO SCH (08:06)
[2020-03-22] MEDS: DIGOXIN 0.125 MG TAB PO SCH (08:07)
== END 2020-03-22 11:11 | disposition home or self-care (01) | DRG 699 ==
LOC: M ED 16:38 → M ED INP 18:12 → ENRESERV 18:52 → M PCU 20:20 → M MSPAV 03-21 16:58
PROVIDERS: ADMIT Internal Medicine; ATTEND Internal Medicine
DX: T83.511A Infection and inflammatory reaction due to indwelling urethral catheter, initial encounter (principal); I50.32 Chronic diastolic (congestive) heart failure; I48.92 Unspecified atrial flutter; N40.0 Benign prostatic hyperplasia without lower urinary tract symptoms; G31.83 Neurocognitive disorder with Lewy bodies; F02.80 Dementia in other diseases classified elsewhere, unspecified severity, without behavioral disturbance, psychotic disturbance, mood disturbance, and anxiety; Y84.6 Urinary catheterization as the cause of abnormal reaction of the patient, or of later complication, without mention of misadventure at the time of the procedure; B95.62 Methicillin resistant Staphylococcus aureus infection as the cause of diseases classified elsewhere; Z66 Do not resuscitate; B95.2 Enterococcus as the cause of diseases classified elsewhere; Z79.899 Other long term (current) drug therapy; Z88.2 Allergy status to sulfonamides; Z11.59 Encounter for screening for other viral diseases; Z87.81 Personal history of (healed) traumatic fracture

== ENCOUNTER → 2020-04-02 | Outpatient (REF) | payer MEDICARE, OTHER ==
[~2020-04-02] MED LIST changes: +AMOX500C PO; +BACI1CAP PO; +CARB25TA18 PO; +CIPR500T3 PO; +DIGO0.123 PO; +ELIQ5TAB PO; +FIBE625T PO; +FIRV50SO PO; +LEVA750T7 PO; +LINE1TAB6 PO; +METR-135 PO; +NITR100C2 PO; +PANT40TA29 PO; -PANT40TA3 PO; +RA F PO; +RA S8.6T3 PO; +SENN-80 PO; +VANC1CAP6 PO; +VIAC1CHW PO; +VITATAB73 PO
== END ==
LOC: M SMT 16:53
PROVIDERS: ATTEND Urology
DX: R31.0 Gross hematuria (principal)

== ENCOUNTER 2020-04-16 10:56 | Emergency (ER) | payer MEDICARE, OTHER ==
[~2020-04-16] VITALS: Ht 185.4 cm; Wt 71.2 kg
[~2020-04-16 10:56] MED LIST changes: -AMOX500C PO; -BACI1CAP PO; -CARB25TA18 PO; -CIPR500T3 PO; -FIBE625T PO; -FIRV50SO PO; -LEVA750T7 PO; -METR-135 PO; -NITR100C2 PO; -RA S8.6T3 PO; -VANC1CAP6 PO; -VIAC1CHW PO
[2020-04-16 13:03] LABS: BASO % 0.3 % (0.0-1.0); EOS # 0.3 10^3/uL (0.0-0.5); EOS % 2.1 % (0.0-3.0); HEMATOCRIT 42.4 % (42.0-52.0); HEMOGLOBIN 13.9 g/dl (13.5-17.5); LYMPH # 2.5 10^3/uL (1.5-5.0); LYMPH % 20.6 % (24.0-44.0); MEAN CORPUSCULAR HGB CONC 32.8 g/dl (32.0-36.5); MEAN CORPUSCULAR VOLUME 91.4 fl (80.0-96.0); MONO # 0.9 10^3/uL (0.0-0.8); MONO % 7.3 % (0.0-5.0); NEUTROPHILS # 8.4 10^3/uL (1.5-8.5); NEUTROPHILS % 69.2 % (36.0-66.0); PLATELET COUNT, AUTOMATED 251 10^3/uL (150-450); RED BLOOD COUNT 4.64 10^6/uL (4.30-6.10); WHITE BLOOD COUNT 12.1 10^3/uL (4.0-10.0)
[2020-04-16 13:14] LABS: INR 1.2; PARTIAL THROMBOPLASTIN TIME 35.2 SECONDS (25.0-38.4); PROTHROMBIN TIME 14.9 SECONDS (11.8-14.0)
[2020-04-16 13:21] LABS: BLOOD UREA NITROGEN 11 MG/DL (7-18); CALCIUM LEVEL 9.1 MG/DL (8.8-10.2); CARBON DIOXIDE LEVEL 30 MEQ/L (21-32); CHLORIDE LEVEL 107 MEQ/L (98-107); CREATININE FOR GFR 0.86 MG/DL (0.70-1.30); GLOMERULAR FILTRATION RATE > 60.0 (>35); GLUCOSE, FASTING 103 MG/DL (70-100); SODIUM LEVEL 140 MEQ/L (136-145)
[2020-04-16 16:45] VITALS: BP 126/71
--- NOTE | 2020-04-16 21:25 | ECGEPIP ---
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
== END 2020-04-16 18:14 | disposition home or self-care (01) ==
LOC: M ED 10:56 → EDBD 10:56 → M ED 18:14
DX: R31.0 Gross hematuria (principal); I50.9 Heart failure, unspecified; I48.91 Unspecified atrial fibrillation; F03.90 Unspecified dementia, unspecified severity, without behavioral disturbance, psychotic disturbance, mood disturbance, and anxiety; N40.0 Benign prostatic hyperplasia without lower urinary tract symptoms; Z79.899 Other long term (current) drug therapy; Z88.1 Allergy status to other antibiotic agents; Z88.2 Allergy status to sulfonamides

== ENCOUNTER 2020-04-21 10:33 | Emergency (ER) | payer MEDICARE, OTHER ==
[~2020-04-21] VITALS: Ht 182.9 cm; Wt 77.0 kg
[~2020-04-21 10:33] MED LIST changes: -PANT40TA29 PO; +PANT40TA3 PO
[2020-04-21] MEDS ORDERED: NS 500 ML IV ONE (12:30)
[2020-04-21 13:11] LABS: BASO # 0.1 10^3/uL (0.0-0.2); BASO % 0.3 % (0.0-1.0); EOS # 0.2 10^3/uL (0.0-0.5); EOS % 1.6 % (0.0-3.0); HEMATOCRIT 45.2 % (42.0-52.0); HEMOGLOBIN 14.9 g/dl (13.5-17.5); LYMPH # 2.7 10^3/uL (1.5-5.0); LYMPH % 18.4 % (24.0-44.0); MEAN CORPUSCULAR HEMOGLOBIN 29.9 pg (27.0-33.0); MEAN CORPUSCULAR VOLUME 90.6 fl (80.0-96.0); MONO % 7.2 % (0.0-5.0); NEUTROPHILS # 10.4 10^3/uL (1.5-8.5); NEUTROPHILS % 72.2 % (36.0-66.0); PLATELET COUNT, AUTOMATED 259 10^3/uL (150-450); RED BLOOD COUNT 4.99 10^6/uL (4.30-6.10); WHITE BLOOD COUNT 14.5 10^3/uL (4.0-10.0)
[2020-04-21] MEDS ORDERED: ISOVUE-370 76% 100ML VIAL As Ordered ONE (13:24)
[2020-04-21] MEDS ORDERED: cefTRIAXone SOD 1 GM in D5W MINI-BAG PLUS 50 ML IV ONE (14:00)
[2020-04-21] MEDS ORDERED: LEVA750T7 PO (14:59)
[2020-04-21 15:27] VITALS: BP 136/65
--- NOTE | 2020-04-22 01:00 | REP ---
CT ABDOMEN AND PELVIS WITH IV CONTRAST ONLY, 04/21/2020. COMPARISON: 08/15/2018 CLINICAL HISTORY: Flank pain. Pyelonephritis suspected. TECHNIQUE: Axial images with 100 mL Isovue-370 scanning through the abdomen and pelvis and both coronal and sagittal reconstructions were provided. FINDINGS: CT abdomen: Lung bases show minor fibroatelectatic change in the lower lung zones. In the deep sulci without effusion or infiltrate. Heart not enlarged. No pericardial thickening or effusion. Liver shows some small cysts in the left hepatic lobe. There is no solid hepatic mass or biliary dilatation. No hepatomegaly, splenomegaly, or ascites in the upper abdomen. Some mild colonic interposition between the anterior abdominal wall, diaphragm, and the right lobe of the liver. Gallbladder shows no calcified stone or mass. Pancreas without acute finding. 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 It measures 14.1 x 12.5 x 10.4 cm. It is grossly unchanged. The adrenal glands were normal. Peripherally in the interpolar region of the left kidney is a 16 mm simple cyst. There are other subcentimeter cysts in the kidneys. No solid mass, hydronephrosis, stone, or hydroureter suggested. Symmetric enhancement without a pattern to suggest pyelonephritis. The aort has atherosclerotic calcifications but no aneurysm or dissection. No adrenal lesion seen. Stool and gas scattered in the colon without signs of colitis or diverticulitis in the abdomen proper. Small bowel loops unremarkable. Some degenerative changes in the spine with some grade 1 endplate depression at L2, slightly increased since 2018, but no acute compression deformity or malalignment. Posterior elements with some degenerative facet changes. Visualized ribs were intact. CT pelvis: The bony sacrum is without a focal lesion. There is partial fusion of the SI joints bilaterally. The pelvis, acetabula, and ischia were intact. There are osteophytes over the acetabular roof and margins bilaterally. Patient has undergone ORIF of both hips with an intramedullary manas and blade paddle device on the left and three threaded screws from the intertrochanteric region into the right femoral head. The small bowel loops grossly unremarkable. The distal left colon, sigmoid, and rectum are collapsed with slight thickened webber. Could not exclude some very mild colitis. There are inflammatory changes in the perirectal fat, which are mild. No perforation, abscess, or free air noted. No ascites. Prostate is enlarged. A Mccullough catheter into the bladder, which is empty. Thickened webber are noted. Calcifications noted in the dependent bladder. These are new from the previous study. No ventral or inguinal hernia. IMPRESSION: 1. Multiple small bladder stones in the dependent bladder, which is empty because Mccullough catheter is inserted, and the prostate is enlarged. 2. There is no hydronephrosis, hydroureter, renal or ureteral stone, or solid renal mass. A few cysts are seen. No pattern of enhancement to suggest pyelonephritis. 3. 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 4. Collapse of the sigmoid, distal left colon, and rectum with possible mild colitis. There are some inflammatory changes in the perirectal fat. Multiple simple cysts in the liver without significant or acute liver, spleen, gallbladder, pancreas, or stomach findings. The adrenal glands show mild thickening of their limbs, suggesting some degree of hyperplasia. Electronically Signed by Leon Luna MD 04/22/2020 08:39 A
== END 2020-04-21 16:37 | disposition home or self-care (01) ==
LOC: M ED 10:33 → EDBD 10:33 → EDSEX 10:33 → M ED 16:37
DX: N30.90 Cystitis, unspecified without hematuria (principal); G20 Parkinson's disease; N40.0 Benign prostatic hyperplasia without lower urinary tract symptoms; Z79.899 Other long term (current) drug therapy; Z88.1 Allergy status to other antibiotic agents; Z88.2 Allergy status to sulfonamides
CPT/HCPCS: 74177; 80047; 81001; 83605; 85025; 87040; 87088; 87186; 96365; 99284; J0696; Q9967

== ENCOUNTER 2020-05-05 22:33 | Inpatient (IN) | payer MEDICARE, OTHER ==
[~2020-05-05 22:33] MED LIST changes: +LEVA750T7 PO; +PANT40TA29 PO; -PANT40TA3 PO
[2020-05-06] MEDS ORDERED: CIPROFLOXACIN/D5W 400 MG/200 ML BAG (J0744) ONE ×2 (03:18→03:23)
[2020-05-06] MEDS ORDERED: CIPROFLOXACIN/D5W 400 MG/200 ML BAG (J0744) As Ordered ONE ×2 (03:18→15:23)
[2020-05-06] MEDS ORDERED: DIGOXIN 0.125 MG TAB ONE (03:23)
[2020-05-06] MEDS ORDERED: SINEMET 25-100 MG TAB ONE (03:23)
[2020-05-06] MEDS ORDERED: HEPARIN SOD (PORCINE) 5000UNITS/ML 1ML VIAL/SYRINGE ONE (03:23)
[2020-05-06] MEDS ORDERED: SINEMET 25-100 MG TAB As Ordered ONE (18:01)
[2020-05-06] MEDS ORDERED: HEPARIN SOD (PORCINE) 5000UNITS/ML 1ML VIAL/SYRINGE As Ordered ONE (18:55)
[2020-05-06] MEDS ORDERED: DIGOXIN 0.125 MG TAB As Ordered ONE (20:32)
[2020-05-07] MEDS ORDERED: CIPROFLOXACIN/D5W 400 MG/200 ML BAG (J0744) ONE ×2 (03:38→14:27)
[2020-05-07] MEDS ORDERED: CIPROFLOXACIN/D5W 400 MG/200 ML BAG (J0744) As Ordered ONE ×2 (03:38→14:27)
[2020-05-07] MEDS ORDERED: HEPARIN SOD (PORCINE) 5000UNITS/ML 1ML VIAL/SYRINGE As Ordered ONE ×2 (06:30→18:00)
[2020-05-07] MEDS ORDERED: HEPARIN SOD (PORCINE) 5000UNITS/ML 1ML VIAL/SYRINGE ONE ×2 (06:30→18:00)
[2020-05-07] MEDS ORDERED: DIGOXIN 0.125 MG TAB As Ordered ONE (08:08)
[2020-05-07] MEDS ORDERED: DIGOXIN 0.125 MG TAB ONE (08:08)
[2020-05-07] MEDS ORDERED: SINEMET 25-100 MG TAB ONE ×3 (08:08→18:00)
[2020-05-07] MEDS ORDERED: SINEMET 25-100 MG TAB As Ordered ONE ×3 (08:09→18:00)
[2020-05-08] MEDS ORDERED: HEPARIN SOD (PORCINE) 5000UNITS/ML 1ML VIAL/SYRINGE As Ordered ONE ×2 (06:53→17:52)
[2020-05-08] MEDS ORDERED: HEPARIN SOD (PORCINE) 5000UNITS/ML 1ML VIAL/SYRINGE ONE ×2 (06:53→17:52)
[2020-05-08] MEDS ORDERED: SINEMET 25-100 MG TAB ONE ×3 (07:49→17:52)
[2020-05-08] MEDS ORDERED: DIGOXIN 0.125 MG TAB As Ordered ONE (07:49)
[2020-05-08] MEDS ORDERED: SINEMET 25-100 MG TAB As Ordered ONE ×3 (07:49→17:53)
[2020-05-08] MEDS ORDERED: DIGOXIN 0.125 MG TAB ONE (07:49)
[2020-05-08] MEDS ORDERED: CIPROFLOXACIN/D5W 400 MG/200 ML BAG (J0744) ONE (14:19)
[2020-05-08] MEDS ORDERED: CIPROFLOXACIN/D5W 400 MG/200 ML BAG (J0744) As Ordered ONE (14:19)
[2020-05-09] MEDS ORDERED: CIPROFLOXACIN/D5W 400 MG/200 ML BAG (J0744) As Ordered ONE (02:39)
[2020-05-09] MEDS ORDERED: HEPARIN SOD (PORCINE) 5000UNITS/ML 1ML VIAL/SYRINGE As Ordered ONE ×2 (05:28→17:10)
[2020-05-09] MEDS ORDERED: DIGOXIN 0.125 MG TAB As Ordered ONE (08:52)
[2020-05-09] MEDS ORDERED: SINEMET 25-100 MG TAB As Ordered ONE ×3 (08:53→17:11)
[2020-05-09] MEDS ORDERED: VANCOMYCIN 1000MG/20ML VIAL As Ordered ONE (13:50)
[2020-05-10] MEDS ORDERED: VANCOMYCIN 500MG/10ML VIAL As Ordered ONE (01:47)
[2020-05-10] MEDS ORDERED: HEPARIN SOD (PORCINE) 5000UNITS/ML 1ML VIAL/SYRINGE As Ordered ONE ×2 (05:28→18:00)
[2020-05-10] MEDS ORDERED: SINEMET 25-100 MG TAB As Ordered ONE ×2 (09:42→18:00)
[2020-05-10] MEDS ORDERED: DIGOXIN 0.125 MG TAB As Ordered ONE (09:42)
[2020-05-10] MEDS ORDERED: VANCOMYCIN 1000MG/20ML VIAL As Ordered ONE (15:15)
[2020-05-11] MEDS ORDERED: HEPARIN SOD (PORCINE) 5000UNITS/ML 1ML VIAL/SYRINGE As Ordered ONE ×3 (06:32→17:01)
[2020-05-11] MEDS ORDERED: HEPARIN SOD (PORCINE) 5000UNITS/ML 1ML VIAL/SYRINGE ONE ×2 (06:32→08:47)
[2020-05-11] MEDS ORDERED: DIGOXIN 0.125 MG TAB As Ordered ONE (08:47)
[2020-05-11] MEDS ORDERED: SINEMET 25-100 MG TAB As Ordered ONE ×2 (08:47→12:45)
[2020-05-11] MEDS ORDERED: VANCOMYCIN 1000MG/20ML VIAL As Ordered ONE (13:22)
[2020-05-11] MEDS ORDERED: VANCOMYCIN 500MG/10ML VIAL As Ordered ONE (17:01)
[2020-05-12] MEDS ORDERED: VANCOMYCIN 1000MG/20ML VIAL As Ordered ONE ×2 (02:24→15:13)
[2020-05-12] MEDS ORDERED: HEPARIN SOD (PORCINE) 5000UNITS/ML 1ML VIAL/SYRINGE As Ordered ONE (05:58)
[2020-05-12] MEDS ORDERED: HEPARIN SOD (PORCINE) 5000UNITS/ML 1ML VIAL/SYRINGE ONE (05:58)
[2020-05-12] MEDS ORDERED: DIGOXIN 0.125 MG TAB As Ordered ONE (09:29)
[2020-05-12] MEDS ORDERED: SINEMET 25-100 MG TAB As Ordered ONE ×3 (09:29→18:03)
[2020-05-12] MEDS ORDERED: VANCOMYCIN 500MG/10ML VIAL As Ordered ONE (18:03)
[2020-05-13] MEDS ORDERED: VANCOMYCIN 750MG/25ML VIAL As Ordered ONE ×2 (00:31→13:06)
[2020-05-13] MEDS ORDERED: VANCOMYCIN 500MG/10ML VIAL As Ordered ONE ×2 (02:05→14:49)
[2020-05-13] MEDS ORDERED: VANCOMYCIN 500MG/10ML VIAL ONE (02:05)
[2020-05-13] MEDS ORDERED: HEPARIN SOD (PORCINE) 5000UNITS/ML 1ML VIAL/SYRINGE As Ordered ONE ×2 (06:18→17:36)
[2020-05-13] MEDS ORDERED: HEPARIN SOD (PORCINE) 5000UNITS/ML 1ML VIAL/SYRINGE ONE ×2 (06:18→17:36)
[2020-05-13] MEDS ORDERED: SINEMET 25-100 MG TAB As Ordered ONE ×3 (08:27→17:36)
[2020-05-13] MEDS ORDERED: DIGOXIN 0.125 MG TAB As Ordered ONE (08:27)
[2020-05-13] MEDS ORDERED: VANCOMYCIN 750MG/25ML VIAL ONE (12:31)
[2020-05-13] MEDS ORDERED: SINEMET 25-100 MG TAB ONE (17:36)
[2020-05-14] MEDS ORDERED: VANCOMYCIN 750MG/25ML VIAL ONE (00:04)
[2020-05-14] MEDS ORDERED: VANCOMYCIN 750MG/25ML VIAL As Ordered ONE ×2 (00:04→12:39)
[2020-05-14] MEDS ORDERED: VANCOMYCIN 500MG/10ML VIAL As Ordered ONE ×2 (01:11→15:07)
[2020-05-14] MEDS ORDERED: VANCOMYCIN 500MG/10ML VIAL ONE (01:11)
[2020-05-14] MEDS ORDERED: DIGOXIN 0.125 MG TAB As Ordered ONE (08:32)
[2020-05-14] MEDS ORDERED: SINEMET 25-100 MG TAB As Ordered ONE ×3 (08:32→17:31)
[2020-05-15] MEDS ORDERED: VANCOMYCIN 750MG/25ML VIAL ONE (00:10)
[2020-05-15] MEDS ORDERED: VANCOMYCIN 750MG/25ML VIAL As Ordered ONE (00:10)
[2020-05-15] MEDS ORDERED: VANCOMYCIN 500MG/10ML VIAL ONE (02:21)
[2020-05-15] MEDS ORDERED: VANCOMYCIN 500MG/10ML VIAL As Ordered ONE (02:21)
[2020-05-15] MEDS ORDERED: HEPARIN SOD (PORCINE) 5000UNITS/ML 1ML VIAL/SYRINGE As Ordered ONE (07:01)
[2020-05-15] MEDS ORDERED: HEPARIN SOD (PORCINE) 5000UNITS/ML 1ML VIAL/SYRINGE ONE (07:01)
[2020-05-15] MEDS ORDERED: DIGOXIN 0.125 MG TAB ONE (09:17)
[2020-05-15] MEDS ORDERED: DIGOXIN 0.125 MG TAB As Ordered ONE (09:17)
[2020-05-15] MEDS ORDERED: SINEMET 25-100 MG TAB ONE ×2 (09:17→12:04)
[2020-05-15] MEDS ORDERED: SINEMET 25-100 MG TAB As Ordered ONE ×2 (09:17→12:04)
[2020-05-31 12:00] LABS: INR 1.05; PARTIAL THROMBOPLASTIN TIME 32.8 SECONDS (25.0-38.4); PROTHROMBIN TIME 13.9 SECONDS (11.8-14.0)
[2020-05-31 15:39] LABS: BASO % 0.2 % (0.0-1.0); EOS # 0.2 10^3/uL (0.0-0.5); EOS % 1.4 % (0.0-3.0); HEMATOCRIT 44.3 % (42.0-52.0); HEMOGLOBIN 14.8 g/dl (13.5-17.5); LYMPH # 1.7 10^3/uL (1.5-5.0); LYMPH % 9.9 % (24.0-44.0); MEAN CORPUSCULAR HGB CONC 33.4 g/dl (32.0-36.5); MEAN CORPUSCULAR VOLUME 89.7 fl (80.0-96.0); MONO # 1.5 10^3/uL (0.0-0.8); MONO % 8.6 % (0.0-5.0); NEUTROPHILS # 13.5 10^3/uL (1.5-8.5); NEUTROPHILS % 79.4 % (36.0-66.0); PLATELET COUNT, AUTOMATED 220 10^3/uL (150-450); RED BLOOD COUNT 4.94 10^6/uL (4.30-6.10); WHITE BLOOD COUNT 17.1 10^3/uL (4.0-10.0)
[2020-06-02 17:14] LABS: BLOOD UREA NITROGEN 13 MG/DL (7-18); CALCIUM LEVEL 8.8 MG/DL (8.8-10.2); CARBON DIOXIDE LEVEL 28 MEQ/L (21-32); CHLORIDE LEVEL 105 MEQ/L (98-107); CREATININE FOR GFR 0.84 MG/DL (0.70-1.30); GLOMERULAR FILTRATION RATE > 60.0 (>35); GLUCOSE, FASTING 95 MG/DL (70-100); POTASSIUM SERUM 4.1 MEQ/L (3.5-5.1); SODIUM LEVEL 141 MEQ/L (136-145)
[2020-06-09 11:26] LABS: APPEARANCE, URINE TURBID (CLEAR); BACTERIA, URINE AUTO 1+ (NEGATIVE); BILIRUBIN, URINE AUTO NEGATIVE (NEGATIVE); BLOOD, URINE BLOOD 2+ (NEGATIVE); COLOR, URINE YELLOW (YELLOW); GLUCOSE, URINE (UA) AUTO NEGATIVE (NEGATIVE); KETONE, URINE AUTO NEGATIVE (NEGATIVE); LEUKOCYTE ESTERASE, URINE AUTO 3+ (NEGATIVE); MUCUS, URINE SMALL (NEGATIVE); NITRITE, URINE AUTO NEGATIVE (NEGATIVE); PROTEIN, URINE AUTO 1+ mg/dL (NEGATIVE); RBC, URINE AUTO 96 /HPF (0-3); SPECIFIC GRAVITY URINE AUTO 1.005 (1.002-1.035); SQUAMOUS EPITHELIAL CELL UR AU 0 /HPF (0-6); UROBILINOGEN, URINE AUTO 0.2 mg/dL (0.0-2.0); WBC, URINE AUTO TNTC /HPF (0-3)
[2020-06-11 09:53] LABS: ALBUMIN 3.2 GM/DL (3.2-5.2); ALT/SGPT 7 U/L (12-78); BILIRUBIN,DIRECT 0.1 MG/DL (0.0-0.2); BILIRUBIN,TOTAL 0.6 MG/DL (0.2-1.0); BLOOD UREA NITROGEN 16 MG/DL (7-18); CARBON DIOXIDE LEVEL 29 MEQ/L (21-32); CHLORIDE LEVEL 102 MEQ/L (98-107); CK-MB VALUE MASS < 1.0 NG/ML (<3.6); CPK CREATINE PHOSPHOKINASE 42 U/L (39-308); CREATININE FOR GFR 1.01 MG/DL (0.70-1.30); GLOMERULAR FILTRATION RATE > 60.0 (>35); GLUCOSE, FASTING 140 MG/DL (70-100); MAGNESIUM LEVEL 1.9 MG/DL (1.8-2.4); MB/CK RELATIVE INDEX 2.38 (< OR =4); PHOSPHORUS LEVEL 3.1 MG/DL (2.5-4.9); POTASSIUM SERUM 4.2 MEQ/L (3.5-5.1); SODIUM LEVEL 139 MEQ/L (136-145); TOTAL PROTEIN 7.2 GM/DL (6.4-8.2)
[2020-06-15 22:41] LABS: BLOOD UREA NITROGEN 15 MG/DL (7-18); CALCIUM LEVEL 8.9 MG/DL (8.8-10.2); CARBON DIOXIDE LEVEL 27 MEQ/L (21-32); CHLORIDE LEVEL 104 MEQ/L (98-107); CREATININE FOR GFR 0.88 MG/DL (0.70-1.30); DIGOXIN LEVEL 0.7 NG/ML (0.5-2.0); GLOMERULAR FILTRATION RATE > 60.0 (>35); GLUCOSE, FASTING 99 MG/DL (70-100); POTASSIUM SERUM 4.3 MEQ/L (3.5-5.1); SODIUM LEVEL 139 MEQ/L (136-145)
[2020-06-17 23:08] LABS: HEMATOCRIT 41.8 % (42.0-52.0); HEMOGLOBIN 14.3 g/dl (13.5-17.5); MEAN CORPUSCULAR HEMOGLOBIN 30.6 pg (27.0-33.0); MEAN CORPUSCULAR HGB CONC 34.2 g/dl (32.0-36.5); MEAN CORPUSCULAR VOLUME 89.3 fl (80.0-96.0); PLATELET COUNT, AUTOMATED 233 10^3/uL (150-450); RED BLOOD COUNT 4.68 10^6/uL (4.30-6.10); WHITE BLOOD COUNT 14.5 10^3/uL (4.0-10.0)
--- NOTE | 2020-06-28 07:26 | ECGEPIP ---
ATRIAL FIBRILLATION WITH RAPID VENTRICULAR RESPONSE TRANSITIONING TO SINUS RHYTHM PRWP SEE SCANNED DOWNTIME REPORT MTDD
[2020-06-28 12:10] LABS: BLOOD UREA NITROGEN 10 MG/DL (7-18); CALCIUM LEVEL 8.8 MG/DL (8.8-10.2); CARBON DIOXIDE LEVEL 27 MEQ/L (21-32); CHLORIDE LEVEL 107 MEQ/L (98-107); CREATININE FOR GFR 0.69 MG/DL (0.70-1.30); GLOMERULAR FILTRATION RATE > 60.0 (>35); GLUCOSE, FASTING 93 MG/DL (70-100); POTASSIUM SERUM 3.9 MEQ/L (3.5-5.1); SODIUM LEVEL 141 MEQ/L (136-145)
[2020-06-29 14:39] LABS: HEMATOCRIT 41.2 % (42.0-52.0); HEMOGLOBIN 13.7 g/dl (13.5-17.5); MEAN CORPUSCULAR HEMOGLOBIN 30.1 pg (27.0-33.0); MEAN CORPUSCULAR HGB CONC 33.3 g/dl (32.0-36.5); MEAN CORPUSCULAR VOLUME 90.5 fl (80.0-96.0); PLATELET COUNT, AUTOMATED 255 10^3/uL (150-450); RED BLOOD COUNT 4.55 10^6/uL (4.30-6.10); WHITE BLOOD COUNT 10.3 10^3/uL (4.0-10.0)
--- NOTE | 2020-07-01 08:56 | REP ---
CHEST X-RAY: HISTORY: Unavailable This report was delayed due to a malware attack on this facility. COMPARISON: 03/17/20 FINDINGS: Monitoring electrodes overlie the chest. The lungs are symmetrically aerated and clear. The pleural angles are sharp. The cardiomediastinal silhouette is unchanged. The aorta is somewhat tortuous. The heart is not felt to be enlarged. No infiltrate is seen. IMPRESSION: No acute disease. MTDD
[2020-07-02 17:23] LABS: HEMATOCRIT 39.5 % (42.0-52.0); HEMOGLOBIN 13.4 g/dl (13.5-17.5); MEAN CORPUSCULAR HEMOGLOBIN 30.2 pg (27.0-33.0); MEAN CORPUSCULAR HGB CONC 33.9 g/dl (32.0-36.5); MEAN CORPUSCULAR VOLUME 89.2 fl (80.0-96.0); PLATELET COUNT, AUTOMATED 274 10^3/uL (150-450); RED BLOOD COUNT 4.43 10^6/uL (4.30-6.10); WHITE BLOOD COUNT 11.6 10^3/uL (4.0-10.0)
[2020-07-03 10:18] LABS: APPEARANCE, URINE CLOUDY (CLEAR); BACTERIA, URINE AUTO 2+ (NEGATIVE); BILIRUBIN, URINE AUTO NEGATIVE (NEGATIVE); BLOOD, URINE BLOOD 3+ (NEGATIVE); COLOR, URINE AMBER (YELLOW); GLUCOSE, URINE (UA) AUTO NEGATIVE (NEGATIVE); KETONE, URINE AUTO NEGATIVE (NEGATIVE); LEUKOCYTE ESTERASE, URINE AUTO 2+ (NEGATIVE); MUCUS, URINE SMALL (NEGATIVE); NITRITE, URINE AUTO NEGATIVE (NEGATIVE); PROTEIN, URINE AUTO 2+ mg/dL (NEGATIVE); RBC, URINE AUTO TNTC /HPF (0-3); SPECIFIC GRAVITY URINE AUTO 1.013 (1.002-1.035); SQUAMOUS EPITHELIAL CELL UR AU 0 /HPF (0-6); UROBILINOGEN, URINE AUTO 0.2 mg/dL (0.0-2.0); WBC, URINE AUTO 64 /HPF (0-3)
[2020-07-03 10:39] LABS: BASO # 0.1 10^3/uL (0.0-0.2); BASO % 0.5 % (0.0-1.0); EOS # 0.6 10^3/uL (0.0-0.5); EOS % 5.5 % (0.0-3.0); HEMATOCRIT 39.1 % (42.0-52.0); HEMOGLOBIN 13.1 g/dl (13.5-17.5); LYMPH # 2.3 10^3/uL (1.5-5.0); LYMPH % 21.7 % (24.0-44.0); MEAN CORPUSCULAR HEMOGLOBIN 29.8 pg (27.0-33.0); MEAN CORPUSCULAR HGB CONC 33.5 g/dl (32.0-36.5); MEAN CORPUSCULAR VOLUME 89.1 fl (80.0-96.0); MONO # 0.9 10^3/uL (0.0-0.8); MONO % 8.5 % (0.0-5.0); NEUTROPHILS # 6.8 10^3/uL (1.5-8.5); NEUTROPHILS % 63.4 % (36.0-66.0); PLATELET COUNT, AUTOMATED 248 10^3/uL (150-450); RED BLOOD COUNT 4.39 10^6/uL (4.30-6.10); WHITE BLOOD COUNT 10.7 10^3/uL (4.0-10.0)
[2020-07-14 21:16] LABS: BLOOD UREA NITROGEN 13 MG/DL (7-18); CALCIUM LEVEL 9.1 MG/DL (8.8-10.2); CARBON DIOXIDE LEVEL 27 MEQ/L (21-32); CHLORIDE LEVEL 104 MEQ/L (98-107); CREATININE FOR GFR 0.88 MG/DL (0.70-1.30); GLOMERULAR FILTRATION RATE > 60.0 (>35); GLUCOSE, FASTING 90 MG/DL (70-100); POTASSIUM SERUM 4.1 MEQ/L (3.5-5.1); SODIUM LEVEL 139 MEQ/L (136-145)
[2020-07-23 13:13] LABS: HEMATOCRIT 40.6 % (42.0-52.0); HEMOGLOBIN 13.5 g/dl (13.5-17.5); MEAN CORPUSCULAR HEMOGLOBIN 30.3 pg (27.0-33.0); MEAN CORPUSCULAR HGB CONC 33.3 g/dl (32.0-36.5); MEAN CORPUSCULAR VOLUME 91.2 fl (80.0-96.0); PLATELET COUNT, AUTOMATED 239 10^3/uL (150-450); RED BLOOD COUNT 4.45 10^6/uL (4.30-6.10); WHITE BLOOD COUNT 11.5 10^3/uL (4.0-10.0)
[2020-07-30 14:15] LABS: BLOOD UREA NITROGEN 13 MG/DL (7-18); CALCIUM LEVEL 8.8 MG/DL (8.8-10.2); CARBON DIOXIDE LEVEL 30 MEQ/L (21-32); CHLORIDE LEVEL 107 MEQ/L (98-107); CREATININE FOR GFR 0.92 MG/DL (0.70-1.30); GLOMERULAR FILTRATION RATE > 60.0 (>35); GLUCOSE, FASTING 92 MG/DL (70-100); POTASSIUM SERUM 4.3 MEQ/L (3.5-5.1); SODIUM LEVEL 141 MEQ/L (136-145)
[2020-08-03 07:20] LABS: MEAN CORPUSCULAR HEMOGLOBIN 30.3 pg (27.0-33.0); MEAN CORPUSCULAR HGB CONC 34.2 g/dl (32.0-36.5); MEAN CORPUSCULAR VOLUME 88.5 fl (80.0-96.0); RED BLOOD COUNT 8.02 10^6/uL (4.30-6.10); WHITE BLOOD COUNT 5.5 10^3/uL (4.0-10.0)
[2020-08-04 13:17] LABS: BLOOD UREA NITROGEN 11 MG/DL (7-18); CALCIUM LEVEL 8.5 MG/DL (8.8-10.2); CARBON DIOXIDE LEVEL 29 MEQ/L (21-32); CHLORIDE LEVEL 107 MEQ/L (98-107); CREATININE FOR GFR 0.64 MG/DL (0.70-1.30); GLOMERULAR FILTRATION RATE > 60.0 (>35); GLUCOSE, FASTING 84 MG/DL (70-100); POTASSIUM SERUM 3.7 MEQ/L (3.5-5.1); SODIUM LEVEL 140 MEQ/L (136-145)
[2020-08-06 05:38] LABS: BLOOD UREA NITROGEN 7 MG/DL (7-18); CALCIUM LEVEL 8.9 MG/DL (8.8-10.2); CARBON DIOXIDE LEVEL 26 MEQ/L (21-32); CHLORIDE LEVEL 110 MEQ/L (98-107); CREATININE FOR GFR 0.74 MG/DL (0.70-1.30); GLOMERULAR FILTRATION RATE > 60.0 (>35); GLUCOSE, FASTING 96 MG/DL (70-100); POTASSIUM SERUM 3.8 MEQ/L (3.5-5.1); SODIUM LEVEL 142 MEQ/L (136-145); VANCOMYCIN LEVEL TROUGH 5.5 UG/ML (10.0-20.0)
[2020-08-06 10:02] LABS: ALBUMIN 2.8 GM/DL (3.2-5.2); ALT/SGPT 9 U/L (12-78); BILIRUBIN,TOTAL 0.5 MG/DL (0.2-1.0); BLOOD UREA NITROGEN 8 MG/DL (7-18); CALCIUM LEVEL 8.7 MG/DL (8.8-10.2); CARBON DIOXIDE LEVEL 28 MEQ/L (21-32); CHLORIDE LEVEL 108 MEQ/L (98-107); CREATININE FOR GFR 0.72 MG/DL (0.70-1.30); GLOMERULAR FILTRATION RATE > 60.0 (>35); GLUCOSE, FASTING 87 MG/DL (70-100); POTASSIUM SERUM 3.4 MEQ/L (3.5-5.1); SODIUM LEVEL 139 MEQ/L (136-145); TOTAL PROTEIN 6.2 GM/DL (6.4-8.2)
[2020-08-06 11:07] LABS: MAGNESIUM LEVEL 1.9 MG/DL (1.8-2.4); POTASSIUM SERUM 4.1 MEQ/L (3.5-5.1)
[2020-08-08 14:37] LABS: HEMATOCRIT 45.1 % (42.0-52.0); HEMOGLOBIN 14.9 g/dl (13.5-17.5); MEAN CORPUSCULAR HEMOGLOBIN 29.9 pg (27.0-33.0); MEAN CORPUSCULAR VOLUME 90.4 fl (80.0-96.0); PLATELET COUNT, AUTOMATED 201 10^3/uL (150-450); RED BLOOD COUNT 4.99 10^6/uL (4.30-6.10); WHITE BLOOD COUNT 13.3 10^3/uL (4.0-10.0)
== END 2020-05-15 13:30 | disposition home or self-care (01) | DRG 698 ==
LOC: M ED 22:33 → M PCU 05-06 04:30
PROVIDERS: ADMIT Internal Medicine; ATTEND Internal Medicine
DX: T83.511A Infection and inflammatory reaction due to indwelling urethral catheter, initial encounter (principal); A41.9 Sepsis, unspecified organism; I48.20 Chronic atrial fibrillation, unspecified; Z79.899 Other long term (current) drug therapy; N39.0 Urinary tract infection, site not specified; Z88.2 Allergy status to sulfonamides; N40.0 Benign prostatic hyperplasia without lower urinary tract symptoms; G20 Parkinson's disease; F02.80 Dementia in other diseases classified elsewhere, unspecified severity, without behavioral disturbance, psychotic disturbance, mood disturbance, and anxiety; D69.6 Thrombocytopenia, unspecified; D64.9 Anemia, unspecified; B95.62 Methicillin resistant Staphylococcus aureus infection as the cause of diseases classified elsewhere; Y84.6 Urinary catheterization as the cause of abnormal reaction of the patient, or of later complication, without mention of misadventure at the time of the procedure

== ENCOUNTER 2020-06-27 11:33 | Emergency (ER) | payer MEDICARE, OTHER ==
[~2020-06-27] VITALS: Ht 182.9 cm; Wt 77.0 kg
[2020-06-27] MEDS ORDERED: NS 500 ML IV ONE (12:15)
[2020-06-27 12:48] LABS: BASO % 0.3 % (0.0-1.0); EOS # 0.1 10^3/uL (0.0-0.5); EOS % 0.5 % (0.0-3.0); HEMOGLOBIN 15.7 g/dl (13.5-17.5); LYMPH # 1.5 10^3/uL (1.5-5.0); LYMPH % 10.5 % (24.0-44.0); MEAN CORPUSCULAR HEMOGLOBIN 30.1 pg (27.0-33.0); MEAN CORPUSCULAR HGB CONC 33.4 g/dl (32.0-36.5); MONO # 0.9 10^3/uL (0.0-0.8); MONO % 6.3 % (0.0-5.0); NEUTROPHILS % 82.1 % (36.0-66.0); PLATELET COUNT, AUTOMATED 279 10^3/uL (150-450); RED BLOOD COUNT 5.22 10^6/uL (4.30-6.10); WHITE BLOOD COUNT 14.7 10^3/uL (4.0-10.0)
[2020-06-27 13:28] LABS: ALBUMIN 3.5 GM/DL (3.2-5.2); ALT/SGPT 24 U/L (12-78); BILIRUBIN,DIRECT 0.2 MG/DL (0.0-0.2); BILIRUBIN,TOTAL 0.6 MG/DL (0.2-1.0); BLOOD UREA NITROGEN 18 MG/DL (7-18); CALCIUM LEVEL 9.6 MG/DL (8.8-10.2); CARBON DIOXIDE LEVEL 28 MEQ/L (21-32); CHLORIDE LEVEL 105 MEQ/L (98-107); CK-MB VALUE MASS 1.1 NG/ML (<3.6); CPK CREATINE PHOSPHOKINASE 53 U/L (39-308); CREATININE FOR GFR 1.05 MG/DL (0.70-1.30); DIGOXIN LEVEL 0.9 NG/ML (0.5-2.0); GLOMERULAR FILTRATION RATE > 60.0 (>35); GLUCOSE, FASTING 111 MG/DL (70-100); LIPASE 115 U/L (73-393); MB/CK RELATIVE INDEX 2.08 (< OR =4); POTASSIUM SERUM 4.1 MEQ/L (3.5-5.1); SODIUM LEVEL 139 MEQ/L (136-145); TOTAL PROTEIN 7.5 GM/DL (6.4-8.2); TROPONIN I < 0.02 NG/ML (< 0.10)
--- NOTE | 2020-06-27 13:32 | REPVR ---
PROCEDURE INFORMATION: Exam: CT Head Without Contrast Exam date and time: 06/27/2020 12:14 PM Age: 84 years old Clinical indication: Altered mental status/memory loss; Additional info: AMS TECHNIQUE: Imaging protocol: Computed tomography of the head without contrast. Radiation optimization: All CT scans at this facility use at least one of these dose optimization techniques: automated exposure control; mA and/or kV adjustment per patient size (includes targeted exams where dose is matched to clinical indication); or iterative reconstruction. COMPARISON: CT Head without contrast 08/15/2018 6:59 AM FINDINGS: Brain: Stable moderate central and cortical atrophy is identified. There is mild to moderate small vessel ischemic disease. There is no intracranial blood. Ventricles: No ventriculomegaly. Bones/joints: Unremarkable. No acute fracture. Paranasal sinuses: Visualized sinuses are unremarkable. No fluid levels. Mastoid air cells: Visualized mastoid air cells are well aerated. Auditory system: There is bilateral cerumen. Soft tissues: Unremarkable. IMPRESSION: Stable chronic changes. Electronically signed by: Bartolo Dominguez On 06/27/2020 13:31:46 PM
--- NOTE | 2020-06-27 14:16 | REPVR ---
PROCEDURE INFORMATION: Exam: XR Complete Acute Abdomen Series Exam date and time: 06/27/2020 12:14 PM Age: 84 years old Clinical indication: Abdominal pain TECHNIQUE: Imaging protocol: XR complete acute abdomen series, including 2 or more views of the abdomen and a single view chest. COMPARISON: CR PORTABLE CHEST X-RAY 05/06/2020 12:18 AM FINDINGS: Lungs: Normal. No consolidation. Pleural space: Normal. No pneumothorax. Heart/Mediastinum: Normal. No cardiomegaly. Gastrointestinal tract: Normal. No bowel dilation. Intraperitoneal space: There is extensive seminal vesicle calcifications. Organs: There are left upper quadrant calcifications which could be vascular versus renal. Bones/joints: Internal fixation is noted involving both hips. Soft tissues: Normal. IMPRESSION: 1. Unremarkable bowel gas pattern. 2. Seminal vesicle and possible vascular calcifications. 3. Clear lungs. Electronically signed by: Bartolo Dominguez On 06/27/2020 14:15:45 PM
[2020-06-27] MEDS ORDERED: VANCOMYCIN ORAL SOL 250MG/5ML ORAL SYRINGE PO STA (16:20)
[2020-06-27] MEDS ORDERED: VANC1CAP6 PO (16:21)
[2020-06-27 18:03] VITALS: BP 117/84
--- NOTE | 2020-06-29 11:42 | ECGEPIP ---
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
== END 2020-06-27 18:20 | disposition home or self-care (01) ==
LOC: EDBD 11:33 → M ED 11:33
DX: A04.71 Enterocolitis due to Clostridium difficile, recurrent (principal); I50.9 Heart failure, unspecified; F03.90 Unspecified dementia, unspecified severity, without behavioral disturbance, psychotic disturbance, mood disturbance, and anxiety; G20 Parkinson's disease; N40.0 Benign prostatic hyperplasia without lower urinary tract symptoms; Z96.0 Presence of urogenital implants; Z79.899 Other long term (current) drug therapy; Z88.1 Allergy status to other antibiotic agents; Z88.2 Allergy status to sulfonamides

== ENCOUNTER 2020-07-19 10:03 | Inpatient (IN) | payer MEDICARE, OTHER ==
[~2020-07-19] VITALS: Ht 185.4 cm; Wt 76.7 kg
[~2020-07-19 10:03] MED LIST changes: +VANC1CAP6 PO
[2020-07-19 10:48] LABS: BASO % 0.3 % (0.0-1.0); EOS # 0.1 10^3/uL (0.0-0.5); EOS % 0.7 % (0.0-3.0); HEMATOCRIT 43.8 % (42.0-52.0); HEMOGLOBIN 14.6 g/dl (13.5-17.5); LYMPH # 2.2 10^3/uL (1.5-5.0); LYMPH % 13.8 % (24.0-44.0); MEAN CORPUSCULAR HEMOGLOBIN 29.9 pg (27.0-33.0); MEAN CORPUSCULAR HGB CONC 33.3 g/dl (32.0-36.5); MEAN CORPUSCULAR VOLUME 89.8 fl (80.0-96.0); MONO # 1.4 10^3/uL (0.0-0.8); NEUTROPHILS % 75.6 % (36.0-66.0); PLATELET COUNT, AUTOMATED 252 10^3/uL (150-450); RED BLOOD COUNT 4.88 10^6/uL (4.30-6.10); WHITE BLOOD COUNT 15.9 10^3/uL (4.0-10.0)
--- NOTE | 2020-07-19 10:53 | REPVR ---
PROCEDURE INFORMATION: Exam: XR Chest, 1 View Exam date and time: 07/19/2020 10:27 AM Age: 84 years old Clinical indication: Injury or trauma; Fall; Blunt trauma (contusions or hematomas) TECHNIQUE: Imaging protocol: XR of the chest Views: 1 view. COMPARISON: CR Abdomen,Flat Upright,PA CHEST 06/27/2020 1:54 PM FINDINGS: Lungs: Low lung volumes. No consolidation. Pleural space: No significant pleural effusions. No pneumothorax. Heart/Mediastinum: Cardiac size is normal and mediastinal contour stable. Bones/joints: Bones are stable. Osteopenia. Degenerative changes. IMPRESSION: No acute abnormalities are identified. Electronically signed by: Santos Mckinney On 07/19/2020 10:52:47 AM
[2020-07-19 11:23] LABS: ALBUMIN 3.4 GM/DL (3.2-5.2); ALT/SGPT 7 U/L (12-78); BILIRUBIN,DIRECT 0.2 MG/DL (0.0-0.2); BLOOD UREA NITROGEN 15 MG/DL (7-18); CALCIUM LEVEL 9.4 MG/DL (8.8-10.2); CARBON DIOXIDE LEVEL 28 MEQ/L (21-32); CHLORIDE LEVEL 105 MEQ/L (98-107); CK-MB VALUE MASS < 1.0 NG/ML (<3.6); CPK CREATINE PHOSPHOKINASE 38 U/L (39-308); CREATININE FOR GFR 0.92 MG/DL (0.70-1.30); GLOMERULAR FILTRATION RATE > 60.0 (>35); GLUCOSE, FASTING 97 MG/DL (70-100); MB/CK RELATIVE INDEX 2.63 (< OR =4); POTASSIUM SERUM 4.3 MEQ/L (3.5-5.1); SODIUM LEVEL 138 MEQ/L (136-145); TOTAL PROTEIN 7.3 GM/DL (6.4-8.2); TROPONIN I < 0.02 NG/ML (< 0.10)
--- NOTE | 2020-07-19 12:54 | REPVR ---
PROCEDURE INFORMATION: Exam: CT Head Without Contrast Exam date and time: 07/19/2020 12:27 PM Age: 84 years old Clinical indication: Other: General weakness, dementia TECHNIQUE: Imaging protocol: Computed tomography of the head without contrast. Radiation optimization: All CT scans at this facility use at least one of these dose optimization techniques: automated exposure control; mA and/or kV adjustment per patient size (includes targeted exams where dose is matched to clinical indication); or iterative reconstruction. COMPARISON: CT Head without contrast 06/27/2020 1:11 PM FINDINGS: Brain: There is no acute intracranial hemorrhage or mass effect. Moderate diffuse volume loss is within the range of normal for patient age. There are small vessel ischemic changes within the periventricular and subcortical white matter, but the normal hendrickson-white matter delineation is maintained. Cerebral ventricles: Prominence of the ventricular system is commensurate with volume loss. Bones/joints: Unremarkable. No acute fracture. Paranasal sinuses: Visualized sinuses are unremarkable. No fluid levels. Mastoid air cells: Visualized mastoid air cells are well aerated. Soft tissues: Unremarkable. IMPRESSION: No acute hemorrhage or edema. Electronically signed by: Michelle Guerrero On 07/19/2020 12:54:23 PM
[2020-07-19 14:14] LABS: ERYTHROCYTE SEDIMENTATION RATE 32 mm/hr (0-20)
[2020-07-19] MEDS ORDERED: cefTRIAXone SOD 1 GM in D5W MINI-BAG PLUS 50 ML IV ONE (14:45)
[2020-07-19] MEDS ORDERED: DIGO0.123 PO (15:17)
[2020-07-19 17:02] LABS: DIGOXIN LEVEL 1.2 NG/ML (0.5-2.0)
--- NOTE | 2020-07-19 17:08 | HPEPDOC ---
General Date of Admission Jul 19, 2020 at 15:50 Date of Service: Jul 19, 2020 Attending Physician: MARCELA HUNTLEY DO Chief Complaint The patient is a 84-year-old male admitted with a reason for visit of Dementia Uti Weakness. Source: Family Exam Limitations: Dementia History of Present Illness Mr. Dupree is an 84-year-old male with atrial flutter, dementia, Parkinson's disease, chronic indwelling Edwards, and C. difficile associated diarrhea here with weakness and blood tinged Edwards output. The patient has dementia and is a poor historian. Most of the history was obtained from the who was present in the room. The tells me that last night, he is able to use his walker and gait belt to ambulate. This morning he woke up with weakness and inability to ambulate. It is noted that his Edwards was blood tinged. They called EMS reported that he had a temperature of 101. Chest x-ray and CT head was negative for an acute process. UA was positive for nitrates, leukocytes, and bacteria. He told me that he has his Edwards changed once a month. The next schedule changes for 07/27/2020. Normally the home health nurse changes of Jamel. When I spoke with the , she tells me she did not like [facility] or [facility]. At home he has home health. She hopes to have him at home after this admission. Otherwise she has reconfirmed his DNR/DNI status. She is the healthcare proxy. When I spoke with the patient, he denied any fever or chills, lightheadedness or dizziness, changes in vision, chest pain, dyspnea, abdominal pain, or diarrhea. He denies any neuropathy, rashes, or anxiety/depression. Home Medications Scheduled Carbidopa/Levodopa (Carbidopa-Levodopa 25-100 Tab) 1 Each Tablet, 1 TAB PO WM, (Reported) Digoxin (Digoxin) 125 Mcg Tablet, 125 MCG PO DAILY, (Reported) Allergies Coded Allergies: Sulfa (Sulfonamide Antibiotics) (Verified Allergy, Mild, 04/14/19) Past Medical History Medical History 1. BPH with Chronic edwards catheter 2. Dementia 3. Parkinsons 4. Chronic Diastolic CHF (Grade 1) 5. Atrial flutter Surgical History 1. Left hip fracture 2. Right hip fracture status post repair November 2019 3. Abdominal hernia repair Family History Mother reported to have of old age at 94 Father without any reported medical problems Social History * Smoker: former Smoker Alcohol: Denies Drugs: denies A-FIB/CHADSVASC A-FIB History Current/History of A-Fib/PAF?: Yes (atrial flutter) Current PO Anticoag Therapy: No (healthcare proxy declines anticoagulants) Review of Systems Constitutional: Denies: Chills, Fever Eyes: Denies: Vision change ENT: Denies: Post Nasal Drip, Sore Throat Skin: Denies: Rash Pulmonary: Denies: Dyspnea Cardiovascular: Denies: Chest Pain Gastrointestinal: Denies: Nausea, Abdominal Pain, Diarrhea, Constipation Genitourinary: Denies: Dysuria Musculoskeletal: Denies: Muscle Pain Neurological: Denies: Numbness Psych: Denies: Anxiety, Depression Physical Examination General Exam: Positive: Cooperative, No Acute Distress Eye Exam: Positive: EOMI; Negative: Sclera icteric ENT Exam: Positive: Atraumatic Neck Exam: Positive: Supple Chest Exam: Positive: Clear to auscultation Heart Exam: Positive: Rate Normal, Regular Rhythm Abdomen Exam: Positive: Normal bowel sounds, Soft; Negative: Tenderness Extremity Exam: Negative: Edema Neuro Exam: Positive: Normal Gait, Normal Speech Psych Exam: Negative: Mental status NL, Memory Intact (dementia) Vital Signs Vital Signs Date Time Temp Pulse Resp B/P (MAP) Pulse Ox O2 Delivery O2 Flow Rate FiO2 07/19/20 15:56 99.2 07/19/20 15:45 83 152/73 (99) 99 Room Air 07/19/20 15:00 18 Laboratory Data Labs 24H Laboratory Tests 2 07/19/20 10:16: Immature Granulocyte % (Auto) 0.6, Neutrophils (%) (Auto) 75.6H, Lymphocytes (%) (Auto) 13.8L, Monocytes (%) (Auto) 9.0H, Eosinophils (%) (Auto) 0.7, Basophils (%) (Auto) 0.3, Neutrophils # (Auto) 12.0H, Lymphocytes # (Auto) 2.2, Monocytes # (Auto) 1.4H, Eosinophils # (Auto) 0.1, Basophils # (Auto) 0.0, Nucleated Red Blood Cells % (auto) 0.0, Erythrocyte Sedimentation Rate 32H, Anion Gap 5L, Glomerular Filtration Rate > 60.0, Calcium Level 9.4, Total Bilirubin 1.0, Direct Bilirubin 0.2, Aspartate Amino Transf (AST/SGOT) 17, Alanine Aminot ransferase (ALT/SGPT) 7L, Alkaline Phosphatase 96, Total Creatine Kinase 38L, Creatine Kinase MB < 1.0, Creatine Kinase MB Relative Index 2.63, Troponin I < 0.02, Total Protein 7.3, Albumin 3.4, Albumin/Globulin Ratio 0.9, Thyroid Stimulating Hormone (TSH) 0.920 07/19/20 11:38: Urine Color YELLOW, Urine Appearance CLOUDYH, Urine pH 6.0, Urine Specific [place] 1.016, Urine Protein 2+H, Urine Glucose (UA) NEGATIVE, Urine Ketones TRACEH, Urine Blood 3+H, Urine Nitrite POSITIVEH, Urine Bilirubin NEGATIVE, Urine Urobilinogen 0.2, Urine Leukocyte Esterase 3+H, Urine WBC (Auto) 9H, Urine RBC (Auto) 3, Urine Hyaline Casts (Auto) 0, Urine Bacteria (Auto) 2+H, Urine Squamous Epithelial Cells 0, Urine Amorphous Sediment SMALLH, Urine Sperm (Auto) CBC/BMP Laboratory Tests 07/19/20 10:16 Microbiology Microbiology 07/19/20 Blood Culture, Received Pending 07/19/20 Urine Culture, Received Pending Assessment/Plan Mr. Dupree is an 84-year-old male with atrial flutter, dementia, Parkinson's disease, chronic indwelling Edwards, and C. difficile associated diarrhea here with weakness and blood tinged Edwards output. After flushing the Edwards multiple times, the Edwards cleared up. Still has a lot of debris in the Edwards. Weakness may be secondary to UTI. Will empirically treat with ceftriaxone, pending urine culture results. Patient does have a history of C. difficile. C. difficile associated diarrhea occurred in 06/27/2020. We'll prophylax with reduced frequency vancomycin. Otherwise we'll have physical therapy work with the patient. who is the healthcare proxy would like him home at the end of this admission. Plan / VTE VTE Prophylaxis Ordered?: Yes Plan Plan 1. UTI No recorded fever here WBC on admission is 15.9 with neutrophil predominance Otherwise no tachycardia, no tachypnea We'll empirically cover with ceftriaxone 2. Chronic indwelling Edwards secondary to BPH Initially Edwards was blood tinged. Now is yellow with sediment Edwards change needed 3. Weakness Secondary to UTI Normally ambulates with walker and gait belt Patient is able to move all limbs without limitations Order physical therapy to work with patient. May need home safety eval 4. Atrial flutter On digoxin Not in atrial flutter at this time Spoke with who is the healthcare proxy. She does not want him on anticoagulation. Discuss risks and benefits including bleeding versus stroke prevention. She still does not want patient on anticoagulants. She tells me he had a serious bleed in the past 5. Parkinson's Continue carbidopa levodopa 6. DVT prophylaxis SCDs and teds MARCELA HUNTLEY. DO Jul 19, 2020 16:32
[2020-07-19] MEDS: NS 1,000 ML IV SCH (17:27)
[2020-07-19] MEDS: SINEMET 25-100 MG TAB PO SCH (17:27)
[2020-07-19 17:44] VITALS: BP 130/77
[2020-07-19] MEDS: VANCOMYCIN ORAL SOL 250MG/5ML ORAL SYRINGE PO SCH (20:25)
[2020-07-19 22:00] VITALS: BP 132/78
[2020-07-20 06:00] VITALS: BP 133/78
[2020-07-20] MEDS: NS 1,000 ML IV SCH ×2 (06:11→18:25)
[2020-07-20 06:18] LABS: BASO % 0.3 % (0.0-1.0); EOS # 0.2 10^3/uL (0.0-0.5); EOS % 1.7 % (0.0-3.0); HEMATOCRIT 42.5 % (42.0-52.0); HEMOGLOBIN 14.3 g/dl (13.5-17.5); LYMPH # 2.5 10^3/uL (1.5-5.0); LYMPH % 18.6 % (24.0-44.0); MEAN CORPUSCULAR HEMOGLOBIN 30.5 pg (27.0-33.0); MEAN CORPUSCULAR HGB CONC 33.6 g/dl (32.0-36.5); MEAN CORPUSCULAR VOLUME 90.6 fl (80.0-96.0); MONO # 1.4 10^3/uL (0.0-0.8); MONO % 10.2 % (0.0-5.0); NEUTROPHILS # 9.4 10^3/uL (1.5-8.5); NEUTROPHILS % 68.8 % (36.0-66.0); PLATELET COUNT, AUTOMATED 224 10^3/uL (150-450); RED BLOOD COUNT 4.69 10^6/uL (4.30-6.10); WHITE BLOOD COUNT 13.7 10^3/uL (4.0-10.0)
[2020-07-20 06:44] LABS: BLOOD UREA NITROGEN 13 MG/DL (7-18); CALCIUM LEVEL 8.9 MG/DL (8.8-10.2); CARBON DIOXIDE LEVEL 28 MEQ/L (21-32); CHLORIDE LEVEL 105 MEQ/L (98-107); CREATININE FOR GFR 0.84 MG/DL (0.70-1.30); GLOMERULAR FILTRATION RATE > 60.0 (>35); GLUCOSE, FASTING 89 MG/DL (70-100); POTASSIUM SERUM 4.3 MEQ/L (3.5-5.1); SODIUM LEVEL 136 MEQ/L (136-145)
[2020-07-20] MEDS ORDERED: NYSTATIN CREAM 15 GM TOP SCH (09:00)
[2020-07-20] MEDS: VANCOMYCIN ORAL SOL 250MG/5ML ORAL SYRINGE PO SCH ×2 (09:50→21:42)
[2020-07-20] MEDS: SINEMET 25-100 MG TAB PO SCH ×3 (09:50→17:22)
[2020-07-20] MEDS: DIGOXIN 0.125 MG TAB PO SCH (09:51)
--- NOTE | 2020-07-20 12:36 | IPNPDOC ---
Subjective Date Seen The patient was seen on 07/20/20. Subjective Chief Complaint/HPI Mr. Dupree is an 84-year-old male with atrial flutter, dementia, Parkinson's disease, chronic indwelling Mccullough, and C. difficile associated diarrhea here with weakness and blood tinged Mccullough output with sediment. No events overnight. This morning, noted to have white thick discharge from penis. Otherwise, plan for Mccullough catheter change. Mr. Dupree denies any fever/chills, chest pain, dyspnea, or abdominal pain Constitutional: Denies: Chills, Fever Pulmonary: Denies: Dyspnea Cardiovascular: Denies: Chest Pain Gastrointestinal: Denies: Abdominal Pain Objective Physical Examination General Exam: Positive: Cooperative, No Acute Distress Eye Exam: Positive: EOMI; Negative: Sclera icteric ENT Exam: Positive: Atraumatic Neck Exam: Positive: Supple Chest Exam: Positive: Clear to auscultation Heart Exam: Positive: Rate Normal, Regular Rhythm Abdomen Exam: Positive: Normal bowel sounds, Soft; Negative: Tenderness Extremity Exam: Negative: Edema Neuro Exam: Positive: Normal Gait, Normal Speech Psych Exam: Negative: Mental status NL, Memory Intact (dementia) Assessment /Plan Assessment Mr. Dupree is an 84-year-old male with atrial flutter, dementia, Parkinson's d isease, chronic indwelling Mccullough, and C. difficile associated diarrhea here with weakness and blood tinged Mccullough output. After flushing the Mccullough multiple times, the Mccullough cleared up. Still has a lot of debris in the Mccullough. Weakness may be secondary to UTI. Will empirically treat with ceftriaxone, pending urine culture results. Patient does have a history of C. difficile. C. difficile associated d iarrhea occurred in 06/27/2020. We'll prophylax with reduced frequency vancomycin. Otherwise we'll have physical therapy work with the patient. who is the healthcare proxy would like him home at the end of this admission. Currently pending culture results Plan/VTE VTE Prophylaxis Ordered?: Yes Plan 1. UTI No recorded fever here WBC on admission is 15.9 with neutrophil predominance Otherwise no tachycardia, no tachypnea We'll empirically cover with ceftriaxone 2. Chronic indwelling Mccullough secondary to BPH Initially Mccullough was blood tinged. Now is yellow with sediment Mccullough change needed 3. Weakness Secondary to UTI Normally ambulates with walker and gait belt Patient is able to move all limbs without limitations Order physical therapy to work with patient. May need home safety eval 4. Atrial flutter On digoxin Not in atrial flutter at this time Spoke with who is the healthcare proxy. She does not want him on anticoagulation. Discuss risks and benefits including bleeding versus stroke prevention. She still does not want patient on anticoagulants. She tells me he had a serious bleed in the past 5. Parkinson's Continue carbidopa levodopa 6. DVT prophylaxis SCDs and teds Dispo: Pending culture results VS, I&O, 24H, Fishbone Vital Signs/I&O Vital Signs Date Time Temp Pulse Resp B/P (MAP) Pulse Ox O2 Delivery O2 Flow Rate FiO2 07/20/20 09:51 80 07/20/20 06:00 97.6 18 133/78 (96) 96 Room Air I&O- Last 24 Hours up to 6 AM 07/20/20 05:59 Intake Total 870 ml Output Total 825 ml Balance 45 ml Laboratory Data 24H LABS Laboratory Tests 2 07/20/20 05:45: Immature Granulocyte % (Auto) 0.4, Neutrophils (%) (Auto) 68.8H, Lymphocytes (%) (Auto) 18.6L, Monocytes (%) (Auto) 10.2H, Eosinophils (%) (Auto) 1.7, Basophils (%) (Auto) 0.3, Neutrophils # (Auto) 9.4H, Lymphocytes # (Auto) 2.5, Monocytes # (Auto) 1.4H, Eosinophils # (Auto) 0.2, Basophils # (Auto) 0.0, Nucleated Red Blood Cells % (auto) 0.0, Anion Gap 3L, Glomerular Filtration Rate > 60.0, Calcium Level 8.9 CBC/BMP Laboratory Tests 07/20/20 05:45 Microbiology Microbiology 07/19/20 Blood Culture, Received Pending 07/19/20 Blood Culture, Received Pending 07/19/20 Urine Culture, Received Pending MARCELA HUNTLEY DO Jul 20, 2020 12:36
[2020-07-20] MEDS: cefTRIAXone SOD 1 GM in D5W MINI-BAG PLUS 50 ML IV SCH (12:45)
[2020-07-20] MEDS: NYSTATIN 100,000 UNITS/GM TOPICAL PWD 15 GM TOP SCH ×2 (12:45→21:42)
[2020-07-20 14:00] VITALS: BP 108/58
[2020-07-20 15:49] LABS: CHLAMYDIA DNA AMPLIFICATION NEGATIVE (NEGATIVE); GC DNA AMPLIFICATION NEGATIVE (NEGATIVE)
[2020-07-20] MEDS ORDERED: ACETAMINOPHEN TAB 650MG DOSE (2X325MG) PO PRN (16:15)
[2020-07-20] MEDS ORDERED: MIRALAX *UNIT DOSE* 17GM PACKET PO PRN (21:15)
[2020-07-20 22:00] VITALS: BP 111/61
[2020-07-20] MEDS: DOCUSATE SODIUM 100 MG CAP PO SCH (22:17)
[2020-07-21 06:00] VITALS: BP 145/87
[2020-07-21 06:33] LABS: HEMATOCRIT 39.5 % (42.0-52.0); HEMOGLOBIN 13.4 g/dl (13.5-17.5); MEAN CORPUSCULAR HEMOGLOBIN 30.5 pg (27.0-33.0); MEAN CORPUSCULAR HGB CONC 33.9 g/dl (32.0-36.5); MEAN CORPUSCULAR VOLUME 89.8 fl (80.0-96.0); PLATELET COUNT, AUTOMATED 230 10^3/uL (150-450); WHITE BLOOD COUNT 11.5 10^3/uL (4.0-10.0)
[2020-07-21 07:01] LABS: BLOOD UREA NITROGEN 13 MG/DL (7-18); CALCIUM LEVEL 8.6 MG/DL (8.8-10.2); CARBON DIOXIDE LEVEL 26 MEQ/L (21-32); CHLORIDE LEVEL 107 MEQ/L (98-107); CREATININE FOR GFR 0.83 MG/DL (0.70-1.30); GLOMERULAR FILTRATION RATE > 60.0 (>35); GLUCOSE, FASTING 83 MG/DL (70-100); POTASSIUM SERUM 4.2 MEQ/L (3.5-5.1); SODIUM LEVEL 140 MEQ/L (136-145)
[2020-07-21] MEDS: NS 1,000 ML IV SCH ×2 (08:55→21:18)
[2020-07-21] MEDS: SINEMET 25-100 MG TAB PO SCH ×3 (08:55→18:37)
[2020-07-21] MEDS: DOCUSATE SODIUM 100 MG CAP PO SCH ×2 (08:55→21:18)
[2020-07-21] MEDS: VANCOMYCIN ORAL SOL 250MG/5ML ORAL SYRINGE PO SCH ×2 (08:56→21:18)
[2020-07-21] MEDS: DIGOXIN 0.125 MG TAB PO SCH (08:56)
--- NOTE | 2020-07-21 08:56 | REPVR ---
PROCEDURE INFORMATION: Exam: XR Left Hip with Pelvis when Performed Exam date and time: 07/21/2020 7:46 AM Age: 84 years old Clinical indication: Hip pain; Left hip; Additional info: Left hip pain, history of left hip fracture TECHNIQUE: Imaging protocol: XR Left hip with pelvis when performed. Views: 2 or 3 views. COMPARISON: CR HIPS BILAT W-AP PELVIS 01/11/2020 10:55 AM FINDINGS: Bones/joints: There is no significant change in appearance of the internal fixation hardware in the left femur spanning the mildly displaced proximal femoral diaphyseal fracture which appears unchanged in alignment. There is healing change with soft in Tonya the fracture lines and early callus. No convincing acute fracture. Note that the lateral radiograph does not include the mid to distal femur, and the AP radiograph does not include the distal femoral metaphysis. Soft tissues: Pelvic surgical clips are present. IMPRESSION: Healing internally fixated left proximal femur fracture with no appreciable hardware complication or loss of alignment. Electronically signed by: Cristian Nicolas On 07/21/2020 08:56:26 AM
[2020-07-21] MEDS: NYSTATIN 100,000 UNITS/GM TOPICAL PWD 15 GM TOP SCH ×2 (08:57→21:00)
[2020-07-21] MEDS: cefTRIAXone SOD 1 GM in D5W MINI-BAG PLUS 50 ML IV SCH (13:56)
[2020-07-21 14:00] VITALS: BP 142/87
--- NOTE | 2020-07-21 19:00 | IPNPDOC ---
Subjective Date Seen The patient was seen on 07/21/20. Subjective Chief Complaint/HPI Mr. Dupree is an 84-year-old male with atrial flutter, dementia, Parkinson's disease, chronic indwelling Mccullough, and C. difficile associated diarrhea here with weakness and blood tinged Mccullough output with sediment. No events overnight. Mcucllough catheter was changed on 07/20/2020, Mccullough bag appears clear yellow today. Mr. Dupree denies any fever/chills, chest pain, dyspnea, or abdominal pain Constitutional: Denies: Chills, Fever Pulmonary: Denies: Dyspnea Cardiovascular: Denies: Chest Pain Gastrointestinal: Denies: Abdominal Pain Objective Physical Examination General Exam: Positive: Cooperative, No Acute Distress Eye Exam: Positive: EOMI; Negative: Sclera icteric ENT Exam: Positive: Atraumatic Neck Exam: Positive: Supple Chest Exam: Positive: Clear to auscultation Heart Exam: Positive: Rate Normal, Regular Rhythm Abdomen Exam: Positive: Normal bowel sounds, Soft; Negative: Tenderness Extremity Exam: Negative: Edema Neuro Exam: Positive: Normal Gait, Normal Speech Psych Exam: Negative: Mental status NL, Memory Intact (dementia) Assessment /Plan Assessment Mr. Dupree is an 84-year-old male with atrial flutter, dementia, Parkinson's disease, chronic indwelling Mccullough, and C. difficile associated diarrhea here with weakness and blood tinged Mccullough output. After flushing the Mccullough multiple times, the Mccullough cleared up. Still has a lot of debris in the Mccullough. Weakness may be secondary to UTI. Will empirically treat with ceftriaxone, pending urine culture results. Patient does have a history of C. difficile. C. difficile associated diarrhea occurred in 06/27/2020. We'll prophylax with reduced frequency vancomycin. Otherwise we'll have physical therapy work with the patient. who is the healthcare proxy would like him home at the end of this admission. Urine culture grew Klebsiella. Plan to switch to PO cefdinir when leukocytosis resolves. Possible discharge tomorrow Plan/VTE VTE Prophylaxis Ordered?: Yes Plan 1. UTI No recorded fever here WBC on admission is 15.9 with neutrophil predominance Otherwise no tachycardia, no tachypnea We'll empirically cover with ceftriaxone -Grew Klebsiella. Can switch to PO cefdinir when leukocytosis resolves. 2. Chronic indwelling Mccullough secondary to BPH Initially Mccullough was blood tinged with sediment Mccullough change on 07/20/2020 -Now clear yellow 3. Weakness Secondary to UTI Normally ambulates with walker and gait belt Patient is able to move all limbs without limitations Order physical therapy to work with patient. May need home safety eval - does not want home PT, says they have their own home exercises 4. Atrial flutter On digoxin Not in atrial flutter at this time Spoke with who is the healthcare proxy. She does not want him on anticoagulation. Discuss risks and benefits including bleeding versus stroke prevention. She still does not want patient on anticoagulants. She tells me he had a serious bleed in the past 5. Parkinson's Continue carbidopa levodopa 6. DVT prophylaxis SCDs and teds Dispo: Pending resolution of leukocytosis. Anticipate tomorrow discharge. VS, I&O, 24H, Fishbone Vital Signs/I&O Vital Signs Date Time Temp Pulse Resp B/P (MAP) Pulse Ox O2 Delivery O2 Flow Rate FiO2 07/21/20 14:00 98.8 77 16 142/87 (105) 98 Room Air I&O- Last 24 Hours up to 6 AM 07/21/20 06:00 Intake Total 2500 ml Output Total 1875 ml Balance 625 ml Laboratory Data 24H LABS Laboratory Tests 2 07/21/20 05:56: Nucleated Red Blood Cells % (auto) 0.0, Anion Gap 7L, Glomerular Filtration Rate > 60.0, Calcium Level 8.6L CBC/BMP Laboratory Tests 07/21/20 05:56 Microbiology Microbiology 07/20/20 Fungal Smear, Received Pending 07/20/20 Fungal Culture, Received Pending 07/20/20 Gram Stain - Final, Resulted 07/20/20 Wound Culture, Resulted Pending 07/19/20 Blood Culture - Preliminary, Resulted 07/19/20 Blood Culture - Preliminary, Resulted No Growth after 48 hours. All Specime... 07/19/20 Urine Culture - Preliminary, Resulted Klebsiella Pneumoniae MARCELA HUNTLEY DO Jul 21, 2020 19:00
[2020-07-21 22:00] VITALS: BP 134/86
[2020-07-22 06:00] VITALS: BP 134/81
[2020-07-22 06:26] LABS: HEMATOCRIT 40.4 % (42.0-52.0); HEMOGLOBIN 13.7 g/dl (13.5-17.5); MEAN CORPUSCULAR HEMOGLOBIN 30.1 pg (27.0-33.0); MEAN CORPUSCULAR HGB CONC 33.9 g/dl (32.0-36.5); MEAN CORPUSCULAR VOLUME 88.8 fl (80.0-96.0); PLATELET COUNT, AUTOMATED 245 10^3/uL (150-450); RED BLOOD COUNT 4.55 10^6/uL (4.30-6.10)
[2020-07-22 06:49] LABS: BLOOD UREA NITROGEN 12 MG/DL (7-18); CALCIUM LEVEL 8.6 MG/DL (8.8-10.2); CARBON DIOXIDE LEVEL 26 MEQ/L (21-32); CHLORIDE LEVEL 108 MEQ/L (98-107); CREATININE FOR GFR 0.76 MG/DL (0.70-1.30); GLOMERULAR FILTRATION RATE > 60.0 (>35); GLUCOSE, FASTING 92 MG/DL (70-100); POTASSIUM SERUM 4.1 MEQ/L (3.5-5.1); SODIUM LEVEL 140 MEQ/L (136-145)
[2020-07-22] MEDS: NS 1,000 ML IV SCH ×2 (08:29→20:02)
[2020-07-22] MEDS: SINEMET 25-100 MG TAB PO SCH ×3 (08:30→18:06)
[2020-07-22] MEDS: DOCUSATE SODIUM 100 MG CAP PO SCH ×2 (08:30→20:03)
[2020-07-22] MEDS: VANCOMYCIN ORAL SOL 250MG/5ML ORAL SYRINGE PO SCH ×2 (08:30→20:02)
[2020-07-22] MEDS: DIGOXIN 0.125 MG TAB PO SCH (08:30)
[2020-07-22] MEDS: NYSTATIN 100,000 UNITS/GM TOPICAL PWD 15 GM TOP SCH ×2 (08:31→21:00)
[2020-07-22] MEDS ORDERED: AMOXICILLIN 875 MG TAB PO SCH (09:00)
[2020-07-22] MEDS: LevoFLOXacin 750 MG TABLET PO SCH (12:34)
[2020-07-22 14:00] VITALS: BP 147/95
--- NOTE | 2020-07-22 17:31 | IPNPDOC ---
Subjective Date Seen The patient was seen on 07/22/20. Subjective Chief Complaint/HPI Mr. Dupree is an 84-year-old male with atrial flutter, dementia, Parkinson's disease, chronic indwelling Mccullough, and C. difficile associated diarrhea here with weakness and blood tinged Mccullough output with sediment. No events overnight. Mccullough catheter was changed on 07/20/2020, Mccullough bag appears clear yellow today. Mr. Dupree denies any fever/chills, chest pain, dyspnea, or abdominal pain This morning, with physical therapy, we got him from bed to chair, but it required 2 people. He was leaning to the left. says that he had left femur fracture in the past and has slow been leaning more towards the left since then. Otherwise, and patient does not want rehab at this point. They want to take him home tomorrow. Otherwise, I spoke with the antibiotic stewardship pharmacist about the enterococcus. Recommended levofloxacin for the Klebsiella and Amoxicillin for the enterococcus Constitutional: Denies: Chills, Fever Pulmonary: Denies: Dyspnea Cardiovascular: Denies: Chest Pain Gastrointestinal: Denies: Abdominal Pain Genitourinary: Denies: Dysuria Objective Physical Examination General Exam: Positive: Cooperative, No Acute Distress Eye Exam: Positive: EOMI; Negative: Sclera icteric ENT Exam: Positive: Atraumatic Neck Exam: Positive: Supple Chest Exam: Positive: Clear to auscultation Heart Exam: Positive: Rate Normal, Regular Rhythm Abdomen Exam: Positive: Normal bowel sounds, Soft; Negative: Tenderness Extremity Exam: Negative: Edema Neuro Exam: Positive: Normal Gait, Normal Speech Psych Exam: Negative: Mental status NL, Memory Intact (dementia) Assessment /Plan Assessment Mr. Dupree is an 84-year-old male with atrial flutter, dementia, Parkinson's disease, chronic indwelling Mccullough, and C. difficile associated diarrhea here with weakness and blood tinged Mccullough output. After flushing the Mccullough multiple times, the Mccullough cleared up. Still has a lot of debris in the Mccullough. Weakness may be secondary to UTI. Will empirically treat with ceftriaxone, pending urine culture results. Patient does have a history of C. difficile. C. difficile associated diarrhea occurred in 06/27/2020. We'll prophylax with reduced freque ncy vancomycin. Otherwise we'll have physical therapy work with the patient. who is the healthcare proxy would like him home at the end of this admission. They declined rehab. They have care at home. Today, moving to the chair had exhausted the patient. Plan to go home tomorrow Urine culture grew Klebsiella. Today it also demonstrated Enterococcus. Spoke with antimicrobial stewardship about the Enterococcus. Recommended levofloxacin for the Klebsiella and Amoxicillin for the Enterococcus Plan/VTE VTE Prophylaxis Ordered?: Yes Plan 1. UTI No recorded fever here WBC on admission is 15.9 with neutrophil predominance Otherwise no tachycardia, no tachypnea We'll empirically cover with ceftriaxone -Urine culture grew Klebsiella and Enterococcus -Spoke with antimicrobial stewardship. Levofloxacin for Klebsiella and Amoxicillin for the Enterococcus 2. Chronic indwelling Mccullough secondary to BPH Initially Mccullough was blood tinged with sediment Mccullough change on 07/20/2020 -Now clear yellow 3. Weakness Secondary to UTI Normally ambulates with walker and gait belt Patient is able to move all limbs without limitations Order physical therapy to work with patient. May need home safety eval - does not want home PT, says they have their own home exercises 4. Atrial flutter On digoxin Not in atrial flutter at this time Spoke with who is the healthcare proxy. She does not want him on anticoagulation. Discuss risks and benefits including bleeding versus stroke prevention. She still does not want patient on anticoagulants. She tells me he had a serious bleed in the past 5. Parkinson's Continue carbidopa levodopa 6. DVT prophylaxis SCDs and teds Dispo: Anticipate discharge tomorrow VS, I&O, 24H, Fishbone Vital Signs/I&O Vital Signs Date Time Temp Pulse Resp B/P (MAP) Pulse Ox O2 Delivery O2 Flow Rate FiO2 07/22/20 14:00 98.2 94 16 147/95 (112) 95 Room Air I&O- Last 24 Hours up to 6 AM 07/22/20 06:00 Intake Total 2490 ml Output Total 1625 ml Balance 865 ml Laboratory Data 24H LABS Laboratory Tests 2 07/22/20 05:57: Nucleated Red Blood Cells % (auto) 0.0, Anion Gap 6L, Glomerular Filtration Rate > 60.0, Calcium Level 8.6L CBC/BMP Laboratory Tests 07/22/20 05:57 Microbiology Microbiology 07/20/20 Fungal Smear, Received Pending 07/20/20 Fungal Culture, Received Pending 07/20/20 Gram Stain - Final, Resulted 07/20/20 Wound Culture, Resulted Pending 07/19/20 Blood Culture - Preliminary, Resulted 07/19/20 Blood Culture - Preliminary, Resulted No Growth after 72 hours. All specime... 07/19/20 Urine Culture - Final, Complete Klebsiella Pneumoniae Enterococcus Faecalis MARCELA HUNTLEY DO Jul 22, 2020 17:31
[2020-07-22] MEDS: AMOXICILLIN 500 MG CAP PO SCH (20:03)
[2020-07-22 22:00] VITALS: BP 122/70
[2020-07-23] MEDS: LevoFLOXacin 750 MG TABLET PO SCH (05:47)
[2020-07-23 05:58] LABS: HEMATOCRIT 38.2 % (42.0-52.0); HEMOGLOBIN 13.1 g/dl (13.5-17.5); MEAN CORPUSCULAR HEMOGLOBIN 30.7 pg (27.0-33.0); MEAN CORPUSCULAR HGB CONC 34.3 g/dl (32.0-36.5); MEAN CORPUSCULAR VOLUME 89.5 fl (80.0-96.0); PLATELET COUNT, AUTOMATED 236 10^3/uL (150-450); RED BLOOD COUNT 4.27 10^6/uL (4.30-6.10); WHITE BLOOD COUNT 11.2 10^3/uL (4.0-10.0)
[2020-07-23 06:00] VITALS: BP 130/79
[2020-07-23 06:21] LABS: BLOOD UREA NITROGEN 10 MG/DL (7-18); CALCIUM LEVEL 8.6 MG/DL (8.8-10.2); CARBON DIOXIDE LEVEL 27 MEQ/L (21-32); CHLORIDE LEVEL 108 MEQ/L (98-107); CREATININE FOR GFR 0.74 MG/DL (0.70-1.30); GLOMERULAR FILTRATION RATE > 60.0 (>35); GLUCOSE, FASTING 92 MG/DL (70-100); POTASSIUM SERUM 4.2 MEQ/L (3.5-5.1); SODIUM LEVEL 140 MEQ/L (136-145)
[2020-07-23] MEDS: SINEMET 25-100 MG TAB PO SCH (08:49)
[2020-07-23] MEDS: AMOXICILLIN 500 MG CAP PO SCH (08:49)
[2020-07-23] MEDS: NS 1,000 ML IV SCH (08:49)
[2020-07-23] MEDS: VANCOMYCIN ORAL SOL 250MG/5ML ORAL SYRINGE PO SCH (08:50)
[2020-07-23] MEDS: DOCUSATE SODIUM 100 MG CAP PO SCH (08:50)
[2020-07-23] MEDS: NYSTATIN 100,000 UNITS/GM TOPICAL PWD 15 GM TOP SCH (08:50)
[2020-07-23] MEDS: DIGOXIN 0.125 MG TAB PO SCH (08:50)
[2020-07-23] MEDS ORDERED: LEVA750T7 PO (09:21)
[2020-07-23] MEDS ORDERED: AMOX500C PO (09:21)
[2020-07-23] MEDS ORDERED: BACI1CAP PO (09:21)
[2020-07-23] MEDS ORDERED: FIRV50SO PO (11:51)
--- NOTE | 2020-07-23 12:03 | DS.PDOC ---
Discharge Summary General Date of Admission Jul 19, 2020 at 15:50 Date of Discharge 07/23/20 Discharge Summary DISCHARGE DIAGNOSES: Chronic indwelling Mccullough catheter associated urinary tract infection Acute encephalopathy secondary to urinary tract infection Chronic atrial flutter. Chronic Dementia. Chronic Parkinson's disease. History C. difficile associated diarrhea COMPLICATIONS/CHIEF COMPLAINT: Dementia Uti Weakness. HISTORY OF PRESENT ILLNESS: 84-year-old male with history of chronic atrial flutter, Parkinson's, dementia, chronic indwelling Mccullough catheter and C. difficile associated diarrhea, p resented to the emergency room with complaints of generalized weakness and hematuria despite flushing the Mccullough catheter. Patient was found to have a urinary tract infection with Enterococcus faecalis coag-negative staph, Klebsiella pneumonia with a white count of 15.9, afebrile with a temperature of 99 on hospital admission. In the emergency room, patient received intravenous ceftriaxone and continued on his home dose of vancomycin 250 twice a day for C. difficile, present on hospital admission. HOSPITAL COURSE: Patient had decreasing white count 11,000, and transition to oral amoxicillin clavulanic acid 875 mg twice a day on 07/22/2020 and Levaquin 750 mg daily and continued on vancomycin for C. difficile that was present on hospital admission. The patient's , who is the healthcare proxy refused acute rehabilitation and physical therapy for the patient and insisted on taking him home with 24/7 care provided by the family and hired caregivers. In the ER, patient was found to rivera ve acute delirium evaluated with CT of the head which was negative for acute hemorrhage or edema. DISCHARGE MEDICATIONS: Please see below. ALLERGIES: Please see below. PHYSICAL EXAMINATION ON DISCHARGE: VITAL SIGNS: Please see below. GENERAL: Awake, alert, oriented to person only, cooperative HEENT: Dry mucous membranes. No JVD, thyromegaly, no cervical lymphadenopathy. CARDIOVASCULAR EXAMINATION:S1, S2, irregularly irregular RESPIRATORY EXAMINATION: Kyphotic. Air entry is equal. Clear to auscultation. No wheezing or rales ABDOMINAL EXAMINATION: Positive bowel sounds 4 quadrants, soft, nontender. Mccullough catheter in place EXTREMITIES: No pitting edema LABORATORY DATA: Please see below. IMAGIN07/19/2020. CT head without contrast no acute hemorrhage or edema 07/19/2020. Chest x-ray No acute abnormalities are identified 07/21/2020. Left hip x-ray Healing internally fixated left proximal femur fracture with no appreciable hardware complication or loss of alignment ACTIVITY: As tolerated with a walker and assisted ambulation only DIET: 2 g sodium diet consistent carbohydrate DISPOSITION: Home with 24 7 care provided by the family and hired caregivers DISCHARGE INSTRUCTIONS: Primary care physician follow-up appointment within 5 days of hospital discharge DISCHARGE CONDITION: Stable TIME SPENT ON DISCHARGE:30 minutes. Vital Signs/I&Os Vital Signs Date Time Temp Pulse Resp B/P (MAP) Pulse Ox O2 Delivery O2 Flow Rate FiO2 07/23/20 08:50 88 07/23/20 06:00 98.4 18 130/79 (96) 93 07/22/20 14:00 Room Air I&O- Last 24 Hours up to 6 AM 07/23/20 06:00 Intake Total 2170 ml Output Total 1200 ml Balance 970 ml Laboratory Data Labs 24H Laboratory Tests 2 07/23/20 05:30: Nucleated Red Blood Cells % (auto) 0.0, Anion Gap 5L, Glomerular Filtration Rate > 60.0, Calcium Level 8.6L CBC/BMP Laboratory Tests 07/23/20 05:30 Microbiology Microbiology 07/20/20 Fungal Smear, Received Pending 07/20/20 Fungal Culture, Received Pending 07/20/20 Gram Stain - Final, Complete 07/20/20 Wound Culture - Final, Complete Staphylococcus Sp Coag Neg Enterococcus Faecalis Yeast Like Organism 07/19/20 Blood Culture - Preliminary, Resulted 07/19/20 Blood Culture - Preliminary, Resulted No Growth after 72 hours. All specime... 07/19/20 Urine Culture - Final, Complete Klebsiella Pneumoniae Enterococcus Faecalis Discharge Medications Scheduled Amoxicillin (Amoxicillin) 500 Mg Capsule, 500 MG PO TID Bacillus Coagulans (Bacid with Lactospore) 1 Each Capsule, 1 CAP PO BIDWM Carbidopa/Levodopa (Carbidopa-Levodopa 25-100 Tab) 1 Each Tablet, 1 TAB PO WM, (Reported) Digoxin (Digoxin) 125 Mcg Tablet, 125 MCG PO DAILY, (Reported) Levofloxacin (Levaquin) 750 Mg Tablet, 750 MG PO DAILY@06 Vancomycin HCl (Firvanq) 50 Mg/1 Ml Soln.recon, 250 MG PO BID Allergies Coded Allergies: Sulfa (Sulfonamide Antibiotics) (Verified Allergy, Mild, 04/14/19) EDISON ALVAREZ MD Jul 23, 2020 11:50
== END 2020-07-23 11:52 | disposition home or self-care (01) | DRG 699 ==
LOC: EDBD 10:03 → M ED 10:03 → M ED INP 15:50 → ENRESERV 16:14 → M MSPAV 17:13
PROVIDERS: ADMIT Internal Medicine; ATTEND General Practice
DX: T83.518A Infection and inflammatory reaction due to other urinary catheter, initial encounter (principal); I48.92 Unspecified atrial flutter; I50.32 Chronic diastolic (congestive) heart failure; G93.40 Encephalopathy, unspecified; F03.90 Unspecified dementia, unspecified severity, without behavioral disturbance, psychotic disturbance, mood disturbance, and anxiety; G20 Parkinson's disease; N40.0 Benign prostatic hyperplasia without lower urinary tract symptoms; R53.1 Weakness; B96.1 Klebsiella pneumoniae [K. pneumoniae] as the cause of diseases classified elsewhere; B95.2 Enterococcus as the cause of diseases classified elsewhere; Z66 Do not resuscitate; Z87.81 Personal history of (healed) traumatic fracture; Z79.899 Other long term (current) drug therapy; Z88.2 Allergy status to sulfonamides; Y84.6 Urinary catheterization as the cause of abnormal reaction of the patient, or of later complication, without mention of misadventure at the time of the procedure

== ENCOUNTER → 2020-08-01 | Outpatient (REF) | payer MEDICARE, OTHER ==
[~2020-08-01] MED LIST changes: +AMOX500C PO; +BACI1CAP PO; +FIRV50SO PO
== END ==
LOC: M LAB REF 16:18
PROVIDERS: ATTEND Physician Assistant Medical
DX: R35.0 Frequency of micturition (principal)

== ENCOUNTER → 2020-08-30 | Outpatient (REF) | payer MEDICARE, OTHER ==
[~2020-08-30] MED LIST changes: +CARB25TA18 PO; +CIPR500T3 PO; +FIBE625T PO; +METR-135 PO; +NITR100C2 PO; +RA S8.6T3 PO; +VIAC1CHW PO
[2020-08-30 14:36] LABS: APPEARANCE, URINE TURBID (CLEAR); BACTERIA, URINE AUTO 2+ (NEGATIVE); BILIRUBIN, URINE AUTO NEGATIVE (NEGATIVE); BLOOD, URINE BLOOD 2+ (NEGATIVE); COLOR, URINE AMBER (YELLOW); GLUCOSE, URINE (UA) AUTO NEGATIVE (NEGATIVE); KETONE, URINE AUTO TRACE mg/dL (NEGATIVE); LEUKOCYTE ESTERASE, URINE AUTO 3+ (NEGATIVE); MUCUS, URINE SMALL (NEGATIVE); NITRITE, URINE AUTO POSITIVE (NEGATIVE); PROTEIN, URINE AUTO 2+ mg/dL (NEGATIVE); RBC, URINE AUTO 85 /HPF (0-3); SPECIFIC GRAVITY URINE AUTO 1.025 (1.002-1.035); SQUAMOUS EPITHELIAL CELL UR AU 0 /HPF (0-6); TRANSITIONAL EPITHELIAL AUTO <1 /HPF; UROBILINOGEN, URINE AUTO 0.2 mg/dL (0.0-2.0); WBC, URINE AUTO TNTC /HPF (0-3)
== END ==
LOC: M LAB REF 13:19
PROVIDERS: ATTEND Physician Assistant Medical
DX: N39.0 Urinary tract infection, site not specified (principal)

== ENCOUNTER 2020-09-04 11:25 | Inpatient (IN) | payer MEDICARE, OTHER ==
[~2020-09-04] VITALS: Ht 182.9 cm; Wt 72.4 kg
[~2020-09-04 11:25] MED LIST changes: -CARB25TA18 PO; -CIPR500T3 PO; -FIBE625T PO; -METR-135 PO; -NITR100C2 PO; -RA S8.6T3 PO; -VIAC1CHW PO
[2020-09-04] MEDS ORDERED: NITR100C2 PO (11:46)
[2020-09-04] MEDS ORDERED: CARB25TA18 PO (11:46)
[2020-09-04 13:24] LABS: BASO % 0.2 % (0.0-1.0); EOS % 0.2 % (0.0-3.0); HEMATOCRIT 49.1 % (42.0-52.0); HEMOGLOBIN 16.1 g/dl (13.5-17.5); LYMPH # 1.9 10^3/uL (1.5-5.0); LYMPH % 9.8 % (24.0-44.0); MEAN CORPUSCULAR HEMOGLOBIN 29.8 pg (27.0-33.0); MEAN CORPUSCULAR HGB CONC 32.8 g/dl (32.0-36.5); MEAN CORPUSCULAR VOLUME 90.9 fl (80.0-96.0); MONO % 10.5 % (0.0-5.0); NEUTROPHILS % 78.8 % (36.0-66.0); PLATELET COUNT, AUTOMATED 223 10^3/uL (150-450); WHITE BLOOD COUNT 19.1 10^3/uL (4.0-10.0)
--- NOTE | 2020-09-04 13:30 | REP ---
INDICATION: Altered Mental Status COMPARISON: 07/19/2020 TECHNIQUE: Portable AP view of the chest FINDINGS: The mediastinum and cardiac silhouette are stable and within normal limits for portable technique. The lung quarles are clear without acute consolidation, effusion, or pneumothorax. Skeletal structures are intact. IMPRESSION: Chronic appearing changes. No acute cardiopulmonary process appreciated. <Electronically signed by Santos Mathis > 09/04/20 [id number]
[2020-09-04] MEDS ORDERED: VANCOMYCIN HCL 1,000 MG, VIAL MATE ADAPTER 1 EACH in D5W 250 ML IV ONE (13:45)
[2020-09-04 14:00] VITALS: BP 104/69
[2020-09-04 14:00] LABS: ACETAMINOPHEN LEVEL < 2.0 UG/ML (10.0-30.0); ALBUMIN 3.5 GM/DL (3.2-5.2); ALT/SGPT 64 U/L (12-78); BILIRUBIN,DIRECT 0.5 MG/DL (0.0-0.2); BILIRUBIN,TOTAL 1.5 MG/DL (0.2-1.0); BLOOD UREA NITROGEN 16 MG/DL (7-18); CALCIUM LEVEL 9.7 MG/DL (8.8-10.2); CARBON DIOXIDE LEVEL 29 MEQ/L (21-32); CHLORIDE LEVEL 104 MEQ/L (98-107); CK-MB VALUE MASS < 1.0 NG/ML (<3.6); CPK CREATINE PHOSPHOKINASE 37 U/L (39-308); GLOMERULAR FILTRATION RATE > 60.0 (>35); GLUCOSE, FASTING 104 MG/DL (70-100); SALICYLATE LEVEL < 1.7 MG/DL (5.0-30.0); SODIUM LEVEL 139 MEQ/L (136-145); TOTAL PROTEIN 7.6 GM/DL (6.4-8.2); TROPONIN I < 0.02 NG/ML (< 0.10)
[2020-09-04] MEDS ORDERED: CEFEPIME HCL 2 GM in D5W 50 ML IV SCH (14:15)
[2020-09-04] MEDS ORDERED: VIAC1CHW PO (14:17)
[2020-09-04] MEDS ORDERED: RA S8.6T3 PO (14:17)
[2020-09-04] MEDS ORDERED: FIBE625T PO (14:17)
[2020-09-04] MEDS ORDERED: BACI1CAP PO (14:17)
[2020-09-04] MEDS ORDERED: CARB25TA9 PO (14:17)
--- NOTE | 2020-09-04 14:36 | HPEPDOC ---
General Date of Admission 09/04/20 Date of Service: Sep 04, 2020 Chief Complaint The patient is a 84-year-old male admitted with a reason for visit of Hypotension. Source: Family Exam Limitations: Clinical conditions, Dementia Timing/Duration: Day(s) Severity: Moderate History of Present Illness Patient is an 84-year-old male with atrial flutter, dementia, Parkinson's disease, chronic indwelling Edwards, and C. difficile presented hospital with weakness and blood tinged Edwards output. The patient has dementia and is a poor historian. Most of the history was obtained from the who was present in the room. His stated that patient developed generalized weakness around 1 week ago, he had few episodes of vomiting around 2 days ago. This morning his blood pressure was 86/68 with heart rate around 160. In ER patient was found to have leukocytosis of 19, Chest x-ray negative for an acute process. UA showed pyuria. His told me that he has his Edwards changed once a month. Last change was around 2 weeks ago. Home Medications Scheduled Bacillus Coagulans (Bacid with Lactospore) 1 Each Capsule, 1 CAP PO BIDWM, (Reported) Calcium Carb/Vitamin D3/Vit K1 (Viactiv 650 mg-12.5 Mcg Chew) 1 Each Tab.chew, 1 CHEW PO DAILY, (Reported) Calcium Polycarbophil (Fibercon) 625 Mg Tablet, 625 MG PO DAILY, (Reported) Carbidopa/Levodopa (Carbidopa-Levodopa 25-100 Tab) 1 Each Tablet, 1 TAB PO TID, (Reported) Digoxin (Digoxin) 125 Mcg Tablet, 125 MCG PO DAILY, (Reported) Nitrofurantoin Monohyd/M-Cryst (Nitrofurantoin [place]-Mcr 100 mg) 100 Mg Capsule, 1 TAB PO BID, (Reported) FOR 7 DAYS, STARTED 09/02 Sennosides (Senna Lax) 8.6 Mg Tablet, 8.6 MG PO DAILY, (Reported) Allergies Coded Allergies: Sulfa (Sulfonamide Antibiotics) (Verified Allergy, Mild, UNKNOWN REACTION, 09/04/20) apixaban (Verified Allergy, Unknown, BLEEDING, 09/04/20) Past Medical History Medical History 1. BPH with Chronic edwards catheter 2. Dementia 3. Parkinsons 4. Chronic Diastolic CHF (Grade 1) 5. Atrial flutter Surgical History 1. Left hip fracture 2. Right hip fracture status post repair November 2019 3. Abdominal hernia repair Family History Mother reported to have of old age at 94 Father without any reported medical problems Social History * Smoker: former Smoker Alcohol: Denies Drugs: denies A-FIB/CHADSVASC A-FIB History Current/History of A-Fib/PAF?: Yes Current PO Anticoag Therapy: No (due to hematuria) Review of Systems Constitutional: Reports: Weakness; Denies: Chills, Fever Eyes: Denies: Pain ENT: Denies: Head Aches Skin: Denies: Rash, Lesions Pulmonary: Denies: Dyspnea Cardiovascular: Denies: Chest Pain, Palpitations Gastrointestinal: Denies: Nausea Genitourinary: Reports: Hematuria Hematologic: Denies: Bruising Endocrine: Denies: Polydipsia, Polyphagia Musculoskeletal: Denies: Neck Pain Neurological: Denies: Weakness Psych: Reports: Memory Issues Physical Examination General Exam: Positive: No Acute Distress Eye Exam: Positive: PERRLA ENT Exam: Positive: Atraumatic Neck Exam: Positive: Supple; Negative: JVD Chest Exam: Positive: Clear to auscultation Heart Exam: Positive: Irregular Rhythm Telemetry: Positive: Atrial fibrillation Abdomen Exam: Positive: Soft Extremity Exam: Negative: Clubbing, Cyanosis Skin Exam: Positive: Nl turgor and temperature Neuro Exam: Positive: Sensation Intact, Reflexes 2+ Psych Exam: Positive: Mood NL; Negative: Memory Intact Vital Signs Vital Signs Date Time Temp Pulse Resp B/P (MAP) Pulse Ox O2 Delivery O2 Flow Rate FiO2 09/04/20 13:00 92 18 124/57 (79) 96 Room Air 09/04/20 11:32 99.1 Laboratory Data Labs 24H Laboratory Tests 2 09/04/20 12:56: Immature Granulocyte % (Auto) 0.5, Neutrophils (%) (Auto) 78.8H, Lymphocytes (%) (Auto) 9.8L, Monocytes (%) (Auto) 10.5H, Eosinophils (%) (Auto) 0.2, Basophils (%) (Auto) 0.2, Neutrophils # (Auto) 15.0H, Lymphocytes # (Auto) 1.9, Monocytes # (Auto) 2.0H, Eosinophils # (Auto) 0.0, Basophils # (Auto) 0.0, Nucleated Red Blood Cells % (auto) 0.0, Urine Color WENDIE, Urine Appearance CLOUDYH, Urine pH 7.0, Urine Specific [place] 1.021, Urine Protein 2+H, Urine Glucose (UA) NEGATIVE, Urine Ketones NEGATIVE, Urine Blood 2+H, Urine Nitrite NEGATIVE, Urine Bilirubin NEGATIVE, Urine Urobilinogen 0.2, Urine Leukocyte Esterase 2+H, Urine WBC (Auto) TNTCH, Urine RBC (Auto) 70H, Urine Hyaline Casts (Auto) 0, Urine Bacteria (Auto) NEGATIVE, Urine Squamous Epithelial Cells 0, Urine Calcium Phosphate Jennifer (Auto) SMALL, Urine Mucus (Auto) MODERATE, Urine Yeast-Like Cells (Auto) SMALLH, Urine Sperm (Auto) , Anion Gap 6L, Glomerular Filtration Rate > 60.0, Calcium Level 9.7, Total Bilirubin 1.5H, Direct Bilirubin 0.5H, Aspartate Amino Transf (AST/SGOT) 120H, Alanine Aminotransferase (ALT/SGPT) 64, Alkaline Phosphatase 169H, Ammonia 12, Total Creatine Kinase 37L, Creatine Kinase MB < 1.0, Creatine Kinase MB Relative Index 2.70, Troponin I < 0.02, Total Protein 7.6, Albumin 3.5, Albumin/Globulin Ratio 0.9, Thyroid Stimulating Hormone (TSH) 1.830, Salicylates Level < 1.7L, Acetaminophen Level < 2.0L CBC/BMP Laboratory Tests 09/04/20 12:56 Microbiology Microbiology 09/04/20 Urine Culture, Received Pending 09/04/20 Blood Culture, Received Pending Assessment/Plan Patient is an 84-year-old male with atrial flutter, dementia, Parkinson's disease, chronic indwelling Edwards, and C. difficile presented hospital with weakness and blood tinged Edwards output. The patient has dementia and is a poor historian. Most of the history was obtained from the who was present in the room. His stated that patient developed generalized weakness around 1 week ago, he had few episodes of vomiting around 2 days ago. This morning his blood pressure was 86/68 with heart rate around 160. In ER patient was found to have l eukocytosis of 19, Chest x-ray negative for an acute process. UA showed pyuria. His told me that he has his Edwards changed once a month. Last change was around 2 weeks ago. Problems (1) Sepsis Status: Acute Problem Text: Today patient developed hypotension with tachycardia and leukocytosis of 19 UA showed pyuria Blood culture ordered Await urine culture Vancomycin IV, cefepime IV. Previous urine culture was positive for MRSA IV fluid Will change Edwards catheter (2) UTI (urinary tract infection) Status: Chronic Problem Text: See above (3) Weakness Status: Chronic Problem Text: Most likely secondary to multiple comorbidities superimposed with sepsis Normally ambulates with walker and gait belt PT/OT (4) Hematuria Status: Chronic Problem Text: Follow-up with urologist in the outpatient settings for cystoscopy Hemoglobin stable (5) Parkinson disease Status: Chronic Problem Text: Continue carbidopa levodopa (6) Atrial flutter Status: Chronic Problem Text: On digoxin Not in atrial flutter at this time Not on oral target anticoagulation due to chronic hematuria Plan / VTE VTE Prophylaxis Ordered?: No VTE Exclusion Pharmacological: Active Bleeding VASYL BARNEY DO Sep 04, 2020 14:36
[2020-09-04] MEDS ORDERED: CEFEPIME HCL 2 GM in D5W 50 ML IV ONE (15:00)
[2020-09-04] MEDS: NS 1,000 ML IV SCH (15:43)
[2020-09-04 16:13] VITALS: BP 104/69
[2020-09-04] MEDS: SINEMET 25-100 MG TAB PO SCH ×2 (17:01→20:26)
[2020-09-04] MEDS: SENNA 8.6 MG TAB (SENOKOT) PO SCH (17:01)
[2020-09-04] MEDS: VANCOMYCIN HCL 1,000 MG, VIAL MATE ADAPTER 1 EACH in D5W 250 ML IV SCH (18:39)
[2020-09-04] MEDS: HEPARIN SOD (PORCINE) 5000UNITS/ML 1ML VIAL/SYRINGE SC SCH (20:26)
[2020-09-04 22:00] VITALS: BP 118/77
[2020-09-05] MEDS: NS 1,000 ML IV SCH ×3 (00:43→21:35)
[2020-09-05] MEDS: CEFEPIME HCL 2 GM in D5W 50 ML IV SCH ×2 (03:58→15:47)
[2020-09-05 06:00] VITALS: BP 115/63
[2020-09-05] MEDS: VANCOMYCIN HCL 1,000 MG, VIAL MATE ADAPTER 1 EACH in D5W 250 ML IV SCH ×2 (06:37→18:37)
[2020-09-05 06:45] LABS: HEMATOCRIT 43.7 % (42.0-52.0); HEMOGLOBIN 14.4 g/dl (13.5-17.5); MEAN CORPUSCULAR HEMOGLOBIN 30.4 pg (27.0-33.0); MEAN CORPUSCULAR VOLUME 92.2 fl (80.0-96.0); PLATELET COUNT, AUTOMATED 181 10^3/uL (150-450); RED BLOOD COUNT 4.74 10^6/uL (4.30-6.10); WHITE BLOOD COUNT 14.4 10^3/uL (4.0-10.0)
[2020-09-05 06:55] LABS: ALBUMIN 2.8 GM/DL (3.2-5.2); ALT/SGPT 118 U/L (12-78); BILIRUBIN,TOTAL 1.4 MG/DL (0.2-1.0); BLOOD UREA NITROGEN 16 MG/DL (7-18); CALCIUM LEVEL 8.4 MG/DL (8.8-10.2); CARBON DIOXIDE LEVEL 27 MEQ/L (21-32); CHLORIDE LEVEL 107 MEQ/L (98-107); CREATININE FOR GFR 0.83 MG/DL (0.70-1.30); GLOMERULAR FILTRATION RATE > 60.0 (>35); GLUCOSE, FASTING 91 MG/DL (70-100); MAGNESIUM LEVEL 1.9 MG/DL (1.8-2.4); POTASSIUM SERUM 3.8 MEQ/L (3.5-5.1); SODIUM LEVEL 140 MEQ/L (136-145); TOTAL PROTEIN 6.2 GM/DL (6.4-8.2)
--- NOTE | 2020-09-05 07:32 | ECGEPIP ---
[facility] - ED Test Date: 2020-09-04 Pat Name: LAURENCE KAPLAN Department: Room: [place] [address] Gender: Male Operating Room Orderly: ERASMO : 1935 Requested By: MELVIN PANDA Order Number: [id number] Reading MD: Keiry Cantrell Measurements Intervals [place] Rate: 92 P: 17 SD: 181 QRS: -32 QRSD: 86 T: -18 QT: 318 QTc: 394 Interpretive Statements SINUS RHYTHM WITH OCCASIONAL SUPRAVENTRICULAR PREMATURE COMPLEXES MARKED LEFT AXIS DEVIATION MODERATE ST DEPRESSION, CLINICAL CORRELATION EARLY R PROGRESSION Electronically Signed on 09-05-2020 7:32:16 EST by Keiry Cantrell
[2020-09-05] MEDS: SINEMET 25-100 MG TAB PO SCH ×3 (08:58→21:35)
[2020-09-05] MEDS: SENNA 8.6 MG TAB (SENOKOT) PO SCH (08:58)
[2020-09-05] MEDS: HEPARIN SOD (PORCINE) 5000UNITS/ML 1ML VIAL/SYRINGE SC SCH ×2 (08:58→21:35)
[2020-09-05] MEDS: GASTROGRAFIN SOLUTION 30ML PO SCH ×2 (09:02→10:11)
[2020-09-05] MEDS: DIGOXIN 0.125 MG TAB PO SCH (09:02)
[2020-09-05] MEDS ORDERED: ISOVUE-370 76% 100ML VIAL As Ordered ONE (10:05)
--- NOTE | 2020-09-05 10:58 | REP ---
INDICATION: sepsis. COMPARISON: 04/21/2020 TECHNIQUE: Axial contrast-enhanced images from the lung bases to the pubic symphysis using 100 cc Isovue 370 intravenous contrast material. Coronal and sagittal reformations obtained.. This CT examination was performed using the following dose reduction techniques: Automated exposure control, adjustment of mA and/or kv according to the patient's size, and the use of iterative reconstruction technique. FINDINGS: Lung bases demonstrate mild bibasilar atelectasis (right greater than left) and small right pleural reaction. There appears to be gallbladder wall thickening with mild pericholecystic stranding suggesting acute cholecystitis and correlation is recommended. The liver demonstrates fatty infiltration and multiple hypodensities primarily noted in the left lateral segment which are grossly unchanged compared to 04/21/2020. Spleen, pancreas, bilateral adrenal glands and kidneys are essentially normal/stable. Small bilateral renal hypodensities are unchanged and likely represent simple/complex cysts. A benign fat appearing intraperitoneal lipoma in the left upper quadrant remains stable and measures approximately 12 x 8.5 x 10.0 cm. No evidence for bowel obstruction or acute inflammatory process. Moderate fecal stasis throughout the colon and fecal impaction at the rectum distended to approximately 7.6 cm diameter is appreciated along with scattered sigmoid diverticula. Pelvis demonstrates Mccullough catheter within collapsed bladder and prostatomegaly measuring 6 cm diameter. No ascites. No adenopathy. Abdominal aorta without aneurysm or dissection. Musculoskeletal structures demonstrate age-related osteopenia degenerative changes along with fixation for bilateral femur fractures. IMPRESSION: 1. Pericholecystic stranding and gallbladder wall thickening suggesting acute cholecystitis and correlation is required. 2. Large stable benign appearing lipoma in the left upper quadrant. 3. Stable hepatic and renal hypodensities likely representing simple and complex cysts which may be correlated by ultrasound. 4. Moderate fecal stasis and suspected fecal impaction at the rectum requires clinical correlation. 5. Further chronic nonacute findings including Prostatomegaly. 6. Bibasilar atelectasis (right greater left) and small right pleural reaction. <Electronically signed by Santos Mathis > 09/05/20 [id number]
[2020-09-05] MEDS: ACETAMINOPHEN TAB 650MG DOSE (2X325MG) PO PRN (12:32)
--- NOTE | 2020-09-05 12:36 | IPNPDOC ---
Text Note Date of Service The patient was seen on 09/05/20. NOTE Subjective: No any acute events overnight. Patient denied fever, chills, nausea, vomiting, diarrhea Objective: GENERAL APPEARANCE: NAD HEENT: no scleral icterus, no JVD, EOMI CARDIOVASCULAR: Irregularly irregular LUNGS: CTA ABDOMEN: soft & not tender w palpitation MUSCULOSKELETAL: no cyanosis, no swelling INTEGUMENT: no generalized palor NEUROLOGICAL: follows commands, speech not dysarthric, no nuchal rigidity Assessment/Plan Patient is an 84-year-old male with atrial flutter, dementia, Parkinson's disease, chronic indwelling Mccullough, and C. difficile presented hospital with weakness and blood tinged Mccullough output. The patient has dementia and is a poor historian. Most of the history was obtained from the who was present in the room. His stated that patient developed generalized weakness around 1 week ago, he had few episodes of vomiting around 2 days ago. This morning his blood pressure was 86/68 with heart rate around 160. In ER patient was found to have leukocytosis of 19, Chest x-ray negative for an acute process. UA showed pyuri a. His told me that he has his Mccullough changed once a month. Last change was around 2 weeks ago. Problems (1) Sepsis resolved UA showed pyuria Await Blood culture urine culture positive for yeast organism Vancomycin IV, cefepime IV. Previous urine culture was positive for MRSA IV fluid (2) UTI (urinary tract infection) Due to chronic Mccullough catheter (3) Weakness Most likely secondary to multiple comorbidities superimposed with sepsis Normally ambulates with walker and gait belt His who is a power of corporate attorney refused PT/OT (4) Hematuria Follow-up with urologist in the outpatient settings for cystoscopy Hemoglobin stable (5) Parkinson disease Continue carbidopa levodopa (6) Atrial flutter On digoxin Not in atrial flutter at this time Not on oral target anticoagulation due to chronic hematuria VS,Fishbone, I+O VS, Fishbone, I+O Laboratory Tests 09/04/20 12:56 09/05/20 06:12 Vital Signs Date Time Temp Pulse Resp B/P (MAP) Pulse Ox O2 Delivery O2 Flow Rate FiO2 09/05/20 09:02 70 09/05/20 06:00 98.3 18 115/63 (80) 95 Room Air I&O- Last 24 Hours up to 6 AM 09/05/20 06:00 Intake Total 2550 ml Output Total 440 ml Balance 2110 ml VASYL BARNEY DO Sep 05, 2020 12:36
[2020-09-05 14:00] VITALS: BP 117/72
[2020-09-05 22:00] VITALS: BP 117/74
[2020-09-06] MEDS: CEFEPIME HCL 2 GM in D5W 50 ML IV SCH ×2 (03:59→15:22)
[2020-09-06 06:24] LABS: VANCOMYCIN LEVEL TROUGH 12.9 UG/ML (10.0-20.0)
[2020-09-06] MEDS: NS 1,000 ML IV SCH ×2 (06:27→15:19)
[2020-09-06 06:33] VITALS: BP 116/68
[2020-09-06] MEDS: VANCOMYCIN HCL 1,000 MG, VIAL MATE ADAPTER 1 EACH in D5W 250 ML IV SCH (06:54)
[2020-09-06] MEDS: SINEMET 25-100 MG TAB PO SCH ×3 (09:00→20:32)
[2020-09-06 09:09] LABS: ALBUMIN 2.4 GM/DL (3.2-5.2); ALT/SGPT 49 U/L (12-78); BILIRUBIN,TOTAL 0.9 MG/DL (0.2-1.0); BLOOD UREA NITROGEN 11 MG/DL (7-18); CALCIUM LEVEL 8.4 MG/DL (8.8-10.2); CARBON DIOXIDE LEVEL 24 MEQ/L (21-32); CHLORIDE LEVEL 107 MEQ/L (98-107); CREATININE FOR GFR 0.74 MG/DL (0.70-1.30); GLOMERULAR FILTRATION RATE > 60.0 (>35); GLUCOSE, FASTING 101 MG/DL (70-100); MAGNESIUM LEVEL 1.7 MG/DL (1.8-2.4); POTASSIUM SERUM 3.5 MEQ/L (3.5-5.1); SODIUM LEVEL 137 MEQ/L (136-145); TOTAL PROTEIN 6.4 GM/DL (6.4-8.2)
[2020-09-06 09:20] LABS: BASO % 0.3 % (0.0-1.0); EOS # 0.1 10^3/uL (0.0-0.5); EOS % 0.8 % (0.0-3.0); HEMATOCRIT 38.6 % (42.0-52.0); HEMOGLOBIN 12.9 g/dl (13.5-17.5); LYMPH # 1.5 10^3/uL (1.5-5.0); LYMPH % 9.3 % (24.0-44.0); MEAN CORPUSCULAR HEMOGLOBIN 30.1 pg (27.0-33.0); MEAN CORPUSCULAR HGB CONC 33.4 g/dl (32.0-36.5); MEAN CORPUSCULAR VOLUME 90.2 fl (80.0-96.0); MONO # 1.3 10^3/uL (0.0-0.8); MONO % 7.9 % (0.0-5.0); NEUTROPHILS # 12.7 10^3/uL (1.5-8.5); PLATELET COUNT, AUTOMATED 188 10^3/uL (150-450); RED BLOOD COUNT 4.28 10^6/uL (4.30-6.10); WHITE BLOOD COUNT 15.7 10^3/uL (4.0-10.0)
[2020-09-06] MEDS: HEPARIN SOD (PORCINE) 5000UNITS/ML 1ML VIAL/SYRINGE SC SCH ×2 (09:25→20:32)
--- NOTE | 2020-09-06 11:54 | IPNPDOC ---
Text Note Date of Service The patient was seen on 09/06/20. NOTE Subjective: No any acute events overnight. Patient denied fever, palpitations, shortness of breath, chills, nausea, vomiting, diarrhea Objective: GENERAL APPEARANCE: NAD HEENT: no scleral icterus, no JVD, EOMI CARDIOVASCULAR: Irregularly irregular LUNGS: CTA ABDOMEN: soft & not tender w palpitation MUSCULOSKELETAL: no cyanosis, no swelling INTEGUMENT: no generalized palor NEUROLOGICAL: follows commands, speech not dysarthric, no nuchal rigidity Assessment/Plan Patient is an 84-year-old male with atrial flutter, dementia, Parkinson's disease, chronic indwelling Mccullough, and C. difficile presented hospital with weakness and blood tinged Mccullough output. The patient has dementia and is a poor historian. Most of the history was obtained from the who was present in the room. His stated that patient developed generalized weakness around 1 week ago, he had few episodes of vomiting around 2 days ago. This morning his blood pressure was 86/68 with heart rate around 160. In ER patient was found to have leukocytosis of 19, Chest x-ray negative for an acute process. UA showed pyuria. His told me that he has his Mccullough changed once a month. Last change was around 2 weeks ago. Problems (1) Sepsis resolved UA showed pyuria Blood culture negative urine culture positive for yeast organism Vancomycin IV, cefepime IV. Previous urine culture was positive for MRSA MRSA screen positive IV fluid CT of abdomen and pelvis showed Pericholecystic stranding and gallbladder wall thickening suggesting acute cholecystitis. Patient continues to have persistent leukocytosis, however he does not complain of the right upper quadrant pain. acute cystitis can be cause of persistent leukocytosis Appreciate/agree with surgical consult (2) UTI (urinary tract infection) Due to chronic Mccullough catheter (3) Weakness Most likely secondary to multiple comorbidities superimposed with sepsis Normally ambulates with walker and gait belt His who is a power of transactional attorney refused PT/OT (4) Hematuria Follow-up with urologist in the outpatient settings for cystoscopy Hemoglobin stable (5) Parkinson disease Continue carbidopa levodopa (6) Atrial flutter On digoxin Not in atrial flutter at this time Not on oral target anticoagulation due to chronic hematuria VS,Caesar, I+O VS, Fishbone, I+O Laboratory Tests 09/06/20 05:50 09/06/20 08:55 Vital Signs Date Time Temp Pulse Resp B/P (MAP) Pulse Ox O2 Delivery O2 Flow Rate FiO2 09/06/20 06:33 97.8 68 18 116/68 (84) 97 Room Air I&O- Last 24 Hours up to 6 AM 09/06/20 06:00 Intake Total 3050 ml Output Total 1925 ml Balance 1125 ml VASYL BARNEY DO Sep 06, 2020 11:54
[2020-09-06 14:00] VITALS: BP 124/65
[2020-09-06] MEDS: SENNA 8.6 MG TAB (SENOKOT) PO SCH (15:19)
[2020-09-06] MEDS: ACETAMINOPHEN TAB 650MG DOSE (2X325MG) PO PRN (15:21)
[2020-09-06] MEDS: DIGOXIN 0.125 MG TAB PO SCH (15:21)
--- NOTE | 2020-09-06 16:27 | REP ---
INDICATION: cholecystitis, look for stones COMPARISON: None. TECHNIQUE: Real time hendrickson scale ultrasound examination using curved array transducer. FINDINGS: The gallbladder demonstrates wall thickening to 4 mm with large amount of avascular echogenic nonshadowing material likely representing tumefactive sludge. No biliary ductal dilatation is appreciated and the common bile duct measures 3.1 mm diameter. Liver is incompletely evaluated but visualized portions appear normal. Right kidney measures 12.0 x 5.6 x 6.0 cm with 1.2 cm upper pole benign cyst and mild renal pelviectasis. Incidental small right pleural effusion. IMPRESSION: Tumefactive sludge partially fills the gallbladder with gallbladder wall thickening. Limited examination. <Electronically signed by Santos Mathis > 09/06/20 [id number]
[2020-09-06] MEDS: VANCOMYCIN HCL 750 MG, VIAL MATE ADAPTER 1 EACH in D5W 250 ML IV SCH (18:50)
[2020-09-06] MEDS: VANCOMYCIN HCL 500 MG in D5W MINI-BAG PLUS 100 ML IV SCH (20:33)
[2020-09-06 22:00] VITALS: BP 130/67
[2020-09-07] MEDS: NS 1,000 ML IV SCH ×4 (00:50→13:34)
[2020-09-07] MEDS: CEFEPIME HCL 2 GM in D5W 50 ML IV SCH ×2 (03:28→17:49)
[2020-09-07 06:00] VITALS: BP 152/86
[2020-09-07 06:28] LABS: HEMATOCRIT 37.1 % (42.0-52.0); HEMOGLOBIN 12.9 g/dl (13.5-17.5); MEAN CORPUSCULAR HEMOGLOBIN 31.1 pg (27.0-33.0); MEAN CORPUSCULAR HGB CONC 34.8 g/dl (32.0-36.5); MEAN CORPUSCULAR VOLUME 89.4 fl (80.0-96.0); PLATELET COUNT, AUTOMATED 204 10^3/uL (150-450); RED BLOOD COUNT 4.15 10^6/uL (4.30-6.10); WHITE BLOOD COUNT 12.8 10^3/uL (4.0-10.0)
[2020-09-07 06:42] LABS: BLOOD UREA NITROGEN 10 MG/DL (7-18); CALCIUM LEVEL 8.7 MG/DL (8.8-10.2); CARBON DIOXIDE LEVEL 26 MEQ/L (21-32); CHLORIDE LEVEL 110 MEQ/L (98-107); CREATININE FOR GFR 0.66 MG/DL (0.70-1.30); GLOMERULAR FILTRATION RATE > 60.0 (>35); GLUCOSE, FASTING 91 MG/DL (70-100); MAGNESIUM LEVEL 1.8 MG/DL (1.8-2.4); POTASSIUM SERUM 3.4 MEQ/L (3.5-5.1); SODIUM LEVEL 141 MEQ/L (136-145)
[2020-09-07] MEDS: VANCOMYCIN HCL 750 MG, VIAL MATE ADAPTER 1 EACH in D5W 250 ML IV SCH ×2 (06:43→18:57)
--- NOTE | 2020-09-07 07:28 | CR.PDOC ---
General Surgery Consultation Date of Consultation 09/06/20 History and Physical CONSULT REPORT FOR: Dr. Ruth (Hospitalist Service) REASON FOR CONSULTATION: sepsis presentation, possible acute cholecystitis HISTORY OF PRESENT ILLNESS: Patient is an 84-year-old male admitted on 09/04/2020 suspected to be having sepsis originally from a urinary source. He was complaining of weakness as well as blood-tinged Mccullough output. He was noted to have low blood pressure, increased heart rates into the 160s, reporting generalized weakness about a one-week duration and the episodes of vomiting. He has a chronic indwelling Mccullough catheter was found to have evidence of pyuria. He also had recently been treated for C. difficile colitis. He was noted to a persistent leukocytosis likewise mild elevation of his LFTs this a CT abdomen and pelvis was obtained which was suggesting some pericholecystic stranding around the gallbladder suggesting possibility of acute cholecystitis. On speaking to him he denies any ongoing abdominal pain and discomfort. He does feel hungry and prior to his forgetting held this morning for an ultrasound study, reports he is tolerating food. He is no longer having diarrhea and has some soft semi-solid stools according to his nurse. Review of the vitals in the hospital shows is been afebrile. He is curren tly on IV vancomycin as well as cefepime to treat the urinary tract infection which should also adequately cover the cholecystitis. I'm being asked to evaluate the patient for possibility that this cholecystitis and whether he needs surgery. PAST MEDICAL HISTORY: 1. Dementia 2. Atrial fibrillation 3. Parkinson's disease 4. BPH Chronic indwelling Mccullough catheter changed 2 weeks Ryer to this present ation 5. Recent history of C. difficile a colitis 6. CHF grade 1 diastolic dysfunction 7. Hypertension 8. Hypercholesterolemia PAST SURGICAL HISTORY: INCLUDES: 1. Bilateral cataract surgery. 2. Bilateral inguinal hernia repair 3. Hydrocele repair cystoscopy 4. Right hip arthroplasty ALLERGIES: Please see below. FAMILY HISTORY: Noncontributory HOME MEDICATIONS: Please see below. REVIEW OF SYSTEMS: A proper ROS is hard to determine given the patient's dementia. His answers have been vague to my questions. PHYSICAL EXAMINATION: VITALS SIGNS: Please see below. GENERAL APPEARANCE: Patient seen laying flat in bed, looks comfortable in no acute distress. SKIN: Warm and dry. HEENT: Anicteric sclerae. No facial asymmetry. NECK: Supple, no thyromegaly. No obvious jugular venous distention. LUNGS: Clear to auscultation bilaterally. No wheezing appreciated. HEART: Rates in the 80s, slightly irregular rhythm, dropped beats. ABDOMEN: Abdomen is nondistended, soft, no tenderness over the epigastric nor at the right upper quadrant area. No guarding. EXTREMITIES: No significant extremity edema ANCILLARIES: . LABORATORY DATA: Please see below. IMAGING STUDIES: CT abdomen and pelvis was performed yesterday 09/05/2020 showing pericholecystic stranding and gallbladder wall thickening suggestive of acute cholecystitis. Here the prior CT most recently on get 04/21/2020. The pericholecystic stranding seems to be new. There is no visible stones in both CT of the abdomen inside of the gallbladder.. IMPRESSION AND PLAN: Possible acute cholecystitis question acalculous versus calculus cholecystitis I have asked an ultrasound the gallbladder to be done to mainly look for stones. He currently is on IV cefepime as well as vancomycin which was to call where his urinary tract infection but this should cover for the acute cholecystitis also. He still has some mild leukocytosis at 15.7. Interestingly he is LFTs bumped up slightly yesterday and on presentation. A total bilirubin increased slightly to 1.5 likewise AST was 120. This has gradually come down and normalized today. The total bilirubin is 1.7 but the direct fraction 0.9 AST is down to 40. So there is a possibility disease cholecystitis is real given all this findings. He seems to be improving with IV antibiotics and is not having any discomfort at this time so we can advance his diet. Continue to cover for at least a 2 week course of antibiotics for the cholecystitis. If the ultrasound shows stones inside the gallbladder than I would consider doing an interval cholecystectomy once an appropriate surgical optimization by his primary care doctor in an outpatient basis can be done and if he is deemed stable enough for general anesthesia and also if patient and family would wish to do so. If this is an acalculous c holecystitis then antibiotic treatment should be sufficient. Please have the patient referred to me once stable and ready to go home in my clinic and I will continue to discussion with the patient and the family whether he would benefit appropriate candidate for interval cholecystectomy. At this po int I don't think he needs emergency surgery as he is getting clinically better.. Vital Signs Vital Signs Date Time Temp Pulse Resp B/P (MAP) Pulse Ox O2 Delivery O2 Flow Rate FiO2 09/07/20 06:00 99.1 80 18 152/86 (108) 94 Room Air I&Os I&O- Last 24 Hours up to 6 AM 09/07/20 06:00 Intake Total 3525 ml Output Total 3550 ml Balance -25 ml Laboratory Data Labs 24H Laboratory Tests 2 09/06/20 08:55: Immature Granulocyte % (Auto) 0.7, Neutrophils (%) (Auto) 81.0H, Lymphocytes (%) (Auto) 9.3L, Monocytes (%) (Auto) 7.9H, Eosinophils (%) (Auto) 0.8, Basophils (%) (Auto) 0.3, Neutrophils # (Auto) 12.7H, Lymphocytes # (Auto) 1.5, Monocytes # (Auto) 1.3H, Eosinophils # (Auto) 0.1, Basophils # (Auto) 0.0, Nucleated Red Blood Cells % (auto) 0.0 09/07/20 06:06: Nucleated Red Blood Cells % (auto) 0.0, Anion Gap 5L, Glomerular Filtration Rate > 60.0, Calcium Level 8.7L, Magnesium Level 1.8 CBC/BMP Laboratory Tests 09/06/20 08:55 09/07/20 06:06 Microbiology Microbiology 09/05/20 Genital Culture - Preliminary, Resulted Yeast Like Organism 09/04/20 Blood Culture - Preliminary, Resulted No Growth after 48 hours. All Specime... 09/04/20 Urine Culture - Final, Complete Yeast Like Organism 09/04/20 Blood Culture - Preliminary, Resulted No Growth after 48 hours. All Specime... Home Medications Scheduled Bacillus Coagulans (Bacid with Lactospore) 1 Each Capsule, 1 CAP PO BIDWM, (Reported) Calcium Carb/Vitamin D3/Vit K1 (Viactiv 650 mg-12.5 Mcg Chew) 1 Each Tab.chew, 1 CHEW PO DAILY, (Reported) Calcium Polycarbophil (Fibercon) 625 Mg Tablet, 625 MG PO DAILY, (Reported) Carbidopa/Levodopa (Carbidopa-Levodopa 25-100 Tab) 1 Each Tablet, 1 TAB PO TID, (Reported) Digoxin (Digoxin) 125 Mcg Tablet, 125 MCG PO DAILY, (Reported) Nitrofurantoin Monohyd/M-Cryst (Nitrofurantoin Andrew-Mcr 100 mg) 100 Mg Capsule, 1 TAB PO BID, (Reported) FOR 7 DAYS, STARTED 09/02 Sennosides (Senna Lax) 8.6 Mg Tablet, 8.6 MG PO DAILY, (Reported) Allergies Coded Allergies: Sulfa (Sulfonamide Antibiotics) (Verified Allergy, Mild, UNKNOWN REACTION, 09/04/20) apixaban (Verified Allergy, Unknown, BLEEDING, 09/04/20) MANUELA ORLANDO MD Sep 07, 2020 07:28
[2020-09-07] MEDS: SINEMET 25-100 MG TAB PO SCH ×3 (08:52→20:11)
[2020-09-07] MEDS: HEPARIN SOD (PORCINE) 5000UNITS/ML 1ML VIAL/SYRINGE SC SCH ×2 (08:52→20:12)
[2020-09-07] MEDS: SENNA 8.6 MG TAB (SENOKOT) PO SCH (08:52)
[2020-09-07] MEDS: VANCOMYCIN HCL 500 MG in D5W MINI-BAG PLUS 100 ML IV SCH ×2 (08:52→20:11)
[2020-09-07] MEDS: DIGOXIN 0.125 MG TAB PO SCH (08:53)
--- NOTE | 2020-09-07 10:31 | IPNPDOC ---
Text Note Date of Service The patient was seen on 09/07/20. NOTE Subjective: No any acute events overnight. Objective: GENERAL APPEARANCE: NAD HEENT: no scleral icterus, no JVD, EOMI CARDIOVASCULAR: Irregularly irregular LUNGS: CTA ABDOMEN: soft & not tender w palpitation MUSCULOSKELETAL: no cyanosis, no swelling INTEGUMENT: no generalized palor NEUROLOGICAL: follows commands, speech not dysarthric, no nuchal rigidity Assessment/Plan Patient is an 84-year-old male with atrial flutter, dementia, Parkinson's disease, chronic indwelling Mccullough, and C. difficile presented hospital with weakness and blood tinged Mccullough output. The patient has dementia and is a poor historian. Most of the history was obtained from the who was present in the room. His stated that patient developed generalized weakness around 1 week ago, he had few episodes of vomiting around 2 days ago. This morning his blood pressure was 86/68 with heart rate around 160. In ER patient was found to have leukocytosis of 19, Chest x-ray negative for an acute process. UA showed pyuria. His told me that he has his Mccullough changed once a month. Last change was around 2 weeks ago. Problems (1) Sepsis resolved UA showed pyuria Blood culture negative urine culture positive for yeast organism Vancomycin IV, cefepime IV. Previous urine culture was positive for MRSA MRSA screen positive CT of abdomen and pelvis showed Pericholecystic stranding and gallbladder wall thickening suggesting acute cholecystitis. Patient continues to have persistent leukocytosis, however he does not complain of the right upper quadrant pain. acute cholecystitis can be cause of persistent leukocytosis. Today leukocytosis improved. Dr. Baez recommended to continue antibiotics for the cholecystitis for next 2 weeks and follow-up with surgical team in 2 weeks for possible cholecystectomy. Ultrasound showed The gallbladder demonstrates wall thickening to 4 mm with large amount of avascular echogenic nonshadowing material likely representing tumefactive sludge. No biliary ductal dilatation is appreciated and the common bile duct measures 3.1 mm diameter. Acalculus cholecystitis Continue antibiotics, follow-up with surgical team in 2 weeks UTI (urinary tract infection) Due to chronic Mccullough catheter Weakness Most likely secondary to multiple comorbidities superimposed with sepsis Normally ambulates with walker and gait belt His who is a power of ip attorney refused PT/OT Patient candidate for rehab Hematuria Follow-up with urologist in the outpatient settings for cystoscopy Hemoglobin stable Parkinson disease Continue carbidopa levodopa (6) Atrial flutter On digoxin Not in atrial flutter at this time Not on oral target anticoagulation due to chronic hematuria VS,Fishbone, I+O VS, Fishbone, I+O Laboratory Tests 09/07/20 06:06 Vital Signs Date Time Temp Pulse Resp B/P (MAP) Pulse Ox O2 Delivery O2 Flow Rate FiO2 09/07/20 08:53 68 09/07/20 06:00 99.1 18 152/86 (108) 94 Room Air I&O- Last 24 Hours up to 6 AM 09/07/20 06:00 Intake Total 3525 ml Output Total 3550 ml Balance -25 ml VASYL BARNEY DO Sep 07, 2020 10:31
[2020-09-07 14:00] VITALS: BP 133/71
[2020-09-07 22:00] VITALS: BP 112/82
[2020-09-08] MEDS: NS 1,000 ML IV SCH ×2 (00:38→09:11)
[2020-09-08] MEDS: CEFEPIME HCL 2 GM in D5W 50 ML IV SCH (05:04)
[2020-09-08 06:00] VITALS: BP 113/59
[2020-09-08 06:26] LABS: HEMATOCRIT 35.1 % (42.0-52.0); HEMOGLOBIN 11.7 g/dl (13.5-17.5); MEAN CORPUSCULAR HEMOGLOBIN 29.5 pg (27.0-33.0); MEAN CORPUSCULAR HGB CONC 33.3 g/dl (32.0-36.5); MEAN CORPUSCULAR VOLUME 88.6 fl (80.0-96.0); PLATELET COUNT, AUTOMATED 195 10^3/uL (150-450); RED BLOOD COUNT 3.96 10^6/uL (4.30-6.10); WHITE BLOOD COUNT 9.9 10^3/uL (4.0-10.0)
[2020-09-08 07:00] LABS: BLOOD UREA NITROGEN 8 MG/DL (7-18); CALCIUM LEVEL 8.5 MG/DL (8.8-10.2); CARBON DIOXIDE LEVEL 29 MEQ/L (21-32); CHLORIDE LEVEL 109 MEQ/L (98-107); CREATININE FOR GFR 0.69 MG/DL (0.70-1.30); GLOMERULAR FILTRATION RATE > 60.0 (>35); GLUCOSE, FASTING 86 MG/DL (70-100); MAGNESIUM LEVEL 1.9 MG/DL (1.8-2.4); POTASSIUM SERUM 3.6 MEQ/L (3.5-5.1); SODIUM LEVEL 141 MEQ/L (136-145); VANCOMYCIN LEVEL TROUGH 15.3 UG/ML (10.0-20.0)
[2020-09-08] MEDS: VANCOMYCIN HCL 750 MG, VIAL MATE ADAPTER 1 EACH in D5W 250 ML IV SCH (07:06)
[2020-09-08] MEDS: HEPARIN SOD (PORCINE) 5000UNITS/ML 1ML VIAL/SYRINGE SC SCH (08:56)
[2020-09-08] MEDS: VANCOMYCIN HCL 500 MG in D5W MINI-BAG PLUS 100 ML IV SCH (08:57)
[2020-09-08] MEDS: SENNA 8.6 MG TAB (SENOKOT) PO SCH (08:57)
[2020-09-08] MEDS: SINEMET 25-100 MG TAB PO SCH (08:57)
[2020-09-08] MEDS: DIGOXIN 0.125 MG TAB PO SCH (08:58)
[2020-09-08] MEDS ORDERED: METR-135 PO (10:04)
[2020-09-08] MEDS ORDERED: CIPR500T3 PO (10:04)
--- NOTE | 2020-09-08 11:36 | DS.PDOC ---
Discharge Summary General Date of Admission Sep 04, 2020 at 14:13 Date of Discharge 09/08/20 Discharge Summary PROCEDURES PERFORMED DURING STAY: [None]. ADMITTING DIAGNOSES: Sepsis Acalculus cholecystitis UTI (urinary tract infection) Due to chronic Mccullough catheter Weakness Hematuria Parkinson disease Atrial flutter DISCHARGE DIAGNOSES: Sepsis Acalculus cholecystitis UTI (urinary tract infection) Due to chronic Mccullough catheter Weakness Hematuria Parkinson disease Atrial flutter COMPLICATIONS/CHIEF COMPLAINT: Sepsis. HISTORY OF PRESENT ILLNESS:Patient is an 84-year-old male with atrial flutter, dementia, Parkinson's disease, chronic indwelling Mccullough, and C. difficile presented hospital with weakness and blood tinged Mccullough output. The patient has dementia and is a poor historian. Most of the history was obtained from the who was present in the room. His stated that patient developed generalized weakness around 1 week ago, he had few episodes of vomiting around 2 days ago. This morning his blood pressure was 86/68 with heart rate around 160. In ER patient was found to have leukocytosis of 19, Chest x-ray negative for an acute process. UA showed pyuria. His told me that he has his Mccullough changed once a month. Last change was around 2 weeks ago. HOSPITAL COURSE: During hospital stay following issues addressed (1) Sepsis resolved UA showed pyuria Blood culture negative urine culture positive for yeast organism Patient received treatment with Vancomycin IV, cefepime IV. Previous urine culture was positive for MRSA MRSA screen positive CT of abdomen and pelvis showed Pericholecystic stranding and gallbladder wall thickening suggesting acute cholecystitis. Patient continues to have persistent leukocytosis, however he does not complain of the right upper quadrant pain. acute cholecystitis can be cause of persistent leukocytosis. Today leukocytosis improved. Dr. Baez recommended to continue antibiotics for the cholecystitis for next 2 weeks and follow-up with surgical team in 2 weeks for possible cholecystectomy. Ultrasound showed The gallbladder demonstrates wall thickening to 4 mm with large amount of avascular echogenic nonshadowing material likely representing tumefactive sludge. No biliary ductal dilatation is appreciated and the common bile duct measures 3.1 mm diameter. Acalculus cholecystitis Continue antibiotics, follow-up with surgical team in 2 weeks UTI (urinary tract infection) See above Weakness Most likely secondary to multiple comorbidities superimposed with sepsis Normally ambulates with walker and gait belt His who is a power of environmental health and safety intern refused PT/OT Patient candidate for rehab Hematuria Follow-up with urologist in the outpatient settings for cystoscopy Hemoglobin stable Parkinson disease Continue carbidopa levodopa (6) Atrial flutter On digoxin Not in atrial flutter at this time Not on oral target anticoagulation due to chronic hematuria DISCHARGE MEDICATIONS: Please see below. ALLERGIES: Please see below. PHYSICAL EXAMINATION ON DISCHARGE: VITAL SIGNS: Please see below. GENERAL APPEARANCE: NAD HEENT: no scleral icterus, no JVD, EOMI CARDIOVASCULAR: Irregularly irregular LUNGS: CTA ABDOMEN: soft & not tender w palpitation MUSCULOSKELETAL: no cyanosis, no swelling INTEGUMENT: no generalized palor NEUROLOGICAL: follows commands, speech not dysarthric, no nuchal rigidity LABORATORY DATA: Please see below. IMAGING: [facility] NAME: LAURENCE KAPLAN DATE OF : 1935 AGE: 84 SEX: M REPORT #: [id number] ROOM: [facility] TECHNOLOGIST: [facility] DOCTOR: MANUELA BAEZ MD Ordered for Date&Time: 09/06/20 0839 cc: [~ rep ct ivnm] Service Date&Time: 09/06/20 1424 This report is in Signed status. If this report is in a DRAFT status it has not yet been reviewed by the radiologist for accuracy. Thank you for having your radiology procedures performed at [facility] RADIOLOGY REPORT Date&Time printed: [~ rep prt dt last] [~ rep prt tm last] Page 2 of 2 [place] [address] RADIOLOGY REPORT This report is in Signed status. If this report is in a DRAFT status it has not yet been reviewed by the radiologist for accuracy. Thank you for having your radiology procedures performed at [facility] RADIOLOGY REPORT Date&Time printed: [~ rep prt dt last] [~ rep prt tm last] Page 1 of 1 INDICATION: cholecystitis, look for stones COMPARISON: None. TECHNIQUE: Real time hendrickson scale ultrasound examination using curved array transducer. FINDINGS: The gallbladder demonstrates wall thickening to 4 mm with large amount of avascular echogenic nonshadowing material likely representing tumefactive sludge. No biliary ductal dilatation is appreciated and the common bile duct measures 3.1 mm diameter. Liver is incompletely evaluated but visualized portions appear normal. Right kidney measures 12.0 x 5.6 x 6.0 cm with 1.2 cm upper pole benign cyst and mild renal pelviectasis. Incidental small right pleural effusion. IMPRESSION: Tumefactive sludge partially fills the gallbladder with gallbladder wall thickening. Limited examination. <Electronically signed by Santos Mathis > 09/06/201623 DD: Santos Mathis MD 09/06/201619 DT: ALDAIR 09/06/201623 DS: INES 09/06/20161909/06/201619 [~ rep ct labl] PROGNOSIS: Fair ACTIVITY: [As tolerated]. DIET: Regular DISPOSITION: Home, Self-Care. Patient's refused rehabilitation option, she stated that patient will get 03/05 care at home. ITEMS TO FOLLOWUP ON ON OUTPATIENT: Follow-up with PCP, with surgical team Dr. Baez in 7-10 days, speech pathologist assistant in 1 week DISCHARGE CONDITION: [Stable]. TIME SPENT ON DISCHARGE: Greater than 40 minutes. Vital Signs/I&Os Vital Signs Date Time Temp Pulse Resp B/P (MAP) Pulse Ox O2 Delivery O2 Flow Rate FiO2 09/08/20 08:58 70 09/08/20 06:00 97.9 20 113/59 (77) 97 Room Air I&O- Last 24 Hours up to 6 AM 09/08/20 06:00 Intake Total 3090 ml Output Total 2650 ml Balance 440 ml Laboratory Data Labs 24H Laboratory Tests 2 09/08/20 06:13: Nucleated Red Blood Cells % (auto) 0.0, Anion Gap 3L, Glomerular Filtration Rate > 60.0, Calcium Level 8.5L, Magnesium Level 1.9, Vancomycin Level Trough 15.3 CBC/BMP Laboratory Tests 09/08/20 06:13 Microbiology Microbiology 09/05/20 Genital Culture - Final, Complete Yeast Like Organism 09/04/20 Blood Culture - Preliminary, Resulted No Growth after 72 hours. All specime... 09/04/20 Urine Culture - Final, Complete Yeast Like Organism 09/04/20 Blood Culture - Preliminary, Resulted No Growth after 72 hours. All specime... Discharge Medications Scheduled Bacillus Coagulans (Bacid with Lactospore) 1 Each Capsule, 1 CAP PO BIDWM, (Re ported) Calcium Carb/Vitamin D3/Vit K1 (Viactiv 650 mg-12.5 Mcg Chew) 1 Each Tab.chew, 1 CHEW PO DAILY, (Reported) Calcium Polycarbophil (Fibercon) 625 Mg Tablet, 625 MG PO DAILY, (Reported) Carbidopa/Levodopa (Carbidopa-Levodopa 25-100 Tab) 1 Each Tablet, 1 TAB PO TID, (Reported) Ciprofloxacin HCl (Ciprofloxacin HCl) 500 Mg Tablet, 1 TAB PO BID Digoxin (Digoxin) 125 Mcg Tablet, 125 MCG PO DAILY, (Reported) Metronidazole (Metronidazole) 250 Mg Tablet, 250 MG PO TID Nitrofurantoin Monohyd/M-Cryst (Nitrofurantoin [place]-Mcr 100 mg) 100 Mg Capsule, 1 TAB PO BID, (Reported) FOR 7 DAYS, STARTED 09/02 Sennosides (Senna Lax) 8.6 Mg Tablet, 8.6 MG PO DAILY, (Reported) Allergies Coded Allergies: Sulfa (Sulfonamide Antibiotics) (Verified Allergy, Mild, UNKNOWN REACTION, 09/04/20) apixaban (Verified Allergy, Unknown, BLEEDING, 09/04/20) VASYL BARNEY DO Sep 08, 2020 11:36
== END 2020-09-08 10:50 | disposition home health service (06) | DRG 698 ==
LOC: EDBD 11:25 → M ED 11:25 → M ED INP 14:13 → ENRESERV 14:28 → M MSPAV 16:13
PROVIDERS: ADMIT Internal Medicine; ATTEND Internal Medicine
DX: T83.518A Infection and inflammatory reaction due to other urinary catheter, initial encounter (principal); A41.9 Sepsis, unspecified organism; I48.92 Unspecified atrial flutter; I50.32 Chronic diastolic (congestive) heart failure; K81.0 Acute cholecystitis; R53.1 Weakness; G20 Parkinson's disease; N40.0 Benign prostatic hyperplasia without lower urinary tract symptoms; F03.90 Unspecified dementia, unspecified severity, without behavioral disturbance, psychotic disturbance, mood disturbance, and anxiety; Z66 Do not resuscitate; Z79.899 Other long term (current) drug therapy; Z88.2 Allergy status to sulfonamides; Z88.8 Allergy status to other drugs, medicaments and biological substances; Y84.6 Urinary catheterization as the cause of abnormal reaction of the patient, or of later complication, without mention of misadventure at the time of the procedure; Z20.828 Contact with and (suspected) exposure to other viral communicable diseases

== ENCOUNTER → 2021-02-28 | Outpatient (REF) | payer MEDICARE, OTHER ==
[~2021-02-28] MED LIST changes: +CARB25TA18 PO; +CIPR500T3 PO; +FIBE625T PO; +METR-135 PO; +NITR100C2 PO; -PEG1POW PO; +POLY17PO18 PO; +RA S8.6T3 PO; +VIAC1CHW PO
[2021-02-28 11:02] LABS: AMORPHOUS SEDIMENT SMALL (NEGATIVE); APPEARANCE, URINE TURBID (CLEAR); BACTERIA, URINE AUTO 1+ (NEGATIVE); BILIRUBIN, URINE AUTO NEGATIVE (NEGATIVE); BLOOD, URINE BLOOD 2+ (NEGATIVE); COLOR, URINE YELLOW (YELLOW); GLUCOSE, URINE (UA) AUTO NEGATIVE (NEGATIVE); KETONE, URINE AUTO NEGATIVE (NEGATIVE); LEUKOCYTE ESTERASE, URINE AUTO 3+ (NEGATIVE); MUCUS, URINE MODERATE (NEGATIVE); NITRITE, URINE AUTO POSITIVE (NEGATIVE); PROTEIN, URINE AUTO 1+ mg/dL (NEGATIVE); RBC, URINE AUTO 109 /HPF (0-3); SPECIFIC GRAVITY URINE AUTO 1.018 (1.002-1.035); SQUAMOUS EPITHELIAL CELL UR AU 0 /HPF (0-6); UROBILINOGEN, URINE AUTO 0.2 mg/dL (0.0-2.0); WBC, URINE AUTO TNTC /HPF (0-3)
== END ==
LOC: M LAB REF 10:25
PROVIDERS: ATTEND Physician Assistant Medical
DX: N39.0 Urinary tract infection, site not specified (principal)

== ENCOUNTER → 2021-06-03 | Outpatient (REF) ==
[2021-06-03 11:32] LABS: APPEARANCE, URINE TURBID (CLEAR); BACTERIA, URINE AUTO 2+ (NEGATIVE); BILIRUBIN, URINE AUTO NEGATIVE (NEGATIVE); BLOOD, URINE BLOOD 2+ (NEGATIVE); CALCIUM OXALATE CRYSTALS SMALL; COLOR, URINE AMBER (YELLOW); GLUCOSE, URINE (UA) AUTO NEGATIVE (NEGATIVE); KETONE, URINE AUTO NEGATIVE (NEGATIVE); LEUKOCYTE ESTERASE, URINE AUTO 3+ (NEGATIVE); MUCUS, URINE LARGE (NEGATIVE); NITRITE, URINE AUTO POSITIVE (NEGATIVE); PROTEIN, URINE AUTO 2+ mg/dL (NEGATIVE); RBC, URINE AUTO 66 /HPF (0-3); SPECIFIC GRAVITY URINE AUTO 1.017 (1.002-1.035); SQUAMOUS EPITHELIAL CELL UR AU 2 /HPF (0-6); UROBILINOGEN, URINE AUTO 0.2 mg/dL (0.0-2.0); WBC, URINE AUTO TNTC /HPF (0-3)
== END ==
LOC: M LAB REF 10:34
PROVIDERS: ATTEND Physician Assistant Medical
DX: N39.0 Urinary tract infection, site not specified (principal)

== ENCOUNTER → 2021-06-13 | Outpatient (REF) ==
[2021-06-13 11:59] LABS: APPEARANCE, URINE TURBID (CLEAR); BACTERIA, URINE AUTO 2+ (NEGATIVE); BILIRUBIN, URINE AUTO NEGATIVE (NEGATIVE); BLOOD, URINE BLOOD 2+ (NEGATIVE); COLOR, URINE AMBER (YELLOW); GLUCOSE, URINE (UA) AUTO NEGATIVE (NEGATIVE); KETONE, URINE AUTO NEGATIVE (NEGATIVE); LEUKOCYTE ESTERASE, URINE AUTO 2+ (NEGATIVE); MUCUS, URINE LARGE (NEGATIVE); NITRITE, URINE AUTO NEGATIVE (NEGATIVE); PROTEIN, URINE AUTO 2+ mg/dL (NEGATIVE); RBC, URINE AUTO 97 /HPF (0-3); SPECIFIC GRAVITY URINE AUTO 1.018 (1.002-1.035); SQUAMOUS EPITHELIAL CELL UR AU 2 /HPF (0-6); UROBILINOGEN, URINE AUTO 0.2 mg/dL (0.0-2.0); WBC, URINE AUTO TNTC /HPF (0-3)
== END ==
LOC: M LAB REF 11:27
DX: N39.9 Disorder of urinary system, unspecified (principal)